=== PATIENT | male | born 1955 | race Caucasian/White ===

== ENCOUNTER 2017-01-10 13:17 | Emergency (ER) | payer OTHER, MEDICARE ==
[~2017-01-10] VITALS: Ht 175.3 cm; Wt 81.6 kg
--- NOTE | 2017-01-10 13:58 | ED GI/GU/ABDOMINAL COMPLAINT ---
History of Present Illness General Chief Complaint: General Adult Stated Complaint: CONSTIPATION Source: patient Exam Limitations: no limitations Vital Signs & Intake/Output Vital Signs & Intake/Output Vital Signs Date Time Temp Pulse Resp B/P B/P Pulse O2 O2 Flow FiO2 Mean Ox Delivery Rate 01/10 1701 99.2 104 20 140/77 95 Room Air 01/10 1541 100.0 107 22 129/73 94 Room Air 01/10 1523 Room Air 01/10 1325 98.4 112 16 123/78 96 Room Air Allergies Coded Allergies: NO KNOWN ALLERGIES (01/10/17) Reconcile Medications Aspirin (Aspirin*) 81 MG TAB.CHEW 1 TAB PO DAILY HEART HEALTH (Reported) Ciprofloxacin HCl (Cipro) 500 MG TABLET 1 TAB PO BID UTI Ciprofloxacin HCl (Cipro) 500 MG TABLET 1 TAB PO BID UTI Dextromethorphan HBr/Quinidine (Nuedexta 20-10 MG Capsule) 20 MG-10 MG CAPSULE 1 CAP PO BID MS (Reported) Divalproex Sodium (Divalproex Sodium ER) 500 MG TAB.ER.24H 1 TAB PO QPM MS ( Reported) Metoprolol Succinate 50 MG TAB.ER.24H 1 TAB PO DAILY HEART (Reported) Oxybutynin Chloride (Oxybutynin Chloride ER) 15 MG TAB.ER.24 1 TAB PO BID BLADDER (Reported) Rosuvastatin Calcium (Crestor) 40 MG TABLET 1 TAB PO DAILY CHOLESTEROL ( Reported) Sertraline HCl 100 MG TABLET 2 TAB PO DAILY MENTAL HEALTH (Reported) Teriflunomide (Aubagio) 14 MG TABLET 1 TAB PO DAILY MS (Reported) Triage Note: PT BIBA FROM HOME FOR CONSTIPATION STATES LAST TIME HE MOVED HIS BOWELS WAS 4 DAYS AGO. Triage Nurses Notes Reviewed? yes Onset: Abrupt Duration: day(s): (4), constant, continues in ED Timing: recent history No Modifying Factors: none HPI: 62-year-old male comes into emergency room for further evaluation of constipation for 4 days. Patient reports she has not had a bowel movement. Patient reports he has a history of MS and is unable to really walk. Denies any fever chills vomiting. History of quadruple bypass. Denies any chest pain shortness of breath. Denies any other associated symptoms. (HAROON LOPEZ,EFRAÍN) Past History Travel History Traveled to [place] past 21 day No Medical History Any Pertinent Medical History? 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 No (EFRAÍN LEDESMA) Review of Systems Review of Systems Constitutional: Reports: no symptoms. EENTM: Reports: no symptoms. Respiratory: Reports: no symptoms. Cardiovascular: Reports: no symptoms. GI: Reports: see HPI. Genitourinary: Reports: no symptoms. Musculoskeletal: Reports: no symptoms. Skin: Reports: no symptoms. Neurological/Psychological: Reports: no symptoms. Hematologic/Endocrine: Reports: no symptoms. Immunologic/Allergic: Reports: no symptoms. All Other Systems: Reviewed and Negative (EFRAÍN LEDESMA) Physical Exam Physical Exam General Appearance: well developed/nourished, alert, awake Head: atraumatic, normal appearance Eyes: Bilateral: normal appearance. Ears, Nose, Throat, Mouth: hearing grossly normal, moist mucous membrane Neck: normal inspection, full range of motion Respiratory: normal breath sounds, no respiratory distress Cardiovascular: regular rate/rhythm Gastrointestinal: normal bowel sounds, soft, non-tender Back: normal inspection Extremities: normal range of motion Neurologic/Psych: awake, alert, oriented x 3, normal gait, normal mood/affect Skin: intact, normal color Core Measures ACS in differential dx? No Severe Sepsis Present: No Septic Shock Present: No (EFRAÍN LEDESMA) Progress Differential Diagnosis: appendicitis, biliary colic, bowel obstruction, colon cancer, cholecystitis, diverticulitis, orchitis, pancreatitis, prostatitis, peptic ulcer, pyelonephritis, ureterolithiasis, urinary retention, urethritis, UTI/pyelo Plan of Care: Orders Procedure Date/time Status Add-on Test (ER Only) 01/10 1549 Active EKG 01/10 1547 Active Add-on Test (ER Only) 01/10 1512 Active CULTURE,URINE 01/10 1418 Active TROPONIN LEVEL 01/10 1418 Complete URINALYSIS 01/10 1357 Complete LIPASE 01/10 1354 Complete COMPREHENSIVE METABOLIC PANEL 01/10 1354 Complete CBC WITHOUT DIFFERENTIAL 01/10 1354 Complete Laboratory Tests 01/10/17 1418: Anion Gap 14, Estimated GFR > 60, BUN/Creatinine Ratio 18.0, Glucose 123 H, Calcium 9.6, Total Bilirubin 1.0, AST 74 H, ALT 71, Alkaline Phosphatase 95, Troponin I < 0.01, Total Protein 6.5, Albumin 3.7, Globulin 2.8, Albumin/ Globulin Ratio 1.3, Lipase 99, CBC w Diff MAN DIFF ORDERED, RBC 4.52 L, MCV 85.1, MCH 28.2, RDW 15.7 H, MPV 7.4, Gran % 84.1 H, Lymphocytes % 6.9 L, Monocytes % 7.5, Eosinophils % 1.3, Basophils % 0.2, Absolute Granulocytes 7.3 H, Absolute Lymphocytes 0.6 L, Absolute Monocytes 0.7 H, Absolute Eosinophils 0.1, Absolute Basophils 0, Platelet Estimate VERIFIED BY SMEAR, Polychromasia 1+ , Poikilocytosis 1+, Anisocytosis 1+, Ovalocytes 1+, PUBS MCHC 33.2, Urine Color YEL, Urine Clarity CLDY H, Urine pH 7.0, Ur Specific [place] 1.020, Urine Protein 100 H, Urine Ketones NEG, Urine Nitrite NEG, Urine Bilirubin SMALL H, Urine Urobilinogen 2.0 H, Ur Leukocyte Esterase MOD H, Ur Microscopic SEDIMENT EXAMINED, Urine RBC 50-75 H, Urine WBC > 75 H, Urine Mucus MOD H, Urine Hemoglobin MOD H, Urine Glucose NEG Microbiology 01/10 1418 URINE ROUT: Urine Culture - RECD Initial ED EKG: normal intervals, normal p-waves, normal sinus rhythm, rate (111 ), nonspecific ST T wave chg (EFRAÍN LEDESMA) Departure Departure Disposition: HOME OR SELF CARE Condition: Stable Clinical Impression Primary Impression: Constipation Secondary Impressions: UTI (urinary tract infection) Referrals: PANKAJ DECKER (PCP/Family) Additional Instructions: Take ciprofloxacin as prescribed. Use MiraLAX [id number]. Return if any other concerns worsening symptoms. Please go over all results of today's visit with your primary care doctor. Contact your primary care doctor to let them know you were here in the emergency room. There may be nonspecific findings which may not be related to your visit today here in the emergency room but may require further evaluation and chronic monitoring by your primary care doctor. If you had a laceration today the chance of foreign body always remains. You should follow-up with your primary care doctor for recheck in 3-5 days for a wound check. If you had an x-ray done there is a chance that a fracture could have been missed on initial read and you should follow-up with your primary care doctor for repeat x-rays if symptoms persist. If your blood pressure was elevated here in the emergency room please have rechecked by her primary care doctor within the next 48 hours by your primary care doctor. If you were prescribed a narcotic here in the emergency room or any type of controlled substances you're not allowed to drive while taking this medication or operate any type of heavy machinery. Narcotics can make you feel lightheaded dizziness nausea and can cause constipation. You may need to roll picker a stool softener. Thank you for choosing [facility] emergency room. Please return to the emergency room immediately if you have any other concerns worsening of symptoms. Departure Forms: Customer Survey General Discharge Information Prescriptions: Current Visit Scripts Ciprofloxacin HCl (Cipro) 1 TAB PO BID #14 TAB Ciprofloxacin HCl (Cipro) 1 TAB PO BID #14 TAB Comments 01/10/2017 5:10:24 PM Patient clinically looks well. No apparentdistress. Nontoxic appearing. Patient had a large bowel movement. Patient has no complaints of chest pain or shortness of breath through the emergency room. EKG was done due to the fact that the caregiver reported some shortness of breath earlier today and the patient has a cardiac history. He clinically looks well. He had a large bowel movement here. His symptoms have completely resolved. Patient also has a urinary tract infection. Patient started on oral antibiotics. Does not appear to be septic appearing. Follow-up with primary care doctor. Return if any other concerns worsening symptoms. Case and EKG discussed with Dr. Farrar. (EFRAÍN LEDESMA) PA/NATIONAL INVESTIGATIVE PRODUCER Co-Sign Statement Statement: ED Attending supervision documentation- [] I saw and evaluated the patient. I have also reviewed all the pertinent lab results and diagnostic results. I agree with the findings and the plan of care as documented in the PA's/NATIONAL INVESTIGATIVE PRODUCER's documentation. [X] I have reviewed the ED Record and agree with the PA's/NATIONAL INVESTIGATIVE PRODUCER's documentation. [] Additions or exceptions (if any) to the PAs/NATIONAL INVESTIGATIVE PRODUCER's note and plan are summarized below: [] (EDWARDO BURNS,RONEN Pennington
[2017-01-10] MEDS ORDERED: SERTRALINE HCL100 MG PO (14:28)
[2017-01-10] MEDS ORDERED: METOPROLOL SUCC50 M2 PO (14:29)
[2017-01-10] MEDS ORDERED: DIVALPROEX SOD500 M3 PO (14:29)
[2017-01-10] MEDS ORDERED: NUEDEXTA 20-101 EACH PO (14:29)
[2017-01-10] MEDS ORDERED: OXYBUTYNIN CHLO15 M1 PO (14:30)
[2017-01-10] MEDS ORDERED: CRESTOR40 M2 PO (14:30)
[2017-01-10] MEDS ORDERED: ASPIRIN81 M4 PO (14:31)
--- NOTE | 2017-01-10 14:41 | CT SCAN REPORT ---
EXAMINATION: CT ABDOMEN AND PELVIS WITHOUT CONTRAST CLINICAL INFORMATION: 62-year-old man with 4 days of constipation. COMPARISON: None TECHNIQUE: Multidetector volumetric imaging was performed from the superior aspect of the liver through the pubic symphysis. Sagittal and coronal reformatted images were obtained on the technologist's workstation. DLP: 309 mGy-cm FINDINGS: Evaluation of the lung bases is notable for patchy airspace opacities seen bilaterally. A 5 mm nodule is noted at the right lung base. A larger nodular area of opacity more superiorly is suspected to reflect focal alveolar consolidation rather than another nodule. The liver, spleen, pancreas, adrenals, kidneys, and partially distended gallbladder remain normal in their noncontrast appearance. There is massive rectal distention with fecal matter, measuring up to 8.5 cm in AP diameter. There is no significant rectal wall thickening or perirectal stranding to suggest stercoral colitis however. Nondilated loops of large and small bowel are otherwise fairly unremarkable. The appendix and terminal ileum are not inflamed. The prostate, seminal vesicles, and partially distended bladder are unremarkable. There is age indeterminate mild to moderate depression of the superior T12 and L2 endplates. There is a right L5 laminectomy defect. The T12 compression deformity was not visible on a chest CT from 2009. IMPRESSION: 1. There is massive rectal distention with desiccated fecal matter. However, there is no CT evidence of associated stercoral colitis. 2. Mild to moderate age-indeterminate superior endplate compression fractures of T12 and L2. 3. Nonspecific patchy airspace opacity seen in both lung bases with an associated 5 mm indeterminate nodule at the left lung base.
[2017-01-10 14:48] LABS: ABSOLUTE BASOPHIL COUNT 0 /CUMM (0.0-0.2); ABSOLUTE EOSINOPHIL COUNT 0.1 /CUMM (0.0-0.7); ABSOLUTE GRANULOCYTE CT 7.3 /CUMM (1.4-6.5); ABSOLUTE LYMPH COUNT 0.6 /CUMM (1.2-3.4); ABSOLUTE MONOCYTE COUNT 0.7 /CUMM (0.10-0.60); BASOPHIL % 0.2 % (0.0-2.0); EOSINOPHIL % 1.3 % (0-5); GRANULOCYTE % 84.1 % (42.2-75.2); HEMATOCRIT 38.5 % (42-52); MEAN CORPUSCULAR HGB 28.2 PG (27.0-31.0); MEAN CORPUSCULAR HGB CONC 33.2 G/DL (33.0-37.0); MEAN CORPUSCULAR VOLUME 85.1 FL (80.0-94.0); MEAN PLATELET VOLUME 7.4 FL (7.4-10.4); PLATELET COUNT 184 /CUMM (130-400); RBC DISTRIBUTION WIDTH 15.7 % (11.5-14.5); RED BLOOD CELL CT 4.52 /CUMM (4.70-6.10); WHITE BLOOD CELL COUNT 8.7 /CUMM (4.8-10.8)
[2017-01-10] MEDS ORDERED: AUBAGIO14 M1 PO (15:11)
[2017-01-10] MEDS ORDERED: CIPRO500 M1 PO ×2 (16:46→17:12)
[2017-01-10 17:01] VITALS: BP 140/77
== END 2017-01-10 17:02 ==
LOC: ERH 13:17
PROVIDERS: Physician Assistant Medical
DX: K59.00 Constipation, unspecified (principal); N39.0 Urinary tract infection, site not specified
CPT/HCPCS: 74176; 81001; 87086; 93005; 93010

== ENCOUNTER 2017-09-06 18:11 | Inpatient (IN) | payer OTHER, MEDICARE ==
[~2017-09-06] VITALS: Ht 175.3 cm; Wt 80.3 kg
[~2017-09-06 18:11] MED LIST: ASPIRIN81 M4 PO; AUBAGIO14 M1 PO; CIPRO500 M1 PO; CRESTOR40 M2 PO; DIVALPROEX SOD500 M3 PO; METOPROLOL SUCC50 M2 PO; NUEDEXTA 20-101 EACH PO; OXYBUTYNIN CHLO15 M1 PO; SERTRALINE HCL100 MG PO
--- NOTE | 2017-09-06 18:57 | ED AMS/SEIZURE/WEAK/DIZZY ---
History of Present Illness General Chief Complaint: General Adult Stated Complaint: BIBA WEAKNESS Source: patient, family Exam Limitations: poor historian Vital Signs & Intake/Output Vital Signs & Intake/Output Vital Signs Date Time Temp Pulse Resp B/P B/P Pulse O2 O2 Flow FiO2 Mean Ox Delivery Rate 09/07 0041 100.4 02/ 0035 100.4 09/06 2358 102.0 112 20 102/54 93 Room Air 09/06 2346 103.0 09/06 2309 103.0 110 20 118/61 94 Room Air 09/06 2221 111 112/59 02/ 2128 90/50 / 2056 99.5 100 20 85/50 94 Room Air / 1915 100.3 100 106/64 95 09/06 1900 Room Air 09/06 1857 98.5 102 20 186/80 95 Room Air ED Intake and Output 09/07 0000 09/06 1200 Intake Total Output Total 300 Balance -300 Output, Urine 300 Patient 150 lb Weight Allergies Coded Allergies: No Known Allergies (09/06/17) Reconcile Medications Aspirin (Aspirin*) 81 MG TAB.CHEW 1 TAB PO DAILY HEART HEALTH (Reported) Ciprofloxacin HCl (Cipro) 500 MG TABLET 1 TAB PO BID UTI Ciprofloxacin HCl (Cipro) 500 MG TABLET 1 TAB PO BID UTI Dextromethorphan HBr/Quinidine (Nuedexta 20-10 MG Capsule) 20 MG-10 MG CAPSULE 1 CAP PO BID MS (Reported) Divalproex Sodium (Divalproex Sodium ER) 500 MG TAB.ER.24H 1 TAB PO QPM MS ( Reported) Metoprolol Succinate 50 MG TAB.ER.24H 1 TAB PO DAILY HEART (Reported) Oxybutynin Chloride (Oxybutynin Chloride ER) 15 MG TAB.ER.24 1 TAB PO BID BLADDER (Reported) Rosuvastatin Calcium (Crestor) 40 MG TABLET 1 TAB PO DAILY CHOLESTEROL ( Reported) Sertraline HCl 100 MG TABLET 2 TAB PO DAILY MENTAL HEALTH (Reported) Teriflunomide (Aubagio) 14 MG TABLET 1 TAB PO DAILY MS (Reported) Triage Note: biba for increased weakness to bilateral lower ext. hx of MS, wheelchair bound at baseline. hx of frequent UTI's family believe pt has another UTI. pt hot to touch, awake/alert with easy wob, a&o to baseline. Triage Nurses Notes Reviewed? yes Onset: Abrupt Duration: day(s):, constant, getting worse Timing: recent history Injury Environment: home HPI: 62-year-old male with a history of multiple sclerosis comes in by ambulance for increased weakness. Patient is unable to ambulate which is below his normal baseline of function. Subjective fevers and chills. History of urinary tract infections. Patient is a very poor historian. Patient is unabke to walk at home. He denies any pain currently. (Gavin Tomas) Past History Travel History Traveled to [place] past 21 day No Medical History Any Pertinent Medical History? 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 No (Gavin Tomas) Review of Systems Review of Systems Constitutional: Reports: see HPI. EENTM: Reports: no symptoms. Respiratory: Reports: no symptoms. Cardiovascular: Reports: no symptoms. GI: Reports: no symptoms. Genitourinary: Reports: see HPI. Musculoskeletal: Reports: see HPI. Skin: Reports: no symptoms. Neurological/Psychological: Reports: no symptoms. Hematologic/Endocrine: Reports: no symptoms. Immunologic/Allergic: Reports: no symptoms. All Other Systems: Reviewed and Negative (Gavin Tomas) Physical Exam Physical Exam General Appearance: alert, awake, mild distress Head: atraumatic Eyes: Bilateral: normal appearance. Ears, Nose, Throat: normal ENT inspection, hearing grossly normal Neck: normal inspection Respiratory: no respiratory distress Cardiovascular: regular rate/rhythm, tachycardia Back: normal inspection Extremities: limited range of motion Neurologic/Psych: awake, alert, oriented x 3 Skin: intact, normal color Core Measures ACS in differential dx? No CVA/TIA Diagnosis No Sepsis Present: No Sepsis Focused Exam Completed? No (Gavin Tomas) Progress Differential Diagnosis: anemia, dehydration, electrolyte imbalance, pneumonia, sepsis, UTI/pyelo, ms Plan of Care: Orders Procedure Date/time Status Heart Healthy Diet 09/07 B Active Intake & Output 09/06 2350 Active Patient Data 09/06 2313 Active ED Holding Orders 09/06 2236 Active Admit to inpatient 09/06 2236 Active Vital Signs 09/06 2236 Active Code Status 09/06 2236 Active Add-on Test (ER Only) 09/06 2218 Active CULTURE,URINE 09/06 2199 Active LACTIC ACID 09/06 2124 Complete RAPID VIRAL INFLUENZA A 09/06 1945 Complete BLOOD CULTURE 09/06 1824 Active URINALYSIS 09/06 1824 Complete LACTIC ACID 09/06 1824 Complete COMPREHENSIVE METABOLIC PANEL 09/06 1824 Complete CBC WITHOUT DIFFERENTIAL 09/06 1824 Complete EKG 09/06 1824 Active Current Medications Sig/Tobin Start time Last Medication Dose Stop Time Status Admin Sodium Chloride 1,000 ML ONCE ONE 09/06 2244 AC 09/06 (Normal Saline 0.9%) 09/07 Laboratory Tests 09/06/172199: Urinalysis MOD H, Urine Color YEL, Urine Clarity CLDY H, Urine pH 6.0, Ur Specific [place] 1.025, Urine Protein 100 H, Urine Ketones TRACE H, Urine Nitrite POS H, Urine Bilirubin NEG, Urine Urobilinogen 0.2, Ur Leukocyte Esterase LARGE H, Ur Microscopic SEDIMENT EXAMINED, Urine RBC 25-50 H, Urine WBC PACKD H, Ur Epithelial Cells FEW, Urine Bacteria PACKD H, Urine Mucus FEW, Urine Hemoglobin LARGE H, Urine Glucose NEG 09/06/172124: Lactic Acid 2.1 09/06/17 1850: Anion Gap 17 H, Estimated GFR > 60, BUN/Creatinine Ratio 19.0, Glucose 117 H, Lactic Acid 4.4 H, Calcium 9.2, Total Bilirubin 0.9, AST 65 H, ALT 85 H, Alkaline Phosphatase 83, Total Protein 6.5, Albumin 3.9, Globulin 2.6, Albumin/ Globulin Ratio 1.5, CBC w Diff MAN DIFF ORDERED, RBC 4.89, MCV 86.1, MCH 29.4, MCHC 34.1, RDW 15.4 H, MPV 9.6, Gran % 90.9 H, Lymphocytes % 2.7 L, Monocytes % 6.2, Eosinophils % 0.2, Basophils % 0, Absolute Granulocytes 8.8 H, Segmented Neutrophils 84 H, Band Neutrophils 7 H, Absolute Lymphocytes 0.3 L, Lymphocytes 3 L, Monocytes 6, Absolute Monocytes 0.6, Absolute Eosinophils 0, Absolute Basophils 0, Platelet Estimate VERIFIED BY SMEAR, Normocytic RBCs VERIFIED, Normochromic RBCs VERIFIED, Fld Total RBCs Counted 100 Microbiology 09/06 2308 NASOPHARYN: Influenza Virus A & B Rapid Smear - COMP 09/06 2199 URINE ROUT: Urine Culture - RECD 09/06 1899 BLOOD: Blood Culture - RECD 09/06 185 BLOOD: Blood Culture - RECD Diagnostic Imaging: Viewed by Me: Radiology Read. Discussed w/RAD: Radiology Read. Radiology Impression: PATIENT: NICHOLE OCAMPO PRESENT AGE: 62 PATIENT ACCOUNT NO: [id number] : 57 LOCATION: [facility] ORDERING PHYSICIAN: Gavin LOPEZ SERVICE DATE: 09/06/17 EXAM TYPE : RAD - XRY-PORTABLE CHEST XRAY EXAMINATION: XR PORTABLE CHEST CLINICAL INFORMATION: Weakness COMPARISON: Chest x-ray of 08/17/2013. Chest CT of 2009. TECHNIQUE: Portable frontal view of the chest was obtained. FINDINGS: Multiple cardiac leads and wires overlie the chest. The sternotomy wires appear intact. Cardiac valve prosthesis is again noted without change in configuration. The lungs are hypoexpanded. No focal consolidation, changes of congestion or pleural effusions. No pneumothorax. Cardiomediastinal silhouette is unchanged. IMPRESSION: Hypoexpanded lungs. No acute pulmonary process. DICTATED BY: Daniel Bailey MD DATE/TIME DICTATED:09/06/172004 CASING CREW PUSHER:RASHIDA DATE/TIME TRANSCRIBED:09/06/172004 CONFIDENTIAL, DO NOT COPY WITHOUT APPROPRIATE AUTHORIZATION. <Electronically signed in Other Vendor System> SIGNED BY: Daniel Bailey MD 09/06/172009 Initial ED EKG: normal sinus rhythm, rate (112), nonspecific ST T wave chg (Gavin Tomas) Departure Departure Disposition: STILL A PATIENT Condition: Stable Clinical Impression Primary Impression: UTI (urinary tract infection) Secondary Impressions: Hypotension, Multifactorial gait disorder, Multiple sclerosis Referrals: April Heller APRN (PCP/Family) Departure Forms: Customer Survey General Discharge Information Admission Note Spoke With: Danyelle Ramos MD Documentation of Exam: Documentation of any treatments & extenuating circumstances including Concerns Regarding Discharge (functional status, medication knowledge or non-compliance, living conditions, etc.) that warrant an admission rather than observation: Patient will require IV antibiotics. IV fluids. Physical therapy consultation. Unable to ambulate. Medically not safe for discharge. (Gavin Tomas) PA/DELIVERY CREW MEMBER Co-Sign Statement Statement: ED Attending supervision documentation- [X] I saw and evaluated the patient. I have also reviewed all the pertinent lab results and diagnostic results. I agree with the findings and the plan of care as documented in the PA's/DELIVERY CREW MEMBER's documentation. [X] I have reviewed the ED Record and agree with the PA's/DELIVERY CREW MEMBER's documentation. [] Additions or exceptions (if any) to the PAs/DELIVERY CREW MEMBER's note and plan are summarized below: [Patient be admitted for IV antibiotics. Follow-up urine cultures and blood cultures. Patient was hypotensive but he responded to IV fluids.] (Charan BURNS,[place]) Critical Care Note Critical Care Note Critical Care Time: 30-74 min (40) (Gavin Tomas)
[2017-09-06 19:16] LABS: ABSOLUTE BASOPHIL COUNT 0 /CUMM (0.0-0.2); ABSOLUTE EOSINOPHIL COUNT 0 /CUMM (0.0-0.7); ABSOLUTE GRANULOCYTE CT 8.8 /CUMM (1.4-6.5); ABSOLUTE LYMPH COUNT 0.3 /CUMM (1.2-3.4); ABSOLUTE MONOCYTE COUNT 0.6 /CUMM (0.10-0.60); BASOPHIL % 0 % (0.0-2.0); EOSINOPHIL % 0.2 % (0-5); HEMATOCRIT 42.1 % (42-52); MEAN CORPUSCULAR HGB 29.4 PG (27.0-31.0); MEAN CORPUSCULAR HGB CONC 34.1 G/DL (33.0-37.0); MEAN CORPUSCULAR VOLUME 86.1 FL (80.0-94.0); MEAN PLATELET VOLUME 9.6 FL (7.4-10.4); RBC DISTRIBUTION WIDTH 15.4 % (11.5-14.5); RED BLOOD CELL CT 4.89 /CUMM (4.70-6.10); WHITE BLOOD CELL COUNT 9.7 /CUMM (4.8-10.8)
[2017-09-06 19:17] LABS: GRANULOCYTE % 90.9 % (42.2-75.2)
[2017-09-06 19:42] LABS: PLATELET COUNT 85 /CUMM (130-400)
--- NOTE | 2017-09-06 20:10 | RADIOLOGY REPORT ---
EXAMINATION: XR PORTABLE CHEST CLINICAL INFORMATION: Weakness COMPARISON: Chest x-ray of 08/17/2013. Chest CT of 12/24/2009. TECHNIQUE: Portable frontal view of the chest was obtained. FINDINGS: Multiple cardiac leads and wires overlie the chest. The sternotomy wires appear intact. Cardiac valve prosthesis is again noted without change in configuration. The lungs are hypoexpanded. No focal consolidation, changes of congestion or pleural effusions. No pneumothorax. Cardiomediastinal silhouette is unchanged. IMPRESSION: Hypoexpanded lungs. No acute pulmonary process.
--- NOTE | 2017-09-06 23:52 | History & Physical ---
Martin BURNS,[facility] 09/06/17 1728: General Information and HPI MD Statement: I have seen and personally examined NICHOLE OCAMPO and documented this H&P. The patient is a 62 year old M who presented with a patient stated chief complaint of [R foot numbness]. Source of Information: patient History of Present Illness: 62-year-old male with past medical history of multiple sclerosis, CABG status post four-vessel bypass, valve replacement, spinal surgery presenting for right foot numbness. The patient states that his symptoms started about 2 weeks ago which he describes as his right foot fall asleep. Says that it has been getting worse. Does not describe as a pain but more of an annoyance. Patient states that he has never had this before. He has some history of diabetes. Continues to have a normal by mouth intake. The patient states his last MS exacerbation was a couple years ago. Where he had noted numbness in his leg. The patient states the foot numbness is similar to the leg numbness of his MS exacerbation. The patient states that he has not seen his MS specialist Roxana for couple years. The patient denies any recent vaccines but he does state that he has had some sick contacts. The patient states he has had increased urinary frequency. The patient denies any headaches, fevers, chills, chest pain, palpitations, shortness breath, cough, dumping, dysuria, or changes in his bowel movements. According to review of the medical records patient was treated with the recent Cipro. Allergies/Medications Home Med list Aspirin (Aspirin*) 81 MG TAB.CHEW 1 TAB PO DAILY HEART HEALTH (Reported) Ciprofloxacin HCl (Cipro) 500 MG TABLET 1 TAB PO BID UTI Ciprofloxacin HCl (Cipro) 500 MG TABLET 1 TAB PO BID UTI Dextromethorphan HBr/Quinidine (Nuedexta 20-10 MG Capsule) 20 MG-10 MG CAPSULE 1 CAP PO BID MS (Reported) Divalproex Sodium (Divalproex Sodium ER) 500 MG TAB.ER.24H 1 TAB PO QPM MS ( Reported) Metoprolol Succinate 50 MG TAB.ER.24H 1 TAB PO DAILY HEART (Reported) Oxybutynin Chloride (Oxybutynin Chloride ER) 15 MG TAB.ER.24 1 TAB PO BID BLADDER (Reported) Rosuvastatin Calcium (Crestor) 40 MG TABLET 1 TAB PO DAILY CHOLESTEROL ( Reported) Sertraline HCl 100 MG TABLET 2 TAB PO DAILY MENTAL HEALTH (Reported) Teriflunomide (Aubagio) 14 MG TABLET 1 TAB PO DAILY MS (Reported) Past History Travel History Traveled to [place] past 21 day No Medical History Neurological: multiple sclerosis EENT: NONE Cardiovascular: QUADRUPILE BYPASS 7 YEARS TOTAL VALVUE REPLACEMENT Respiratory: NONE Gastrointestinal: NONE Hepatic: NONE Renal: NONE Musculoskeletal: NONE Psychiatric: bipolar disease Endocrine: NONE Surgical History Surgical History: none Past Family/Social History Psychosocial History Smoking Status: Never Smoked ETOH Use: quit 5 years ago Illicit Drug Use: denies illicit drug use Review of Systems Review of Systems Constitutional: Reports: no symptoms. Genitourinary: Reports: frequency. Musculoskeletal: Reports: see HPI. Exam & Diagnostic Data Last 24 Hrs of Vital Signs/I&O Vital Signs Date Time Temp Pulse Resp B/P B/P Pulse O2 O2 Flow FiO2 Mean Ox Delivery Rate 09/07 0643 98.6 96 18 90/50 92 Room Air / 0101 99.6 106 22 100/58 95 Room Air / 0041 100.4 02/ 0035 100.4 / 2358 102.0 112 20 102/54 93 Room Air 02/ 2346 103.0 02/05 2309 103.0 110 20 118/61 94 Room Air 02/ 2221 111 112/59 02/05 2128 90/50 02/05 2056 99.5 100 20 85/50 94 Room Air 02/ 1915 100.3 100 106/64 95 02/05 1900 Room Air 02/ 1857 98.5 102 20 186/80 95 Room Air Intake & Output 09/07 1600 /06 0800 02/06 0000 Intake Total 250 Output Total 300 Balance 250 -300 Intake, IV 10 Intake, Oral 240 Number 1 Bowel Movements Output, Urine 300 Patient 177 lb 150 lb Weight Weight Reported by Patient Measurement Method Physical Exam General Appearance Alert, Cooperative Neck posterior cervical surgery scar Cardiovascular tachycardic, systolic click murmur Abdomen Normal Bowel Sounds, Soft, No Tenderness, abdominal laparoscopic scars noted Neurological left Varghese Raul pupil, up going Bilateral Babinski, 2+ biceps and patella reflex Extremities decrease sensation of right lower extremity, duplex strength of right lower extremity Assessment/Plan Assessment: A: 62-year-old male with past medical history of multiple sclerosis, CABG status post four-vessel bypass, valve replacement, spinal surgery presenting for right foot numbness most likely due to MS exacerbation. P: #R foot numbness most likely MS exacerbation -obtain neurology consult for steroids -cont depakote - cont reji castillo -call sister to bring in MS medications #UTI Urinalysis positive nitrites, large leukocyte esterase, packed WBC Lactic acid 4.4, 2.1 -f/u urine cx -trend lactic acid -cont ceftriaxone #thrombocytopenia Plt 85 -avoid heparin #hypotension Bp 90/50 -holding metoprolol #transmainitis Ast 65, ALT 85 -f/u repeat lfts #hld -cont Atorvastatin #urinary retnetion -cont oxybutinin #vitamins -cont Thiamine #mental health -cont Sertraline #DVT prophylaxis #Full code As Ranked By This Provider Problem List: 1. Multiple sclerosis 2. UTI (urinary tract infection) 3. Hypotension Core Measures/Misc (04/18) Acute Coronary Syndrome ACS Diagnosis: No Congestive Heart Failure Congestive Heart Failure Diagnosis No Cerebrovascular Accident CVA/TIA Diagnosis: No VTE (View Protocol) VTE Risk Factors Acute Medical Illness No Mechanical VTE Prophylaxis d/t N/A MechProphylax Ordered No VTE Pharm Prophylaxis d/t Platelets below ref range Sepsis (View protocol) Sepsis Present: No Danyelle Ramos 09/07/17 0755: General Information and HPI Allergies/Medications Allergies: Coded Allergies: lactose (Severe, DIARRHEA 09/07/17) Attending MD Review Statement Attending Statement Attending MD Statement: examined this patient, discuss w/resident/PA/MANAGEMENT NURSE RN, agreed w/resident/PA/MANAGEMENT NURSE RN, reviewed EMR data (avail), reviewed images, amended to note Attending Assessment/Plan: CC: Right foot numbness PMH: MS, CAD S/P CABG, valve replacement, bipolar disorder (patient denies), neck surgery, back surgery Patient came to ER for increased weakness in bilateral lower extremity right more than left. He also noticed right foot numbness, symptoms appeared to be exactly like his previous MS exacerbation. He states his last MS exacerbation was one month back, claims that he was in [facility] for the same. ( Norecords seen). Patient endorses increased urinary frequency, appears to be incontinent. But denies any dysuria, lower abdominal pain, back pain. He was recently treated for UTI (from claims history). He denies any diplopia, vision changes, denies fever, chills, headache, nausea, vomiting, palpitations, diarrhea. He is wheelchair-bound, has multiple falls. Vitals: Tmax 103.0, pulse 100, RR 20, blood pressure 186/80 on arrival trended down to 106/64, transiently 90/50 improved with hydration to 118/61, saturating well on room air. On exam: A O 3, thin built, flat affect, Cooperative, no acute distress, neck supple, JVD normal, no lymphadenopathy, mucosa moist, right leg weakness 3/5, strength intact left lower extremity, bilateral upper extremity strength normal, ? APD, increased tone and right lower extremity, horizontal nystagmus, no dependent edema, no obvious skin rashes or inflammation except some bruises on legs CVS: S1-S2, RRR, systolic murmur. RS: Clear to auscultate bilaterally. Abdomen: Soft, NT, ND, bowel sounds present. Labs: WBC 9.7, hemoglobin 14.4, hematocrit 42.1, platelet 85, neutrophils 90%, bands 7, sodium 140, potassium 3.8, chloride 104, bicarbonate 19, BUN 19, creatinine 1.0, anion gap 17, glucose 117, calcium 9.2, lactate 4.4 trended down to 2.1, AST 65, ALT 85, bilirubin 0.9, alkaline phosphatase 83 UA positive for nitrites, leukocyte esterase CXR:Hypoexpanded lungs. No acute pulmonary process. Assessment and plan 62-year-old male with multiple comorbidities presented in ER for right lower extremity weakness and numbness more than his usual, symptoms similar to his previous MS exacerbation. Patient found to have fever in ER most likely secondary to UTI, urinary incontinence. Patient has transient hypotension which responded to fluid, significant lactic acidosis, left shift. No CVA tenderness on examination, mucosa dry. All symptoms appear secondary to UTI but urinary retention should be ruled out especially in case of MS. His worsening of baseline weakness from MS could be secondary to urine infection. At the same time MS exacerbation could not be ruled out. We Will get neuro opinion. + UTI ? Cystitis + ? MS exacerbation + Thrombocytopenia unclear etiology probably clumping + Lactic acidosis + History of MS, CAD S/P CABG, valve replacement, bipolar disorder (patient denies), neck surgery, back surgery - Admit to general medicine - Continue aggressive hydration - Trend lactate - Continue IV ceftriaxone - Follow up urine culture and blood cultures -Serial neuro checks - Posterior void bladder scan - Neurologic consult in AM - Need to confirm his medications from patient's family (patient does not provide appropriate detail) - DVT prophylaxis with Alps only: thrombocytopenia Sky BURNS,Felix 09/07/17 0850: Resident Review Statement Resident Statement: examined this patient, discussed with analysis intern, agreed with analysis intern Other Findings: Mr. Ocampo his 18 year old male with past medical history of MS, pulmonary TB, MRI status post quadruple bypass, hyperlipidemia and questionable hypertension who presented to ED with chief complaint of increased weakness and numbness of RIGHT foot. Patient reported that his been having right foot numbness for the last 2 weeks, didn't feel actual pain but only discomfort. Patient has bilateral lower extremity weakness as a result of MS, use wheelchair to ambulate around but he is able to walk and transfer himself between it or chair and wheelchair. Last him S exacerbation was couple of years ago, used to follow with neurologist at [facility] but haven't seen him in the last couple of years. Patient denied any chest pain, shortness of breath, palpitation, platelet if agent, headache, numbness, abdominal pain, nausea vomiting, diarrhea or constipation, denied dysuria however reported increased urine frequency and on presentation had fever. He has history of alcohol consumption and quit 5 years ago, no smoking or illicit drugs. No history of sick contact. Didn't get flu or pneumonia vaccine. Patient has a sister who is POA. Problem list -UTI -MS exacerbation with new symptoms of weakness and numbness of right foot and positive varghese raul pupil -Thrombocytopenia -Anion gap metabolic acidosis due to Lactic acidosis -Transaminitis Plan -Admit to general medical floor -Vitals every shift -Neuro check every 4 hours -Continue MS home medication -Obtain neuro consultation -We'll hold off starting steroid bending neuro recommendation -Follow-up CBC and watch platelet level, patient had previous thrombocytopenia however today is the lowest reading -Bleeding precaution -Avoid NSAIDs, heparin products -IV fluid -Trend lactic acid -Follow up liver function test in a.m. -Follow urine culture and blood culture -Follow up urine alcohol level -Patient claim history shows metoprolol however he denied any history of hypertension. Will hold metoprolol for now and consider medication in a.m. DVT prophylaxis ALPS given thrombocytopenia Code full Diet regular
[2017-09-07 01:01] VITALS: BP 100/58
[2017-09-07 06:43] VITALS: BP 90/50
--- NOTE | 2017-09-07 07:40 | PN- Housestaff ---
Mark BURNS,Victoria 09/07/17 0740: Subjective Follow-up For: multiple sclerosis sepsis or urologic origin Subjective: Patient states that he is "not feeling well". He points out his numb feet and weakness, which were the main reasons for him to come in. He states that he is having some shortness of breath and subjective fever. Denies cough, diarrhea or constipation, pain. Review of Systems Constitutional: Reports: weakness. EENTM: Reports: no symptoms. Cardiovascular: Reports: no symptoms. Respiratory: Reports: short of breath. Gastrointestinal: Reports: no symptoms. Genitourinary: Reports: no symptoms. Musculoskeletal: Reports: no symptoms. Skin: Reports: no symptoms. Neurological/Psychological: Reports: numbness. Hematologic/Endocrine: Reports: no symptoms. Objective Last 24 Hrs of Vital Signs/I&O Vital Signs Date Time Temp Pulse Resp B/P B/P Pulse O2 O2 Flow FiO2 Mean Ox Delivery Rate 09/07 1230 100.5 09/07 1230 100.5 09/07 1144 102.2 108 22 92/50 93 Nasal 1.5L Cannula 09/07 1142 102.2 09/07 0800 93 Nasal 1.5L Cannula 09/07 0643 98.6 96 18 90/50 92 Room Air 09/07 0101 99.6 106 22 100/58 95 Room Air 09/07 0041 100.4 / 0035 100.4 / 2358 102.0 112 20 102/54 93 Room Air 09/06 2346 103.0 09/06 2309 103.0 110 20 118/61 94 Room Air 09/06 2221 111 112/59 / 2128 90/50 09/06 2056 99.5 100 20 85/50 94 Room Air 09/06 1915 100.3 100 106/64 95 /05 1900 Room Air / 1857 98.5 102 20 186/80 95 Room Air Intake & Output 09/07 1600 / 0800 02/ 0000 Intake Total 250 Output Total 300 Balance 250 -300 Intake, IV 10 Intake, Oral 240 Number 1 Bowel Movements Output, Urine 300 Patient 177 lb 150 lb Weight Weight Reported by Patient Measurement Method Physical Exam General Appearance: Alert, Oriented X3, Cooperative, Mild Distress Skin: No Rashes, No Breakdown, No Significant Lesion Skin Temp/Moisture Exam: Warm/Dry Sepsis Skin Exam (color): Normal for Ethnicity HEENT: Atraumatic, Mucous Membr. moist/pink, left sluggish pupillary response. Cardiovascular: Regular Rate, Normal S1, Normal S2, No Murmurs Lungs: mild wheezing Abdomen: Normal Bowel Sounds, Soft, No Tenderness Neurological: Normal Speech, Cranial Nerves 3-12 NL, Reflexes 2+, decreased sensation in a stocking distribution. , upgoing babinski bilaterally Extremities: No Clubbing, No Cyanosis, No Edema, Normal Pulses Vascular: Normal Pulses, Pulses Symmetrical Current Medications: Current Medications Sig/Tobin Start time Last Medication Dose Route Stop Time Status Admin Acetaminophen 650 MG Q6P PRN 09/07 0300 AC 09/07 PO 1142 Acetaminophen 0 .STK-MED ONE 09/069 DC IV Acetaminophen 1,000 MG ONCE ONE 09/06 233 DC 09/06 N/A 1 UNIT IV 09/06 2344 2346 Atorvastatin Calcium 40 MG 1700 09/07 1700 AC PO Ceftriaxone Sodium 1,000 MG 09/07 2130 AC IV Ceftriaxone Sodium 1,000 MG DAILY 09/07 1000 DC IV Ceftriaxone Sodium 1,000 MG ONCE ONE 09/06 2114 DC 09/06 IV 09/06 2115 2117 Ceftriaxone Sodium 0 .STK-MED ONE 09/06 211 DC .ROUTE Dextromethorphan/ 1 CAP BID 09/07 1230 AC Quinidine PO Divalproex Sodium 500 MG 0 09/07 2200 AC PO Methylprednisolone 60 MG ONCE ONE 09/07 1045 DC 09/07 IV 09/07 1046 1138 Non-Formulary 0 SEE ADMIN CRITERIA 09/07 314 CAN Medication ANY Non-Formulary 0 SEE ADMIN CRITERIA 09/07 0315 UNV Medication ANY Oxybutynin Chloride 5 MG TID 09/07 1000 AC 09/07 PO 0935 Patient Medication 1 ED ONE ONE 09/07 1245 DC Teaching ED 09/07 1246 Sertraline HCl 200 MG DAILY 09/07 1000 AC 09/07 PO 0935 Sodium Chloride 1,000 ML Q8H 09/07 1030 AC 09/07 IV 09/08 0229 1022 Sodium Chloride 1,000 ML BOLUS ONE 09/07 1030 CAN IV 09/07 1129 Sodium Chloride 1,000 ML ONCE ONE 09/06 2245 DC 09/06 IV 09/07 0524 2251 Sodium Chloride 2,041.17 ML ONCE ONE 09/06 1999 DC 09/06 IV 09/06 Sodium Chloride 1,000 ML BOLUS ONE 09/06 1899 DC 09/06 IV 09/06 1958 190 Thiamine HCl 100 MG DAILY 09/07 1000 AC 09/07 PO 0935 Last 24 Hrs of Lab/Carlin Results Last 24 Hrs of Labs/Mics: Laboratory Tests 09/07/17 1336: Lactic Acid Pending 09/07/17 1040: Lactic Acid 3.3 H 09/07/17 0720: Lactic Acid 5.5 H 09/07/17 0720: Anion Gap 18 H, Estimated GFR > 60, BUN/Creatinine Ratio 19.2, Total Bilirubin 0.7, Direct Bilirubin 0.3, AST 54, ALT 63, Alkaline Phosphatase 61, Pro-B- Natriuretic Pept 4210 H, Total Protein 5.2 L, Albumin 2.9 L, PT 14.8 H, INR 1.41 H, APTT 28, CBC w Diff MAN DIFF ORDERED, RBC 3.85 L, MCV 86.4, MCH 28.4, MCHC 32.9 L, RDW 15.5 H, MPV 10.0, Gran % 91.7 H, Lymphocytes % 2.9 L, Monocytes % 5.3, Eosinophils % 0, Basophils % 0.1, Absolute Granulocytes 11.9 H , Segmented Neutrophils 71, Band Neutrophils 18 H, Absolute Lymphocytes 0.4 L, Lymphocytes 6 L, Monocytes 5, Absolute Monocytes 0.7 H, Absolute Eosinophils 0 , Absolute Basophils 0, Platelet Estimate DECREASED, Hypochromic-Microcytic 1+, Anisocytosis 1+ 09/06/170: Urinalysis MOD H, Urine Color YEL, Urine Clarity CLDY H, Urine pH 6.0, Ur Specific [place] 1.025, Urine Protein 100 H, Urine Ketones TRACE H, Urine Nitrite POS H, Urine Bilirubin NEG, Urine Urobilinogen 0.2, Ur Leukocyte Esterase LARGE H, Ur Microscopic SEDIMENT EXAMINED, Urine RBC 25-50 H, Urine WBC PACKD H, Ur Epithelial Cells FEW, Urine Bacteria PACKD H, Urine Mucus FEW, Urine Hemoglobin LARGE H, Urine Glucose NEG 09/06/17 2125: Lactic Acid 2.1 09/06/17 1850: Anion Gap 17 H, Estimated GFR > 60, BUN/Creatinine Ratio 19.0, Glucose 117 H, Hemoglobin A1c 5.0, Lactic Acid 4.4 H, Calcium 9.2, Total Bilirubin 0.9, AST 65 H, ALT 85 H, Alkaline Phosphatase 83, Total Protein 6.5, Albumin 3.9, Globulin 2.6, Albumin/Globulin Ratio 1.5, CBC w Diff MAN DIFF ORDERED, RBC 4.89, MCV 86.1 , MCH 29.4, MCHC 34.1, RDW 15.4 H, MPV 9.6, Gran % 90.9 H, Lymphocytes % 2.7 L, Monocytes % 6.2, Eosinophils % 0.2, Basophils % 0, Absolute Granulocytes 8.8 H, Segmented Neutrophils 84 H, Band Neutrophils 7 H, Absolute Lymphocytes 0.3 L, Lymphocytes 3 L, Monocytes 6, Absolute Monocytes 0.6, Absolute Eosinophils 0 , Absolute Basophils 0, Platelet Estimate VERIFIED BY SMEAR, Normocytic RBCs VERIFIED, Normochromic RBCs VERIFIED, Fld Total RBCs Counted 100 09/06/17 1825: Ref Lab Test Result Pending Microbiology 09/06 2309 NASOPHARYN: Influenza Virus A & B Rapid Smear - COMP 09/06 2199 URINE ROUT: Urine Culture - RES GRAM NEGATIVE RODS 09/06 190 BLOOD: Blood Culture - RES GRAM NEGATIVE RODS 09/06 1850 BLOOD: Blood Culture - RES GRAM NEGATIVE RODS Assessment/Plan Assessment: 62-year-old male with multiple comorbidities presented in ER for right lower extremity weakness and numbness more than his usual, symptoms similar to his previous MS exacerbation. Patient found to have fever, tachycardia in ER, later elevated WBC and positive urine and blood cultures with GNRs. Plan #R foot numbness and weakness most likely MS exacerbation -patient has other signs that can possibly be due to MS exacerbation including sluggish pupils and history urinary retention. -we have consulted neurology for administration of steroids for his MS -cont depakote -cont aubagio, nudexta - sister will bring his medications. They are nonformulary here and expensive. #wheezing and dyspnea -we will give patient one dose of steroids IV 60mg #UTI -patient is asymptomatic -Urinalysis positive nitrites, large leukocyte esterase, packed WBC -Positive urine culture -Lactic acid 4.4, 2.1 and then 5 after fluids are stopped. Back down to low of 2.0 on fluids at a rate of 125cc/min. -cont ceftriaxone 1g daily -continue fluids -follow culture specificities #dyspnea -92% on RA -cxr on admission was normal -patient had episode of SOB after we gave fluids for his lactic acidosis. We ordered a repeat CXR and echocardiogram as patient has had CABG, has had no echo for 7 years, and has an elevated BNP from his baseline value (that was done years ago). -repeat cxr clear #fever -patient spiked a fever again to 102 near noon so we have ordered a CT abdomen pelvis with IV contrast to look for evidence of UTI tracking up to kidneys -we will need consent from the patient's sister who is his POA. she is in school and will come here around 4pm. #thrombocytopenia -Plt 85 -avoid heparin #hypotension -BP 90/50, patient says he chronically runs low -fluids 125cc/hour, blood pressure has responded well -holding metoprolol -responded well # mild transmainitis -Ast 65, ALT 85 -f/u repeat lfts #hld -cont Atorvastatin #urinary retnetion -cont oxybutinin #vitamins -cont Thiamine #mental health -cont Sertraline #DVT prophylaxis #Full code Problem List: 1. UTI (urinary tract infection) 2. Multiple sclerosis 3. Hypotension 4. Multifactorial gait disorder 5. Sepsis Pain Ratin Pain Location: na Pain Goal: Remain pain free Pain Plan: na Tomorrow's Labs & Rationales: cbc bep Briana Bruno 09/07/17 1637: Attending MD Review Statement Attending Statement Attending MD Statement: examined this patient, discuss w/resident/PA/GAS PUMP ATTENDANT, agreed w/resident/PA/GAS PUMP ATTENDANT, discussed with family, reviewed EMR data (avail), discussed with nursing, discussed with case mgmt, reviewed images, amended to note Attending Assessment/Plan: Patient seen/examined bedside. Patient c/o mild shortness of breath. He is on oxygen supplemetnation. He is being treated for UTI and weakness. Problem list -UTI -MS exacerbation with new symptoms of weakness and numbness of right foot and positive danica raul pupil -Thrombocytopenia -Lactic acidosis -Transaminitis Plan -Admit to general medical floor -Neuro check every 4 hours -Continue MS home medication -F/u neuro consultation -trial of steroid one dose now, follow neuro recs. -IV fluid, trend LA, f/u cultures. -resume antihypertensives if required. Monitor hemodynamics. DVT prophylaxis ALPS given thrombocytopenia Code full Diet regular
--- NOTE | 2017-09-07 07:56 | Admission Certification ---
Admission Certification Certification Statement - As attending physician, I certify that at the time of - admission, based on clinical presentation, severity of - symptoms, need for further diagnostic testing and - therapeutic interventions, and risk of adverse outcomes - without in-hospital treatment, in my clinical assessment, - this patient requires an acute hospital stay for a minimum - of two nights or longer. I have also considered psychsocial - factors such as support system, advanced age, financial - issues, cognitive issues, and failed out-patient treatments, - past re-admission history, safety of patient, and lack of - compliance as applicable. Specific rationale supporting this admission is: UTI, questionable MS exacerbation
[2017-09-07 09:51] LABS: ABSOLUTE BASOPHIL COUNT 0 /CUMM (0.0-0.2); ABSOLUTE EOSINOPHIL COUNT 0 /CUMM (0.0-0.7); ABSOLUTE LYMPH COUNT 0.4 /CUMM (1.2-3.4); ABSOLUTE MONOCYTE COUNT 0.7 /CUMM (0.10-0.60); EOSINOPHIL % 0 % (0-5); RBC DISTRIBUTION WIDTH 15.5 % (11.5-14.5); RED BLOOD CELL CT 3.85 /CUMM (4.70-6.10)
[2017-09-07 09:55] LABS: PT 14.8 SEC (9.4-12.5); PTT 28 SEC (25-37)
[2017-09-07 10:01] LABS: ABSOLUTE GRANULOCYTE CT 11.9 /CUMM (1.4-6.5); BASOPHIL % 0.1 % (0.0-2.0); GRANULOCYTE % 91.7 % (42.2-75.2); MEAN CORPUSCULAR HGB 28.4 PG (27.0-31.0); MEAN CORPUSCULAR HGB CONC 32.9 G/DL (33.0-37.0); MEAN CORPUSCULAR VOLUME 86.4 FL (80.0-94.0); PLATELET COUNT 59 /CUMM (130-400)
[2017-09-07 10:03] LABS: HEMATOCRIT 33.3 % (42-52)
[2017-09-07 11:44] VITALS: BP 92/50
--- NOTE | 2017-09-07 11:55 | RADIOLOGY REPORT ---
EXAMINATION: XR PORTABLE CHEST CLINICAL INFORMATION: Evaluate for fluid overload. COMPARISON: Portable chest x-ray dated 09/06/2017. TECHNIQUE: Portable frontal view of the chest was obtained. FINDINGS: The lungs are clear bilaterally, the central pulmonary vasculature is within normal limits. The cardiac silhouette is not enlarged. No pulmonary interstitial prominence is noted. No blunting the costophrenic angles is noted to suggest presence of pleural effusions. Median sternotomy wires and cardiac valve prosthesis are again noted. IMPRESSION: No findings to suggest pulmonary edema or pulmonary vascular congestion at this time.
[2017-09-07 14:51] VITALS: BP 100/60
--- NOTE | 2017-09-07 15:00 | PN- Student ---
Subjective Subjective: *Full H&P* ID: Philippe Meadows is a wheelchair dependent 62 y.o. M w/ PMHx of MS, CAD s/p CABG, Valve replacement, & Alcoholism. CC: Patient presented to the ED w/ complaint of right lower extremity weakness & right foot numbness, stating that his foot "felt asleep". HPI: (Patient is a poor historian) Mr. Meadows states that his Right foot started feeling "asleep" about two weeks ago and has been getting worse ever since, progressing to increasing numbness of his R. foot & worsening generalized weakness of his right leg; the patient states that he has not experienced any pain in his right leg during this time. He states that he had a similar presentation of symptoms during his most recent MS exacerbation but doesn't recall exactly how long ago that was (first stating it was about a month ago, and then about a year ago) & has not followed up w/ his MS specialist in a few years. The patient reports having increased urinary frequency for the last week or so which he says is possibly d/t a recent UTI for which he was treated with Cipro. Patient reports no burning, urgencey, or other urinary symptoms. Allergies: None Medications: Pt states he cannot recall his medications and to confirm with his sister (pending) - Aubagio - Nudexta - Depakote - Oxybutynin - Crestor - Sertraline - Metoprolol - Aspirin - Ciprofloxacin PMHx: - MS ~ dignosed 20 years ago - CAD s/p CABG, Quadruple bypass ~ 6 years ago - Valve replacement ~ Valve replacement - Alcoholism s/p treatment ~ 10 years Sober - Hyperlipidemia (denied by pt) - Bipolar Disorder (denied by pt) PSHx: - Quadruple bypass ~ 6 years ago - Back Spinal surgery ~ 6 years ago - Neck Spinal surgey ~ 5 years ago FHx: Patient has 2 sisters & 5 brothers - Mom: d/t pancreatic cancer - Dad: d/t heart attack - Brother: Has severe MS, in assisted living - Brother: d/t Heroin overdose SHx: - Never smoked & denies illicit drug use - Alcoholism currently sober for 10 years - 2 x , no children - Lives alone & has assistancefrom 2 health aids - Wheelchair dependent ROS: Pertinent findings listed - Constitutional: generalized weakness, malaise - Pulmonary: shortness of breath - Neurologic: decreased sensation over right leg & foot - Genitourinary: urinary frequency - Musculoskeletal: see HPI Objective Objective: Vital Signs Date Time Temp Pulse Resp B/P B/P Pulse O2 O2 Flow FiO2 Mean Ox Delivery Rate 09/07 1230 100.5 09/07 1230 100.5 02/ 1144 102.2 108 22 92/50 93 Nasal 1.5L Cannula 09/07 1142 102.2 09/07 0800 93 Nasal 1.5L Cannula 09/07 0643 98.6 96 18 90/50 92 Room Air 09/07 0101 99.6 106 22 100/58 95 Room Air / 0041 100.4 / 0035 100.4 / 2358 102.0 112 20 102/54 93 Room Air / 2346 103.0 02/ 2309 103.0 110 20 118/61 94 Room Air / 2221 111 112/59 02/05 2128 90/50 / 2056 99.5 100 20 85/50 94 Room Air / 1915 100.3 100 106/64 95 02/ 1900 Room Air / 1857 98.5 102 20 186/80 95 Room Air Physical Exam: Mr. Meadows is A&O x3 & appears to be in no acute distess, he is cooperative & seated comfortably on his bed. Cardiac examination reveals normal S1 & S2 heart sounds, tachycardic rate & regular rhythm, as well as a systolic click murmur. Lung auscultation reveals mild wheezing bilaterally & some use of accessory muscles. Patient denies pain to palpation of abdomen & normal bowell sounds are heard through out. Examination of the upper extermeties reveal normal pulses bilaterally, as well as intact strength & sensation. Exam of the Right lower extremity reveals multiple light coloured bruises over the medial arreola, increased tone in the calf, decreased sensation in a sock like distribution, & 3 /5 weakness; Left lower extremity has intact strength, perserved sensation, and normal tone. 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 No other findings on physical exam. Results Results: Laboratory Tests 09/07/17 1336: Lactic Acid 2.0 09/07/17 1040: Lactic Acid 3.3 H 09/07/17 0720: Lactic Acid 5.5 H 09/07/17 0720: Anion Gap 18 H, Estimated GFR > 60, BUN/Creatinine Ratio 19.2, Total Bilirubin 0.7, Direct Bilirubin 0.3, AST 54, ALT 63, Alkaline Phosphatase 61, Pro-B- Natriuretic Pept 4210 H, Total Protein 5.2 L, Albumin 2.9 L, PT 14.8 H, INR 1.41 H, APTT 28, CBC w Diff MAN DIFF ORDERED, RBC 3.85 L, MCV 86.4, MCH 28.4, MCHC 32.9 L, RDW 15.5 H, MPV 10.0, Gran % 91.7 H, Lymphocytes % 2.9 L, Monocytes % 5.3, Eosinophils % 0, Basophils % 0.1, Absolute Granulocytes 11.9 H , Segmented Neutrophils 71, Band Neutrophils 18 H, Absolute Lymphocytes 0.4 L, Lymphocytes 6 L, Monocytes 5, Absolute Monocytes 0.7 H, Absolute Eosinophils 0 , Absolute Basophils 0, Platelet Estimate DECREASED, Hypochromic-Microcytic 1+, Anisocytosis 1+ 09/06/170: Urinalysis MOD H, Urine Color YEL, Urine Clarity CLDY H, Urine pH 6.0, Ur Specific [place] 1.025, Urine Protein 100 H, Urine Ketones TRACE H, Urine Nitrite POS H, Urine Bilirubin NEG, Urine Urobilinogen 0.2, Ur Leukocyte Esterase LARGE H, Ur Microscopic SEDIMENT EXAMINED, Urine RBC 25-50 H, Urine WBC PACKD H, Ur Epithelial Cells FEW, Urine Bacteria PACKD H, Urine Mucus FEW, Urine Hemoglobin LARGE H, Urine Glucose NEG 09/06/17 2125: Lactic Acid 2.1 09/06/17 1850: Anion Gap 17 H, Estimated GFR > 60, BUN/Creatinine Ratio 19.0, Glucose 117 H, Hemoglobin A1c 5.0, Lactic Acid 4.4 H, Calcium 9.2, Total Bilirubin 0.9, AST 65 H, ALT 85 H, Alkaline Phosphatase 83, Total Protein 6.5, Albumin 3.9, Globulin 2.6, Albumin/Globulin Ratio 1.5, CBC w Diff MAN DIFF ORDERED, RBC 4.89, MCV 86.1 , MCH 29.4, MCHC 34.1, RDW 15.4 H, MPV 9.6, Gran % 90.9 H, Lymphocytes % 2.7 L, Monocytes % 6.2, Eosinophils % 0.2, Basophils % 0, Absolute Granulocytes 8.8 H, Segmented Neutrophils 84 H, Band Neutrophils 7 H, Absolute Lymphocytes 0.3 L, Lymphocytes 3 L, Monocytes 6, Absolute Monocytes 0.6, Absolute Eosinophils 0 , Absolute Basophils 0, Platelet Estimate VERIFIED BY SMEAR, Normocytic RBCs VERIFIED, Normochromic RBCs VERIFIED, Fld Total RBCs Counted 100 09/06/17 1825: Ref Lab Test Result Pending Microbiology 09/06 2308 NASOPHARYN: Influenza Virus A & B Rapid Smear - COMP 09/06 2199 URINE ROUT: Urine Culture - RES GRAM NEGATIVE RODS 09/06 1899 BLOOD: Blood Culture - RES GRAM NEGATIVE RODS 09/06 1849 BLOOD: Blood Culture - RES GRAM NEGATIVE RODS Assessment/Plan Assessment: Mr. Meadows is a 62 y.o. M w/ PMHx of MS, CAD s/p CABG, valve replacement, & spinal surgery, presenting for right foot numbness most likely due to MS exacerbation. Admitted for possible MS exacterbation & possible sepsis of urological origin. Plan: [facility] for: MS exacterbation: Right lower extremity numbness & weakness - f/u Neurology consault - serial neuro checks - trial of steroids - continue home meds - verify medications w/ sister Urosepsis: UA = nitrites leukocyte esterase, packed WBC; & blood + urine cultures = G-ve rods - Continue IV ceftriaxone - Monitor vitals Wheezing & SOB: - Continue on 1.5L O2 Hypotension: - Hold metropolol - Monitor hemodynamics Elevated anion gap Lactic Acidosis: Lactic acid 4.4, 2.1, 5.5 - Trend lactic acid - Continue agressive hydration Transaminitis: AST 65, ALT 85 - f/u repeat LFT's Thrombocytopenia: platelet count is 85 - avoid Heparin - only mechanical prophylaxsis/ALPs for DVT
[2017-09-07] MEDS ORDERED: MAG-OXIDE200 MG PO (17:42)
[2017-09-07] MEDS ORDERED: VITAMIN D31000 UNI1 PO (17:44)
--- NOTE | 2017-09-07 17:47 | Discharge Summary ---
Visit Information Visit Dates Admission Date: 09/06/17 Discharge Date: 09/14/17 Hospital Course Course Attending Physician: Briana Bruno MD Primary Care Physician: April Heller APRN Consulting Request: 1 Consulting Specialty: Urology Consulting Physician: Reason for Consult: Obstructive uropathy Consulting Request: 2 Consulting Specialty: Infectious Disease Consulting Physician: Reason for Consult: Obstructive uropathy causing pyelonephritis Hospital Course: 62-year-old male with PMH CAD S/P CABG, valve replacement, bipolar disorder ( patient denies), neck surgery, back surgery presented in ER for right lower extremity weakness and numbness more than his usual, symptoms similar to his previous MS exacerbation. Patient found to have fever, tachycardia in ER, later elevated WBC and positive urine and blood cultures with GNRs. Problem list Right sided obstructive uropathy with sepsis and pyelopnephritis MS exacerbation CAD S/P CABG bipolar disorder Mitral valve replacement neck surgery and back surgery Admitted to general medicine floor Sepsis secondary to obstructive uropathy Patient was found to have large right renal calculus obstructing. This was removed via cystoscopy with a stent placement in the right urethra followed by pus drainage. His blood and urine cultures grew K.pneumoniae which is pansensitive. Intially started on IV unasyn and then transitioned to ampicillin for a total course of 14 days. Urology followed the patient and recommended ESWL and stent removal in few weeks as outpatient Multiple Sclerosis exacerbation Patient follows . He had relapsing remitting course of MS possibly secondary to progressive phase on some oral DMT. He did have an exacerbation due to UTI. He was treated with IV methylprednisone 500mg X 3days. His home medications including teriflunaomide and Nudexa (dextroamphetamine/ quinine) are continued intially. Discontinued Teriflunomide as per recommendations while Nudexa is continued at discharge. CAD s/p CABG Continued ASA, metoprolol mental health continued sertraline Code status full code Sister is EMRE Navarro involved in care, however prefers not to tell her name infront of the patient. Phu had a son who is autistic and prefers to go home to see him. Complications: NONE Allergies: Coded Allergies: lactose (Severe, DIARRHEA 09/07/17) Significant Procedures: CXR IMPRESSION: Hypoexpanded lungs. No acute pulmonary process. Abdomen and pelvis CT IMPRESSION: 1. Mild right hydronephrosis with calculi seen in the proximal and distal right ureter. Increased perinephric stranding with fluid along the right paracolic gutter suggestive of a calyceal or ureteral leak. 2. Persistent prominent right renal pelvic calculus. 3. Nonspecific focus of gas within the right midpole collecting system. Small foci of gas also noted in the bladder. 4. Cholelithiasis. Echocardiogram CONCLUSIONS Normal size left ventricle. Mild concentric left ventricular hypertrophy. Mildly reduced global left ventricular systolic function. Mildly abnormal left ventricular ejection fraction estimated at 40- 45%. Abnormal relaxation filling pattern of the left ventricle for age (stage 1 diastolic dysfunction). Right ventricle not well visualized, grossly normal. Right atrium not well visualized, grossly normal. Mild left atrial dilatation. Gradient recorded across the prosthetic mitral valve within the expected range. Physiologic regurgitation of the prosthetic mitral valve. Dilated inferior vena cava. Mohan Bui M.D. (Electronically Signed) Final Date: 08 September 2017 Head MRI IMPRESSION: Stable pattern extensive lesional burden throughout the supratentorial and infratentorial brain in keeping with the patient's clinical history of multiple sclerosis. Stable global cerebral and callosal volume loss. There are no enhancing lesions to suggest active demyelination. Operative report Surgery Date: 09/08/17 Name of Procedure: cystoscopy: right stent insertion, fluroroscopy Pre-Operative Diagnosis: right obstructed kidney Post-Operative Diagnosis: same Estimated Blood Loss: scant Surgeon/Purse Seiner: MD Hans, Arnold-urology Anesthesia: general endotracheal tube Specimens: right renal aspirate Complications: none Condition: improved Operative/Procedure Note Note: The patient was taken to the operating room placed OR table in supine position. Timeout was performed, with the patient awake, in order to confirm anesthesia, and other pertinent perioperative information. After adequate anesthesia and antibiotics, the patient was then placed lithotomy stirrups, draped and prepped in the usual surgical fashion. A 22 Upper Sorbian cystoscope sheath with 30 angle lens was inserted into the urethra, and subsequently advanced into the bladder without difficulty. Upon thorough and systematic surveillance, the bladder was noted to be mildly trabeculated, free of tumor, free of stone. Both ureteral orifices were in their orthotopic position with clear reflux from the left side, and no efflux on the right. The right orifice was intubated with an open-ended ureteral access catheter. Retrograde pyelogram was gently performed in order to confirm hydronephrosis, and to better define the anatomy of the ureter, and kidney using fluoroscopy. A large stone consistent with 1.5 cm filling defect was seen at the [facility]. The open -ended stent was then removed. The right orifice was intubated with a 0.035 Glidewire, which was advanced into the right ureter, and into the right upper pole of the kidney without difficulty. Over this Glidewire, a 6 x 24 Bard Inlay stent, was railroaded into the right ureter without difficulty. With the proximal coil in the right renal pelvis, and the distal coil in the bladder, the Glidewire was removed, and the stent remained in proper place. A small amount of purulent discharge was noted to drained from the right kidney, after placement of the stent on the right side. The bladder was then drained via the cystoscope, and then removed without difficulty. All sponge needle and instrument counts were correct at the end of the case. The patient tolerated the procedure well, and was taken to recovery room in satisfactory condition. He will continue to be treated by the medical team during this hospital stay. The patient will have a right ESWL, with cystoscopy stent removal in the future. Discharge Disposition: PACU CC: Tor Maxwell MD Pertinent Lab Results: as above Disposition Summary Disposition Principal Diagnosis: Sepsis of urological origin Additional Diagnosis: MS exacerbation CAD s/p CABG Discharge Disposition: SNF Discharge Instructions General Discharge Information Code Status: Full Code Patient's Diet: as tolerated Patient's Activity: as tolerated Follow-Up Instructions/Appts: Please follow up with your PCP in a week Medications at Discharge Discharge Medications: Stop taking the following medications: Teriflunomide (Aubagio) 14 MG TABLET ORAL DAILY Continue taking these medications: Sertraline HCl (Sertraline HCl) 100 MG TABLET 2 Tablet ORAL DAILY Qty = 60 Comments: Last Taken: 09/14/17 Time: 9:00 AM Divalproex Sodium (Divalproex Sodium ER) 500 MG TAB.ER.24H 1 Tablet ORAL Every night Qty = 30 Comments: Last Taken: 09/13/17 Time: 9:30 PM Metoprolol Succinate (Metoprolol Succinate) 50 MG TAB.ER.24H 1 Tablet ORAL DAILY Qty = 90 Comments: Last Taken: 09/14/17 Time: 9:00 AM Dextromethorphan HBr/Quinidine (Nuedexta 20-10 MG Capsule) 20 MG-10 MG CAPSULE 1 Capsule ORAL TWICE DAILY Qty = 60 Comments: Last Taken: 09/14/17 Time: 9:00 AM Oxybutynin Chloride (Oxybutynin Chloride ER) 15 MG TAB.ER.24 1 Tablet ORAL TWICE DAILY Qty = 60 Comments: Last Taken: 09/14/17 Time: 9:00 AM Rosuvastatin Calcium (Crestor) 40 MG TABLET 1 Tablet ORAL DAILY Qty = 90 Comments: Last Taken: 09/13/17 Time: 4:00 PM (LIPITOR 40MG PO GIVEN) Aspirin (Aspirin*) 81 MG TAB.CHEW 1 Tablet ORAL DAILY Comments: Last Taken: 09/14/17 Time: 9:00 AM Magnesium Oxide (Mag-Oxide) 200 MG MAGNESIUM TABLET 1 Tablet ORAL AT BEDTIME Qty = 30 Comments: Last Taken: 09/13/17 Time: 9:30 AM Cholecalciferol (Vitamin D3) (Vitamin D3) 1,000 UNIT CAPSULE 1 Capsule ORAL DAILY Qty = 30 Comments: Last Taken: 09/14/17 Time: 9:00 AM Start taking the following new medications: Amoxicillin (Amoxicillin) 500 MG CAPSULE 1 Capsule ORAL THREE TIMES DAILY Qty = 15 No Refills Comments: Last Taken: 09/14/17 Time: 1:00 PM Lactobacillus Acidophilus (Acidophilus) 1 EACH CAPSULE 1 Capsule ORAL DAILY Qty = 30 No Refills Comments: Last Taken: 09/14/17 Time: 9:00 AM Copies To: Joshua BURNS,April Tobin APRN, MD,Tor Scales MD Review Statement Documenting Attending: Kiana BURNS,Briana
--- NOTE | 2017-09-07 18:36 | CT SCAN REPORT ---
EXAMINATION: CT ABDOMEN AND PELVIS WITH CONTRAST CLINICAL INFORMATION: Fever and lactic acidosis. COMPARISON: 01/10/2017 TECHNIQUE: Multidetector volumetric imaging was performed of the abdomen and pelvis following IV administration of 95 mL of Optiray 320 intravenous contrast. Sagittal and coronal reformatted images were obtained on the technologist's workstation. DLP: 368 mGy-cm FINDINGS: LUNG BASES: Bibasilar subsegmental atelectasis. Coronary artery calcifications are noted. Mitral hardware. LIVER, GALLBLADDER, AND BILIARY TREE: The liver is normal in size, shape, and attenuation. No focal hepatic lesion or biliary ductal dilatation is present. Small stone layering in the gallbladder lumen. No gallbladder wall thickening or pericholecystic fluid. PANCREAS: Unremarkable. SPLEEN: Unremarkable. ADRENAL GLANDS: Unremarkable. KIDNEYS AND URETERS: The kidneys are normal in size, shape, and attenuation. There is mild right hydronephrosis. There is prominent asymmetric perinephric stranding with fluid extending along the right paracolic gutter. This is increased from the previous study. There is a 0.4 cm calculus seen in the proximal right ureter which is new from the previous study. There is also a 0.2 cm calculus at the distal ureter, approximately 0.5 cm proximal to the ureterovesicular junction. Redemonstration of a 1.7 x 1.3 cm calculus in the right renal pelvis, 11 cm from the posterior axillary line, measuring 870 Hounsfield units. Also of note, there is a focus of gas within the midpole collecting system of the right kidney. BLADDER: The bladder is normally distended without wall thickening. Small bladder diverticulum at the anterior left aspect. Small amount of gas in the bladder lumen. GASTROINTESTINAL TRACT: The stomach is decompressed with no gross abnormality. Small bowel is normal in caliber without obstruction. A majority of the colon is decompressed. Fatty infiltration of the wall of the ascending colon suggesting chronic inflammatory process. Minimal sigmoid diverticulosis without diverticulitis. No free air or free fluid. ABDOMINAL WALL: No significant hernia is appreciated. LYMPH NODES: Normal. VASCULAR: Normal caliber aorta with mild atherosclerotic calcifications. PELVIC VISCERA: Unremarkable. OSSEOUS STRUCTURES: No acute or suspicious osseous abnormality. Multilevel degenerative changes throughout the spine. Unchanged compression deformity of the L2 vertebral body. Mild compression deformity of T12 superior endplate. IMPRESSION: 1. Mild right hydronephrosis with calculi seen in the proximal and distal right ureter. Increased perinephric stranding with fluid along the right paracolic gutter suggestive of a calyceal or ureteral leak. 2. Persistent prominent right renal pelvic calculus. 3. Nonspecific focus of gas within the right midpole collecting system. Small foci of gas also noted in the bladder. 4. Cholelithiasis.
[2017-09-07 21:58] VITALS: BP 100/60
[2017-09-08 05:52] VITALS: BP 128/82
--- NOTE | 2017-09-08 07:33 | Patient Discharge Instructions ---
Discharge Instructions General Discharge Information You were seen/treated for: URINARY TRACT INFECTION Special Instructions: 1. PLEASE FOLLOW UP WITH YOUR PCP IN ONE WEEK 2. PLEASE FOLLOW UP WITH YOUR NEUROLOGIST IN ONE WEEK. 3. PLEASE FOLLOW UP WITH UROLOGIST DR. TIMMONS IN 2 WEEKS FOR STENT REMOVAL AND LITHOTRIPSY PLANNING Diet Continue normal diet: Yes Activity Full Activity/No Limits: Yes Acute Coronary Syndrome Inclusion Criteria At DC or during hospital stay patient has or had the following: ACS DIAGNOSIS No Discharge Core Measures Meds if any: Prescribed or Continued at Discharge Meds if any: NOT Prescribed or Continued at Discharge Congestive Heart Failure Inclusion Criteria At DC or during hospital stay patient has or had the following: CHF DIAGNOSIS No Discharge Core Measures Meds if any: Prescribed or Continued at Discharge Meds if any: NOT Prescribed or Continued at Discharge Cerebrovascular accident Inclusion Criteria At DC or during hospital stay patient has or had the following: CVA/TIA Diagnosis No Discharge Core Measures Meds if any: Prescribed or Continued at Discharge Meds if any: NOT Prescribed or Continued at Discharge Venous thromboembolism Inclusion Criteria VTE Diagnosis No VTE Type NONE VTE Confirmed by (Test) NONE Discharge Core Measures - Per Current guidelines, there needs to be overlap - treatment for the first 5 days of Warfarin therapy. - If discharged on Warfarin prior to 5 days of - overlap therapy, the patient will need to be - assessed for post discharge needs including - *Post discharge parental anticoagulation - *Warfarin and/or parental anticoagulation education - *Follow up date to check INR post discharge At least 5 days overlap therapy as Inpatient No Meds if any: Prescribed or Continued at Discharge Note: Overlap Therapy is Warfarin and Anticoagulant Meds if any: NOT Prescribed or Continued at Discharge
--- NOTE | 2017-09-08 07:48 | PN- Housestaff ---
Mark BURNS,[place] 09/08/17 0748: Subjective Follow-up For: multiple sclerosis sepsis or urologic origin - pyelonephritis urinary calculus causing obstruction Subjective: patient states that he feels "not the best". He states that his feet are still numb. he denies any dysuria, fever, chills, abdomen or flank pain. some mild shortness of breath on 1.5L O2. Review of Systems Constitutional: Reports: no symptoms. Cardiovascular: Reports: no symptoms. Respiratory: Reports: short of breath. Gastrointestinal: Reports: no symptoms. Genitourinary: Reports: no symptoms. Musculoskeletal: Reports: no symptoms. Skin: Reports: no symptoms. Neurological/Psychological: Reports: numbness. Objective Last 24 Hrs of Vital Signs/I&O Vital Signs Date Time Temp Pulse Resp B/P B/P Pulse O2 O2 Flow FiO2 Mean Ox Delivery Rate 09/08 1542 98.9 98 20 104/78 94 Nasal Cannula 09/08 0800 95 Nasal 1.5L Cannula 09/08 0552 100.0 117 23 128/82 95 09/08 0000 Nasal 1.5L Cannula 09/07 2158 99.1 106 20 100/60 94 Nasal 2.0L Cannula 09/07 1600 95 Nasal 1.5L Cannula Intake & Output 09/08 1600 09/08 0800 09/08 0000 Intake Total 1100 975 Output Total 450 Balance 1100 525 Intake, IV 500 375 Intake, Oral 600 600 Output, Urine 450 Physical Exam General Appearance: Alert, Oriented X3, Cooperative, No Acute Distress Skin Temp/Moisture Exam: Warm/Dry Cardiovascular: Regular Rate, Normal S1, Normal S2, No Murmurs Lungs: Normal Air Movement Abdomen: Normal Bowel Sounds, Soft, No Tenderness, No Hepatospenomegaly, No Masses Neurological: Normal Speech Extremities: No Clubbing, No Cyanosis, No Edema, Normal Pulses Current Medications: Current Medications Sig/Tobin Start time Last Medication Dose Route Stop Time Status Admin Acetaminophen 1,000 MG ONCE ONE 09/08 1030 DC N/A 1 UNIT IV 09/08 1044 Acetaminophen 650 MG Q6P PRN 09/07 0300 AC 09/08 PO 1014 Ampicillin 2,000 MG Q8 09/08 1400 AC Sodium Chloride 100 ML IV Aspirin 81 MG DAILY 09/07 1739 AC 09/08 PO 1014 Atorvastatin Calcium 40 MG 1700 09/07 1700 AC 09/07 PO 1732 Ceftriaxone Sodium 1,000 MG 2130 09/07 2130 DC 09/07 IV 2129 Cholecalciferol 1,000 IU DAILY 09/08 1000 AC 09/08 PO 1015 Dextromethorphan/ 1 CAP BID 09/07 1230 AC 09/08 Quinidine PO 1015 Divalproex Sodium 500 MG 2200 09/07 2200 AC 09/07 PO 2129 Magnesium Oxide 200 MG AT BEDTIME 09/07 2200 AC 09/07 PO 2130 Methylprednisolone 500 MG DAILY 09/08 1415 AC IV 09/11 0955 Multivitamins 1 TAB DAILY 09/08 1000 AC 09/08 PO 1015 Oxybutynin Chloride 5 MG TID 09/07 1000 AC 09/08 PO 1015 Sertraline HCl 200 MG DAILY 09/07 1000 AC 09/08 PO 1014 Sodium Chloride 1,000 ML Q10H 09/08 0930 AC 09/08 IV 1024 Sodium Chloride 1,000 ML Q8H 09/07 1030 DC 09/07 IV 09/08 0229 1734 Thiamine HCl 100 MG DAILY 09/07 1000 AC 09/08 PO 1015 Last 24 Hrs of Lab/Carlin Results Last 24 Hrs of Labs/Mics: Laboratory Tests 09/08/17 0800: Anion Gap 9, Estimated GFR > 60, BUN/Creatinine Ratio 23.0, CBC w Diff MAN DIFF ORDERED, RBC 3.61 L, MCV 85.1, MCH 28.5, MCHC 33.5, RDW 15.7 H, MPV 9.6, Gran % 87.9 H, Lymphocytes % 3.4 L, Monocytes % 8.7, Eosinophils % 0, Basophils % 0 , Absolute Granulocytes 7.2 H, Segmented Neutrophils 68, Band Neutrophils 21 H , Absolute Lymphocytes 0.3 L, Lymphocytes 4 L, Monocytes 7, Absolute Monocytes 0.7 H, Absolute Eosinophils 0, Absolute Basophils 0, Platelet Estimate DECREASED, Hypochromic-Microcytic 1+, Poikilocytosis 2+, Anisocytosis 1+ Microbiology 09/08 1315 BODY FLUID: Body Fluid Culture - RECD 09/08 1315 BODY FLUID: Gram Stain - RECD Assessment/Plan Assessment: 62-year-old male with multiple comorbidities presented in ER for right lower extremity weakness and numbness more than his usual, symptoms similar to his previous MS exacerbation. Patient found to have fever, tachycardia in ER, later elevated WBC and positive urine and blood cultures with GNRs. Plan #R foot numbness and weakness most likely MS exacerbation -patient has other signs that can possibly be due to MS exacerbation including sluggish pupils and history urinary retention. -we have consulted with neuro and they have seen the patient. they are suggesting MRI of the brain without contrast to see the progression of disease. They are suggesting starting ampyra as an outpatient. We shall obtain records from his neurologist as well. -We will start patient on 500mg steroids iv for 3 days duration for MS. Patient is not showing overt signs of an exacerbation but sepsis and surgery (urologic today) can be the cause of MS exacerbations. -cont depakote -cont aubagio, nudexta. #wheezing and dyspnea -we will give patient one dose of steroids IV 60mg. patient will now be on steroids for MS which will also help with wheezing and hypotension. #UTI wbc 13-->8.2, hypotensive and tachycardic overnight -did not spike fever overnight -max 100 -CT abd pelvis showed stone, hydronephrosis, evidence of pyelonephritis. -patient is asymptomatic except for frequency which can also be caused by his fluids running at 125cc/hr. -Urinalysis positive nitrites, large leukocyte esterase, packed WBC -Positive urine culture for ecoli -Lactic acid was 5 at max which decreased with fluids. After fluids stopped it increased again even on antibiotics. This was because infection had reached to the kidney which was compounded by the obstruction and hydronephrosis. Surgery was required to relieve it and now that patient is post surgery we hope that it will decrease even without fluids (which we will continue for now) -switch ceftriaxone 1g daily to ampicillin 2gq8 for narrower coverage. Sensitivities are back and it is sensitive to ampicillin. -continue fluids -follow culture specificities #dyspnea -95 on 1.5L -cxr on admission was normal -patient had episode of SOB after we gave fluids for his lactic acidosis. We ordered a repeat CXR and echocardiogram as patient has had CABG, has had no echo for 7 years, and has an elevated BNP from his baseline value (that was done years ago). -repeat cxr clear #thrombocytopenia -avoid heparin #hypotension -BP 90/50, patient says he chronically runs low -fluids 125cc/hour, blood pressure has responded well -holding metoprolol-steroids will help # mild transmainitis -Ast 65, ALT 85 -f/u repeat lfts #hld -cont Atorvastatin #urinary retnetion -cont oxybutinin #vitamins -cont Thiamine #mental health -cont Sertraline #DVT prophylaxis #Full code Problem List: 1. Sepsis 2. Multiple sclerosis 3. UTI (urinary tract infection) Pain Ratin Pain Location: na Pain Goal: Remain pain free Pain Plan: ofirmev Tomorrow's Labs & Rationales: cbc bep Briana Bruno 09/08/17 1443: Attending MD Review Statement Attending Statement Attending MD Statement: examined this patient, discuss w/resident/PA/SUPPLIER ENGINEER, agreed w/resident/PA/SUPPLIER ENGINEER, discussed with family, reviewed EMR data (avail), discussed with nursing, discussed with case mgmt, reviewed images, amended to note Attending Assessment/Plan: Patient seen/examined bedside. He is on oxygen supplemetnation. He is being treated for UTI and weakness. CT abd/pelvis suggestive of pyelonephritis with nephrolithiasis. Urology consulted and recommend surgical intervention. Neurology also consulted and recommend to start steroids iv solumedrol 500 mg for 3 days alongwith MRI brain with contrast. Problem list -Sepsis 2/2 UTI/pyelonephritis with bacteremia gram negative rods E coli. -MS exacerbation with new symptoms of weakness and numbness of right foot and positive danica rual pupil -Thrombocytopenia -Lactic acidosis with improvement. -Transaminitis stable. -Nephrolithiasis Plan -Neuro check every 4 hours -Continue MS home medication -F/u neuro consultation -iv steroids, follow neuro recs. -IV fluid, trend LA, f/u cultures, abx iv. -resume antihypertensives if required. Monitor hemodynamics. DVT prophylaxis ALPS given thrombocytopenia Code full Diet regular
[2017-09-08 09:43] LABS: ABSOLUTE BASOPHIL COUNT 0 /CUMM (0.0-0.2); ABSOLUTE EOSINOPHIL COUNT 0 /CUMM (0.0-0.7); ABSOLUTE GRANULOCYTE CT 7.2 /CUMM (1.4-6.5); ABSOLUTE LYMPH COUNT 0.3 /CUMM (1.2-3.4); ABSOLUTE MONOCYTE COUNT 0.7 /CUMM (0.10-0.60); BASOPHIL % 0 % (0.0-2.0); EOSINOPHIL % 0 % (0-5); GRANULOCYTE % 87.9 % (42.2-75.2); HEMATOCRIT 30.7 % (42-52); MEAN CORPUSCULAR HGB 28.5 PG (27.0-31.0); MEAN CORPUSCULAR HGB CONC 33.5 G/DL (33.0-37.0); MEAN CORPUSCULAR VOLUME 85.1 FL (80.0-94.0); MEAN PLATELET VOLUME 9.6 FL (7.4-10.4); PLATELET COUNT 68 /CUMM (130-400); RBC DISTRIBUTION WIDTH 15.7 % (11.5-14.5); RED BLOOD CELL CT 3.61 /CUMM (4.70-6.10); WHITE BLOOD CELL COUNT 8.2 /CUMM (4.8-10.8)
--- NOTE | 2017-09-08 10:24 | Cons- Urology ---
General Information and HPI Consulting Request Date of Consult: 09/08/17 Requested By: Kiana BURNS,Briana Reason for Consult: right hydro. with pain and fever due to large stone Source of Information: patient, old records Exam Limitations: no limitations History of Present Illness: 62 yr old with rigth pain and fever came to ER on 09/08/16. CT with obstructing right stone and clinical sepsis. I was called this am for consult. pt told of findings and need for right stent ivelisse. Allergies/Medications Allergies: Coded Allergies: lactose (Severe, DIARRHEA 09/07/17) Home Med List: Aspirin (Aspirin*) 81 MG TAB.CHEW 1 TAB PO DAILY HEART HEALTH (Reported) Cholecalciferol (Vitamin D3) (Vitamin D3) 1,000 UNIT CAPSULE 1 CAP PO DAILY supplement (Reported) Dextromethorphan HBr/Quinidine (Nuedexta 20-10 MG Capsule) 20 MG-10 MG CAPSULE 1 CAP PO BID MS (Reported) Divalproex Sodium (Divalproex Sodium ER) 500 MG TAB.ER.24H 1 TAB PO QPM MS ( Reported) Magnesium Oxide (Mag-Oxide) 200 MG MAGNESIUM TABLET 1 TAB PO AT BEDTIME RLS ( Reported) Metoprolol Succinate 50 MG TAB.ER.24H 1 TAB PO DAILY HEART (Reported) Oxybutynin Chloride (Oxybutynin Chloride ER) 15 MG TAB.ER.24 1 TAB PO BID BLADDER (Reported) Rosuvastatin Calcium (Crestor) 40 MG TABLET 1 TAB PO DAILY CHOLESTEROL ( Reported) Sertraline HCl 100 MG TABLET 2 TAB PO DAILY MENTAL HEALTH (Reported) Teriflunomide (Aubagio) 14 MG TABLET 1 TAB PO DAILY MS (Reported) Current Medications: Current Medications Sig/Tobin Start time Last Medication Dose Route Stop Time Status Admin Acetaminophen 650 MG Q6P PRN 09/07 0300 AC 09/07 PO 1142 Aspirin 81 MG DAILY 09/07 1739 AC 09/07 PO 1900 Atorvastatin Calcium 40 MG 1700 09/07 1700 AC 09/07 PO 1732 Ceftriaxone Sodium 1,000 MG 2130 09/07 2130 AC 02/ IV 2129 Ceftriaxone Sodium 1,000 MG DAILY 09/07 1000 DC IV Cholecalciferol 1,000 IU DAILY 09/08 1000 AC PO Dextromethorphan/ 1 CAP BID 09/07 1230 AC 09/07 Quinidine PO 212 Divalproex Sodium 500 MG 2200 09/070 AC 09/07 PO 212 Magnesium Oxide 200 MG AT BEDTIME 09/07 2200 AC 09/07 PO 2130 Methylprednisolone 60 MG ONCE ONE 09/07 1045 DC 09/07 IV 09/07 1046 1138 Multivitamins 1 TAB DAILY 09/08 1000 AC PO Non-Formulary 0 SEE ADMIN CRITERIA 09/07 0315 CAN Medication ANY Oxybutynin Chloride 5 MG TID 09/07 1000 AC 09/07 PO 2129 Patient Medication 1 ED ONE ONE 09/07 1245 DC Teaching ED 09/07 1246 Sertraline HCl 200 MG DAILY 09/07 1000 AC 09/07 PO 0935 Sodium Chloride 1,000 ML Q8H 09/07 1030 DC 09/07 IV 09/08 0229 1734 Sodium Chloride 1,000 ML BOLUS ONE 09/07 1030 CAN IV 09/07 1129 Thiamine HCl 100 MG DAILY 09/07 1000 AC 09/07 PO 0935 Past History Medical History Blood Transfusion Hx: No Neurological: multiple sclerosis EENT: NONE Cardiovascular: 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 Home Services at Home: Home Health Aide Smoking Status: Never Smoked ETOH Use: quit 5 years ago Illicit Drug Use: denies illicit drug use Employment History Retired? unknown Review of Systems Review of Systems Constitutional: Reports: chills. EENTM: Denies: no symptoms. Cardiovascular: Denies: no symptoms. Respiratory: Denies: no symptoms. GI: Reports: abdominal pain, bloating. Genitourinary: Reports: dysuria. Musculoskeletal: Denies: no symptoms. Exam & Diagnostic Data Vital Signs and I&O Vital Signs Date Time Temp Pulse Resp B/P B/P Pulse O2 O2 Flow FiO2 Mean Ox Delivery Rate 09/08 0552 100.0 117 23 128/82 95 / 0000 Nasal 1.5L Cannula 09/07 2158 99.1 106 20 100/60 94 Nasal 2.0L Cannula 09/07 1600 95 Nasal 1.5L Cannula 09/07 1451 98.1 92 20 100/60 93 Nasal Cannula 09/07 1230 100.5 09/07 1230 100.5 09/07 1144 102.2 108 22 92/50 93 Nasal 1.5L Cannula 09/07 1142 102.2 Intake & Output 09/08 1600 09/08 0800 / 0000 09/07 1600 09/07 0800 09/07 0000 Intake Total 9628 264 5954 250 Output Total 450 250 300 Balance 3844 140 2832 250 -300 Intake, IV 500 375 500 10 Intake, Oral 519 420 3073 240 Number 1 Bowel Movements Output, Urine 450 250 300 Patient 177 lb 150 lb Weight Weight Reported by Patient Measurement Method Physical Exam General Appearance: well developed/nourished, no apparent distress, lethargic Head: atraumatic Eyes: Bilateral: normal appearance. Neck: normal inspection Respiratory: normal breath sounds Cardiovascular: tachycardia Gastrointestinal: normal bowel sounds, soft Back: CVA tenderness (R) Extremities: normal inspection Skin: intact, diaphoresis, erythematous all over Reproductive: Normal male genitalia Last 24 Hours of Labs: Laboratory Tests 09/08 09/07 09/07 0800 1336 1040 Chemistry Sodium (137 - 145 mmol/L) 138 Potassium (3.5 - 5.1 mmol/L) 3.6 Chloride (98 - 107 mmol/L) 107 Carbon Dioxide (22 - 30 mmol/L) 21 L Anion Gap (5 - 16) 9 BUN (9 - 20 mg/dL) 23 H Creatinine (0.7 - 1.2 mg/dL) 1.0 Estimated GFR (>60 ml/min) > 60 BUN/Creatinine Ratio (7 - 25 %) 23.0 Lactic Acid (0.7 - 2.1 mmol/L) 2.0 3.3 H Hematology CBC w Diff Pending WBC Pending RBC Pending Hgb Pending Hct Pending MCV Pending MCH Pending MCHC Pending RDW Pending Plt Count Pending MPV Pending Gran % Pending Lymphocytes % Pending Monocytes % Pending Eosinophils % Pending Basophils % Pending Absolute Granulocytes Pending Absolute Lymphocytes Pending Absolute Monocytes Pending Absolute Eosinophils Pending Absolute Basophils Pending Imaging Results: PATIENT: NICHOLE OCAMPO PRESENT AGE: 62 PATIENT ACCOUNT NO: [id number] : 57 LOCATION: 2NB ORDERING PHYSICIAN: Victoria Flores MD SERVICE DATE: 09/07/17- EXAM TYPE: CAT - CT ABD & PELVIS W IV CONTRAST EXAMINATION: CT ABDOMEN AND PELVIS WITH CONTRAST CLINICAL INFORMATION: Fever and lactic acidosis. COMPARISON: 01/10/2017 TECHNIQUE: Multidetector volumetric imaging was performed of the abdomen and pelvis following IV administration of 95 mL of Optiray 320 intravenous contrast. Sagittal and coronal reformatted images were obtained on the technologist's workstation. DLP: 368 mGy-cm FINDINGS: LUNG BASES: Bibasilar subsegmental atelectasis. Coronary artery calcifications are noted. Mitral hardware. LIVER, GALLBLADDER, AND BILIARY TREE: The liver is normal in size, shape, and attenuation. No focal hepatic lesion or biliary ductal dilatation is present. Small stone layering in the gallbladder lumen. No gallbladder wall thickening or pericholecystic fluid. PANCREAS: Unremarkable. SPLEEN: Unremarkable. ADRENAL GLANDS: Unremarkable. KIDNEYS AND URETERS: The kidneys are normal in size, shape, and attenuation. There is mild right hydronephrosis. There is prominent asymmetric perinephric stranding with fluid extending along the right paracolic gutter. This is increased from the previous study. There is a 0.4 cm calculus seen in the proximal right ureter which is new from the previous study. There is also a 0.2 cm calculus at the distal ureter, approximately 0.5 cm proximal to the ureterovesicular junction. Redemonstration of a 1.7 x 1.3 cm calculus in the right renal pelvis, 11 cm from the posterior axillary line, measuring 870 Hounsfield units. Also of note, there is a focus of gas within the midpole collecting system of the right kidney. BLADDER: The bladder is normally distended without wall thickening. Small bladder diverticulum at the anterior left aspect. Small amount of gas in the bladder lumen. GASTROINTESTINAL TRACT: The stomach is decompressed with no gross abnormality. Small bowel is normal in caliber without obstruction. A majority of the colon is decompressed. Fatty infiltration of the wall of the ascending colon suggesting chronic inflammatory process. Minimal sigmoid diverticulosis without diverticulitis. No free air or free fluid. ABDOMINAL WALL: No significant hernia is appreciated. LYMPH NODES: Normal. VASCULAR: Normal caliber aorta with mild atherosclerotic calcifications. PELVIC VISCERA: Unremarkable. OSSEOUS STRUCTURES: No acute or suspicious osseous abnormality. Multilevel degenerative changes throughout the spine. Unchanged compression deformity of the L2 vertebral body. Mild compression deformity of T12 superior endplate. IMPRESSION: 1. Mild right hydronephrosis with calculi seen in the proximal and distal right ureter. Increased perinephric stranding with fluid along the right paracolic gutter suggestive of a calyceal or ureteral leak. 2. Persistent prominent right renal pelvic calculus. 3. Nonspecific focus of gas within the right midpole collecting system. Small foci of gas also noted in the bladder. 4. Cholelithiasis. Other Results: Patient : NICHOLE OCAMPO Acct: [id number] DR: Briana Bruno MD Birthdate: [birth year] Age/Sex: 62/M Unit: [id number] Loc: 2NB [phone] Status : ADM IN SPEC #: [id number] CHERRY: 09/06/17 STATUS: RES RECD: 09/06/[address]: Gavin Tomas SOURCE: URINE ROUT ENTR: 09/06/[address]: April Heller APRN SPDESC: UNK URINE ORDERED: URINE CULTURE COMMENT: UC ADDED AT 2221 PO Procedure Result > URINE CULTURE Preliminary 09/08/17 Greater than 100,000 colonies per ml of: ESCHERICHIA COLI 1. ESCHERICHIA COLI RX AB ------ -- AMPICILLIN S CEFAZOLIN S AMOXICILLIN/CLAVULINIC ACID S AMPICILLIN/SULBACTAM S CIPROFLOXACIN S GENTAMICIN S NITROFURANTOIN S TRIMETHOPRIM/SULFAMETHOXAZOLE S Assessment/Plan Assessment/Plan pt with obstructed right kidney, due to large stone, with UTI/sepsis: requires immediate stent. and subsequent stone tx. next week Copies To: Tor Maxwell MD Consult Acknowledgment - Thank you for your consult request. Attending MD Review Statement Attending Statement Attending MD Statement: examined this patient, discuss w/resident/PA/TORPEDOMAN'S MATE Attending Assessment/Plan: pt with obstructed right kidney and sepsis due to large stone: emergent stent today.
--- NOTE | 2017-09-08 11:13 | Cons- Neurology ---
General Information and HPI Consulting Request Date of Consult: 09/08/17 Requested By: Briana Bruno MD Reason for Consult: Multiple sclerosis exacerbation Source of Information: patient, old records Exam Limitations: no limitations History of Present Illness: This is a very pleasant 62-year-old right handed man who presented to the hospital with concerns of new numbness within his right foot. He is a known MS patient and has had the disease for 20 years. She notes that over the first 15 years he was on Betaseron and was doing quite well and was active in playing tennis at the time. However he then suffered a heart attack and other cardiac complications and the disease went downhill from there. He was then recently switched to an oral DMT. He at first was seeing Palomo Lewis MD but now he is seeing neurologist at the [facility]. His last MRIs were done 6 months ago. His baseline deficits include an history of left optic neuritis and bilateral leg weakness more significant weakness being within the right side of the body with a foot drop on the right side. He currently notes that all 4 limbs feel weaker to him than baseline. He had never tried Ampyra. Denies any current pain. Allergies/Medications Allergies: Coded Allergies: lactose (Severe, DIARRHEA 09/07/17) Home Med List: Aspirin (Aspirin*) 81 MG TAB.CHEW 1 TAB PO DAILY HEART HEALTH (Reported) Cholecalciferol (Vitamin D3) (Vitamin D3) 1,000 UNIT CAPSULE 1 CAP PO DAILY supplement (Reported) Dextromethorphan HBr/Quinidine (Nuedexta 20-10 MG Capsule) 20 MG-10 MG CAPSULE 1 CAP PO BID MS (Reported) Divalproex Sodium (Divalproex Sodium ER) 500 MG TAB.ER.24H 1 TAB PO QPM MS ( Reported) Magnesium Oxide (Mag-Oxide) 200 MG MAGNESIUM TABLET 1 TAB PO AT BEDTIME RLS ( Reported) Metoprolol Succinate 50 MG TAB.ER.24H 1 TAB PO DAILY HEART (Reported) Oxybutynin Chloride (Oxybutynin Chloride ER) 15 MG TAB.ER.24 1 TAB PO BID BLADDER (Reported) Rosuvastatin Calcium (Crestor) 40 MG TABLET 1 TAB PO DAILY CHOLESTEROL ( Reported) Sertraline HCl 100 MG TABLET 2 TAB PO DAILY MENTAL HEALTH (Reported) Teriflunomide (Aubagio) 14 MG TABLET 1 TAB PO DAILY MS (Reported) Review of Systems Review of Systems: As per HPI otherwise negative. 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 Home Services at Home: Home Health Aide Smoking Status: Never Smoked ETOH Use: quit 5 years ago Illicit Drug Use: denies illicit drug use Exam & Diagnostic Data Vital Signs and I&O Vital Signs Date Time Temp Pulse Resp B/P B/P Pulse O2 O2 Flow FiO2 Mean Ox Delivery Rate 09/08 0552 100.0 117 23 128/82 95 / 0000 Nasal 1.5L Cannula 09/07 2158 99.1 106 20 100/60 94 Nasal 2.0L Cannula 09/07 1600 95 Nasal 1.5L Cannula 09/07 1451 98.1 92 20 100/60 93 Nasal Cannula 09/07 1230 100.5 09/07 1230 100.5 09/07 1144 102.2 108 22 92/50 93 Nasal 1.5L Cannula 09/07 1142 102.2 Intake & Output 09/08 1600 09/08 0800 09/08 0000 Intake Total 1100 975 Output Total 450 Balance 1100 525 Intake, IV 500 375 Intake, Oral 600 600 Output, Urine 450 Physical Exam: General: The patient is in no distress. Pleasant and cooperative. MSE: Alert and oriented 3. Good attention and concentration. Good short-term memory and fund of knowledge reflected through our conversation. Language is hesitant and not always fluent fluent with good comprehension and repetition. Cardiovascular: S1 and S2 are normal, regular rate and rhythm, and normal pedal pulses. Vision: Visual doan are intact. Neurological: Extra ocular movements intact, ROZINA, face is symmetric, tongue midline, uvula raises equally in the midline, V1-V3 sensation to touch is intact and equal bilaterallty, sternocleidomastoid and trapezius are strong on both sides, muscles of mastication are strong. No dysarthria noted. Motor exam reveals mild right hemiparesis in the upper extremity with more significant in the leg where there is 3 out of 5 hip flexor and dorsiflexion weakness. Left side strength is 5-5 throughout the distribution distally and proximally. Sensory exam revealed numbness over the right foot. Reflexes are hyporeflexive symmetric bilaterally with positive Babinski's on both sides. Cerebellar exam does not reveal any dysmetria. Gait is deferred due to leg weakness. Last 48 Hours of Lab Results: Laboratory Tests 09/08 09/07 09/07 09/07 0800 1336 1040 0720 Chemistry Sodium (137 - 145 mmol/L) 138 Potassium (3.5 - 5.1 mmol/L) 3.6 Chloride (98 - 107 mmol/L) 107 Carbon Dioxide (22 - 30 mmol/L) 21 L Anion Gap (5 - 16) 9 BUN (9 - 20 mg/dL) 23 H Creatinine (0.7 - 1.2 mg/dL) 1.0 Estimated GFR (>60 ml/min) > 60 BUN/Creatinine Ratio (7 - 25 %) 23.0 Lactic Acid (0.7 - 2.1 mmol/L) 2.0 3.3 H 5.5 H Hematology CBC w Diff MAN DIFF ORDERED WBC (4.8 - 10.8 /CUMM) 8.2 RBC (4.70 - 6.10 /CUMM) 3.61 L Hgb (14.0 - 18.0 G/DL) 10.3 L Hct (42 - 52 %) 30.7 L MCV (80.0 - 94.0 FL) 85.1 MCH (27.0 - 31.0 PG) 28.5 MCHC (33.0 - 37.0 G/DL) 33.5 RDW (11.5 - 14.5 %) 15.7 H Plt Count (130 - 400 /CUMM) 68 L MPV (7.4 - 10.4 FL) 9.6 Gran % (42.2 - 75.2 %) 87.9 H Lymphocytes % (20.5 - 51.1 %) 3.4 L Monocytes % (1.7 - 9.3 %) 8.7 Eosinophils % (0 - 5 %) 0 Basophils % (0.0 - 2.0 %) 0 Absolute Granulocytes (1.4 - 6.5 /CUMM) 7.2 H Segmented Neutrophils (42.2 - 75.2 %) 68 Band Neutrophils (0.0 - 5.0 %) 21 H Absolute Lymphocytes (1.2 - 3.4 /CUMM) 0.3 L Lymphocytes (20.5 - 51.1 %) 4 L Monocytes (1.7 - 9.3 %) 7 Absolute Monocytes (0.10 - 0.60 /CUMM) 0.7 H Absolute Eosinophils (0.0 - 0.7 /CUMM) 0 Absolute Basophils (0.0 - 0.2 /CUMM) 0 Platelet Estimate (ADEQUATE) DECREASED Hypochromic-Microcytic 1+ Poikilocytosis 2+ Anisocytosis 1+ 09/07 02 0720 2200 Chemistry Sodium (137 - 145 mmol/L) 141 Potassium (3.5 - 5.1 mmol/L) 3.7 Chloride (98 - 107 mmol/L) 108 H Carbon Dioxide (22 - 30 mmol/L) 16 L Anion Gap (5 - 16) 18 H BUN (9 - 20 mg/dL) 23 H Creatinine (0.7 - 1.2 mg/dL) 1.2 Estimated GFR (>60 ml/min) > 60 BUN/Creatinine Ratio (7 - 25 %) 19.2 Total Bilirubin (0.2 - 1.3 mg/dL) 0.7 Direct Bilirubin (< 0.4 mg/dL) 0.3 AST (17 - 59 U/L) 54 ALT (21 - 72 U/L) 63 Alkaline Phosphatase (< 127 U/L) 61 [id number] Pept (<125 pg/mL) 4210 H Total Protein (6.3 - 8.2 g/dL) 5.2 L Albumin (3.5 - 5.0 g/dL) 2.9 L Coagulation PT (9.4 - 12.5 SEC) 14.8 H INR (0.90 - 1.17) 1.41 H APTT (25 - 37 SEC) 28 Hematology CBC w Diff MAN DIFF ORDERED WBC (4.8 - 10.8 /CUMM) 13.0 H RBC (4.70 - 6.10 /CUMM) 3.85 L Hgb (14.0 - 18.0 G/DL) 10.9 L Hct (42 - 52 %) 33.3 L MCV (80.0 - 94.0 FL) 86.4 MCH (27.0 - 31.0 PG) 28.4 MCHC (33.0 - 37.0 G/DL) 32.9 L RDW (11.5 - 14.5 %) 15.5 H Plt Count (130 - 400 /CUMM) 59 L MPV (7.4 - 10.4 FL) 10.0 Gran % (42.2 - 75.2 %) 91.7 H Lymphocytes % (20.5 - 51.1 %) 2.9 L Monocytes % (1.7 - 9.3 %) 5.3 Eosinophils % (0 - 5 %) 0 Basophils % (0.0 - 2.0 %) 0.1 Absolute Granulocytes (1.4 - 6.5 /CUMM) 11.9 H Segmented Neutrophils (42.2 - 75.2 %) 71 Band Neutrophils (0.0 - 5.0 %) 18 H Absolute Lymphocytes (1.2 - 3.4 /CUMM) 0.4 L Lymphocytes (20.5 - 51.1 %) 6 L Monocytes (1.7 - 9.3 %) 5 Absolute Monocytes (0.10 - 0.60 /CUMM) 0.7 H Absolute Eosinophils (0.0 - 0.7 /CUMM) 0 Absolute Basophils (0.0 - 0.2 /CUMM) 0 Platelet Estimate (ADEQUATE) DECREASED Hypochromic-Microcytic 1+ Anisocytosis 1+ Urines Urinalysis MOD H Urine Color (YEL,AMB,STR) YEL Urine Clarity (CLEAR) CLDY H Urine pH (5.0 - 8.0) 6.0 Ur Specific [place] (1.001 - 1.035) 1.025 Urine Protein (NEG,<30 MG/DL) 100 H Urine Ketones (NEG) TRACE H Urine Nitrite (NEG) POS H Urine Bilirubin (NEG) NEG Urine Urobilinogen (0.1 - 1.0 EU/dl) 0.2 Ur Leukocyte Esterase (NEG) LARGE H Ur Microscopic SEDIMENT EXAMINED Urine RBC (0 - 5 /HPF) 25-50 H Urine WBC (0 - 2 /HPF) PACKD H Ur Epithelial Cells (NONE,FEW) FEW Urine Bacteria (NEG/NONE) PACKD H Urine Mucus (FEW,NONE) FEW Urine Hemoglobin (NEG) LARGE H Urine Glucose (N MG/DL) NEG 09/06 09/06 09/06 2125 1850 1825 Chemistry Sodium (137 - 145 mmol/L) 140 Potassium (3.5 - 5.1 mmol/L) 3.8 Chloride (98 - 107 mmol/L) 104 Carbon Dioxide (22 - 30 mmol/L) 19 L Anion Gap (5 - 16) 17 H BUN (9 - 20 mg/dL) 19 Creatinine (0.7 - 1.2 mg/dL) 1.0 Estimated GFR (>60 ml/min) > 60 BUN/Creatinine Ratio (7 - 25 %) 19.0 Glucose (65 - 99 mg/dL) 117 H Hemoglobin A1c (4.2 - 5.8 %) 5.0 Lactic Acid (0.7 - 2.1 mmol/L) 2.1 4.4 H Calcium (8.4 - 10.2 mg/dL) 9.2 Total Bilirubin (0.2 - 1.3 mg/dL) 0.9 AST (17 - 59 U/L) 65 H ALT (21 - 72 U/L) 85 H Alkaline Phosphatase (< 127 U/L) 83 Total Protein (6.3 - 8.2 g/dL) 6.5 Albumin (3.5 - 5.0 g/dL) 3.9 Globulin (1.9 - 4.2 gm/dL) 2.6 Albumin/Globulin Ratio (1.1 - 2.2 %) 1.5 Hematology CBC w Diff MAN DIFF ORDERED WBC (4.8 - 10.8 /CUMM) 9.7 RBC (4.70 - 6.10 /CUMM) 4.89 Hgb (14.0 - 18.0 G/DL) 14.4 Hct (42 - 52 %) 42.1 MCV (80.0 - 94.0 FL) 86.1 MCH (27.0 - 31.0 PG) 29.4 MCHC (33.0 - 37.0 G/DL) 34.1 RDW (11.5 - 14.5 %) 15.4 H Plt Count (130 - 400 /CUMM) 85 L MPV (7.4 - 10.4 FL) 9.6 Gran % (42.2 - 75.2 %) 90.9 H Lymphocytes % (20.5 - 51.1 %) 2.7 L Monocytes % (1.7 - 9.3 %) 6.2 Eosinophils % (0 - 5 %) 0.2 Basophils % (0.0 - 2.0 %) 0 Absolute Granulocytes (1.4 - 6.5 /CUMM) 8.8 H Segmented Neutrophils (42.2 - 75.2 %) 84 H Band Neutrophils (0.0 - 5.0 %) 7 H Absolute Lymphocytes (1.2 - 3.4 /CUMM) 0.3 L Lymphocytes (20.5 - 51.1 %) 3 L Monocytes (1.7 - 9.3 %) 6 Absolute Monocytes (0.10 - 0.60 /CUMM) 0.6 Absolute Eosinophils (0.0 - 0.7 /CUMM) 0 Absolute Basophils (0.0 - 0.2 /CUMM) 0 Platelet Estimate (ADEQUATE) VERIFIED BY SMEAR Normocytic RBCs VERIFIED Normochromic RBCs VERIFIED Miscellaneous Ref Lab Test Result (()) REPORT Other Body Source Fld Total RBCs Counted (%) 100 Assessment/Plan Assessment: 62-year-old man with relapsing remitting MS possibly in the secondary progressive phase on some oral DMT. Currently with a possible mild exacerbation due to a UTI. I believe that most of his weakness is currently related to the UTI in that he would be better after treating the UTI. Recommendations: 1. Would obtain an MRI brain with contrast. 2. Obtain records from [facility] including which medication he is on for MS and the MRIs done 6 months ago especially the ones relating to the spine. 3. Recommend trying Ampyra as an outpatient. 4. For now would recommend Solu-Medrol 500mg IV piggyback daily for 3 days. 5. Monitor bladder for residual with ultrasound and if there is a lot of post void residual catheterize. 6. PT and OT. Consult Acknowledgment - Thank you for your consult request.
--- NOTE | 2017-09-08 13:33 | Operative Report ---
Operative/Inv Procedure Report Surgery Date: 09/08/17 Name of Procedure: cystoscopy: right stent insertion, fluroroscopy Pre-Operative Diagnosis: right obstructed kidney Post-Operative Diagnosis: same Estimated Blood Loss: scant Surgeon/Structural Engineering Project Manager: MD Hans, [place]-urology Anesthesia: general endotracheal tube Specimens: right renal aspirate Complications: none Condition: improved Operative/Procedure Note Note: The patient was taken to the operating room placed OR table in supine position. Timeout was performed, with the patient awake, in order to confirm anesthesia, and other pertinent perioperative information. After adequate anesthesia and antibiotics, the patient was then placed lithotomy stirrups, draped and prepped in the usual surgical fashion. A 22 Amharic cystoscope sheath with 30 angle lens was inserted into the urethra, and subsequently advanced into the bladder without difficulty. Upon thorough and systematic surveillance, the bladder was noted to be mildly trabeculated, free of tumor, free of stone. Both ureteral orifices were in their orthotopic position with clear reflux from the left side, and no efflux on the right. The right orifice was intubated with an open-ended ureteral access catheter. Retrograde pyelogram was gently performed in order to confirm hydronephrosis, and to better define the anatomy of the ureter, and kidney using fluoroscopy. A large stone consistent with 1.5 cm filling defect was seen at the [facility]. The open -ended stent was then removed. The right orifice was intubated with a 0.035 Glidewire, which was advanced into the right ureter, and into the right upper pole of the kidney without difficulty. Over this Glidewire, a 6 x 24 Bard Inlay stent, was railroaded into the right ureter without difficulty. With the proximal coil in the right renal pelvis, and the distal coil in the bladder, the Glidewire was removed, and the stent remained in proper place. A small amount of purulent discharge was noted to drained from the right kidney, after placement of the stent on the right side. The bladder was then drained via the cystoscope, and then removed without difficulty. All sponge needle and instrument counts were correct at the end of the case. The patient tolerated the procedure well, and was taken to recovery room in satisfactory condition. He will continue to be treated by the medical team during this hospital stay. The patient will have a right ESWL, with cystoscopy stent removal in the future. Discharge Disposition: PACU CC: Hans BURNS,Tor
--- NOTE | 2017-09-08 15:18 | RADIOLOGY REPORT ---
EXAMINATION: CR ABDOMEN/INTRAOPERATIVE FLUOROSCOPY CLINICAL INDICATION: Right cystogram. COMPARISON: None TECHNIQUE/FINDINGS: Fluoroscopic equipment was dedicated to the operating room for the performance of an intraoperative procedure. Several (10) spot films were acquired and are archived in PACS. Please refer to operative notes for procedural detail. FLUOROSCOPY TIME: 0.31 seconds. IMPRESSION: Administrative dictation for intraoperative fluoroscopy and image archiving in PACS. Please refer to operative notes for details.
[2017-09-08 15:42] VITALS: BP 104/78
--- NOTE | 2017-09-08 18:46 | ECHOCARDIOGRAM REPORT ---
NICHOLE OCAMPO Age: 62 : 1955 Gender: M Exam Date: 09/08/2017 09:58 Exam Location: [address] [place] [address] Ht (in): 69 Wt (lb): 177 BSA: 1.99 BP: 100 / 60 Ordering Physician: Lennie Rider MD Referring Physician: Lennie Rider MD Technologist: Nichole Byrd [facility] Room Number: 215-1 Indications: Shortness of breath Rhythm: Sinus Technical Quality: Technically difficult study FINDINGS Left Ventricle Normal size left ventricle. Mild concentric left ventricular hypertrophy. Mildly reduced global left ventricular systolic function. Mildly abnormal left ventricular ejection fraction estimated at 40-45%. Abnormal relaxation filling pattern of the left ventricle for age (stage 1 diastolic dysfunction). Right Ventricle Right ventricle not well visualized, grossly normal. Right Atrium Right atrium not well visualized, grossly normal. Left Atrium Mild left atrial dilatation. Mitral Valve Mechanical prosthetic mitral valve noted, bileaflet tilting disk type. Gradient recorded across the prosthetic mitral valve within the expected range. Physiologic regurgitation of the prosthetic mitral valve. Aortic Valve Aortic valve not well visualized. Mild aortic sclerosis. No aortic valve stenosis or regurgitation. Aortic valve not well visualized, grossly normal. Tricuspid Valve Tricuspid valve not well visualized, grossly normal. No tricuspid regurgitation. Pulmonic Valve Pulmonic valve not well visualized. No pulmonic regurgitation. Pericardium No pericardial effusion. Great Vessels Normal size aortic root. Dilated inferior vena cava. CONCLUSIONS Normal size left ventricle. Mild concentric left ventricular hypertrophy. Mildly reduced global left ventricular systolic function. Mildly abnormal left ventricular ejection fraction estimated at 40- 45%. Abnormal relaxation filling pattern of the left ventricle for age (stage 1 diastolic dysfunction). Right ventricle not well visualized, grossly normal. Right atrium not well visualized, grossly normal. Mild left atrial dilatation. Gradient recorded across the prosthetic mitral valve within the expected range. Physiologic regurgitation of the prosthetic mitral valve. Dilated inferior vena cava. Mohan Bui M.D. (Electronically Signed) Final Date: 08 September 2017 18:46 MEASUREMENTS (Male / Female) Normal Values 2D ECHO LV Diastolic Diameter PLAX 4.8 cm 4.2 - 5.9 / 3.9 - 5.3 cm LV Systolic Diameter PLAX 3.9 cm 2.1 - 4.0 cm LV Fractional Shortening PLAX 18.8 % 25 - 46 % LV Ejection Fraction 2D Teich 38.7 % IVS Diastolic Thickness 1.0 cm LVPW Diastolic Thickness 1.2 cm LV Relative Wall Thickness 0.5 LVOT Diameter 1.8 cm Aortic Root Diameter 2.7 cm LA Systolic Diameter LX 4.0 cm 3.0 - 4.0 / 2.7 - 3.8 cm Ascending Aorta Diameter 2.7 cm DOPPLER AV Peak Velocity 106.0 cm/s AV Peak Gradient 4.5 mmHg AV Mean Velocity 69.1 cm/s AV Mean Gradient 2.0 mmHg AV Velocity Time Integral 16.9 cm LVOT Peak Velocity 78.3 cm/s LVOT Peak Gradient 2.5 mmHg LVOT Mean Velocity 52.1 cm/s LVOT Mean Gradient 1.0 mmHg LVOT Velocity Time Integral 13.9 cm LVOT Stroke Volume 35.4 cm AV Area Cont Eq vti 2.1 cm AV Area Cont Eq pk 1.9 cm MV Peak Velocity 265.0 cm/s MV Peak Gradient 28.1 mmHg MV Mean Velocity 157.0 cm/s MV Mean Gradient 13.0 mmHg Mitral E Point Velocity 217.0 cm/s Mitral A Point Velocity 241.0 cm/s Mitral E to A Ratio 0.9 MV PHT Velocity 246.0 cm/s MV Deceleration [place] 831.0 cm/s MV Pressure Half Time 88.8 ms MV Area PHT 2.5 cm MV Deceleration Time 528.0 ms PV Peak Velocity 72.5 cm/s PV Peak Gradient 2.1 mmHg PV Mean Velocity 49.0 cm/s PV Mean Gradient 1.0 mmHg PV Velocity Time Integral 12.9 cm LV E' Lateral Velocity 6.2 cm/s Mitral E to LV E' Lateral Ratio 34.8 LV E' Septal Velocity 7.0 cm/s Mitral E to LV E' Septal Ratio 30.9
[2017-09-08 22:33] VITALS: BP 128/86
[2017-09-09 06:59] VITALS: BP 120/67
--- NOTE | 2017-09-09 08:16 | PN- Housestaff ---
Victoria Flores MD 09/09/17 0816: Subjective Follow-up For: multiple sclerosis sepsis or urologic origin - pyelonephritis urinary calculus causing obstruction Subjective: today patient is feeling better. no pain, no events. he is confused at times but also is clear at others. patient is angry at his sister who is his POA that he believes is trying to put him into a home. Review of Systems Constitutional: Reports: weakness. Cardiovascular: Reports: no symptoms. Respiratory: Reports: no symptoms. Gastrointestinal: Reports: no symptoms. Genitourinary: Reports: no symptoms, frequency. Neurological/Psychological: Reports: numbness. Objective Last 24 Hrs of Vital Signs/I&O Vital Signs Date Time Temp Pulse Resp B/P B/P Pulse O2 O2 Flow FiO2 Mean Ox Delivery Rate 09/09 1600 93 Nasal 1.0L Cannula 09/09 1435 98.5 106 20 114/76 93 Nasal Cannula 09/09 1128 Nasal 1.0L Cannula 09/09 1033 98 118/68 09/09 0927 Nasal 1.5L Cannula 09/09 0800 93 Nasal 3.0L Cannula 09/09 0659 98.3 101 18 120/67 96 Room Air 09/09 0000 96 Nasal 3.0L Cannula 09/08 2233 99.3 108 20 128/86 96 Nasal 2.0L Cannula Intake & Output 09/09 1600 09/09 0800 09/09 0000 Intake Total 1600 800 800 Output Total 550 400 Balance 1050 400 800 Intake, IV 800 800 800 Intake, Oral 800 0 Number 0 Bowel Movements Output, Urine 550 400 Physical Exam General Appearance: Alert, Cooperative, No Acute Distress Skin: No Rashes, No Breakdown, No Significant Lesion HEENT: Atraumatic, EOMI, Mucous Membr. moist/pink Neck: Supple Cardiovascular: Regular Rate, Normal S1, Normal S2, No Murmurs Lungs: Clear to Auscultation, Normal Air Movement Abdomen: Normal Bowel Sounds, Soft, No Tenderness Neurological: Normal Speech, Strength at 5/5 X4 Ext, Normal Tone, Cranial Nerves 3-12 NL, patient unable to walk Extremities: No Clubbing, No Cyanosis, No Edema, Normal Pulses, No Tenderness/ Swelling Vascular: Normal Pulses, Pulses Symmetrical Current Medications: Current Medications Sig/Tobin Start time Last Medication Dose Route Stop Time Status Admin Acetaminophen 650 MG Q6P PRN 09/07 0300 AC 09/08 PO 1014 Ampicillin 2,000 MG Q8 09/08 1400 AC 09/09 Sodium Chloride 100 ML IV 2110 Aspirin 81 MG DAILY 09/07 1739 AC 09/09 PO 0943 Atorvastatin Calcium 40 MG 1700 09/07 1700 AC 09/09 PO 1543 Cholecalciferol 1,000 IU DAILY 09/08 1000 AC 09/09 PO 0943 Dextromethorphan/ 1 CAP BID 09/07 1230 AC 09/09 Quinidine PO 0944 Divalproex Sodium 500 MG 2200 09/07 2200 AC 09/09 PO 2110 Docusate Sodium 100 MG BID 09/09 1102 AC 09/09 PO 2109 Magnesium Oxide 200 MG AT BEDTIME 09/07 2200 AC 09/09 PO 2111 Methylprednisolone 500 MG DAILY@1700 09/09 1700 AC 09/09 Dextrose/Water 250 ML IV 09/11 0000 1543 Methylprednisolone 500 MG DAILY 09/08 1415 DC 09/08 IV 09/11 0955 1703 Metoprolol Succinate 12.5 MG DAILY 09/09 1000 AC 09/09 PO 1033 Multivitamins 1 TAB DAILY 09/08 1000 AC 09/09 PO 0943 Oxybutynin Chloride 5 MG TID 09/07 1000 AC 09/09 PO 2110 Senna 187 MG AT BEDTIME 09/09 2200 AC 09/09 PO 2109 Sertraline HCl 200 MG DAILY 09/07 1000 AC 09/09 PO 0943 Sodium Chloride 1,000 ML Q10H 09/08 0930 AC 09/09 IV 2001 Thiamine HCl 100 MG DAILY 09/07 1000 AC 09/09 PO 0943 Last 24 Hrs of Lab/Carlin Results Last 24 Hrs of Labs/Mics: Laboratory Tests 09/09/17 0719: Anion Gap 10, Estimated GFR > 60, BUN/Creatinine Ratio 34.3 H, CBC w Diff NO MAN DIFF REQ, RBC 3.28 L, MCV 85.9, MCH 28.6, MCHC 33.3, RDW 15.8 H, MPV 9.8, Gran % 91.2 H, Lymphocytes % 4.1 L, Monocytes % 4.6, Eosinophils % 0, Basophils % 0.1, Absolute Granulocytes 4.8, Absolute Lymphocytes 0.2 L, Absolute Monocytes 0.2, Absolute Eosinophils 0, Absolute Basophils 0 Assessment/Plan Assessment: 62-year-old male with multiple comorbidities presented in ER for right lower extremity weakness and numbness more than his usual, symptoms similar to his previous MS exacerbation. Patient found to have fever, tachycardia in ER, later elevated WBC and positive urine and blood cultures with GNRs. Plan #R foot numbness and weakness most likely MS exacerbation -patient has other signs that can possibly be due to MS exacerbation including sluggish pupils and history urinary retention. -we have consulted with neuro and they have seen the patient. they are suggesting MRI of the brain with and without contrast to see the progression of disease. They are suggesting starting ampyra as an outpatient. We shall obtain records from his neurologist as well. -MRI brain shows stable pattern of extensive lesional burden. No enhancing lesions to suggst active demyelination. -We will start patient on 500mg steroids iv for 3 days duration for MS. Patient is not showing overt signs of an exacerbation but sepsis and surgery can be the cause of MS exacerbations. -cont depakote -cont aubagio, nudexta. -contact his neurologist Dr. Lewis for records of spine mri. Patient is having weakness of numbness and the spine and the effects of MS must be elucidated. #wheezing and dyspnea -we will give patient one dose of steroids IV 60mg. patient will now be on steroids for MS which will also help with wheezing and hypotension. #UTI wbc 13-->5.3, fluids overnight -did not spike fever overnight -max 100 prior -CT abd pelvis showed stone, hydronephrosis, evidence of pyelonephritis. -patient was asymptomatic except for frequency which can also be caused by his fluids running at 125cc/hr. -Urinalysis positive nitrites, large leukocyte esterase, packed WBC -Positive urine culture for ecoli -Lactic acid was 5 at max which decreased with fluids. After fluids stopped it increased again even on antibiotics. This was because infection had reached to the kidney which was compounded by the obstruction and hydronephrosis. Surgery was required to place a stent to some relief and now that patient is post surgery day 1 we hope that symptoms will continue to resolve and that antibiotics will be able to treat the infection. -patient will need to return to the OR at some point for lithotripsy and stent removal as per dr. preston. -patient on incentive spirometry post surgery -continues to have hematuria today. -switch ceftriaxone 1g daily to ampicillin 2gq8 for narrower coverage, now total antibiotic day 4, day 2 of ampicillin. -continue fluids -both urine and blood cultures are growing ecoli sensitive to ampicillin -fluid removed from kidney (pus) is positive for gnrs, likely the same strain. -We have contacted Dr. Gaona ID for direction concerning antibiotics as gas within the right midpole collecting system was seen on ct abd pelvis. Question of emphysematous pyelonephritis. #dyspnea -95 on 1.5L -cxr on admission was normal -patient had episode of SOB after we gave fluids for his lactic acidosis. We ordered a repeat CXR and echocardiogram as patient has had CABG, has had no echo for 7 years, and has an elevated BNP from his baseline value (that was done years ago). Echo showed decreased EF. 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 -repeat cxr clear #thrombocytopenia -avoid heparin #hypotension -BP 90/50, patient says he chronically runs low -fluids 125cc/hour, blood pressure has responded well -holding metoprolol-steroids will help -patient was tachycardic overnight- can start metoprolol 12.5mg today. # mild transmainitis -Ast 65, ALT 85 -f/u repeat lfts #hld -cont Atorvastatin #urinary retnetion -cont oxybutinin #vitamins -cont Thiamine #mental health -cont Sertraline #placement as per brother patient is not able to care for himself anymore patient states that he can function well alone because he doesnt want to go live in a facility. POA sister is actively involved Please keep her updated OT and PT suggestions #DVT prophylaxis #Full code Problem List: 1. Sepsis 2. Multiple sclerosis 3. UTI (urinary tract infection) Pain Ratin Pain Location: na Pain Goal: Remain pain free Pain Plan: na Tomorrow's Labs & Rationales: cbc Briana Bruno 09/09/17 1156: Attending MD Review Statement Attending Statement Attending MD Statement: examined this patient, discuss w/resident/PA/[employer], agreed w/resident/PA/[employer], discussed with family, reviewed EMR data (avail), discussed with nursing, discussed with case mgmt, reviewed images, amended to note Attending Assessment/Plan: Patient seen/examined bedside. He is being treated for UTI and weakness. CT abd/ pelvis suggestive of pyelonephritis with nephrolithiasis. Urology consulted s/p cystoscopy. Neurology recommend steroids iv solumedrol 500 mg for 3 days alongwith MRI brain with contrast. Problem list -Sepsis 2/2 UTI/pyelonephritis with bacteremia gram negative rods E coli with improvement. -MS exacerbation with new symptoms of weakness and numbness of right foot and positive danica raul pupil -Thrombocytopenia -Lactic acidosis resolved. -Transaminitis stable. -Nephrolithiasis s/p cystosocpy. Plan -Neuro check every 4 hours -Continue MS home medication -F/u neuro consultation or call Dr Villalba as per family request. -iv steroids, follow neuro recs. -IV fluid, abx iv and f/u urology for nephrolithiasis management. -resume antihypertensives if required. Monitor hemodynamics. DVT prophylaxis ALPS given thrombocytopenia Code full Diet regular
[2017-09-09 08:26] LABS: ABSOLUTE BASOPHIL COUNT 0 /CUMM (0.0-0.2); ABSOLUTE EOSINOPHIL COUNT 0 /CUMM (0.0-0.7); ABSOLUTE GRANULOCYTE CT 4.8 /CUMM (1.4-6.5); ABSOLUTE LYMPH COUNT 0.2 /CUMM (1.2-3.4); ABSOLUTE MONOCYTE COUNT 0.2 /CUMM (0.10-0.60); BASOPHIL % 0.1 % (0.0-2.0); EOSINOPHIL % 0 % (0-5); GRANULOCYTE % 91.2 % (42.2-75.2); HEMATOCRIT 28.2 % (42-52); MEAN CORPUSCULAR HGB 28.6 PG (27.0-31.0); MEAN CORPUSCULAR HGB CONC 33.3 G/DL (33.0-37.0); MEAN CORPUSCULAR VOLUME 85.9 FL (80.0-94.0); MEAN PLATELET VOLUME 9.8 FL (7.4-10.4); RBC DISTRIBUTION WIDTH 15.8 % (11.5-14.5); RED BLOOD CELL CT 3.28 /CUMM (4.70-6.10); WHITE BLOOD CELL COUNT 5.3 /CUMM (4.8-10.8)
--- NOTE | 2017-09-09 10:25 | MRI REPORT ---
MR BRAIN WITHOUT AND WITH CONTRAST CLINICAL INFORMATION: Assess extent of multiple sclerosis. COMPARISON: MRI brain 02/05/2017. TECHNIQUE: MRI of the brain was obtained using routine sequences before and after the intravenous administration of 8 mL of Gadavist. FINDINGS: Stable pattern extensive lesional burden throughout the supratentorial and infratentorial white matter with stable appearing areas of cystic encephalomalacia throughout confluent periventricular white matter disease. Multiple lesions exhibit low signal intensity on T1-weighted imaging and there is similar global cerebral and callosal volume loss. No definite new lesions are identified. There are no enhancing nor diffusion restricting lesions to suggest active demyelination. The major flow voids at the skull base are preserved. There is no acute infarct on diffusion-weighted imaging. Stable appearing punctate foci of susceptibility artifact within the left cerebellum in the temporal occipital and parietal lobes bilaterally, most likely chronic petechial microhemorrhages. The cerebellar tonsils are normally positioned. The craniocervical junction is normal. Osseous marrow signal intensity is homogenous. The visualized soft tissues are unremarkable. IMPRESSION: Stable pattern extensive lesional burden throughout the supratentorial and infratentorial brain in keeping with the patient's clinical history of multiple sclerosis. Stable global cerebral and callosal volume loss. There are no enhancing lesions to suggest active demyelination.
[2017-09-09 11:09] LABS: PLATELET COUNT 68 /CUMM (130-400)
[2017-09-09 14:35] VITALS: BP 114/76
--- NOTE | 2017-09-09 15:33 | Cons- Infect Disease ---
General Information and HPI Consulting Request Date of Consult: 09/09/17 Requested By: Briana Bruno MD Reason for Consult: Positive blood and urine cultures for Escherichia coli Source of Information: patient, family History of Present Illness: This is a 62-year-old man with a history of multiple sclerosis, coronary artery disease, status post CABG, status post mitral valve replacement, status post spinal surgery, admitted on September 06 with increasing numbness of the right foot and increased falls. On admission he was febrile to 103. His initial blood pressure was 186/80 but he soon dropped to 85/50. Laboratory data revealed a white blood cell count of 10,000, platelets 85,000, BUN/creatinine 19 and 1.0, lactic acid 4.4, AST/ALT 65 and 85. Urinalysis 25-50 RBCs/packed WBCs. Rapid flu swab was negative. Chest x-ray was negative. He was given 3 L of fluid in the emergency room and begun on Ceftriaxone. A CT of the abdomen and pelvis on September 07 revealed mild right hydronephrosis with calculi seen in the proximal and distal right ureter, increased perinephric stranding with fluid along the right paracolic gutter, a prominent right renal pelvis calculus, nonspecific foci of gas within the right mid pole collecting system, a small focus of gas in the bladder and cholelithiasis. He was taken to the OR on September 08 for a cystoscopy and placement of a right ureteral stent. His blood and urine cultures grew Escherichia coli and his antibiotics were changed to Ampicillin on September 08. He was begun on Solumedrol on September 08 for his multiple sclerosis. He has defervesced and his white blood cell count, which had increased to 13,000 with bandemia on September 07, has normalized. He feels improved presently and offers no new complaints. He still notes numbness of the right foot but it has decreased. Allergies/Medications Allergies: Coded Allergies: lactose (Severe, DIARRHEA 09/07/17) Home Med List: Aspirin (Aspirin*) 81 MG TAB.CHEW 1 TAB PO DAILY HEART HEALTH (Reported) Cholecalciferol (Vitamin D3) (Vitamin D3) 1,000 UNIT CAPSULE 1 CAP PO DAILY supplement (Reported) Dextromethorphan HBr/Quinidine (Nuedexta 20-10 MG Capsule) 20 MG-10 MG CAPSULE 1 CAP PO BID MS (Reported) Divalproex Sodium (Divalproex Sodium ER) 500 MG TAB.ER.24H 1 TAB PO QPM MS ( Reported) Magnesium Oxide (Mag-Oxide) 200 MG MAGNESIUM TABLET 1 TAB PO AT BEDTIME RLS ( Reported) Metoprolol Succinate 50 MG TAB.ER.24H 1 TAB PO DAILY HEART (Reported) Oxybutynin Chloride (Oxybutynin Chloride ER) 15 MG TAB.ER.24 1 TAB PO BID BLADDER (Reported) Rosuvastatin Calcium (Crestor) 40 MG TABLET 1 TAB PO DAILY CHOLESTEROL ( Reported) Sertraline HCl 100 MG TABLET 2 TAB PO DAILY MENTAL HEALTH (Reported) Teriflunomide (Aubagio) 14 MG TABLET 1 TAB PO DAILY MS (Reported) Past History Travel History Traveled to [place] past 21 day No Medical History Blood Transfusion Hx: No Neurological: multiple sclerosis EENT: NONE Respiratory: NONE Gastrointestinal: NONE Hepatic: NONE Renal: NONE Musculoskeletal: NONE Psychiatric: bipolar disease, substance abuse, QUIT 6 YEARS AGO Endocrine: NONE Blood Disorders: anemia Cancer(s): NONE 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 Home Services at Home: Home Health Aide Smoking Status: Never Smoked ETOH Use: quit 5 years ago Illicit Drug Use: denies illicit drug use Review of Systems Review of Systems All Other Systems: Reviewed and Negative Exam & Diagnostic Data Last 24 Hrs of Vital Signs/I&O Vital Signs Date Time Temp Pulse Resp B/P B/P Pulse O2 O2 Flow FiO2 Mean Ox Delivery Rate 09/09 1435 98.5 106 20 114/76 93 Nasal Cannula 09/09 1128 Nasal 1.0L Cannula 09/09 1033 98 118/68 09/09 0927 Nasal 1.5L Cannula 09/09 08 93 Nasal 3.0L Cannula 09/09 0659 98.3 101 18 120/67 96 Room Air 09/09 0000 96 Nasal 3.0L Cannula 09/08 2233 99.3 108 20 128/86 96 Nasal 2.0L Cannula 09/08 1622 Nasal 1.5L Cannula 09/08 1542 98.9 98 20 104/78 94 Nasal Cannula Intake & Output 09/09 1600 08 0800 09/09 0000 Intake Total 1600 800 800 Output Total 550 400 Balance 1050 400 800 Intake, IV 800 800 800 Intake, Oral 800 0 Number 0 Bowel Movements Output, Urine 550 400 Physical Exam Other Physical Findings: Afebrile on steroids. He is awake and alert in no acute distress. Skin reveals an acneiform rash on his back. HEENT negative. Neck is supple with no adenopathy. Lungs decreased breath sounds at the right base. Heart regular rhythm with no murmur. Abdomen is soft, nontender with positive bowel sounds. Back no CVA tenderness. Extremities no cyanosis, clubbing or edema. Neuro weakness of both lower extremities. Last 24 Hours of Lab Results: Laboratory Tests 09/09 0719 Chemistry Sodium (137 - 145 mmol/L) 144 Potassium (3.5 - 5.1 mmol/L) 3.8 Chloride (98 - 107 mmol/L) 111 H Carbon Dioxide (22 - 30 mmol/L) 24 Anion Gap (5 - 16) 10 BUN (9 - 20 mg/dL) 24 H Creatinine (0.7 - 1.2 mg/dL) 0.7 Estimated GFR (>60 ml/min) > 60 BUN/Creatinine Ratio (7 - 25 %) 34.3 H Hematology CBC w Diff NO MAN DIFF REQ WBC (4.8 - 10.8 /CUMM) 5.3 RBC (4.70 - 6.10 /CUMM) 3.28 L Hgb (14.0 - 18.0 G/DL) 9.4 L Hct (42 - 52 %) 28.2 L MCV (80.0 - 94.0 FL) 85.9 MCH (27.0 - 31.0 PG) 28.6 MCHC (33.0 - 37.0 G/DL) 33.3 RDW (11.5 - 14.5 %) 15.8 H Plt Count (130 - 400 /CUMM) 68 L MPV (7.4 - 10.4 FL) 9.8 Gran % (42.2 - 75.2 %) 91.2 H Lymphocytes % (20.5 - 51.1 %) 4.1 L Monocytes % (1.7 - 9.3 %) 4.6 Eosinophils % (0 - 5 %) 0 Basophils % (0.0 - 2.0 %) 0.1 Absolute Granulocytes (1.4 - 6.5 /CUMM) 4.8 Absolute Lymphocytes (1.2 - 3.4 /CUMM) 0.2 L Absolute Monocytes (0.10 - 0.60 /CUMM) 0.2 Absolute Eosinophils (0.0 - 0.7 /CUMM) 0 Absolute Basophils (0.0 - 0.2 /CUMM) 0 Last 24 Hours of Carlin Results: Blood cultures 2 September 06 positive for Escherichia coli sensitive to all antibiotics tested Urine culture September 06 greater than 100,000 colonies of Escherichia coli sensitive to all antibiotics tested OR culture labeled right kidney aspirate September 08 positive for gram-negative rods Rapid flu swab September 06 negative Diagnostic Data Recent Imaging Findings: Chest x-ray September [address] of the abdomen and pelvis on September 07 revealed mild right hydronephrosis with calculi seen in the proximal and distal right ureter, increased perinephric stranding with fluid along the right paracolic gutter, a prominent right renal pelvis calculus, nonspecific foci of gas within the right mid pole collecting system, a small focus of gas in the bladder and cholelithiasis. MRI of the head September 09 reveals a stable pattern, with no enhancing lesions to suggest active demyelination Assessment/Plan Assessment/Plan Impression: This is a 62-year-old man with a history of multiple sclerosis, coronary artery disease, status post CABG, status post mitral valve replacement, status post spinal surgery, admitted on September 06 with increasing numbness of the right foot and increased falls, found to be febrile with transient hypotension and pyuria, with blood and urine cultures positive for Escherichia coli and with a CT of the abdomen and pelvis revealing right hydronephrosis, right ureteral calculi, perinephric stranding, fluid along the right paracolic gutter and foci of gas within the right mid pole collecting system now 1 day status post cystoscopy and placement of a right ureteral stent. His clinical picture is consistent with sepsis of urologic origin. He has undergone cystoscopy with placement of a right ureteral stent to relieve the obstruction, with defervescence and normalization of his white blood cell count. The CT findings of fluid along the right paracolic gutter are felt to be secondary to pressure behind the obstruction. The gas within the right mid pole collecting system could suggest emphysematous pyelitis, but it may just reflect infection secondary to a gas-forming organism. His right foot numbness suggests the possibility of an MS exacerbation secondary to the infection, though his MRI appears to be stable. Suggestion: 1. Further management of his multiple sclerosis per Neurology 2. Continue Ampicillin but, if continues to improve, can change to Amoxicillin 500 mg po every 8 hours to complete a 14 day course of treatment Consult Acknowledgment - Thank you for your consult request.
[2017-09-09 22:04] VITALS: BP 118/70
[2017-09-10 06:30] VITALS: BP 129/61
--- NOTE | 2017-09-10 07:25 | PN- Housestaff ---
Victoria Flores MD 09/10/1724: Subjective Follow-up For: multiple sclerosis sepsis or urologic origin - pyelonephritis urinary calculus causing obstruction Subjective: patient feeling better than he has any other day of his stay with us. continues to be slightly confused (does not remember who his doctors are) but does have memory of his UTI and surgery with stent. Review of Systems Constitutional: Reports: weakness. Neurological/Psychological: Reports: confusion, numbness. Objective Last 24 Hrs of Vital Signs/I&O Vital Signs Date Time Temp Pulse Resp B/P B/P Pulse O2 O2 Flow FiO2 Mean Ox Delivery Rate 09/10 958 105 118/80 09/10 08 95 Room Air Room Air 09/10 0630 98.1 89 20 129/61 95 Room Air 09/10 0000 Nasal 1.0L Cannula 09/09 2204 98.0 102 20 118/70 94 Room Air 09/09 1600 93 Nasal 1.0L Cannula 09/09 1435 98.5 106 20 114/76 93 Nasal Cannula Intake & Output 09/10 1600 09/10 0800 09/10 0000 Intake Total 1100 1400 Output Total 200 650 Balance 900 750 Intake, IV 900 800 Intake, Oral 200 600 Number 1 Bowel Movements Output, Urine 200 650 Physical Exam General Appearance: Alert, Cooperative, No Acute Distress Skin: No Rashes, No Breakdown, No Significant Lesion Skin Temp/Moisture Exam: Warm/Dry HEENT: Atraumatic Cardiovascular: Regular Rate, Normal S1, Normal S2, No Murmurs Lungs: Clear to Auscultation, Normal Air Movement Abdomen: Normal Bowel Sounds, Soft, No Tenderness, No Hepatospenomegaly, No Masses Neurological: Normal Speech, Strength at 5/5 X4 Ext, Normal Tone, decreased sensation bilaterally lower ext Extremities: No Clubbing, No Cyanosis, No Edema, Normal Pulses, numbness bilaterally lower extremities Vascular: Normal Pulses, Pulses Symmetrical Reproductive (MALE) hematuria Current Medications: Current Medications Sig/Tobin Start time Last Medication Dose Route Stop Time Status Admin Acetaminophen 650 MG Q6P PRN 09/07 0300 AC 09/08 PO 1014 Amoxicillin 500 MG Q8H 09/10 1400 AC PO Amoxicillin 500 MG Q8H 09/10 1045 DC 09/10 PO 1115 Ampicillin 2,000 MG Q8 09/08 1400 DC 09/10 Sodium Chloride 100 ML IV 0700 Aspirin 81 MG DAILY 09/07 1739 AC 09/10 PO 0957 Atorvastatin Calcium 40 MG 1700 09/07 1700 AC 09/09 PO 1543 Bisacodyl 10 MG ONCE PRN 09/10 0945 AC ND Cholecalciferol 1,000 IU DAILY 09/08 1000 AC 09/10 PO 1000 Dextromethorphan/ 1 CAP BID 09/07 1230 AC 09/10 Quinidine PO 0957 Divalproex Sodium 500 MG 2200 09/07 2200 AC 09/09 PO 2110 Docusate Sodium 100 MG BID 09/09 1102 AC 09/10 PO 0957 Magnesium Oxide 200 MG AT BEDTIME 09/07 2200 AC 09/09 PO 2111 Methylprednisolone 500 MG DAILY@1700 09/09 1700 AC 09/09 Dextrose/Water 250 ML IV 09/11 0000 1543 Metoprolol Succinate 25 MG DAILY 09/10 1000 AC 09/10 PO 0959 Metoprolol Succinate 12.5 MG DAILY 09/09 1000 DC 09/09 PO 1033 Multivitamins 1 TAB DAILY 09/08 1000 AC 09/10 PO 0959 Oxybutynin Chloride 5 MG TID 09/07 1000 AC 09/10 PO 0957 Senna 187 MG AT BEDTIME 09/09 2200 AC 09/09 PO 2109 Sertraline HCl 200 MG DAILY 09/07 1000 AC 09/10 PO 1000 Sodium Chloride 1,000 ML Q10H 09/08 0930 DC 09/10 IV 0658 Thiamine HCl 100 MG DAILY 09/07 1000 AC 09/10 PO 1000 Last 24 Hrs of Lab/Carlin Results Last 24 Hrs of Labs/Mics: Laboratory Tests 09/10/17 0824: CBC w Diff NO MAN DIFF REQ, RBC 3.66 L, MCV 85.4, MCH 28.5, MCHC 33.4, RDW 16.2 H, MPV 9.6, Gran % 93.8 H, Lymphocytes % 3.6 L, Monocytes % 2.3, Eosinophils % 0, Basophils % 0.3, Absolute Granulocytes 6.9 H, Absolute Lymphocytes 0.3 L, Absolute Monocytes 0.2, Absolute Eosinophils 0, Absolute Basophils 0 Assessment/Plan Assessment: 62-year-old male with multiple comorbidities presented in ER for right lower extremity weakness and numbness more than his usual, symptoms similar to his previous MS exacerbation. Patient found to have fever, tachycardia in ER, later elevated WBC and positive urine and blood cultures with GNRs. Plan #R foot numbness and weakness most likely MS exacerbation -patient has other signs that can possibly be due to MS exacerbation including sluggish pupils and history urinary retention. -we have consulted with neuro and they have seen the patient. They are suggesting starting ampyra as an outpatient. We shall obtain records from his neurologist as well. -MRI brain shows stable pattern of extensive lesional burden. No enhancing lesions to suggst active demyelination. -We will start patient on 500mg steroids iv for 3 days duration for MS. Today is day 3/3 of treatment. Patient is not showing overt signs of an exacerbation other than bilateral foot numbness but sepsis and surgery can be the cause of MS exacerbations. -cont depakote -cont reji castillo. -contact his neurologist Dr. Lewis for records of spine mri. Patient is having weakness of numbness and the spine and the effects of MS must be elucidated. #wheezing and dyspnea -we will give patient one dose of steroids IV 60mg. patient will now be on steroids for MS which will also help with wheezing and hypotension. #UTI wbc 13-->5.3, fluids overnight -did not spike fever overnight -max 100 prior -CT abd pelvis showed stone, hydronephrosis, evidence of pyelonephritis. -patient was asymptomatic except for frequency which can also be caused by his fluids running at 125cc/hr. -Urinalysis positive nitrites, large leukocyte esterase, packed WBC -Positive urine culture for ecoli -Lactic acid was 5 at max which decreased with fluids. After fluids stopped it increased again even on antibiotics. This was because infection had reached to the kidney which was compounded by the obstruction and hydronephrosis. Surgery was required to place a stent to some relief and now that patient is post surgery day 1 we hope that symptoms will continue to resolve and that antibiotics will be able to treat the infection. -patient will need to return to the OR at some point for lithotripsy and stent removal as per dr. preston. -patient on incentive spirometry post surgery -continues to have hematuria today. -switch ampicillin 2gq8 to amoxicillin 500mg tid, now total antibiotic day 5 -discontinue fluids -both urine and blood cultures are growing ecoli sensitive to ampicillin -fluid removed from kidney (pus) is positive for gnrs, likely the same strain. -We have contacted Dr. Gaona ID for direction concerning antibiotics as gas within the right midpole collecting system was seen on ct abd pelvis. Question of emphysematous pyelonephritis. #dyspnea -95 on 1.5L -cxr on admission was normal -patient had episode of SOB after we gave fluids for his lactic acidosis. We ordered a repeat CXR and echocardiogram as patient has had CABG, has had no echo for 7 years, and has an elevated BNP from his baseline value (that was done years ago). Echo showed decreased EF. 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 -repeat cxr clear #thrombocytopenia -avoid heparin #hypotension -BP 90/50, patient says he chronically runs low -fluids 125cc/hour, blood pressure has responded well -patient was still tachycardic overnight- can increase metoprolol to 25mg today. # mild transmainitis -Ast 65, ALT 85 -f/u repeat lfts #hld -cont Atorvastatin #urinary retnetion -cont oxybutinin #vitamins -cont Thiamine #mental health -cont Sertraline #placement as per brother patient is not able to care for himself anymore patient states that he can function well alone because he doesnt want to go live in a facility. POA sister is actively involved- please keep her updated OT and PT suggests STR in [place] #DVT prophylaxis #Full code Problem List: 1. Calculus, urinary 2. Pyelonephritis 3. Sepsis 4. Multiple sclerosis Pain Ratin Pain Location: na Pain Goal: Remain pain free Pain Plan: none Tomorrow's Labs & Rationales: cbc Briana Bruno 09/10/17 1338: Attending MD Review Statement Attending Statement Attending MD Statement: examined this patient, discuss w/resident/PA/[employer] EM[employer]Y SERVICES MANAGER, agreed w/resident/PA/[employer] EMERGENCY SERVICES MANAGER, discussed with family, reviewed EMR data (avail), discussed with nursing, discussed with case mgmt, reviewed images, amended to note Attending Assessment/Plan: Patient seen/examined bedside. He is being treated for UTI and weakness. CT abd/ pelvis suggestive of pyelonephritis with nephrolithiasis. Urology consulted s/p cystoscopy. Neurology recommend steroids iv solumedrol 500 mg for 3 days alongwith MRI brain with contrast. Problem list -Sepsis 2/2 UTI/pyelonephritis with bacteremia gram negative rods E coli with improvement. -MS exacerbation -Thrombocytopenia -Lactic acidosis resolved. -Transaminitis stable. -Nephrolithiasis s/p cystosocpy and stent placement. Plan -Continue MS home medication -F/u neuro consultation or call Dr Villalba as per family request. -iv steroids complete today, follow neuro recs. -DC IV fluid, abx PO x 2 week course and f/u urology for nephrolithiasis management. -resume antihypertensives if required. Monitor hemodynamics. DVT prophylaxis ALPS given thrombocytopenia Code full Diet regular FOLLOW UP PCP in 3-5 days of discharge Urology in 2 weeks of discharge. neurology in 1-2 weeks of discharge
[2017-09-10 09:31] LABS: ABSOLUTE BASOPHIL COUNT 0 /CUMM (0.0-0.2); ABSOLUTE EOSINOPHIL COUNT 0 /CUMM (0.0-0.7); ABSOLUTE GRANULOCYTE CT 6.9 /CUMM (1.4-6.5); ABSOLUTE LYMPH COUNT 0.3 /CUMM (1.2-3.4); ABSOLUTE MONOCYTE COUNT 0.2 /CUMM (0.10-0.60); BASOPHIL % 0.3 % (0.0-2.0); EOSINOPHIL % 0 % (0-5); GRANULOCYTE % 93.8 % (42.2-75.2); HEMATOCRIT 31.2 % (42-52); MEAN CORPUSCULAR HGB 28.5 PG (27.0-31.0); MEAN CORPUSCULAR HGB CONC 33.4 G/DL (33.0-37.0); MEAN CORPUSCULAR VOLUME 85.4 FL (80.0-94.0); MEAN PLATELET VOLUME 9.6 FL (7.4-10.4); RBC DISTRIBUTION WIDTH 16.2 % (11.5-14.5); RED BLOOD CELL CT 3.66 /CUMM (4.70-6.10); WHITE BLOOD CELL COUNT 7.4 /CUMM (4.8-10.8)
[2017-09-10 10:28] LABS: PLATELET COUNT 85 /CUMM (130-400)
--- NOTE | 2017-09-10 12:42 | PN- Infect Dx ---
Subjective Subjective: Afebrile on steroids. He offers no complaints. Objective Last 24 Hrs of Vital Signs/I&O Vital Signs Date Time Temp Pulse Resp B/P B/P Pulse O2 O2 Flow FiO2 Mean Ox Delivery Rate 09/10 958 105 118/80 09/10 799 95 Room Air Room Air 09/10 0630 98.1 89 20 129/61 95 Room Air 09/10 0000 Nasal 1.0L Cannula 09/09 2204 98.0 102 20 118/70 94 Room Air 09/09 1600 93 Nasal 1.0L Cannula 09/09 1435 98.5 106 20 114/76 93 Nasal Cannula Intake & Output 09/10 1600 09/10 0809/10 0000 Intake Total 1100 1400 Output Total 200 650 Balance 900 750 Intake, IV 900 800 Intake, Oral 200 600 Number 1 Bowel Movements Output, Urine 200 650 Physical Exam Other Physical Findings: He appears comfortable in no acute distress Lungs are clear Heart regular rhythm with no murmur Back no CVA tenderness Results Last 24 Hours of Lab Results: Laboratory Tests 09/10 823 Hematology CBC w Diff NO MAN DIFF REQ WBC (4.8 - 10.8 /CUMM) 7.4 RBC (4.70 - 6.10 /CUMM) 3.66 L Hgb (14.0 - 18.0 G/DL) 10.4 L Hct (42 - 52 %) 31.2 L MCV (80.0 - 94.0 FL) 85.4 MCH (27.0 - 31.0 PG) 28.5 MCHC (33.0 - 37.0 G/DL) 33.4 RDW (11.5 - 14.5 %) 16.2 H Plt Count (130 - 400 /CUMM) 85 L MPV (7.4 - 10.4 FL) 9.6 Gran % (42.2 - 75.2 %) 93.8 H Lymphocytes % (20.5 - 51.1 %) 3.6 L Monocytes % (1.7 - 9.3 %) 2.3 Eosinophils % (0 - 5 %) 0 Basophils % (0.0 - 2.0 %) 0.3 Absolute Granulocytes (1.4 - 6.5 /CUMM) 6.9 H Absolute Lymphocytes (1.2 - 3.4 /CUMM) 0.3 L Absolute Monocytes (0.10 - 0.60 /CUMM) 0.2 Absolute Eosinophils (0.0 - 0.7 /CUMM) 0 Absolute Basophils (0.0 - 0.2 /CUMM) 0 Last 24 Hours of Carlin Results: OR culture labeled right kidney aspirate positive for Escherichia coli sensitive to all antibiotics tested Assessment/Plan Impression: Stable on Ampicillin Day 4 of treatment for Escherichia coli sepsis of urologic origin now 2 days status post cystoscopy and insertion of a right ureteral stent. Suggestion: 1. Further management of his multiple sclerosis per Neurology 2. Discontinue Ampicillin and begin Amoxicillin 500 mg po every 8 hours to complete a 14 day course of treatment
[2017-09-10 14:30] VITALS: BP 121/78
--- NOTE | 2017-09-10 16:36 | PN- Urology ---
Surgical Brief Attending Note Brief Attending Note: Pt AO X 3: feeling much better, no pain. VSS Afebrile. No CVAT: overall improved-will have ESWL and stent removal in few weeks. DC plan per medicine
[2017-09-10 21:42] VITALS: BP 136/78
[2017-09-11] MEDS ORDERED: AMOXICILLIN500 M2 PO (05:57)
[2017-09-11] MEDS ORDERED: ACIDOPHILUS1 EACH PO (05:59)
[2017-09-11 06:12] VITALS: BP 130/82
--- NOTE | 2017-09-11 09:39 | PN- Housestaff ---
Mark BURNS,Victoria 09/11/1738: Subjective Follow-up For: multiple sclerosis sepsis or urologic origin - pyelonephritis urinary calculus causing obstruction Subjective: PATIENT IN [facility]. No complaints. Feels good. Is comfortable with going to rehab. Family is bedside. Review of Systems Constitutional: Reports: no symptoms. Cardiovascular: Reports: no symptoms. Respiratory: Reports: no symptoms. Neurological/Psychological: Reports: numbness. Objective Last 24 Hrs of Vital Signs/I&O Vital Signs Date Time Temp Pulse Resp B/P B/P Pulse O2 O2 Flow FiO2 Mean Ox Delivery Rate 09/11 0856 74 130/82 09/11 0800 94 Room Air Room Air 09/11 0612 97.8 73 20 130/82 93 09/10 2142 98.8 83 18 136/78 92 09/10 1430 98.0 93 17 121/78 96 Room Air Intake & Output 09/11 1600 09/11 0800 09/11 0000 Intake Total 240 730 Output Total 400 550 Balance -160 180 Intake, IV 0 10 Intake, Oral 240 720 Number 0 0 Bowel Movements Output, Urine 400 550 Physical Exam General Appearance: Alert, Oriented X3, Cooperative, No Acute Distress HEENT: Atraumatic Cardiovascular: Regular Rate, Normal S1, Normal S2, No Murmurs Lungs: Clear to Auscultation, Normal Air Movement Abdomen: Normal Bowel Sounds, Soft, No Tenderness Extremities: No Clubbing, No Cyanosis, No Edema, Normal Pulses Vascular: Normal Pulses, Pulses Symmetrical Current Medications: Current Medications Sig/Tobin Start time Last Medication Dose Route Stop Time Status Admin Acetaminophen 650 MG Q6P PRN 09/07 0300 AC 09/08 PO 1014 Amoxicillin 500 MG Q8H 09/10 1400 AC 09/11 PO 0520 Amoxicillin 500 MG Q8H 09/10 1045 DC 09/10 PO 1115 Aspirin 81 MG DAILY 09/07 1739 AC 09/11 PO 0856 Atorvastatin Calcium 40 MG 1700 09/07 1700 AC 09/10 PO 1609 Bisacodyl 10 MG ONCE PRN 09/10 0945 AC LA Cholecalciferol 1,000 IU DAILY 09/08 1000 AC 09/11 PO 0856 Dextromethorphan/ 1 CAP BID 09/07 1230 AC 09/11 Quinidine PO 0856 Divalproex Sodium 500 MG 2200 09/07 2200 AC 09/10 PO 2238 Docusate Sodium 100 MG BID 09/09 1102 AC 09/11 PO 0856 Lactobacillus 1 CAP DAILY 09/11 1000 AC 09/11 Acidophilus PO 0857 Magnesium Oxide 200 MG AT BEDTIME 09/07 2200 AC 09/10 PO 2239 Methylprednisolone 500 MG DAILY@1700 09/09 1700 DC 09/10 Dextrose/Water 250 ML IV 09/11 0000 1610 Metoprolol Succinate 25 MG DAILY 09/10 1000 AC 09/11 PO 0856 Multivitamins 1 TAB DAILY 09/08 1000 AC 09/11 PO 0856 Oxybutynin Chloride 5 MG TID 09/07 1000 AC 09/11 PO 0856 Senna 187 MG AT BEDTIME 09/09 2199 AC 09/10 PO 223 Sertraline HCl 200 MG DAILY 09/07 1000 AC 09/11 PO 0856 Thiamine HCl 100 MG DAILY 09/07 1000 AC 09/11 PO 0856 Assessment/Plan Assessment: 62-year-old male with multiple comorbidities presented in ER for right lower extremity weakness and numbness more than his usual, symptoms similar to his previous MS exacerbation. Patient found to have fever, tachycardia in ER, later elevated WBC and positive urine and blood cultures with GNRs. Plan #R foot numbness and weakness most likely MS exacerbation -patient has other signs that can possibly be due to MS exacerbation including sluggish pupils and history urinary retention. -we have consulted with neuro and they have seen the patient. They are suggesting starting ampyra as an outpatient. We shall obtain records from his neurologist as well. -MRI brain shows stable pattern of extensive lesional burden. No enhancing lesions to suggest active demyelination. -Received 3 days of 500mg steroids iv for MS. Patient is not showing overt signs of an exacerbation other than bilateral foot numbness but sepsis and surgery can be the cause of MS exacerbations. -cont depakote -cont aubagio, nudexta. Question about continuing these medications while in rehab as these medications are expensive. We will speak with Dr. Lewis regarding this today. -patient will follow up with sue on discharge. #wheezing and dyspnea RESOLVED -we gave patient one dose of steroids IV 60mg. patient will now be on steroids for MS which will also help with wheezing and hypotension. #UTI normal white count now -did not spike fever overnight -CT abd pelvis showed stone, hydronephrosis, evidence of pyelonephritis. -patient was asymptomatic except for frequency which can also be caused by his fluids running at 125cc/hr. -Urinalysis positive nitrites, large leukocyte esterase, packed WBC -Positive urine culture for ecoli -Lactic acid was 5 at max which decreased with fluids. After fluids stopped it increased again even on antibiotics. This was because infection had reached to the kidney which was compounded by the obstruction and hydronephrosis. Surgery was required to place a stent to some relief and now that patient is post surgery day 1 we hope that symptoms will continue to resolve and that antibiotics will be able to treat the infection. -patient will need to return to the OR at some point for lithotripsy and stent removal as per dr. preston. -patient on incentive spirometry post surgery -continues to have hematuria today. -switch ampicillin 2gq8 to amoxicillin 500mg tid, now total antibiotic day 5 -discontinue fluids -both urine and blood cultures are growing ecoli sensitive to ampicillin -fluid removed from kidney (pus) is positive for gnrs, same strain. #dyspnea -95 on 1.5L -cxr on admission was normal -patient had episode of SOB after we gave fluids for his lactic acidosis. We ordered a repeat CXR and echocardiogram as patient has had CABG, has had no echo for 7 years, and has an elevated BNP from his baseline value (that was done years ago). Echo showed decreased EF. 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 -repeat cxr clear #thrombocytopenia -avoid heparin #hypotension -BP 90/50, patient says he chronically runs low -fluids 125cc/hour, blood pressure has responded well -patient was still tachycardic so metoprolol 25mg daily # mild transmainitis -Ast 65, ALT 85 -f/u repeat lfts #hld -cont Atorvastatin #urinary retnetion -cont oxybutinin #vitamins -cont Thiamine #mental health -cont Sertraline #placement as per brother patient is not able to care for himself anymore PATIENT IS AMENABLE TO GOING TO [facility] POA sister is actively involved- please keep her updated OT and PT suggests STR in [place] #DVT prophylaxis #Full code Problem List: 1. Calculus, urinary 2. Pyelonephritis 3. Sepsis 4. Multiple sclerosis 5. UTI (urinary tract infection) Pain Ratin Pain Location: na Pain Goal: Remain pain free Pain Plan: na Tomorrow's Labs & Rationales: madhuri Mayer MDBeba 09/11/17 1535: Attending MD Review Statement Attending Statement Attending MD Statement: examined this patient, discuss w/resident/PA/SKIDDER, agreed w/resident/PA/SKIDDER, reviewed EMR data (avail), discussed with nursing, discussed with case mgmt, reviewed images, amended to note Attending Assessment/Plan: Patient seen and examined, overall doing better. He denies any complaints. Patient with history of MS currently getting treated for UTI. Patient is afebrile and white count normal. Had been switched to oral antibiotics. He is otherwise medically stable for discharge to rehabilitation but unfortunately one of his multiple sclerosis medications is very expensive and that he had will not be able to receive the patient without checking the approval/pricing of that medication. Once that is approved and patient came discharged to rehabilitation. Continue all current medications. Dr. Jolley spoke with Dr. Liang, please follow his recommendations in terms of medication adjustment for multiple sclerosis. DVT px; ALPS 2/2 to thrombocytopenia.
[2017-09-11 15:01] VITALS: BP 132/70
[2017-09-11 22:45] VITALS: BP 116/78
[2017-09-12 06:20] VITALS: BP 116/82
--- NOTE | 2017-09-12 10:34 | PN- Housestaff ---
Milton BURNS,Roya 09/12/17 1034: Subjective Follow-up For: multiple sclerosis sepsis or urologic origin - pyelonephritis urinary calculus causing obstruction Complaints: no complaints Subjective: Patient feeling better, Rt Lower extremity numbness stable but not markedly improved. He is able to ambulate a short distance to use the commode without any problems. Review of Systems Constitutional: Reports: no symptoms. Objective Last 24 Hrs of Vital Signs/I&O Vital Signs Date Time Temp Pulse Resp B/P B/P Pulse O2 O2 Flow FiO2 Mean Ox Delivery Rate 09/12 936 84 116/82 09/12 0620 98.5 83 20 116/82 93 09/11 2245 98.3 71 20 116/78 92 Room Air 09/11 1600 Room Air 09/11 1501 98.7 88 20 132/70 94 Room Air Intake & Output 09/12 1600 09/12 0800 09/12 0000 Intake Total 480 400 Output Total 200 1150 475 Balance -200 -670 -75 Intake, IV 0 Intake, Oral 480 400 Number 1 0 Bowel Movements Output, Urine 200 1150 475 Physical Exam General Appearance: Alert, Oriented X3, Cooperative, No Acute Distress Skin: No Significant Lesion HEENT: Mucous Membr. moist/pink Cardiovascular: Regular Rate, Normal S1, Normal S2 Lungs: Clear to Auscultation, Normal Air Movement Abdomen: Normal Bowel Sounds, Soft, No Tenderness Extremities: No Edema, Normal Pulses Current Medications: Current Medications Sig/Tobin Start time Last Medication Dose Route Stop Time Status Admin Acetaminophen 650 MG Q6P PRN 09/07 0300 AC 09/08 PO 1014 Amoxicillin 500 MG Q8H 09/10 1400 AC 09/12 PO 0543 Aspirin 81 MG DAILY 09/07 1739 AC 09/12 PO 0937 Atorvastatin Calcium 40 MG 1700 09/07 1700 AC 09/11 PO 1654 Bisacodyl 10 MG ONCE PRN 09/10 0945 AC AR Cholecalciferol 1,000 IU DAILY 09/08 1000 AC 09/12 PO 0937 Dextromethorphan/ 1 CAP BID 09/07 1230 AC 09/12 Quinidine PO 0937 Divalproex Sodium 500 MG 2200 09/07 2200 AC 09/11 PO 2102 Docusate Sodium 100 MG BID 09/09 1102 AC 09/12 PO 0937 Lactobacillus 1 CAP DAILY 09/11 1000 AC 09/12 Acidophilus PO 0937 Magnesium Oxide 200 MG AT BEDTIME 09/070 AC 09/11 PO 2101 Metoprolol Succinate 25 MG DAILY 09/10 999 AC 09/12 PO 936 Multivitamins 1 TAB DAILY 09/08 999 AC 09/12 PO 936 Oxybutynin Chloride 5 MG TID 09/07 999 AC 09/12 PO 936 Senna 187 MG AT BEDTIME 09/09 2199 AC 09/11 PO 2101 Sertraline HCl 200 MG DAILY 09/07 999 AC 09/12 PO 936 Thiamine HCl 100 MG DAILY 09/07 999 AC 09/12 PO 936 Lines/Diet/Fluids Lines: peripheral lines Assessment/Plan Assessment: 62-year-old male with multiple comorbidities presented in ER for right lower extremity weakness and numbness more than his usual, symptoms similar to his previous MS exacerbation. Patient found to have fever, tachycardia in ER, later elevated WBC and positive urine and blood cultures with GNRs. Plan #R foot numbness and weakness most likely MS exacerbation -Patient is awaiting approval for his MS medications before he can be sent to [facility] -MRI brain shows stable pattern of extensive lesional burden. No enhancing lesions to suggest active demyelination. -Foot numbbess is stable but not markedly improved -cont depakote -patient will follow up with sue on discharge. #wheezing and dyspnea RESOLVED -we gave patient one dose of steroids IV 60mg. patient will now be on steroids for MS which will also help with wheezing and hypotension. #UTI/Pyelonephritis Resolving -did not spike fever He has not spiked a fever in over 48 hrs -Cont amoxicillin 500mg tid #thrombocytopenia -avoid heparin #hypotension Resolved #mild transmainitis -resolved #hld -cont Atorvastatin #urinary retnetion -cont oxybutinin #vitamins -cont Thiamine #mental health -cont Sertraline #placement as per brother patient is not able to care for himself anymore PATIENT IS AMENABLE TO GOING TO [facility] POA sister is actively involved- please keep her updated OT and PT suggests STR in [place] #DVT prophylaxis-Alps #Full code Problem List: 1. Pyelonephritis Pain Ratin Pain Location: n/a Pain Goal: Remain pain free Pain Plan: current plan Tomorrow's Labs & Rationales: cbc, BEP DVT/Prophylaxis: hayley Mayer MD,Beba 09/12/17 1426: Attending MD Review Statement Attending Statement Attending MD Statement: examined this patient, discuss w/resident/PA/FORMING MACHINE OPERATOR, agreed w/resident/PA/FORMING MACHINE OPERATOR, reviewed EMR data (avail), discussed with nursing, discussed with case mgmt, reviewed images, amended to note Attending Assessment/Plan: Patient seen and examined, overall doing better. He denies any complaints. Patient with history of MS currently getting treated for UTI. Patient is afebrile. Had been switched to oral antibiotics. He is otherwise medically stable for discharge to rehabilitation but unfortunately one of his multiple sclerosis medications is very expensive and STR will not be able to receive the patient without checking the approval/pricing of that medication. Once that is approved and patient came discharged to rehabilitation. Continue all current medications. As discussed with Dr. Liang Aubagio will be discontinued and Nudexta will be continued. DVT px; ALPS secondary to thrombocytopenia. POA sister is actively involved- please keep her updated OT and PT suggests STR in [place] #DVT prophylaxis #Full code Beba Mayer MD 09/12/17 1426: Attending Review Statement Attending Statement Attending Statement: examined this patient, discuss w/resident/PA/FORMING MACHINE OPERATOR, agreed w/resident/PA/FORMING MACHINE OPERATOR, reviewed EMR data (avail), discussed with nursing, discussed with case mgmt, reviewed images, amended to note Attending Assessment/Plan: Patient seen and examined, overall doing better. He denies any complaints. Patient with history of MS currently getting treated for UTI. Patient is afebrile. Had been switched to oral antibiotics. He is otherwise medically stable for discharge to rehabilitation but unfortunately one of his multiple sclerosis medications is very expensive and STR will not be able to receive the patient without checking the approval/pricing of that medication. Once that is approved and patient came discharged to rehabilitation. Continue all current medications. As discussed with Dr. Liang Aubagio will be discontinued and Nudexta will be continued. DVT px; ALPS secondary to thrombocytopenia.
[2017-09-12 14:50] VITALS: BP 120/68
[2017-09-12 23:22] VITALS: BP 122/64
[2017-09-13 06:53] VITALS: BP 112/66
--- NOTE | 2017-09-13 08:13 | PN- Housestaff ---
Mark BURNS,Victoria 09/13/17812: Subjective Follow-up For: multiple sclerosis sepsis or urologic origin - pyelonephritis urinary calculus causing obstruction Subjective: patient is feeling good today. no events and no complaints. Review of Systems Constitutional: Reports: no symptoms. Neurological/Psychological: Reports: numbness. Objective Last 24 Hrs of Vital Signs/I&O Vital Signs Date Time Temp Pulse Resp B/P B/P Pulse O2 O2 Flow FiO2 Mean Ox Delivery Rate 09/13 1529 98.4 91 20 126/72 95 Room Air 09/13 1048 98.2 88 20 110/64 09/13 0859 88 110/64 09/13 0800 95 Room Air Room Air 09/13 0653 98.2 90 20 112/66 94 Room Air 09/12 2322 98.8 91 20 122/64 93 Room Air 09/12 1600 95 Room Air Room Air Intake & Output 09/13 1600 09/13 0800 09/13 0000 Intake Total 1000 120 720 Output Total 648 963 1285 Balance 250 -680 -280 Intake, Oral 1000 120 720 Number 1 Bowel Movements Output, Urine 485 659 5615 Physical Exam General Appearance: Alert, Cooperative, No Acute Distress Cardiovascular: Regular Rate, Normal S1, Normal S2, No Murmurs Lungs: Clear to Auscultation, Normal Air Movement Abdomen: Normal Bowel Sounds, Soft, No Tenderness Current Medications: Current Medications Sig/Tobin Start time Last Medication Dose Route Stop Time Status Admin Acetaminophen 650 MG Q6P PRN 09/07 0300 AC 09/08 PO 1014 Amoxicillin 500 MG Q8H 09/10 1400 AC 09/13 PO 1347 Aspirin 81 MG DAILY 09/07 1739 AC 09/13 PO 0859 Atorvastatin Calcium 40 MG 1700 09/07 1700 AC 09/12 PO 1608 Bisacodyl 10 MG ONCE PRN 09/10 0945 AC MT Cholecalciferol 1,000 IU DAILY 09/08 1000 AC 09/13 PO 0859 Dextromethorphan/ 1 CAP BID 09/07 1230 AC 09/13 Quinidine PO 0900 Divalproex Sodium 500 MG 2200 09/07 2200 AC 09/12 PO 2124 Docusate Sodium 100 MG BID 09/09 1102 AC 09/13 PO 0859 Lactobacillus 1 CAP DAILY 09/11 1000 AC 09/13 Acidophilus PO 0859 Lorazepam 2 MG ONE ONE 02/12 0315 CAN IV 09/13 315 Magnesium Oxide 200 MG AT BEDTIME 09/07 2199 AC 09/12 PO 212 Metoprolol Succinate 25 MG DAILY 09/10 999 AC 09/13 PO 08 Multivitamins 1 TAB DAILY 09/08 1000 AC 09/13 PO 0859 Oxybutynin Chloride 5 MG TID 09/07 999 AC 09/13 PO 0859 Senna 187 MG AT BEDTIME 09/090 AC 09/12 PO 212 Sertraline HCl 200 MG DAILY 09/07 999 AC 09/13 PO 0859 Thiamine HCl 100 MG DAILY 09/07 1000 AC 09/13 PO 0859 Last 24 Hrs of Lab/Carlin Results Last 24 Hrs of Labs/Mics: Laboratory Tests 09/13/17 0655: Anion Gap 9, Estimated GFR > 60, BUN/Creatinine Ratio 21.1, CBC w Diff NO MAN DIFF REQ, RBC 3.76 L, MCV 85.3, MCH 28.5, MCHC 33.5, RDW 15.8 H, MPV 7.5, Gran % 87.0 H, Lymphocytes % 6.5 L, Monocytes % 4.8, Eosinophils % 1.7, Basophils % 0, Absolute Granulocytes 4.6, Absolute Lymphocytes 0.3 L, Absolute Monocytes 0.3, Absolute Eosinophils 0.1, Absolute Basophils 0 Assessment/Plan Assessment: 62-year-old male with multiple comorbidities presented in ER for right lower extremity weakness and numbness more than his usual, symptoms similar to his previous MS exacerbation. Patient found to have fever, tachycardia in ER, later elevated WBC and positive urine and blood cultures with GNRs. Plan #R foot numbness and weakness most likely MS exacerbation -patient has other signs that can possibly be due to MS exacerbation including sluggish pupils and history urinary retention. -we have consulted with neuro and they have seen the patient. They are suggesting starting ampyra as an outpatient. Patient will follow up with his neurologist Dr. Rogers outpatient. -MRI brain shows stable pattern of extensive lesional burden. No enhancing lesions to suggest active demyelination. -Received 3 days of 500mg steroids iv for MS. Patient is not showing overt signs of an exacerbation other than bilateral foot numbness but sepsis and surgery can be the cause of MS exacerbations. -cont depakote -patient stayed yesterday because housestaff needed to speak with dr. rogers regarding discontinuing one of his medications in [facility] as it was quite expensive. As per weekend team, dr. rogers gave the ok to stop aubagio. Information was faxed to STR today and we await acceptance so that we can transfer the patient to [facility]. #wheezing and dyspnea RESOLVED -we gave patient one dose of steroids IV 60mg for wheezing and then he receiving steroids for MS which did have a side effect of helping his wheezing. -wheezing now resolved as of 09/13 #UTI normal white count now 7.4 -did not spike fever overnight -CT abd pelvis showed stone, hydronephrosis, evidence of pyelonephritis. -patient was asymptomatic except for frequency which can also be caused by his fluids running at 125cc/hr. -Urinalysis positive nitrites, large leukocyte esterase, packed WBC -Positive urine culture for ecoli -Lactic acid was 5 at max which decreased with fluids. After fluids stopped it increased again even on antibiotics. This was because infection had reached to the kidney which was compounded by the obstruction and hydronephrosis. Surgery was required to place a stent to some relief and now that patient is post surgery day 1 we hope that symptoms will continue to resolve and that antibiotics will be able to treat the infection. -patient will need to return to the OR at some point for lithotripsy and stent removal as per dr. preston- most likely in 2 weeks. 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 -switch ampicillin 2gq8 to amoxicillin 500mg tid, now total antibiotic day 8, needs total 14 days -discontinue fluids -both urine and blood cultures are growing ecoli sensitive to ampicillin -fluid removed from kidney (pus) is positive for gnrs, same strain. #dyspnea -95 on 1.5L -cxr on admission was normal -patient had episode of SOB after we gave fluids for his lactic acidosis. We ordered a repeat CXR and echocardiogram as patient has had CABG, has had no echo for 7 years, and has an elevated BNP from his baseline value (that was done years ago). Echo showed decreased EF. He will follow up with Dr. Montes his pathology manager. -repeat cxr clear #thrombocytopenia -avoid heparin #hypotension -BP 90/50, patient says he chronically runs low -fluids 125cc/hour, blood pressure has responded well -patient was still tachycardic so metoprolol 25mg daily # mild transmainitis -Ast 65, ALT 85 -f/u repeat lfts #hld -cont Atorvastatin #urinary retnetion -cont oxybutinin #vitamins -cont Thiamine #mental health -cont Sertraline #placement as per brother patient is not able to care for himself anymore PATIENT IS AMENABLE TO GOING TO [facility] and will hopefully leave soon. POA sister is actively involved- please keep her updated OT and PT suggests STR in [place] #DVT prophylaxis #Full code Problem List: 1. Pyelonephritis 2. Sepsis 3. Multiple sclerosis 4. Calculus, urinary 5. Multifactorial gait disorder Pain Ratin Pain Location: na Pain Goal: Remain pain free Pain Plan: na Tomorrow's Labs & Rationales: Briana Dickens 09/13/17 1355: Attending MD Review Statement Attending Statement Attending MD Statement: examined this patient, discuss w/resident/PA/HEALTHCARE TECHNICIAN, agreed w/resident/PA/HEALTHCARE TECHNICIAN, discussed with family, reviewed EMR data (avail), discussed with nursing, discussed with case mgmt, reviewed images, amended to note Attending Assessment/Plan: Patient seen/examined bedside. He is being treated for UTI and weakness. CT abd/ pelvis suggestive of pyelonephritis with nephrolithiasis. Urology consulted s/p cystoscopy. Problem list -Sepsis 2/2 UTI/pyelonephritis with bacteremia gram negative rods E coli with improvement. -MS exacerbation -Thrombocytopenia -Lactic acidosis resolved. -Transaminitis stable. -Nephrolithiasis s/p cystosocpy and stent placement. Plan -Continue MS home medication as per neurology. -abx PO x 2 week course and f/u urology for nephrolithiasis management. -resume antihypertensives if required. Monitor hemodynamics. Patient to be discharged to [facility]. (meds MS as per neurology) FOLLOW UP PCP in 3-5 days of discharge Urology in 2 weeks of discharge. neurology in 1-2 weeks of discharge
[2017-09-13 08:14] LABS: ABSOLUTE BASOPHIL COUNT 0 /CUMM (0.0-0.2); ABSOLUTE EOSINOPHIL COUNT 0.1 /CUMM (0.0-0.7); ABSOLUTE GRANULOCYTE CT 4.6 /CUMM (1.4-6.5); ABSOLUTE LYMPH COUNT 0.3 /CUMM (1.2-3.4); ABSOLUTE MONOCYTE COUNT 0.3 /CUMM (0.10-0.60); BASOPHIL % 0 % (0.0-2.0); EOSINOPHIL % 1.7 % (0-5); MEAN CORPUSCULAR HGB 28.5 PG (27.0-31.0); MEAN CORPUSCULAR HGB CONC 33.5 G/DL (33.0-37.0); MEAN CORPUSCULAR VOLUME 85.3 FL (80.0-94.0); MEAN PLATELET VOLUME 7.5 FL (7.4-10.4); RBC DISTRIBUTION WIDTH 15.8 % (11.5-14.5); RED BLOOD CELL CT 3.76 /CUMM (4.70-6.10); WHITE BLOOD CELL COUNT 5.2 /CUMM (4.8-10.8)
[2017-09-13 09:01] LABS: PLATELET COUNT 130 /CUMM (130-400)
[2017-09-13 10:48] VITALS: BP 110/64
[2017-09-13 15:29] VITALS: BP 126/72
[2017-09-13] MEDS ORDERED: AMOXICILLIN500 M2 PO (15:45)
[2017-09-13 21:56] VITALS: BP 104/72
[2017-09-14 06:13] VITALS: BP 116/72
--- NOTE | 2017-09-14 07:49 | PN- Housestaff ---
Joseph Ayala MD,[facility] 09/14/17 0749: Subjective Follow-up For: multiple sclerosis sepsis or urologic origin - pyelonephritis urinary calculus causing obstruction Subjective: Patient visited today, was lying in bed comfortably in no acute distress, was alert and oriented. initially admitted for right leg weakness and numbness, patient reported significant improvement compared to first day. No fever or chills, no shortness of breathing, no chest pain, no other events. Pending placement, patient was planned to be discharged today. Aubagio was discontinued after conforming with neurologist to make STR placement possible. Planned to continue amox for 7 more days to complete 14 days period. Review of Systems Constitutional: Reports: see HPI. Objective Last 24 Hrs of Vital Signs/I&O Vital Signs Date Time Temp Pulse Resp B/P B/P Pulse O2 O2 Flow FiO2 Mean Ox Delivery Rate 09/14 0816 78 116/72 09/14 0800 95 Room Air Room Air 09/14 0613 98.3 78 20 116/72 93 09/13 2156 98.3 88 20 104/72 97 09/13 1529 98.4 91 20 126/72 95 Room Air Intake & Output 09/14 1600 09/14 0800 09/14 0000 Intake Total 200 720 Output Total 600 550 Balance -400 170 Intake, Oral 200 720 Number 1 Bowel Movements Output, Urine 600 550 Physical Exam General Appearance: Alert, Oriented X3, Cooperative, No Acute Distress Skin: Skin bruises on arm and shoulder Skin Temp/Moisture Exam: Warm/Dry Sepsis Skin Exam (color): Normal for Ethnicity HEENT: Atraumatic, EOMI, Mucous Membr. moist/pink Cardiovascular: Regular Rate, Normal S1, Normal S2 Lungs: Clear to Auscultation Neurological: Sensation Intact, Cranial Nerves 3-12 NL, Right LE 4/5 in comparsion to Left LE 5/5 Extremities: No Edema Current Medications: Current Medications Sig/Tobin Start time Last Medication Dose Route Stop Time Status Admin Acetaminophen 650 MG Q6P PRN 09/07 0300 AC 09/08 PO 1014 Amoxicillin 500 MG Q8H 09/10 1400 AC 09/14 PO 1301 Aspirin 81 MG DAILY 09/07 1739 AC 09/14 PO 0915 Atorvastatin Calcium 40 MG 1700 09/07 1700 AC 09/13 PO 1621 Bisacodyl 10 MG ONCE PRN 09/10 0945 AC PA Cholecalciferol 1,000 IU DAILY 09/08 1000 AC 09/14 PO 0916 Dextromethorphan/ 1 CAP BID 09/07 1230 AC 09/14 Quinidine PO 915 Divalproex Sodium 500 MG 2200 09/07 2200 AC 09/13 PO 2049 Docusate Sodium 100 MG BID 09/09 1102 AC 09/14 PO 0915 Lactobacillus 1 CAP DAILY 09/11 1000 AC 09/14 Acidophilus PO 914 Magnesium Oxide 200 MG AT BEDTIME 09/07 2200 AC 09/13 PO 2050 Metoprolol Succinate 25 MG DAILY 09/10 1000 AC 09/14 PO 915 Multivitamins 1 TAB DAILY 09/08 1000 AC 09/14 PO 914 Oxybutynin Chloride 5 MG TID 09/07 1000 AC 09/14 PO 914 Senna 187 MG AT BEDTIME 09/09 2200 AC 09/13 PO 2050 Sertraline HCl 200 MG DAILY 09/07 1000 AC 09/14 PO 915 Thiamine HCl 100 MG DAILY 09/07 1000 AC 09/14 PO 915 Assessment/Plan Assessment: 62-year-old male with multiple comorbidities presented in ER for right lower extremity weakness and numbness more than his usual, symptoms similar to his previous MS exacerbation. Patient found to have fever, tachycardia in ER, later elevated WBC and positive urine and blood cultures with GNRs. Patient was admitted to general medicine floor for management of following conditions: R leg numbness and weakness most likely MS exacerbation. Patient initially had other signs that can possibly be due to MS exacerbation including sluggish pupils and history urinary retention. We consulted with neuro and they have seen the patient. They are suggesting starting ampyra as an outpatient. MRI brain shows stable pattern of extensive lesional burden. No enhancing lesions to suggest active demyelination. Patient received 3 days of 500mg steroids iv for MS. Patien did not show overt signs of an exacerbation other than bilateral foot numbness but sepsis and surgery can be the cause of MS exacerbations. - cont depakote - Patient will follow up with his neurologist Dr. Rogers outpatient. - Patient was planned to be discharged 2 days ago, yet needed to confirm with dr. rogers regarding discontinuing one of his medications in [facility] as it was quite expensive. As per weekend team, dr. rogers gave the ok to stop aubagio. Information was faxed to [facility] and patient was accepted so that we can transfer the patient to [facility]. - planned to be discharged today wheezing and dyspnea -we gave patient one dose of steroids IV 60mg for wheezing and then he receiving steroids for MS which did have a side effect of helping his wheezing. -wheezing resolved as of 09/13 UTI Urinalysis was positive for nitrites, large leukocyte esterase, packed WBC. Positive urine culture for ecoli. CT abd pelvis showed stone, hydronephrosis, evidence of pyelonephritis. patient was asymptomatic except for frequency which can also be caused by his fluids running at 125cc/hr. Lactic acid was 5 at max which decreased with fluids. After fluids stopped it increased again even on antibiotics. This was because infection had reached to the kidney which was compounded by the obstruction and hydronephrosis. Surgery was required to place a stent to some relief and now that patient is post surgery day 1 we hope that symptoms will continue to resolve and that antibiotics will be able to treat the infection. Both urine and blood cultures are growing ecoli sensitive to ampicillin. fluid removed from kidney (pus) is positive for gnrs, same strain. -Patient had no fever with normal WBC count -patient will need to return to the OR at some point for lithotripsy and stent removal as per dr. timmons- most likely in 2 weeks. -initially ampicillin 2g q8 to amoxicillin 500mg tid, now total antibiotic, after reviewing the case with resident and attending, decided to complete course of 14 days Dyspnea -95 on 1.5L -CXR on admission was normal -patient had episode of SOB after we gave fluids for his lactic acidosis. We ordered a repeat CXR and echocardiogram as patient has had CABG, has had no echo for 7 years, and has an elevated BNP from his baseline value (that was done years ago). Echo showed decreased EF. He will follow up with Dr. Montes his engineering librarian. -repeat cxr was clear Thrombocytopenia -avoid heparin Hypotension -BP 90/50, patient says he chronically runs low -fluids 125cc/hour, blood pressure has responded well -patient was still tachycardic so started metoprolol 25mg daily mild transmainitis -Ast 65, ALT 85 -f/u repeat lfts Chronic medical problems: HLD, urinary retansion, mental health -cont Atorvastatin, oxybutynin, tiamin, serotonin Placement as per brother patient is not able to care for himself anymore PATIENT IS AMENABLE TO GOING TO [facility] today. POA sister is actively involved OT and PT suggests STR in [place] DVT prophylaxis Full code Patient was planned to be discharged today with recommendation below: 1. PLEASE FOLLOW UP WITH YOUR PCP IN ONE WEEK 2. PLEASE FOLLOW UP WITH YOUR NEUROLOGIST IN ONE WEEK. 3. PLEASE FOLLOW UP WITH UROLOGIST DR. TIMMONS IN 2 WEEKS FOR STENT REMOVAL AND LITHOTRIPSY PLANNING Problem List: 1. UTI (urinary tract infection) 2. Multiple sclerosis Pain Ratin Pain Location: none Pain Goal: Pain 4 or less Pain Plan: NA Tomorrow's Labs & Rationales: NA Consulting Request: Consulting Specialty: Infectious Disease Consulting Physician: Reason for Consult: Obstructive uropathy causing pyelonephritis Discharge Plan Discharge Disposition: [facility] Stable for Discharge? Yes Anticipated Discharge (Day): today Briana Bruno 09/14/17 1425: Attending MD Review Statement Attending Statement Attending MD Statement: examined this patient, discuss w/resident/PA/COMMERCIAL LOAN ANALYST, agreed w/resident/PA/COMMERCIAL LOAN ANALYST, discussed with family, reviewed EMR data (avail), discussed with nursing, discussed with case mgmt, reviewed images, amended to note Attending Assessment/Plan: Patient seen/examined bedside. He is being treated for UTI and weakness. CT abd/ pelvis suggestive of pyelonephritis with nephrolithiasis. Urology consulted s/p cystoscopy. Problem list -Sepsis 2/2 UTI/pyelonephritis with bacteremia gram negative rods E coli with improvement. -MS exacerbation -Thrombocytopenia -Lactic acidosis resolved. -Transaminitis stable. -Nephrolithiasis s/p cystosocpy and stent placement. Plan -Continue MS home medication as per neurology. (one medication is stopped) -abx PO x 2 week course and f/u urology for nephrolithiasis management. Patient to be discharged to [facility]. (meds MS as per neurology) FOLLOW UP PCP in 3-5 days of discharge Urology in 2 weeks of discharge. neurology in 1-2 weeks of discharge
[2017-09-14] MEDS ORDERED: AMOXICILLIN500 M2 PO ×2 (11:24→13:29)
[2017-09-14 14:06] VITALS: BP 106/68
== END 2017-09-14 15:30 | DRG 872 ==
LOC: ERH 18:11 → ERHI 22:37 → 2NB 22:37 → ENRESERV 09-07 00:18 → 2NB 09-07 00:46 → ENTRNSPT 09-08 14:19 → EDTRNSPTSTS 09-08 14:26 → EDTRNSPT 09-08 14:26 → CMPTRNSPT 09-08 14:48 → ENPENDDIS 09-14 14:06 → 2NB 09-14 15:30
PROVIDERS: Physician Assistant Medical; Student in an Organized Health Care Education/Training Program
PROC: 0T768DZ Dilation of Right Ureter with Intraluminal Device, Via Natural or Artificial Opening Endoscopic (ICD-10-PCS; principal; 2017-09-08)
DX: A41.51 Sepsis due to Escherichia coli [E. coli] (principal); E87.2 Acidosis; D69.6 Thrombocytopenia, unspecified; N13.6 Pyonephrosis; G35 Multiple sclerosis; Z95.1 Presence of aortocoronary bypass graft; I25.10 Atherosclerotic heart disease of native coronary artery without angina pectoris; Z95.2 Presence of prosthetic heart valve; F31.9 Bipolar disorder, unspecified; F19.11 Other psychoactive substance abuse, in remission; R74.0 Nonspecific elevation of levels of transaminase and lactic acid dehydrogenase [LDH]
CPT/HCPCS: 2NBSP; 70552; 87075; ERO; 36415; 70553; 71045; 74018; 74177; 81001; 82436; 87040; 87086; 87804; 87804-59; 93005; 93010; 93306; 96361; 96374; 97110-GO; 97161-GP; 97167-GO; 97530-GO; A9579; C2617; J0131; J0290; J0696; J2920; J2930; J3490; J7060

== ENCOUNTER → 2017-10-12 | Day surgery (SDC) | payer OTHER, MEDICARE ==
[~2017-10-12] MED LIST changes: +ACEPHEN650 M1 PR; +ACETAMINOPHEN325 M2 PO; +ACIDOPHILUS1 EACH PO; +AMOXICILLIN500 M2 PO; +DULCOLAX10 M1 RC; +FLEET ENEMA133 ML RC; +MAG-OXIDE200 MG PO; +MILK OF MA400 MG/52 PO; +NARCAN4 MG NAS; +VITAMIN D31000 UNI1 PO
--- NOTE | 2017-10-12 14:06 | Operative Report ---
Operative/Inv Procedure Report Surgery Date: 10/12/17 Name of Procedure: left renal eswl/fluoroscopy Pre-Operative Diagnosis: left renal stone with stent Post-Operative Diagnosis: same Estimated Blood Loss: none Surgeon/Brazer Helper Induction: Tor Maxwell MD Anesthesia: moderate sedation Complications: none Operative/Procedure Note Note: The patient was taken to the operating room and placed on the ESWL table in supine position. With the patient awake, timeout was performed to cofirm correct identity, procedure, laterality, anesthesia, and other pertinent radha- operative information. The patient was positioned over the ESWL table cut-out, overlying the dome of the shockwave generator, with on his right flank. C-arm fluroscopy, as well as renal US, was used to locate the stone, and evaluate the RIGHT kidney. The stone was visible on fluoroscopy at the right proximal-ureter, measuring approximately 15 mm. Renal US confirmed mild hydronephrosis. No other stone/ tumor was visualized in the right kidney. After adequate anesthesia, the right ureter stone's position was optimized for Shockwave lithotrypsy using fluoroscopy in AP and oblique views. The E.S.W.L. was initiated at low power levels x 200 shocks. After noting the patient's tolerance to the shockwaves, the shock wave power level was quickly maximized. Toward the end of the procedure, the composition of the stone had changed significantly, indicating the pulverization of the ureter stone. A total of 3000 shockwaves were delivered to the stone in order to achieve adequate lithotrypsy. The patient tolerated both the procedure well, was awakened, and taken to recovery in satisfactory condition via stretcher. The pt will be dischared home with pain meds, diet orders, and intructions to catch fragments with straining the urine. The patient is to have follow-up renal ultrasound and KUB in 1-2 weeks, prior to follow-up visit in my office. Discharge Disposition: Same Day Admissions CC: Tor Maxwell MD
== END ==
LOC: STS 09-28 07:00
DX: N13.2 Hydronephrosis with renal and ureteral calculous obstruction (principal); I25.10 Atherosclerotic heart disease of native coronary artery without angina pectoris; I10 Essential (primary) hypertension; Z95.1 Presence of aortocoronary bypass graft; G35 Multiple sclerosis; Z79.82 Long term (current) use of aspirin
CPT/HCPCS: J2250

== ENCOUNTER 2017-10-17 22:59 | Inpatient (IN) | payer OTHER, MEDICARE ==
[~2017-10-17] VITALS: Ht 175.3 cm; Wt 66.9 kg
--- NOTE | 2017-10-17 23:13 | ED GENERAL ADULT ---
History of Present Illness General Chief Complaint: General Adult Stated Complaint: BIBA FOR EVAL ? UTI, SOB Source: patient Exam Limitations: no limitations Vital Signs & Intake/Output Vital Signs & Intake/Output Vital Signs Date Time Temp Pulse Resp B/P B/P Pulse O2 O2 Flow FiO2 Mean Ox Delivery Rate 10/19 0800 96 Nasal 2.0L Cannula 10/19 0800 98.7 112 28 102/60 94 Nasal 2.0L Cannula 10/19 0610 111 24 98/73 10/19 0400 94 Nasal 2.0L Cannula 10/19 0000 99.0 112 24 110/60 92 Nasal 2.0L Cannula 10/19 0000 92 Room Air 10/18 2000 96 Nasal 2.0L Cannula 10/18 1600 96 Nasal 2.0L Cannula 10/18 1600 97.6 96 22 102/62 96 Nasal 2.0L Cannula 10/18 1451 95 87/54 10/18 1200 96 Nasal 2.0L Cannula ED Intake and Output 10/19 0000 10/18 1200 Intake Total 2886 1553 Output Total 2608 875 Balance 278 678 Intake, IV 1666 1553 Intake, Oral 1220 Output, Stool 2 Output, Urine 2606 875 Patient 164 lb Weight Weight Bed scale Measurement Method Allergies Coded Allergies: lactose (Severe, DIARRHEA 09/07/17) Reconcile Medications Aspirin (Aspirin*) 81 MG TAB.CHEW 1 TAB PO DAILY HEART HEALTH (Reported) Cholecalciferol (Vitamin D3) (Vitamin D3) 1,000 UNIT CAPSULE 1 CAP PO DAILY supplement (Reported) Dextromethorphan HBr/Quinidine (Nuedexta 20-10 MG Capsule) 20 MG-10 MG CAPSULE 1 CAP PO BID MS (Reported) Divalproex Sodium (Divalproex Sodium ER) 500 MG TAB.ER.24H 1 TAB PO QPM MS ( Reported) Levofloxacin (Levaquin) 500 MG TABLET 500 MG PO UTI (Reported) Magnesium Oxide (Mag-Oxide) 200 MG MAGNESIUM TABLET 1 TAB PO AT BEDTIME RLS ( Reported) Metoprolol Succinate 50 MG TAB.ER.24H 1 TAB PO DAILY HEART (Reported) Oxybutynin Chloride (Oxybutynin Chloride ER) 15 MG TAB.ER.24 1 TAB PO BID BLADDER (Reported) Rosuvastatin Calcium (Crestor) 40 MG TABLET 1 TAB PO DAILY CHOLESTEROL ( Reported) Sertraline HCl 100 MG TABLET 2 TAB PO DAILY MENTAL HEALTH (Reported) Triage Note: PT AR[facility]. CALL FOR SOB. PTS 02 SAT 93% RA. HAS KNOWN UTI, TO START LEVAQUIN IN AM PER W10. ARRIVES ALERT, FORGETFUL, TACHYCARDIC, HYPOTENSIVE. Triage Nurses Notes Reviewed? yes Onset: Abrupt Duration: unknown duration Timing: recent history Injury Environment: home No Modifying Factors: none HPI: 62-year-old male comes into the emergency room for further evaluation of increased weakness and urinary tract infection. EMS gave a very limited report and said he had some shortness of breath but no other complaints. Patient denies any pain currently. He is in a mild cough. (aGvin Tomas) Past History Travel History Traveled to [place] past 21 day No Medical History Any Pertinent Medical History? 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 No (Gavin Tomas) Review of Systems Review of Systems Constitutional: Reports: see HPI. EENTM: Reports: no symptoms. Respiratory: Reports: see HPI. Cardiovascular: Reports: no symptoms. GI: Reports: no symptoms. Genitourinary: Reports: see HPI. Musculoskeletal: Reports: no symptoms. Skin: Reports: no symptoms. Neurological/Psychological: Reports: no symptoms. Hematologic/Endocrine: Reports: no symptoms. Immunologic/Allergic: Reports: no symptoms. All Other Systems: Reviewed and Negative (Gavin Tomas) Physical Exam Physical Exam General Appearance: well developed/nourished, alert, awake Head: atraumatic, normal appearance Eyes: Bilateral: normal appearance. Ears, Nose, Throat: normal ENT inspection, hearing grossly normal Neck: normal inspection Respiratory: normal breath sounds, no respiratory distress Cardiovascular: regular rate/rhythm Back: normal inspection Extremities: normal inspection Neurologic/Psych: awake, alert, oriented x 3, normal gait Skin: intact, normal color Core Measures ACS in differential dx? No CVA/TIA Diagnosis: No Sepsis Present: No Sepsis Focused Exam Completed? No (Gavin Tomas) Progress Differential Diagnoses I considered the following diagnoses in my evaluation of the patient: UTI, sepsis, pneumonia, cellulitis, open wounds, NV Plan of Care: Orders Procedure Date/time Status Harper, Insertion/Removal/Asses 10/19 0816 Active ICU LAB BUNDLE 10/19 0500 Complete CBC WITHOUT DIFFERENTIAL 10/19 0500 Complete Change service to 10/19 0033 Active Nursing Misc 10/19 UNK Active ECHOCARDIOGRAM 10/19 UNK Active Regular Diet 10/18 L Active OXYGEN SETUP CHG 10/18 UNK Complete OXYGEN 10/18 UNK Complete OXYGEN TRANSPORT 10/18 UNK Complete MISSING MEDICATION FORM 10/18 UNK Active Current Medications Sig/Tobin Start time Last Medication Dose Stop Time Status Admin Phosphate 250 MG PC AND AT BEDTIME 10/19 0900 AC (Neutra-Phos) 10/19 2300 Omeprazole 40 MG DAILY AC 10/19 0700 AC 10/19 (Prilosec) 0611 Divalproex Sodium 500 MG 2200 10/18 2200 AC 10/18 (Depakote ER) 2141 Ceftriaxone Sodium 1,000 MG DAILY 10/18 1915 AC 10/18 (Rocephin) 2141 Atorvastatin Calcium 40 MG 1700 10/18 1700 AC 10/18 (Lipitor) 1712 Norepinephrine 4 MG Q16H 10/18 1230 AC 10/19 (Levophed Drip) 0610 Dextrose/Water 250 ML (Dextrose 5%) Gabapentin 100 MG DAILY 10/18 1215 AC 10/18 (Neurontin) 1450 Oxybutynin Chloride 5 MG FOUR TIMES A DAY 10/18 1200 AC 10/18 (Ditropan) 2142 Aspirin 81 MG DAILY 10/18 1000 AC 10/18 (Aspirin) 1230 Cholecalciferol 1,000 IU DAILY 10/18 1000 AC 10/18 (Vitamin D) 1230 Dextromethorphan/ 1 CAP Q12 10/18 1000 AC 10/18 Quinidine 2142 (Nuedexta) Magnesium Oxide 400 MG DAILY 10/18 1000 AC 10/18 (Mag-Ox) 1228 Sertraline HCl 200 MG DAILY 10/18 1000 AC 10/18 (Zoloft) 1229 Acetaminophen 650 MG Q6P PRN 10/18 0330 AC (Tylenol) Acetaminophen 1,000 MG Q6P PRN 10/18 0330 AC (Ofirmev) Sodium Chloride 1,000 ML Q10H 10/18 0215 AC 10/19 (Normal Saline 0.9%) 10/19 2300 0000 Laboratory Tests 10/19/17 0415: Anion Gap 10, Estimated GFR > 60, Glucose 89, Calcium 7.7 L, Phosphorus 2.2 L, Magnesium 1.9, Total Bilirubin 0.5, AST 42, ALT 48, Albumin 2.2 L, CBC w Diff MAN DIFF ORDERED, RBC 3.29 L, MCV 81.7, MCH 27.3, MCHC 33.4, RDW 15.8 H, MPV 9.2, Gran % 86.6 H, Lymphocytes % 4.5 L, Monocytes % 7.9, Eosinophils % 0.9, Basophils % 0.1, Absolute Granulocytes 5.8, Segmented Neutrophils 87 H, Absolute Lymphocytes 0.3 L, Lymphocytes 8 L, Monocytes 5, Absolute Monocytes 0.5, Absolute Eosinophils 0.1, Absolute Basophils 0, Platelet Estimate DECREASED , Polychromasia 1+, Poikilocytosis 1+, Ovalocytes 1+, Fouke Cells FEW, Fld Total RBCs Counted 100 2 AM Meropenem 1 g ordered. IV Levophed ordered. Patient admitted to the ICU. Urology paged regarding gas seen on CAT scan along the right ureter. Francisco Lopez MD at bedside. Patient is awake alert oriented however blood pressure remains in the 80s systolic. He is producing urine. (Kari BURNS,Betty) Diagnostic Imaging: Viewed by Me: Radiology Read. Discussed w/RAD: Radiology Read. Radiology Impression: PATIENT: NICHOLE OCAMPO PRESENT AGE: 62 PATIENT ACCOUNT NO: [id number] : 57 LOCATION: [facility] ORDERING PHYSICIAN: Gavin LOPEZ SERVICE DATE: 10/17/17 EXAM TYPE : RAD - XRY-PORTABLE CHEST XRAY EXAMINATION: XR PORTABLE CHEST CLINICAL INFORMATION: Altered mental status COMPARISON: Chest x-ray September 07, 2017 TECHNIQUE: Portable frontal view of the chest was obtained. 11:36 PM FINDINGS: Status post median sternotomy. Status post cardiac valve replacement. Lung volume low. No infiltrate. No significant pulmonary vascular congestion and there is no pleural effusion or pneumothorax. IMPRESSION: No acute abnormality of the chest. DICTATED BY: Amish Orantes MD DATE/TIME DICTATED:10/17/172353 CHIEF SCIENTIFIC OFFICER:RASHIDA DATE/TIME TRANSCRIBED:10/17/172353 CONFIDENTIAL, DO NOT COPY WITHOUT APPROPRIATE AUTHORIZATION. <Electronically signed in Other Vendor System> SIGNED BY: Amish Orantes MD 10/17/172357, PATIENT: NICHOLE OCAMPO PRESENT AGE: 62 PATIENT ACCOUNT NO: [id number] : 57 LOCATION: [facility] ORDERING PHYSICIAN: Gavin LOPEZ SERVICE DATE: 10/18/17 EXAM TYPE: CAT - CT ABD & PELVIS W/O IV CONTRAS EXAMINATION: CT ABDOMEN AND PELVIS WITHOUT CONTRAST CLINICAL INFORMATION: Obstructive uropathy. Febrile. Hypotensive. COMPARISON: CT scan abdomen pelvis September 07, 2017, CT abdomen pelvis January 10, 2017 TECHNIQUE: Multidetector volumetric imaging was performed from the superior aspect of the liver through the pubic symphysis. Sagittal and coronal reformatted images were obtained on the technologist's workstation. DLP: 336.54 mGy-cm FINDINGS: LUNG BASES: Status post mitral valve replacement. Linear scarring or atelectasis at the lung bases. LIVER, GALLBLADDER, AND BILIARY TREE: The liver is normal in size, shape, and attenuation. No focal hepatic lesion or biliary ductal dilatation is present. 6 mm calcified gallstone layering dependently in the gallbladder. No edema around the gallbladder. No bile duct dilatation. PANCREAS: Unremarkable. SPLEEN: Spleen is prominent size measuring 14 cm of length. ADRENAL GLANDS: Unremarkable. KIDNEYS AND URETERS: There is a double-J stent in the right collecting system. The right renal collecting system is dilated. The dilatation of the renal pelvis and ureter. There is some air droplets within the collecting system of the right kidney. In the upper pole of right kidney there is a 1 cm stone and an adjacent 8 mm stone. In the renal pelvis there is a 1.4 cm stone. No stone or hydronephrosis of the left kidney are collecting system. BLADDER: There is a linear group of tiny stones layering dependently in the bladder. GASTROINTESTINAL TRACT: The small and large bowel are unremarkable. The appendix is unremarkable. ABDOMINAL WALL: No significant hernia is appreciated. LYMPH NODES: Normal. VASCULAR: There is atherosclerotic vascular wall calcifications of aorta and iliac vessels without aneurysm. PELVIC VISCERA: Unremarkable. OSSEOUS STRUCTURES: There is compression deformity superior endplate of T12, L2 with vacuum disc phenomenon adjacent to the compression fractures. There is subchondral sclerosis at the compression fracture. These are old deformities. IMPRESSION: 1. Right double J stent in the right collecting system with hydronephrosis of the right kidney. There is gas collections in the right collecting system. This raises question of gas producing infection in the collecting system of the right kidney. 2. There are right renal calculi. There are numerous tiny stones layering dependently in the bladder. 3. Cholelithiasis. DICTATED BY: Amish Orantes MD DATE/TIME DICTATED:10/18/17119 CHIEF SCIENTIFIC OFFICER :RASHIDA DATE/TIME TRANSCRIBED:10/18/17119 CONFIDENTIAL, DO NOT COPY WITHOUT APPROPRIATE AUTHORIZATION. <Electronically signed in Other Vendor System> SIGNED BY: Amish Orantes MD 10/18/17 013 Initial ED EKG: normal sinus rhythm, rate (112), nonspecific ST T wave chg (Gavin Tomas) Departure Departure Disposition: STILL A PATIENT Condition: Stable Clinical Impression Primary Impression: Septic shock Secondary Impressions: Pyelonephritis Referrals: April Heller APRN (Family) Departure Forms: Customer Survey General Discharge Information Admission Note Spoke With: Francisco Lopez MD Documentation of Exam: Documentation of any treatments & extenuating circumstances including Concerns Regarding Discharge (functional status, medication knowledge or non-compliance, living conditions, etc.) that warrant an admission rather than observation: IV antibiotics. IV fluids. Critical care. Central line. IV pressors. (Gavin Tomas) PA/MARINA DRY DOCK MANAGER Co-Sign Statement Statement: ED Attending supervision documentation- [X] I saw and evaluated the patient. I have also reviewed all the pertinent lab results and diagnostic results. I agree with the findings and the plan of care as documented in the PA's/MARINA DRY DOCK MANAGER's documentation. [X] I have reviewed the ED Record and agree with the PA's/MARINA DRY DOCK MANAGER's documentation. [] Additions or exceptions (if any) to the PAs/MARINA DRY DOCK MANAGER's note and plan are summarized below: [] (Kari BURNS,Betty) Procedures Central Line Central Line Lumen: triple Central Line Procedure: Yes: bentadine prep?, sterile drapes applied, sterile dressing applied. Central Line Position: femoral (R) Anesthesia: lidocaine 1% CC's of Anesthesia: 5 Complications: none Central Line Post Position: sutured, good blood return (Gavin Tomas) Critical Care Note Critical Care Note Critical Care Time: 30-74 min (60) (Gavin Tomas) Meropenem 1 GM Q12 10/18 1000 AC 10/18 (MEROPENEM) 1110 Sertraline HCl 200 MG DAILY 10/18 1000 AC 10/18 (Zoloft) 1229 Non-Formulary 0 SEE ADMIN CRITERIA 10/18 0345 CAN Medication (NON FORMULARY) Acetaminophen 650 MG Q6P PRN 10/18 0330 AC (Tylenol) Acetaminophen 1,000 MG Q6P PRN 10/18 0330 AC (Ofirmev) Sodium Chloride 1,000 ML Q10H 10/18 0215 AC 10/18 (Normal Saline 0.9%) 10/19 2300 1232 Laboratory Tests 10/18/17 0445: Anion Gap 12, Estimated GFR 44 L, Glucose 94, Calcium 7.5 L, Phosphorus 2.9, Magnesium 1.9, Total Bilirubin 0.6, AST 37, ALT 45, Albumin 2.4 L, CBC w Diff MAN DIFF ORDERED, RBC 3.44 L, MCV 82.1, MCH 26.4 L, MCHC 32.2 L, RDW 15.6 H, MPV 9.4, Gran % 90.1 H, Lymphocytes % 2.7 L, Monocytes % 7.2, Eosinophils % 0, Basophils % 0, Absolute Granulocytes 12.0 H, Segmented Neutrophils 70, Band Neutrophils 19 H, Absolute Lymphocytes 0.4 L, Lymphocytes 3 L, Monocytes 8, Absolute Monocytes 1.0 H, Absolute Eosinophils 0, Absolute Basophils 0, Platelet Estimate DECREASED, Anisocytosis 1+, Elliptocytes FEW 10/18/17 0210: Urinalysis HEAVY H, Urine Color YEL, Urine Clarity CLDY H, Urine pH 6.0, Ur Specific [place] 1.010, Urine Protein 30 H, Urine Ketones NEG, Urine Nitrite POS H, Urine Bilirubin NEG, Urine Urobilinogen 0.2, Ur Leukocyte Esterase LARGE H, Ur Microscopic SEDIMENT EXAMINED, Urine RBC 25-50 H, Urine WBC PACKD H, Ur Epithelial Cells FEW, Urine Bacteria PACKD H, Urine Mucus FEW, Urine Hemoglobin MOD H, Urine Glucose NEG 10/18/17 0155: Lactic Acid 0.9 10/18/17 0002: Urinalysis HEAVY H, Urine Color YEL, Urine Clarity CLDY H, Urine pH 6.0, Ur Specific [place] 1.020, Urine Protein 100 H, Urine Ketones NEG, Urine Nitrite POS H, Urine Bilirubin NEG, Urine Urobilinogen 0.2, Ur Leukocyte Esterase LARGE H, Ur Microscopic SEDIMENT EXAMINED, Urine RBC 15-25 H, Urine WBC > 75 H, Ur Epithelial Cells FEW, Urine Bacteria MANY H, Urine Mucus FEW, Urine Hemoglobin MOD H, Urine Glucose NEG 10/17/17 2317: Anion Gap 13, Estimated GFR 41 L, BUN/Creatinine Ratio 24.1, Glucose 95, Lactic Acid 2.6 H, Calcium 8.8, Total Bilirubin 0.9, AST 43, ALT 50, Alkaline Phosphatase 82, Troponin I 0.03, Total Protein 5.4 L, Albumin 3.0 L, Globulin 2.4, Albumin/Globulin Ratio 1.3, CBC w Diff MAN DIFF ORDERED, RBC 3.79 L, MCV 80.9, MCH 27.2, MCHC 33.6, RDW 15.6 H, MPV 10.0, Gran % 94.7 H, Lymphocytes % 1.8 L, Monocytes % 3.4, Eosinophils % 0, Basophils % 0.1, Absolute Granulocytes 8.5 H, Segmented Neutrophils 69, Band Neutrophils 24 H, Absolute Lymphocytes 0.2 L, Lymphocytes 1 L, Monocytes 3, Absolute Monocytes 0.3, Absolute Eosinophils 0, Absolute Basophils 0, Metamyelocytes 3 H, Platelet Estimate DECREASED, Poikilocytosis FEW, Anisocytosis 1+, Fld Total RBCs Counted 100 Microbiology 10/18 329 UPPER RESP: Surveillance Culture - RECD 10/18 329 GI: Surveillance Culture - RECD 10/18 209 URINE ROUT: Urine Culture - RECD 10/18 1 URINE ROUT: Urine Culture - RECD 10/17 2331 BLOOD: Blood Culture - RES 10/17 231 BLOOD: Blood Culture - RES 2 AM Meropenem 1 g ordered. IV Levophed ordered. Patient admitted to the ICU. Urology paged regarding gas seen on CAT scan along the right ureter. [facility], MD at bedside. Patient is awake alert oriented however blood pressure remains in the 80s systolic. He is producing urine. (Betty Pierce MD) Departure Departure Disposition: STILL A PATIENT Condition: Stable Clinical Impression Primary Impression: Septic shock Secondary Impressions: Pyelonephritis Referrals: April Heller APRN (Family) Departure Forms: Customer Survey General Discharge Information Admission Note Spoke With: Francisco Lopez MD Documentation of Exam: Documentation of any treatments & extenuating circumstances including Concerns Regarding Discharge (functional status, medication knowledge or non-compliance, living conditions, etc.) that warrant an admission rather than observation: IV antibiotics. IV fluids. Critical care. Central line. IV pressors. (Gavin Tomas) PA/MARINA DRY DOCK MANAGER Co-Sign Statement Statement: ED Attending supervision documentation- [X] I saw and evaluated the patient. I have also reviewed all the pertinent lab results and diagnostic results. I agree with the findings and the plan of care as documented in the PA's/MARINA DRY DOCK MANAGER's documentation. [X] I have reviewed the ED Record and agree with the PA's/MARINA DRY DOCK MANAGER's documentation. [] Additions or exceptions (if any) to the PAs/MARINA DRY DOCK MANAGER's note and plan are summarized below: [] (Kari BURNS,Betty) Procedures Central Line Central Line Lumen: triple Central Line Procedure: Yes: bentadine prep?, sterile drapes applied, sterile dressing applied. Central Line Position: femoral (R) Anesthesia: lidocaine 1% CC's of Anesthesia: 5 Complications: none Central Line Post Position: sutured, good blood return (Gavin Tomas) Critical Care Note Critical Care Note Critical Care Time: 30-74 min (60) (Gavin Tomas)
[2017-10-17 23:36] LABS: ABSOLUTE BASOPHIL COUNT 0 /CUMM (0.0-0.2); ABSOLUTE EOSINOPHIL COUNT 0 /CUMM (0.0-0.7); ABSOLUTE GRANULOCYTE CT 8.5 /CUMM (1.4-6.5); ABSOLUTE LYMPH COUNT 0.2 /CUMM (1.2-3.4); ABSOLUTE MONOCYTE COUNT 0.3 /CUMM (0.10-0.60); BASOPHIL % 0.1 % (0.0-2.0); EOSINOPHIL % 0 % (0-5); GRANULOCYTE % 94.7 % (42.2-75.2); HEMATOCRIT 30.7 % (42-52); MEAN CORPUSCULAR HGB 27.2 PG (27.0-31.0); MEAN CORPUSCULAR HGB CONC 33.6 G/DL (33.0-37.0); MEAN CORPUSCULAR VOLUME 80.9 FL (80.0-94.0); PLATELET COUNT 94 /CUMM (130-400); RBC DISTRIBUTION WIDTH 15.6 % (11.5-14.5); RED BLOOD CELL CT 3.79 /CUMM (4.70-6.10)
--- NOTE | 2017-10-17 23:58 | RADIOLOGY REPORT ---
EXAMINATION: XR PORTABLE CHEST CLINICAL INFORMATION: Altered mental status COMPARISON: Chest x-ray September 07, 2017 TECHNIQUE: Portable frontal view of the chest was obtained. 11:36 PM FINDINGS: Status post median sternotomy. Status post cardiac valve replacement. Lung volume low. No infiltrate. No significant pulmonary vascular congestion and there is no pleural effusion or pneumothorax. IMPRESSION: No acute abnormality of the chest.
[2017-10-18] MEDS ORDERED: LEVAQUIN500 M1 PO (00:31)
--- NOTE | 2017-10-18 01:36 | CT SCAN REPORT ---
EXAMINATION: CT ABDOMEN AND PELVIS WITHOUT CONTRAST CLINICAL INFORMATION: Obstructive uropathy. Febrile. Hypotensive. COMPARISON: CT scan abdomen pelvis September 07, 2017, CT abdomen pelvis January 10, 2017 TECHNIQUE: Multidetector volumetric imaging was performed from the superior aspect of the liver through the pubic symphysis. Sagittal and coronal reformatted images were obtained on the technologist's workstation. DLP: 336.54 mGy-cm FINDINGS: LUNG BASES: Status post mitral valve replacement. Linear scarring or atelectasis at the lung bases. LIVER, GALLBLADDER, AND BILIARY TREE: The liver is normal in size, shape, and attenuation. No focal hepatic lesion or biliary ductal dilatation is present. 6 mm calcified gallstone layering dependently in the gallbladder. No edema around the gallbladder. No bile duct dilatation. PANCREAS: Unremarkable. SPLEEN: Spleen is prominent size measuring 14 cm of length. ADRENAL GLANDS: Unremarkable. KIDNEYS AND URETERS: There is a double-J stent in the right collecting system. The right renal collecting system is dilated. The dilatation of the renal pelvis and ureter. There is some air droplets within the collecting system of the right kidney. In the upper pole of right kidney there is a 1 cm stone and an adjacent 8 mm stone. In the renal pelvis there is a 1.4 cm stone. No stone or hydronephrosis of the left kidney are collecting system. BLADDER: There is a linear group of tiny stones layering dependently in the bladder. GASTROINTESTINAL TRACT: The small and large bowel are unremarkable. The appendix is unremarkable. ABDOMINAL WALL: No significant hernia is appreciated. LYMPH NODES: Normal. VASCULAR: There is atherosclerotic vascular wall calcifications of aorta and iliac vessels without aneurysm. PELVIC VISCERA: Unremarkable. OSSEOUS STRUCTURES: There is compression deformity superior endplate of T12, L2 with vacuum disc phenomenon adjacent to the compression fractures. There is subchondral sclerosis at the compression fracture. These are old deformities. IMPRESSION: 1. Right double J stent in the right collecting system with hydronephrosis of the right kidney. There is gas collections in the right collecting system. This raises question of gas producing infection in the collecting system of the right kidney. 2. There are right renal calculi. There are numerous tiny stones layering dependently in the bladder. 3. Cholelithiasis.
[2017-10-18 03:00] VITALS: BP 109/70
--- NOTE | 2017-10-18 03:14 | History & Physical ---
Jg BURNS,[facility] 10/18/17 0313: General Information and HPI MD Statement: I have seen and personally examined NICHOLE OCAMPO and documented this H&P. The patient is a 62 year old M who presented with a patient stated chief complaint of [altered mental status, MAXIMUM TEMPERATURE 103]. Source of Information: patient, nursing facility Exam Limitations: confusion History of Present Illness: Mr. Ocampo is a 62-year-old gentleman with past medical history significant for multiple sclerosis, anemia, CAD status post CABG 4, and mitral valve replacement was [facility] from [facility] for altered mental status, fevers and positive blood cultures. Per the nursing facility, patient is alert and oriented at baseline but for the past couple of days has been confused and also spiking fevers with MAXIMUM TEMPERATURE of 103 on Wednesday. Patient also had decreased by mouth intake, was diaphoretic and short of breath. Blood workup was done at the facility which showed hyponatremia patient was started on fluid restriction. Patient was also started on Levaquin after positive UA, received only one dose on 10/17/17. Patient was sent in to the [place] ER today for persistent fevers and blood cultures growing gram-negative rods. Patient was recently admitted to [facility] from 09/06/17 - 09/14/17 for sepsis secondary to obstructive uropathy and MS exacerbation. Patient had a right ureteric stent placed on 09/08/17 and right renal eswl/fluoroscopy done on 10/12/[address] Maxwell. Patient denies any nausea, vomiting, pain or burning with urination, abdominal pain, chest pain, palpitations or shortness of breath. Allergies/Medications Allergies: Coded Allergies: lactose (Severe, DIARRHEA 09/07/17) Home Med list Aspirin (Aspirin*) 81 MG TAB.CHEW 1 TAB PO DAILY HEART HEALTH (Reported) Cholecalciferol (Vitamin D3) (Vitamin D3) 1,000 UNIT CAPSULE 1 CAP PO DAILY supplement (Reported) Dextromethorphan HBr/Quinidine (Nuedexta 20-10 MG Capsule) 20 MG-10 MG CAPSULE 1 CAP PO BID MS (Reported) Divalproex Sodium (Divalproex Sodium ER) 500 MG TAB.ER.24H 1 TAB PO QPM MS ( Reported) Levofloxacin (Levaquin) 500 MG TABLET 500 MG PO UTI (Reported) Magnesium Oxide (Mag-Oxide) 200 MG MAGNESIUM TABLET 1 TAB PO AT BEDTIME RLS ( Reported) Metoprolol Succinate 50 MG TAB.ER.24H 1 TAB PO DAILY HEART (Reported) Oxybutynin Chloride (Oxybutynin Chloride ER) 15 MG TAB.ER.24 1 TAB PO BID BLADDER (Reported) Rosuvastatin Calcium (Crestor) 40 MG TABLET 1 TAB PO DAILY CHOLESTEROL ( Reported) Sertraline HCl 100 MG TABLET 2 TAB PO DAILY MENTAL HEALTH (Reported) Past History Travel History Traveled to [place] past 21 day No Medical History Neurological: multiple sclerosis EENT: NONE Respiratory: NONE Gastrointestinal: NONE Hepatic: NONE Renal: NONE Musculoskeletal: NONE Psychiatric: bipolar disease, substance abuse, QUIT 6 YEARS AGO Endocrine: NONE Blood Disorders: anemia Cancer(s): NONE MEDICATION ASSISTANT/Reproductive: NONE History of MRSA: No History of VRE: No History of CDIFF: No Surgical History Surgical History: CABG, s/p spinal surgery s/p porcine mitral valve replacement Past Family/Social History Psychosocial History Services at Home: Home Health Aide ETOH Use: denies use Illicit Drug Use: denies illicit drug use Functional Ability ADLs Needs Assist: dressing, eating, toileting, bathing. Ambulation: non-ambulatory IADLs Needs Assist: shopping, housework, finances, food prep, telephone, transportation, medication admin. Review of Systems Review of Systems Constitutional: Reports: no symptoms. EENTM: Reports: no symptoms. Cardiovascular: Reports: no symptoms. Respiratory: Reports: no symptoms. GI: Reports: no symptoms. Genitourinary: Reports: no symptoms. Musculoskeletal: Reports: no symptoms. Skin: Reports: no symptoms. Neurological/Psychological: Reports: see HPI. Hematologic/Endocrine: Reports: no symptoms. Immunologic/Allergic: Reports: no symptoms. All Other Systems: Reviewed and Negative Exam & Diagnostic Data Last 24 Hrs of Vital Signs/I&O Vital Signs Date Time Temp Pulse Resp B/P B/P Pulse O2 O2 Flow FiO2 Mean Ox Delivery Rate 10/18 0403 99 Nasal 2.0L Cannula 10/18 0346 97 Nasal 2.0L Cannula 10/18 0300 97.8 88 18 109/70 97 Nasal 2.0L Cannula 10/18 0259 90 103/64 10/18 0254 75 99/65 10/18 0247 98.9 92 19 101/65 98 Nasal 2.0L Cannula 10/18 0241 93 96/57 10/18 0234 89 94/63 10/18 0229 83 97/64 10/18 0224 92 94/63 10/18 0222 93 100/65 10/18 0219 Nasal Cannula 10/18 0218 90 17 91/60 98 Nasal 2.0L Cannula 10/18 0214 96 80/51 10/18 0145 99 80/52 10/18 0118 92 81/52 10/18 0106 101 79/52 10/18 0055 104 82/50 10/18 0031 107 87/56 10/18 0027 99.6 109 20 93/68 95 Nasal 2.0L Cannula 10/18 0018 Nasal 2.0L Cannula 10/18 0018 105 20 84/56 10/18 0008 107 89/60 10/17 2335 85/54 10/17 2302 100.3 118 16 83/51 93 Room Air Intake & Output 10/18 0800 10/18 0000 10/17 1600 Intake Total 1000 2250 Output Total 100 Balance 900 2250 Intake, IV 1000 2250 Output, Urine 100 Patient 164 lb 151 lb Weight Weight Bed scale Reported by Patient Measurement Method Physical Exam General Appearance Alert, Cooperative (Oriented x 2), No Acute Distress Skin No Rashes, No Breakdown HEENT Atraumatic, PERRLA, EOMI, Mucous Membr. moist/pink Neck Supple, No JVD Cardiovascular Regular Rate, Normal S1, Normal S2 Lungs Normal Air Movement Abdomen Normal Bowel Sounds, Soft, No Tenderness Extremities No Clubbing, No Cyanosis, No Edema Last 24 Hrs of Labs/Carlin: Laboratory Tests 10/18/17 0210: Urinalysis HEAVY H, Urine Color YEL, Urine Clarity CLDY H, Urine pH 6.0, Ur Specific [place] 1.010, Urine Protein 30 H, Urine Ketones NEG, Urine Nitrite POS H, Urine Bilirubin NEG, Urine Urobilinogen 0.2, Ur Leukocyte Esterase LARGE H, Ur Microscopic SEDIMENT EXAMINED, Urine RBC 25-50 H, Urine WBC PACKD H, Ur Epithelial Cells FEW, Urine Bacteria PACKD H, Urine Mucus FEW, Urine Hemoglobin MOD H, Urine Glucose NEG 10/18/17 0155: Lactic Acid 0.9 10/18/17 0002: Urinalysis HEAVY H, Urine Color YEL, Urine Clarity CLDY H, Urine pH 6.0, Ur Specific [place] 1.020, Urine Protein 100 H, Urine Ketones NEG, Urine Nitrite POS H, Urine Bilirubin NEG, Urine Urobilinogen 0.2, Ur Leukocyte Esterase LARGE H, Ur Microscopic SEDIMENT EXAMINED, Urine RBC 15-25 H, Urine WBC > 75 H, Ur Epithelial Cells FEW, Urine Bacteria MANY H, Urine Mucus FEW, Urine Hemoglobin MOD H, Urine Glucose NEG 10/17/17 2317: Anion Gap 13, Estimated GFR 41 L, BUN/Creatinine Ratio 24.1, Glucose 95, Lactic Acid 2.6 H, Calcium 8.8, Total Bilirubin 0.9, AST 43, ALT 50, Alkaline Phosphatase 82, Troponin I 0.03, Total Protein 5.4 L, Albumin 3.0 L, Globulin 2.4, Albumin/Globulin Ratio 1.3, CBC w Diff MAN DIFF ORDERED, RBC 3.79 L, MCV 80.9, MCH 27.2, MCHC 33.6, RDW 15.6 H, MPV 10.0, Gran % 94.7 H, Lymphocytes % 1.8 L, Monocytes % 3.4, Eosinophils % 0, Basophils % 0.1, Absolute Granulocytes 8.5 H, Segmented Neutrophils 69, Band Neutrophils 24 H, Absolute Lymphocytes 0.2 L, Lymphocytes 1 L, Monocytes 3, Absolute Monocytes 0.3, Absolute Eosinophils 0, Absolute Basophils 0, Metamyelocytes 3 H, Platelet Estimate DECREASED, Poikilocytosis FEW, Anisocytosis 1+, Fld Total RBCs Counted 100 Microbiology 10/18 0344 UPPER RESP: Surveillance Culture - COLB 10/18 0344 GI: Surveillance Culture - COLB 10/18 0210 URINE ROUT: Urine Culture - RECD 10/18 0002 URINE ROUT: Urine Culture - RECD 10/17 2331 BLOOD: Blood Culture - RECD 10/17 2317 BLOOD: Blood Culture - RECD Assessment/Plan Assessment: Mr. Ocampo is a 62-year-old gentleman with past medical history significant for multiple sclerosis, anemia, CAD status post CABG 4, and mitral valve replacement was Biba from [facility] for altered mental status and fevers. Patient meets SIRS criteria(BP 83/51, heart rate 118, WBC count 9 with 24 bands, lactic acid 2.6) with source of infection most likely 2 urinary tract given positive UA and CT abdomen and pelvis showing hydronephrosis of the right kidney and gas collections in the right collecting system. Patient remained hypotensive despite receiving 3 L of normal saline in the ER, right femoral triple lumen catheter was placed and patient was started on Levophed. Problem list; 1. Septic shock 2. Gram-negative clarice bacteremia 3. MARTÍN likely 2/2 to sepsis 4. Hyponatremia 5. History of multiple sclerosis - We will admit the patient to ICU. - Vitals every 1 hour. - Continue Levophed, titrate to keep SBP > 100. - Continue gentle IV fluids. Patient already received 3 L normal saline in the ER and echocardiogram in September 2017 showed an ejection fraction of 40-45%. Avoid excessive hydration. - Patient received 1 dose of IV meropenem the ER, will continue. - Follow-up blood cultures - Follow-up urine culture - Lactic acidosis resolved - Repeat Creatinine in a.m. for MARTÍN. - ID consult - Neurology consult with Dr. Maxwell. Dr. Hooker was called from the ER, who recommended continuing the current treatment, we'll consider nephrostomy tube placement tomorrow if no improvement in clinical condition. We'll keep nothing by mouth tonight in anticipation of an urological procedure in the morning. - Sodium level improving(from 129 to 131), will continue to monitor. - Continue home medication except metoprolol given hypotension. DVT prophylaxis; Alps only(low platelet count) Patient is DNR/DNI. As Ranked By This Provider Problem List: 1. Pyelonephritis 2. Septic shock Core Measures/Misc (04/18) Acute Coronary Syndrome ACS Diagnosis: No Congestive Heart Failure Congestive Heart Failure Diagnosis No Cerebrovascular Accident CVA/TIA Diagnosis: No VTE (View Protocol) VTE Risk Factors Immobility No Mechanical VTE Prophylaxis d/t N/A MechProphylax Ordered No VTE Pharm Prophylaxis d/t Platelets below ref range Sepsis (View protocol) Sepsis Present: Yes Nixon Villasenor 10/18/17 0357: Resident Review Statement Resident Statement: examined this patient, discussed with wildlife biology internship, agreed with wildlife biology internship, discussed with family, reviewed EMR data (avail), discussed with nursing , discussed with case mgmt, reviewed images, amended to note Other Findings: This is a 62-year-old man with a history of multiple sclerosis, coronary artery disease, status post CABG, status post mitral valve replacement, status post spinal surgery, hypertension, hyperlipidemia, depression, right lower extremity weakness and numbness was brought in by ambulance from [facility] for shortness of breath, weakness, diaphoresis,fever for 1 day. He was admitted to [facility] 09/06- 09/14 for Right sided obstructive uropathy with sepsis and pyelopnephritis with increasing numbness of the right foot and increased falls, found to be febrile with transient hypotension and pyuria, with blood and urine cultures positive for Escherichia coli and with a CT of the abdomen and pelvis revealing right hydronephrosis, right ureteral calculi, perinephric stranding, fluid along the right paracolic gutter and foci of gas within the right mid pole collecting system, status post cystoscopy and placement of a right ureteral stent. His clinical picture was consistent with sepsis of urologic origin. He was discharged on amoxicillin 14 day course. Patient underwent right renal ESWL/ stent placement on October [address] Maxwell. Patient has been doing good after the urologic procedure 10/12/2017. He is alert awake and oriented 3 as per the information from the nurse who took care of her of Mr. Ocampo. However for the last 2 days patient has been spiking temperature, MAXIMUM TEMPERATURE 103, more confused with poor oral intake. Basic blood work was done at [facility] on Wednesday which showed hyponatremia sodium 125, placed on fluid restriction, urine analysis showed nitrate, esterase , he was started on Levaquin on 10/17/2017. However patient denied any flank pain, lower abdomen pain, fever, chills, frequency, urgency, dysuria. However given his change in mental status, urine analysis findings, recent admission for sepsis of urologic origin and stent placement he was started on Levaquin at the facility. Patient was brought in by ambulance from [facility] for evaluation of fever, UTI, right lower extremity weakness, diaphoresis and shortness of breath. Review of systems was negative for chest pain, short of breath, palpitations, productive cough, nausea, vomiting, abdominal pain, constipation, diarrhea. However he reports right lower extremity weakness, more than usual, which was ongoing for few weeks. He denies any smoking, alcohol abuse, illicit drug abuse. vitals at the time of admission MAXIMUM TEMPERATURE 100.3, tachycardia 109, blood pressure 79/52, received 3 L of normal saline, blood pressure 80/52, status post central line placement and started on Levophed. Respiratory rate 20, saturating at 95 on room air. on exam General Appearance: well developed/nourished, alert, awake, confused, ox2. Head: atraumatic, normal appearance Neck: normal inspection Respiratory: normal breath sounds, no respiratory distress Cardiovascular: regular rate/rhythm Back: normal inspection, no CVA tenderness Extremities: normal inspection, no edema, no cyanosis, no clubbing Skin: intact, normal color, normal capillary refill, warm, dry Pertinent labs WBC 9, hemoglobin 10.2, hematocrit 30, platelets 94, bandemia 24 Sodium 131, potassium 3.8, BUN 41, creatinine 1.7. LFTs normal urine analysis showed nitrate, esterase, WBC, bacteria Chest x-ray no acute cardiopulmonary findings EKG sinus tachycardia, rate 112, sinus rhythm, no acute ST-T wave changes CT abdomen showed 1. Right double J stent in the right collecting system with hydronephrosis of the right kidney. There is gas collections in the right collecting system. This raises question of gas producing infection in the collecting system of the right kidney. 2. There are right renal calculi. There are numerous tiny stones layering dependently in the bladder. 3. Cholelithiasis. -------- 1. Septic shock secondary to pyelonephritis Patient presented with generalized weakness, fever, confusion, diaphoresis. He was found to have MAXIMUM TEMPERATURE 103, tachycardia, bandemia, lactic acidosis with source of infection urine which showed nitrate, esterase, WBC, bacteria. Patient was hypotensive even after resuscitation with 3 L of normal saline, requiring central line placement and levophed to improve blood pressure in the emergency room. CAT scan abdomen was done which showed Right double J stent in the right collecting system with hydronephrosis of the right kidney and gas collections in the right collecting system. He will be admitted to ICU for septic shock secondary to right pyelonephritis with gas collections. * Admit to ICU * Monitor vitals every hour * Maintain oxygen saturations above 90 * Right femoral triple-lumen catheter was placed in the emergency room as there is No improvement in blood pressure after 3 L of IV fluid resuscitation. * Started on Levophed for hypotension, Titrate levophed- with goal SBP greater than 100, map greater than 65 * Closely monitor blood pressure * Started on broad-spectrum antibiotic IV meropenem every 12hrs -renal dosed. * Continue normal saline 2 more bags at 100 mL per hour * Lactic acid trended down 2.6-0.9 * Follow-up blood cultures * Follow-up urine cultures * Off note patient has grown Escherichia coli during his last admission 10/06. Cultures from October 16 were growing gram-negative rods in both the sets. * Follow-up cultures from October 16, October 18 * Need CRCU consult in a.m. * Urology consult in a.m. * ID consult in a.m. * Patient is nothing by mouth for anticipated urologic procedure- may need nephrostomy tube. 2. MARTÍN Patient was found to have creatinine 1.7. his baseline creatinine was 1. However he was found to have elevated creatinine for last 2 days. Most likely prerenal from sepsis. * Continue IV hydration * Recheck creatinine in the a.m. * Avoid nephrotoxic agents 3. Hyponatremia Sodium 131 at the time of admission. Recent labs from the [facility] showed sodium 125, he was on fluid restriction. Sodium is improving. Continue to monitor. 4. Chronic anemia Hemoglobin 10.3 and hematocrit 30. Normal MCV. closely monitor for now. 5. Thrombocytopenia Platelets 94 at the time of admission. He has prior history of thrombocytopenia. We'll monitor for any signs of bleeding. Avoid heparin products. 6. Multiple sclerosis Continue NUEDEXTA, divalproex. 7. History of hypertension Please hold metoprolol succinate which is his home medication given his septic shock. 8. Hyperlipidemia Continue Crestor 40 daily 9. Depression Continue sertraline 200 mg daily Foleys catheter in place Right triple-lumen catheter in place pressors- levophed Not intubated 2 L nasal cannula Patient is DNR/DNI Nothing by mouth DVT prophylaxis alps only Sister is POA , please call her to get more information. John BURNS, [facility] 10/18/17 0433: Attending MD Review Statement Attending Statement Attending MD Statement: examined this patient, discuss w/resident/PA/SYSTEMS TESTER, agreed w/resident/PA/SYSTEMS TESTER, reviewed images, amended to note Attending Assessment/Plan: 62 yo M with h/o CAD s/p CABG, s/p MVR, HTN, ?bipolar d/o, relapsing remitting MS on oral DMT, baseline deficits include h/o left optic neuritis and bilateral leg weakness more significant on right leg with foot drop is brought in from [facility] for 2-day h/o fever (Tmax 103), chills, diaphoresis, dyspnea, poor PO intake and confusion. Urine analysis, urine and blood cultures were done, and he was initiated on levaquin 1 day prior. Patient had no urinary complaints. He was admitted to [place] (09/06 09/14) for Ecoli bacteremia of urological origin, obstructive uropathy requiring right ureteral stent insertion, and also treated for MS exacerbation. He was discharged to [facility] to complete antibiotic course with amoxicillin. Most recently, patient underwent right renal stone ESWL on October 12. Operative procedure mentions left renal ESWL, but note is descriptive of right ESWL. Previous imaging confirms right renal calculus, no calculi on the left side. n the ER, patient remained hypotensive despite 3 L of normal saline, right femoral line was placed and levophed was initiated. Vitals: Tmax 100.3, HR 90-110's, BP 83/51 --> 79/52 --> 96/57, sats 97% on 2L. Exam: awake, alert but confused, very dry mucous membranes, skin warm and dry, capillary refill ~ 2 secs, Chest clear, Heart S1S2 regular, tachycardic, Abd soft, NT, Back: no CVA tenderness. Neuro: right leg weaker than left with reduced sensation and foot drop. Labs: no leukocytosis, bandemia 24, H/H 10.3/30.7, Plt 94, Na 131, bicarb 20, BUN 41, creat 1.7 (baseline 0.9-1.0), lactic acid 2.6, trop neg. UA cloudy, proteinuria, nitrite positive, large leukocyte esterase, RBC 15-25, WBC> 75, many bacteria. CXR: no acute abnormality. CT abd/pelvis: right double J stent in right collecting system with hydronephrosis of right kidney. Gas collections in right collecting system ?gas producing infection. Right renal calculi with numerous riny stones layring in the bladder. Left collecting system is normal. EKG: sinus tachycardia, old inferior infarct, no new changes. Echo (2018): EF 40-45%, stage 1 diastolic dysfunction. Blood cultures drawn on October 16 growing gram negative rods. Assessment and plan: 1. Septic shock 2. Gram negative bacteremia, acute pyelonephritis 3. Obstructive uropathy recurrent right nephrolithiasis with hydronephrosis s/ p recent stent placement and ESWL 4. MARTÍN 5. Thrombocytopenia in the setting of sepsis 6. Hyponatremia 7. History of multiple sclerosis, not in exacerbation 8. History of CAD and prosthetic MVR - Admit to ICU - Vitals Q1 hour - Hraper placement, monitor I/O's - Repeat blood culture and urine culture - Femoral line placed in ER, initiate levophed and titrate to a MAP of 65 mmHg - Normal saline @ 100/hr, watch for fluid overload given mild systolic and diastolic dysfunction on echo - Urology consult with Dr. Maxwell (Dr. Hooker was informed by ER overnight) - NPO for possible need for OR/ procedure ?nephrostomy tube - Initially IV ceftriaxone was given in ER, then a dose of meropenem. Patient has grown pansensitive Ecoli in the past however given the severity of infection will continue meropenem and taper antibiotics based on culture. - Trend lactic acid and renal functions - ID consult to help with antibiotic choice - CRCU consult - Continue depakote, nuedexta, aspirin, zoloft and oxybutinin - Hold metoprolol resume once BP stable - GI ppx IV protonix DVT ppx Alps, DNR/I. TTS > 45 mins
--- NOTE | 2017-10-18 04:35 | Admission Certification ---
Admission Certification Certification Statement - As attending physician, I certify that at the time of - admission, based on clinical presentation, severity of - symptoms, need for further diagnostic testing and - therapeutic interventions, and risk of adverse outcomes - without in-hospital treatment, in my clinical assessment, - this patient requires an acute hospital stay for a minimum - of two nights or longer. I have also considered psychsocial - factors such as support system, advanced age, financial - issues, cognitive issues, and failed out-patient treatments, - past re-admission history, safety of patient, and lack of - compliance as applicable. Specific rationale supporting this admission is: Septic shock, gram negative bacteremia of urological origin, obstructive uropathy, MARTÍN, needs ICU level of care.
[2017-10-18 05:31] LABS: ABSOLUTE BASOPHIL COUNT 0 /CUMM (0.0-0.2); ABSOLUTE EOSINOPHIL COUNT 0 /CUMM (0.0-0.7); ABSOLUTE LYMPH COUNT 0.4 /CUMM (1.2-3.4); BASOPHIL % 0 % (0.0-2.0); EOSINOPHIL % 0 % (0-5); GRANULOCYTE % 90.1 % (42.2-75.2); HEMATOCRIT 28.3 % (42-52); MEAN CORPUSCULAR HGB 26.4 PG (27.0-31.0); MEAN CORPUSCULAR HGB CONC 32.2 G/DL (33.0-37.0); MEAN CORPUSCULAR VOLUME 82.1 FL (80.0-94.0); MEAN PLATELET VOLUME 9.4 FL (7.4-10.4); PLATELET COUNT 91 /CUMM (130-400); RBC DISTRIBUTION WIDTH 15.6 % (11.5-14.5); RED BLOOD CELL CT 3.44 /CUMM (4.70-6.10); WHITE BLOOD CELL COUNT 13.3 /CUMM (4.8-10.8)
--- NOTE | 2017-10-18 07:29 | Cons- CRCU ---
Bebe BURNS,Sam 10/18/17 0729: General Information and HPI Consulting Request Date of Consult: 10/18/17 Requested By: Hospitalist Jamal Lopez MD Reason for Consult: Septic shock requiring pressor support Source of Information: patient, family Exam Limitations: no limitations History of Present Illness: 62-year-old male with history of coronary artery disease, status post CABG, mitral valve replacement, multiple sclerosis, spinal surgery, recent admission to hospital for sepsis of urologic origin with Escherichia coli, resident of [facility], was found to have 103F fever on Wednesday, with some altered mental status and a sodium of 129 for which he was placed on fluid restriction, was found to be progressively altered in mental status and was brought in by ambulance to the emergency department. Of note, his blood culture collected on Wednesday is growing gram negative rods. Per the nursing facility, patient is alert and oriented at baseline but for the past couple of days has been confused and also spiking fevers with MAXIMUM TEMPERATURE of 103 on Wednesday. Patient also had decreased by mouth intake, was diaphoretic and short of breath. Blood workup was done at the facility which showed hyponatremia patient was started on fluid restriction. Patient was also started on Levaquin after positive UA, received only one dose on 10/17/17. Patient was sent in to the [place] ER today for persistent fevers and blood cultures growing gram-negative rods. Patient was recently admitted to [facility] from 09/06/17 - 09/14/17 for sepsis secondary to obstructive uropathy and MS exacerbation. Patient had a right ureteric stent placed on 09/08/17 and right renal eswl/fluoroscopy done on 10/12/[address] Maxwell. Patient denies any nausea, vomiting, pain or burning with urination, abdominal pain, chest pain, palpitations or shortness of breath. Allergies/Medications Allergies: Coded Allergies: lactose (Severe, DIARRHEA 09/07/17) Home Med List: Aspirin (Aspirin*) 81 MG TAB.CHEW 1 TAB PO DAILY HEART HEALTH (Reported) Cholecalciferol (Vitamin D3) (Vitamin D3) 1,000 UNIT CAPSULE 1 CAP PO DAILY supplement (Reported) Dextromethorphan HBr/Quinidine (Nuedexta 20-10 MG Capsule) 20 MG-10 MG CAPSULE 1 CAP PO BID MS (Reported) Divalproex Sodium (Divalproex Sodium ER) 500 MG TAB.ER.24H 1 TAB PO QPM MS ( Reported) Levofloxacin (Levaquin) 500 MG TABLET 500 MG PO UTI (Reported) Magnesium Oxide (Mag-Oxide) 200 MG MAGNESIUM TABLET 1 TAB PO AT BEDTIME RLS ( Reported) Metoprolol Succinate 50 MG TAB.ER.24H 1 TAB PO DAILY HEART (Reported) Oxybutynin Chloride (Oxybutynin Chloride ER) 15 MG TAB.ER.24 1 TAB PO BID BLADDER (Reported) Rosuvastatin Calcium (Crestor) 40 MG TABLET 1 TAB PO DAILY CHOLESTEROL ( Reported) Sertraline HCl 100 MG TABLET 2 TAB PO DAILY MENTAL HEALTH (Reported) Review of Systems Review of Systems Constitutional: Reports: fever. EENTM: Reports: no symptoms. Cardiovascular: Reports: no symptoms. Respiratory: Reports: no symptoms. GI: Reports: no symptoms. Genitourinary: Reports: no symptoms. Musculoskeletal: Reports: no symptoms. Skin: Reports: no symptoms. Neurological/Psychological: Reports: see HPI. Hematologic/Endocrine: Reports: no symptoms. All Other Systems: Reviewed and Negative Past History Travel History Traveled to [place] past 21 day No Medical History Neurological: multiple sclerosis EENT: NONE Cardiovascular: CAD, cabg x4, mitral valve replacement Respiratory: NONE Gastrointestinal: NONE Hepatic: NONE Renal: NONE Musculoskeletal: NONE Psychiatric: bipolar disease, substance abuse, QUIT 6 YEARS AGO Endocrine: NONE Blood Disorders: anemia Cancer(s): NONE OFFLINE CUTTER/Reproductive: NONE Surgical History Surgical History: CABG, s/p spinal surgery s/p porcine mitral valve replacement Psychosocial History Where [facility] You Live[facility] Who Do You Live With? self Services at Home: Home Health Aide Primary Language: Russian Smoking Status: Unknown If Ever Smoked ETOH Use: denies use Illicit Drug Use: denies illicit drug use Functional Ability ADLs Needs Assist: dressing, eating, toileting, bathing. Ambulation: non-ambulatory IADLs Needs Assist: shopping, housework, finances, food prep, telephone, transportation, medication admin. Exam & Diagnostic Data Last 24 Hrs of Vital Signs/I&O Vital Signs Date Time Temp Pulse Resp B/P B/P Pulse O2 O2 Flow FiO2 Mean Ox Delivery Rate 10/18 0403 99 Nasal 2.0L Cannula 10/18 0346 97 Nasal 2.0L Cannula 10/18 0300 97.8 88 18 109/70 97 Nasal 2.0L Cannula 10/18 0259 90 103/64 10/18 0254 75 99/65 10/18 0247 98.9 92 19 101/65 98 Nasal 2.0L Cannula 10/18 0241 93 96/57 10/18 0234 89 94/63 10/18 0229 83 97/64 10/18 0224 92 94/63 10/18 0222 93 100/65 10/18 0219 Nasal Cannula 10/18 0218 90 17 91/60 98 Nasal 2.0L Cannula 10/18 0214 96 80/51 10/18 0145 99 80/52 10/18 0118 92 81/52 10/18 0106 101 79/52 10/18 0055 104 82/50 10/18 0031 107 87/56 10/18 0027 99.6 109 20 93/68 95 Nasal 2.0L Cannula 10/18 0018 Nasal 2.0L Cannula 10/18 0018 105 20 84/56 10/18 0008 107 89/60 10/17 2335 85/54 10/17 2302 100.3 118 16 83/51 93 Room Air Intake & Output 10/18 0800 10/18 0000 10/17 1600 Intake Total 1000 2250 Output Total 100 Balance 900 2250 Intake, IV 1000 2250 Output, Urine 100 Patient 74.389 kg 68.492 kg Weight Weight Bed scale Reported by Patient Measurement Method Physical Exam General Appearance: well developed/nourished, no apparent distress, alert, awake , comfortable Head: atraumatic, normal appearance, active bleeding Eyes: Bilateral: normal appearance, PERRL, EOMI. Ears, Nose, Throat: normal pharynx, normal ENT inspection, hearing grossly normal Neck: normal inspection, supple, full range of motion Respiratory: normal breath sounds, chest non-tender, no respiratory distress, lungs clear Cardiovascular: regular rate/rhythm, normal peripheral pulses Gastrointestinal: normal bowel sounds, soft, non-tender Extremities: normal inspection, normal capillary refill, normal range of motion, no edema Last 48 Hrs of Labs/Carlin: Laboratory Tests 10/18/17 0445: Anion Gap 12, Estimated GFR 44 L, Glucose 94, Calcium 7.5 L, Phosphorus 2.9, Magnesium 1.9, Total Bilirubin 0.6, AST 37, ALT 45, Albumin 2.4 L, CBC w Diff MAN DIFF ORDERED, RBC 3.44 L, MCV 82.1, MCH 26.4 L, MCHC 32.2 L, RDW 15.6 H, MPV 9.4, Gran % 90.1 H, Lymphocytes % 2.7 L, Monocytes % 7.2, Eosinophils % 0, Basophils % 0, Absolute Granulocytes 12.0 H, Segmented Neutrophils 70, Band Neutrophils 19 H, Absolute Lymphocytes 0.4 L, Lymphocytes 3 L, Monocytes 8, Absolute Monocytes 1.0 H, Absolute Eosinophils 0, Absolute Basophils 0, Platelet Estimate DECREASED, Anisocytosis 1+, Elliptocytes FEW 10/18/17 0210: Urinalysis HEAVY H, Urine Color YEL, Urine Clarity CLDY H, Urine pH 6.0, Ur Specific [place] 1.010, Urine Protein 30 H, Urine Ketones NEG, Urine Nitrite POS H, Urine Bilirubin NEG, Urine Urobilinogen 0.2, Ur Leukocyte Esterase LARGE H, Ur Microscopic SEDIMENT EXAMINED, Urine RBC 25-50 H, Urine WBC PACKD H, Ur Epithelial Cells FEW, Urine Bacteria PACKD H, Urine Mucus FEW, Urine Hemoglobin MOD H, Urine Glucose NEG 10/18/17 0155: Lactic Acid 0.9 10/18/17 0002: Urinalysis HEAVY H, Urine Color YEL, Urine Clarity CLDY H, Urine pH 6.0, Ur Specific [place] 1.020, Urine Protein 100 H, Urine Ketones NEG, Urine Nitrite POS H, Urine Bilirubin NEG, Urine Urobilinogen 0.2, Ur Leukocyte Esterase LARGE H, Ur Microscopic SEDIMENT EXAMINED, Urine RBC 15-25 H, Urine WBC > 75 H, Ur Epithelial Cells FEW, Urine Bacteria MANY H, Urine Mucus FEW, Urine Hemoglobin MOD H, Urine Glucose NEG 10/17/17 2317: Anion Gap 13, Estimated GFR 41 L, BUN/Creatinine Ratio 24.1, Glucose 95, Lactic Acid 2.6 H, Calcium 8.8, Total Bilirubin 0.9, AST 43, ALT 50, Alkaline Phosphatase 82, Troponin I 0.03, Total Protein 5.4 L, Albumin 3.0 L, Globulin 2.4, Albumin/Globulin Ratio 1.3, CBC w Diff MAN DIFF ORDERED, RBC 3.79 L, MCV 80.9, MCH 27.2, MCHC 33.6, RDW 15.6 H, MPV 10.0, Gran % 94.7 H, Lymphocytes % 1.8 L, Monocytes % 3.4, Eosinophils % 0, Basophils % 0.1, Absolute Granulocytes 8.5 H, Segmented Neutrophils 69, Band Neutrophils 24 H, Absolute Lymphocytes 0.2 L, Lymphocytes 1 L, Monocytes 3, Absolute Monocytes 0.3, Absolute Eosinophils 0, Absolute Basophils 0, Metamyelocytes 3 H, Platelet Estimate DECREASED, Poikilocytosis FEW, Anisocytosis 1+, Fld Total RBCs Counted 100 Assessment/Plan CRCU Impression/Plan: 62-year-old male with history of coronary artery disease, status post CABG, mitral valve replacement, multiple sclerosis, spinal surgery, recent admission to hospital for sepsis of urologic origin with Escherichia coli, resident [facility], was found to have 103F fever on Wednesday, with some altered mental status and a sodium of 129 for which he was placed on fluid restriction, was found to be progressively altered in mental status and was brought in by ambulance to the emergency department. Of note, his blood culture collected on Wednesday is growing gram negative rods. Patient's blood pressure was low enough requiring IV pressor support, and was thus admitted in the ICU. Current issues: # Septic shock, 2/2 UTI Patient had recent instrumentation of urinary tract, and his current clinical picture, laboratory results including urinalysis and right kidney aspirate results is suggestive of urinary tract infection. Right kidney aspirate culture is positive for Escherichia coli. The fact that the patient required IV pressors defines septic shock. * We'll continue ICU care * Strict intake and output * Continue Harper catheter per Urology recs * Initially started with meropenem, changed to ceftriaxone after culture reports and ID recommendations, appreciated. * Continuing medical management for the time being and will be seen by Dr. Maxwell (Urologist) later. * Dr Hooker from Urology saw the patient today, and suggested conservative management for the time being. He suggested that the patient might not need any urgent surgical intervention unless patient fails to improve in which case he might need urgent percutaneous nephrostomy. #MARTÍN Patient's baseline creatinine is 0.9-1, was found to have creatinine of 1.9 at presentation which is trending down to 1.6 with IV fluids. We'll continue to monitor. #Altered mental status, improved The patient does not seem to have any altered mental condition since I followed up with the patient this morning, also the CAT scan of the head was negative. Advance the diet after bedside swallow screening. Of note, during the course of the day his sister Melanie had come and was concerned about possible slurring of speech, which was negative after examination in detail. i.e. full neuro exam was negative for any symptoms as well as signs, thus no slurring of speech, changes in vision, angle of mouth deviation etc. #Thrombocytopenia Today's platelet count is 91, this appears to have been chronic, will continue to monitor and avoid heparin products for now. #DVT ppx: ALPS only for low plt (94) #Diet: Regular diet, after bedside swallow screening by me #Code status: DNR/DNI Consult Acknowledgment - Thank you for your consult request. Harman BURNS,Samir Sofya 10/18/17920: General Information and HPI Allergies/Medications Current Medications: Current Medications Sig/Tobin Start time Last Medication Dose Route Stop Time Status Admin Acetaminophen 650 MG Q6P PRN 10/18 0330 AC PO Acetaminophen 1,000 MG Q6P PRN 10/18 0330 AC IV Aspirin 81 MG DAILY 10/18 1000 AC PO Atorvastatin Calcium 40 MG 1700 10/18 1700 AC PO Ceftriaxone Sodium 1,000 MG ONCE ONE 10/17 2315 DC 10/18 IV 10/18 2315 0006 Cholecalciferol 1,000 IU DAILY 10/18 1000 AC PO Dextromethorphan/ 1 CAP Q12 10/18 1000 AC Quinidine PO Divalproex Sodium 500 MG 2200 10/18 2200 AC PO Ketorolac 0 .STK-MED ONE 10/18 0021 DC Tromethamine .ROUTE Ketorolac 30 MG ONCE ONE 10/18 0015 DC 10/18 Tromethamine IV 10/18 0016 0017 Magnesium Oxide 400 MG DAILY 10/18 1000 AC PO Meropenem 1 GM Q12 10/18 1000 AC IV Meropenem 1 GM ONCE ONE 10/18 0200 DC 10/18 IV 10/18 200 0217 Non-Formulary 0 SEE ADMIN CRITERIA 10/18 0345 CAN Medication ANY Norepinephrine 4 MG Q24H 10/18 0615 AC Dextrose/Water 250 ML IV Norepinephrine 0 .STK-MED ONE 10/18 0204 DC IV Norepinephrine 4 MG ONCE ONE 10/18 0200 DC 10/18 Sodium Chloride 250 ML IV 03/19 0201 0214 Oxybutynin Chloride 15 MG BID 10/18 1000 AC PO Pantoprazole Sodium 40 MG DAILY 10/18 1000 AC IV Potassium Chloride 20 MEQ Q1H 10/18 0845 AC IV 10/18 0946 Sertraline HCl 200 MG DAILY 10/18 1000 AC PO Sodium Chloride 1,000 ML Q10H 10/18 0215 AC 10/18 IV 10/19 1813 0217 Sodium Chloride 1,000 ML BOLUS ONE 10/18 0045 DC 10/18 IV 10/18 0144 0034 Sodium Chloride 2,040 ML ONCE ONE 10/17 2315 DC 10/17 IV 10/17 2316 2348 Assessment/Plan CRCU Other Findings/Comments: I have personally seen and examined the patient and agree with the resident's assessment and plan as detailed above. The patient is a 62-year-old male with a past history significant for multiple sclerosis, anemia, CAD status post CABG 4 , a mitral valve replacement. The patient was brought in from [facility] for MENTAL status and fevers with a MAXIMUM TEMPERATURE up to 103. The patient was brought in with septic shock secondary to sepsis of urologic origin. The patient had gram-negative clarice bacteremia, acute kidney injury secondary to sepsis, and hyponatremia. In the ED, the patient was pancultured, volume resuscitated, and started on IV fluids. He was also given Levophed to maintain his blood pressure. He had a CT scan of the abdomen and pelvis that demonstrated hydronephrosis in the right kidney with gas collections in the right collecting system raising the question of a gas producing infection. There are also right renal calculi seen. Cholelithiasis was reported without cholecystitis. He was started on meropenem. Nephrology, ID and urology consults have been called. The patient remains on Levophed although his overall requirement is slowly improving. His urine output is adequate. The patient has been afebrile overnight. His blood pressure is running in the 90s to low 100s. He remains awake and alert and in no acute distress. The plan for today is we will follow-up all consultants recommendations, appreciate input. Continue to follow on empiric antibiotics. Continue Harper catheter and strict I's and O's. At the present time, no urologic intervention has been recommended unless the patient fails to improve. Taper Levophed to maintain blood pressure greater than 90 mmHg. Continue gentle IV fluid hydration. Follow-up blood cultures noting they're currently growing gram- negative rods. We will add DVT prophylaxis. Advance diet. Continue all current medications. Continue all supportive care. Discussed plan of care with housestaff in detail. TTS 50. Consult Acknowledgment - Thank you for your consult request.
--- NOTE | 2017-10-18 07:47 | Cons- Urology ---
General Information and HPI Consulting Request Date of Consult: 10/18/17 Requested By: John BURNS,Francisco Reason for Consult: Covering for Dr Maxwell. Reason for consult is urosepsis, s/p R renal ESWL on Source of Information: patient, old records Exam Limitations: no limitations History of Present Illness: This patient is followed by Dr Maxwell. He has a hx of MS, CAD, and cardiac valve replacement. He was admitted with urosepsis in 09/2017 and was found to have a 2.3 cm stone in the R renal pelvis with hydronephrosis. A R double J ureteral stent was placed at that time. He subsequently underwent R renal ESWL on 10/12/17. He presented to the ER last night with a couple of days of fever and intermittent mild confusion. Also a blood culture done at the facility where he resides was positive for gram neg rods. In the ER he was found to be hypotensive. CT scan showed his R double J ureteral stent to be in good position, persistent mild R hydronephrosis, a 1 cm stone in the R renal pelvis, another 1 cm stone in an upper pole calyx and a smaller calyceal stone fragment. There were several small stone fragments in the bladder. Since admission he has been treated with empiric IV abx, hydration and levophed drip and appears improved. Allergies/Medications Allergies: Coded Allergies: lactose (Severe, DIARRHEA 09/07/17) Home Med List: Aspirin (Aspirin*) 81 MG TAB.CHEW 1 TAB PO DAILY HEART HEALTH (Reported) Cholecalciferol (Vitamin D3) (Vitamin D3) 1,000 UNIT CAPSULE 1 CAP PO DAILY supplement (Reported) Dextromethorphan HBr/Quinidine (Nuedexta 20-10 MG Capsule) 20 MG-10 MG CAPSULE 1 CAP PO BID MS (Reported) Divalproex Sodium (Divalproex Sodium ER) 500 MG TAB.ER.24H 1 TAB PO QPM MS ( Reported) Levofloxacin (Levaquin) 500 MG TABLET 500 MG PO UTI (Reported) Magnesium Oxide (Mag-Oxide) 200 MG MAGNESIUM TABLET 1 TAB PO AT BEDTIME RLS ( Reported) Metoprolol Succinate 50 MG TAB.ER.24H 1 TAB PO DAILY HEART (Reported) Oxybutynin Chloride (Oxybutynin Chloride ER) 15 MG TAB.ER.24 1 TAB PO BID BLADDER (Reported) Rosuvastatin Calcium (Crestor) 40 MG TABLET 1 TAB PO DAILY CHOLESTEROL ( Reported) Sertraline HCl 100 MG TABLET 2 TAB PO DAILY MENTAL HEALTH (Reported) Current Medications: Current Medications Sig/Tobin Start time Last Medication Dose Route Stop Time Status Admin Acetaminophen 650 MG Q6P PRN 10/18 0330 AC PO Acetaminophen 1,000 MG Q6P PRN 10/18 0330 AC IV Aspirin 81 MG DAILY 10/18 1000 AC PO Atorvastatin Calcium 40 MG 1700 10/18 1700 AC PO Ceftriaxone Sodium 1,000 MG ONCE ONE 10/17 2315 DC 10/18 IV 10/18 2315 0006 Cholecalciferol 1,000 IU DAILY 10/18 1000 AC PO Dextromethorphan/ 1 CAP Q12 10/18 1000 AC Quinidine PO Divalproex Sodium 500 MG 2200 10/18 2200 AC PO Ketorolac 0 .STK-MED ONE 10/18 0021 DC Tromethamine .ROUTE Ketorolac 30 MG ONCE ONE 10/18 0015 DC 10/18 Tromethamine IV 10/18 0016 0017 Magnesium Oxide 400 MG DAILY 10/18 1000 AC PO Meropenem 1 GM Q12 10/18 1000 AC IV Meropenem 1 GM ONCE ONE 10/18 0200 DC 10/18 IV 10/18 200 0217 Non-Formulary 0 SEE ADMIN CRITERIA 10/18 0345 CAN Medication ANY Norepinephrine 4 MG Q24H 10/18 0615 AC Dextrose/Water 250 ML IV Norepinephrine 0 .STK-MED ONE 10/18 0204 DC IV Norepinephrine 4 MG ONCE ONE 10/18 0200 DC 10/18 Sodium Chloride 250 ML IV 10/18 0201 0214 Oxybutynin Chloride 15 MG BID 10/18 1000 AC PO Pantoprazole Sodium 40 MG DAILY 10/18 1000 AC IV Sertraline HCl 200 MG DAILY 10/18 1000 AC PO Sodium Chloride 1,000 ML Q10H 10/18 0215 AC 10/18 IV 10/18 2214 0217 Sodium Chloride 1,000 ML BOLUS ONE 10/18 0045 DC 10/18 IV 10/18 0144 0034 Sodium Chloride 2,040 ML ONCE ONE 10/175 DC 10/17 IV 10/17 231 2348 Past History Medical History Neurological: multiple sclerosis EENT: NONE Respiratory: NONE Gastrointestinal: NONE Hepatic: NONE Renal: NONE Musculoskeletal: NONE Psychiatric: bipolar disease, substance abuse, QUIT 6 YEARS AGO Endocrine: NONE Blood Disorders: anemia Cancer(s): NONE 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 Acute Rehab Services at Home: Home Health Aide Smoking Status: Unknown If Ever Smoked ETOH Use: denies use Illicit Drug Use: denies illicit drug use Functional Ability ADLs Needs Assist: dressing, eating, toileting, bathing. Ambulation: non-ambulatory IADLs Needs Assist: shopping, housework, finances, food prep, telephone, transportation, medication admin. Employment History Retired? unknown Exam & Diagnostic Data Vital Signs and I&O Vital Signs Date Time Temp Pulse Resp B/P B/P Pulse O2 O2 Flow FiO2 Mean Ox Delivery Rate 10/18 0403 99 Nasal 2.0L Cannula 10/18 0346 97 Nasal 2.0L Cannula 10/18 0300 97.8 88 18 109/70 97 Nasal 2.0L Cannula 10/18 0259 90 103/64 10/18 0254 75 99/65 10/18 0247 98.9 92 19 101/65 98 Nasal 2.0L Cannula 10/18 0241 93 96/57 10/18 0234 89 94/63 10/18 0229 83 97/64 10/18 0224 92 94/63 10/18 0222 93 100/65 10/18 0219 Nasal Cannula 10/18 0218 90 17 91/60 98 Nasal 2.0L Cannula 10/18 0214 96 80/51 10/18 0145 99 80/52 10/18 0118 92 81/52 10/18 0106 101 79/52 10/18 0055 104 82/50 10/18 0031 107 87/56 10/18 0027 99.6 109 20 93/68 95 Nasal 2.0L Cannula 10/18 0018 Nasal 2.0L Cannula 10/18 0018 105 20 84/56 10/18 0008 107 89/60 10/17 2335 85/54 10/17 2302 100.3 118 16 83/51 93 Room Air Intake & Output 10/18 0800 10/18 0000 10/17 1600 10/17 0800 10/17 0000 10/16 1600 Intake Total 1000 2250 Output Total 100 Balance 900 2250 Intake, IV 1000 2250 Output, Urine 100 Patient 164 lb 151 lb Weight Weight Bed scale Reported by Patient Measurement Method Alert and oriented. No acute distress Back: no CVA tenderness Abd: soft and non tender Genitalia: edge in place draining clear urine Laboratory Tests 10/18 10/18 0445 0210 Chemistry Sodium (137 - 145 mmol/L) 138 Potassium (3.5 - 5.1 mmol/L) 3.6 Chloride (98 - 107 mmol/L) 105 Carbon Dioxide (22 - 30 mmol/L) 21 L Anion Gap (5 - 16) 12 BUN (9 - 20 mg/dL) 38 H Creatinine (0.7 - 1.2 mg/dL) 1.6 H Estimated GFR (>60 ml/min) 44 L Glucose (65 - 99 mg/dL) 94 Calcium (8.4 - 10.2 mg/dL) 7.5 L Phosphorus (2.5 - 4.5 mg/dL) 2.9 Magnesium (1.6 - 2.3 mg/dL) 1.9 Total Bilirubin (0.2 - 1.3 mg/dL) 0.6 AST (17 - 59 U/L) 37 ALT (21 - 72 U/L) 45 Albumin (3.5 - 5.0 g/dL) 2.4 L Hematology CBC w Diff MAN DIFF ORDERED WBC (4.8 - 10.8 /CUMM) 13.3 H RBC (4.70 - 6.10 /CUMM) 3.44 L Hgb (14.0 - 18.0 G/DL) 9.1 L Hct (42 - 52 %) 28.3 L MCV (80.0 - 94.0 FL) 82.1 MCH (27.0 - 31.0 PG) 26.4 L MCHC (33.0 - 37.0 G/DL) 32.2 L RDW (11.5 - 14.5 %) 15.6 H Plt Count (130 - 400 /CUMM) 91 L MPV (7.4 - 10.4 FL) 9.4 Gran % (42.2 - 75.2 %) 90.1 H Lymphocytes % (20.5 - 51.1 %) 2.7 L Monocytes % (1.7 - 9.3 %) 7.2 Eosinophils % (0 - 5 %) 0 Basophils % (0.0 - 2.0 %) 0 Absolute Granulocytes (1.4 - 6.5 /CUMM) 12.0 H Segmented Neutrophils (42.2 - 75.2 %) 70 Band Neutrophils (0.0 - 5.0 %) 19 H Absolute Lymphocytes (1.2 - 3.4 /CUMM) 0.4 L Lymphocytes (20.5 - 51.1 %) 3 L Monocytes (1.7 - 9.3 %) 8 Absolute Monocytes (0.10 - 0.60 /CUMM) 1.0 H Absolute Eosinophils (0.0 - 0.7 /CUMM) 0 Absolute Basophils (0.0 - 0.2 /CUMM) 0 Platelet Estimate (ADEQUATE) DECREASED Anisocytosis 1+ Elliptocytes FEW Urines Urinalysis HEAVY H Urine Color (YEL,AMB,STR) YEL Urine Clarity (CLEAR) CLDY H Urine pH (5.0 - 8.0) 6.0 Ur Specific [place] (1.001 - 1.035) 1.010 Urine Protein (NEG,<30 MG/DL) 30 H Urine Ketones (NEG) NEG Urine Nitrite (NEG) POS H Urine Bilirubin (NEG) NEG Urine Urobilinogen (0.1 - 1.0 EU/dl) 0.2 Ur Leukocyte Esterase (NEG) LARGE H Ur Microscopic SEDIMENT EXAMINED Urine RBC (0 - 5 /HPF) 25-50 H Urine WBC (0 - 2 /HPF) PACKD H Ur Epithelial Cells (NONE,FEW) FEW Urine Bacteria (NEG/NONE) PACKD H Urine Mucus (FEW,NONE) FEW Urine Hemoglobin (NEG) MOD H Urine Glucose (N MG/DL) NEG 10/18 10/18 0155 0002 Chemistry Lactic Acid (0.7 - 2.1 mmol/L) 0.9 Urines Urinalysis HEAVY H Urine Color (YEL,AMB,STR) YEL Urine Clarity (CLEAR) CLDY H Urine pH (5.0 - 8.0) 6.0 Ur Specific [place] (1.001 - 1.035) 1.020 Urine Protein (NEG,<30 MG/DL) 100 H Urine Ketones (NEG) NEG Urine Nitrite (NEG) POS H Urine Bilirubin (NEG) NEG Urine Urobilinogen (0.1 - 1.0 EU/dl) 0.2 Ur Leukocyte Esterase (NEG) LARGE H Ur Microscopic SEDIMENT EXAMINED Urine RBC (0 - 5 /HPF) 15-25 H Urine WBC (0 - 2 /HPF) > 75 H Ur Epithelial Cells (NONE,FEW) FEW Urine Bacteria (NEG/NONE) MANY H Urine Mucus (FEW,NONE) FEW Urine Hemoglobin (NEG) MOD H Urine Glucose (N MG/DL) NEG 10/17 2317 Chemistry Sodium (137 - 145 mmol/L) 131 L Potassium (3.5 - 5.1 mmol/L) 3.8 Chloride (98 - 107 mmol/L) 98 Carbon Dioxide (22 - 30 mmol/L) 20 L Anion Gap (5 - 16) 13 BUN (9 - 20 mg/dL) 41 H Creatinine (0.7 - 1.2 mg/dL) 1.7 H Estimated GFR (>60 ml/min) 41 L BUN/Creatinine Ratio (7 - 25 %) 24.1 Glucose (65 - 99 mg/dL) 95 Lactic Acid (0.7 - 2.1 mmol/L) 2.6 H Calcium (8.4 - 10.2 mg/dL) 8.8 Total Bilirubin (0.2 - 1.3 mg/dL) 0.9 AST (17 - 59 U/L) 43 ALT (21 - 72 U/L) 50 Alkaline Phosphatase (< 127 U/L) 82 Troponin I (<0.11 ng/ml) 0.03 Total Protein (6.3 - 8.2 g/dL) 5.4 L Albumin (3.5 - 5.0 g/dL) 3.0 L Globulin (1.9 - 4.2 gm/dL) 2.4 Albumin/Globulin Ratio (1.1 - 2.2 %) 1.3 Hematology CBC w Diff MAN DIFF ORDERED WBC (4.8 - 10.8 /CUMM) 9.0 RBC (4.70 - 6.10 /CUMM) 3.79 L Hgb (14.0 - 18.0 G/DL) 10.3 L Hct (42 - 52 %) 30.7 L MCV (80.0 - 94.0 FL) 80.9 MCH (27.0 - 31.0 PG) 27.2 MCHC (33.0 - 37.0 G/DL) 33.6 RDW (11.5 - 14.5 %) 15.6 H Plt Count (130 - 400 /CUMM) 94 L MPV (7.4 - 10.4 FL) 10.0 Gran % (42.2 - 75.2 %) 94.7 H Lymphocytes % (20.5 - 51.1 %) 1.8 L Monocytes % (1.7 - 9.3 %) 3.4 Eosinophils % (0 - 5 %) 0 Basophils % (0.0 - 2.0 %) 0.1 Absolute Granulocytes (1.4 - 6.5 /CUMM) 8.5 H Segmented Neutrophils (42.2 - 75.2 %) 69 Band Neutrophils (0.0 - 5.0 %) 24 H Absolute Lymphocytes (1.2 - 3.4 /CUMM) 0.2 L Lymphocytes (20.5 - 51.1 %) 1 L Monocytes (1.7 - 9.3 %) 3 Absolute Monocytes (0.10 - 0.60 /CUMM) 0.3 Absolute Eosinophils (0.0 - 0.7 /CUMM) 0 Absolute Basophils (0.0 - 0.2 /CUMM) 0 Metamyelocytes (0.0 - 1.0 %) 3 H Platelet Estimate (ADEQUATE) DECREASED Poikilocytosis FEW Anisocytosis 1+ Other Body Source Fld Total RBCs Counted (%) 100 Assessment/Plan Assessment/Plan Imp: 1. Urosepsis 2. Two stones in R kidney and multiple small stones in bladder 3. Mild residual R hydronephrosis with R indwelling double j stent 4. hx of MS, CAD, cardiac valve replacement Plan: 1. Continue empiric abx and adjust as indicated 2. Would leave edge in place for now to maximize drainage of R ureteral stent 3. Doubt stent failure as it was placed only about 5 weeks ago. 4. Will inform Dr Maxwell of patient's admission and condition and he will follow going forward. Doubt any urologic intervention unless patient fails to improve in which case R perc nephrostomy could be considered Consult Acknowledgment - Thank you for your consult request.
[2017-10-18 08:00] VITALS: BP 102/70
--- NOTE | 2017-10-18 15:27 | Cons- Infect Disease ---
General Information and HPI Consulting Request Date of Consult: 10/18/17 Requested By: John BURNS,Francisco Reason for Consult: Sepsis of urologic origin Source of Information: patient, family, old records History of Present Illness: This is a 62-year-old man with a history of multiple sclerosis, coronary artery disease, status post CABG, mitral valve replacement and spinal surgery, hospitalized 6 weeks prior to admission with sepsis of urological origin secondary to Escherichia coli, found to have a right hydronephrosis, right ureteral calculi and foci of gas within the right mid pole collecting system, status post cystoscopy, placement of a right right ureteral stent and treatment with a 2 week course of antibiotics, status post right renal ESWL 6 days prior to admission, with Ciprofloxacin prophylaxis, begun on Levaquin one day prior to admission after found to have a white blood cell count of 18,000, admitted early this morning after he was sent to the emergency room from short-term rehabilitation after blood cultures 2 were reported positive for gram-negative rods with a history of several days of lethargy, confusion, decreased po intake, and fever to 103. On admission he was febrile to 100.3, with a blood pressure of 83/51. Laboratory data revealed a white blood cell count of 9000 with 69 segs and 24 bands, platelets 94,000, BUN/creatinine 41 and 1.7, sodium 131, lactic acid 2.6, with normal liver enzymes. Urinalysis 15-25 RBCs/greater than 75 WBCs. Chest x-ray was negative. CT of the abdomen and pelvis revealed a right double-J stent in the right collecting system with hydronephrosis of the right kidney, gas collections in the right collecting system, right renal calculi, numerous stones in the bladder and cholelithiasis. A right femoral triple lumen catheter was inserted and he was begun on Levophed because of persistent hypotension. He was given a dose of Ceftriaxone and then placed on Meropenem. He has overall improved, with temperatures normal overnight, though he is continuing to require pressors. He does feel better today and his mental status is reportedly improved. Allergies/Medications Allergies: Coded Allergies: lactose (Severe, DIARRHEA 09/07/17) Home Med List: Aspirin (Aspirin*) 81 MG TAB.CHEW 1 TAB PO DAILY HEART HEALTH (Reported) Cholecalciferol (Vitamin D3) (Vitamin D3) 1,000 UNIT CAPSULE 1 CAP PO DAILY supplement (Reported) Dextromethorphan HBr/Quinidine (Nuedexta 20-10 MG Capsule) 20 MG-10 MG CAPSULE 1 CAP PO BID MS (Reported) Divalproex Sodium (Divalproex Sodium ER) 500 MG TAB.ER.24H 1 TAB PO QPM MS ( Reported) Levofloxacin (Levaquin) 500 MG TABLET 500 MG PO UTI (Reported) Magnesium Oxide (Mag-Oxide) 200 MG MAGNESIUM TABLET 1 TAB PO AT BEDTIME RLS ( Reported) Metoprolol Succinate 50 MG TAB.ER.24H 1 TAB PO DAILY HEART (Reported) Oxybutynin Chloride (Oxybutynin Chloride ER) 15 MG TAB.ER.24 1 TAB PO BID BLADDER (Reported) Rosuvastatin Calcium (Crestor) 40 MG TABLET 1 TAB PO DAILY CHOLESTEROL ( Reported) Sertraline HCl 100 MG TABLET 2 TAB PO DAILY MENTAL HEALTH (Reported) Past History Travel History Traveled to [place] past 21 day No Medical History Neurological: multiple sclerosis EENT: NONE Cardiovascular: CAD, cabg x4 mitral valve replacement Respiratory: NONE Gastrointestinal: NONE Hepatic: NONE Renal: NONE Musculoskeletal: NONE Psychiatric: bipolar disease, substance abuse, QUIT 6 YEARS AGO Endocrine: NONE Blood Disorders: anemia Cancer(s): NONE CHIEF ARCHITECT/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 Nursing Home Facility Who Do You Live With? self Services at Home: Home Health Aide Primary Language: [place] Smoking Status: Never Smoked ETOH Use: denies use Illicit Drug Use: denies illicit drug use Functional Ability ADLs Needs Assist: dressing, eating, toileting, bathing. Ambulation: non-ambulatory IADLs Needs Assist: shopping, housework, finances, food prep, telephone, transportation, medication admin. Review of Systems Review of Systems Genitourinary: Reports: frequency. Denies: dysuria. All Other Systems: Reviewed and Negative Exam & Diagnostic Data Last 24 Hrs of Vital Signs/I&O Vital Signs Date Time Temp Pulse Resp B/P B/P Pulse O2 O2 Flow FiO2 Mean Ox Delivery Rate 10/18 1451 95 87/54 10/18 1200 96 Nasal 2.0L Cannula 10/18 0800 96 Nasal 2.0L Cannula 10/18 0800 97.6 82 16 102/70 95 Nasal 2.0L Cannula 10/18 0403 99 Nasal 2.0L Cannula 10/18 0346 97 Nasal 2.0L Cannula 10/18 0300 97.8 88 18 109/70 97 Nasal 2.0L Cannula 10/18 0259 90 103/64 10/18 0254 75 99/65 10/18 0247 98.9 92 19 101/65 98 Nasal 2.0L Cannula 10/18 0241 93 96/57 10/18 0234 89 94/63 10/18 0229 83 97/64 10/18 0224 92 94/63 10/18 0222 93 100/65 10/18 0219 Nasal Cannula 10/18 0218 90 17 91/60 98 Nasal 2.0L Cannula 10/18 0214 96 80/51 10/18 0145 99 80/52 10/18 0118 92 81/52 10/18 0106 101 79/52 10/18 0055 104 82/50 10/18 0031 107 87/56 10/18 0027 99.6 109 20 93/68 95 Nasal 2.0L Cannula 10/18 0018 Nasal 2.0L Cannula 10/18 0018 105 20 84/56 10/18 0008 107 89/60 10/17 2335 85/54 10/17 2302 100.3 118 16 83/51 93 Room Air Intake & Output 10/18 1600 10/18 0800 10/18 0000 Intake Total 1277 1553 2250 Output Total 1352 875 Balance -75 678 2250 Intake, IV 777 1553 2250 Intake, Oral 500 Output, Stool 2 Output, Urine 1350 875 Patient 164 lb 151 lb Weight Weight Bed scale Reported by Patient Measurement Method Physical Exam Other Physical Findings: MAXIMUM TEMPERATURE 100.3. He is awake and alert in no acute distress. Skin reveals no rash. HEENT negative. Neck is supple with no adenopathy. Lungs are clear. Heart regular rhythm with a 2/6 systolic murmur. Abdomen is soft, nontender with positive bowel sounds. Back no CVA tenderness. Extremities no cyanosis, clubbing or edema; right femoral triple lumen catheter in place with no inflammation at the site. Neuro weakness of both lower extremities. Harper catheter is in place. Last 24 Hours of Lab Results: Laboratory Tests 10/18 10/18 0445 0210 Chemistry Sodium (137 - 145 mmol/L) 138 Potassium (3.5 - 5.1 mmol/L) 3.6 Chloride (98 - 107 mmol/L) 105 Carbon Dioxide (22 - 30 mmol/L) 21 L Anion Gap (5 - 16) 12 BUN (9 - 20 mg/dL) 38 H Creatinine (0.7 - 1.2 mg/dL) 1.6 H Estimated GFR (>60 ml/min) 44 L Glucose (65 - 99 mg/dL) 94 Calcium (8.4 - 10.2 mg/dL) 7.5 L Phosphorus (2.5 - 4.5 mg/dL) 2.9 Magnesium (1.6 - 2.3 mg/dL) 1.9 Total Bilirubin (0.2 - 1.3 mg/dL) 0.6 AST (17 - 59 U/L) 37 ALT (21 - 72 U/L) 45 Albumin (3.5 - 5.0 g/dL) 2.4 L Hematology CBC w Diff MAN DIFF ORDERED WBC (4.8 - 10.8 /CUMM) 13.3 H RBC (4.70 - 6.10 /CUMM) 3.44 L Hgb (14.0 - 18.0 G/DL) 9.1 L Hct (42 - 52 %) 28.3 L MCV (80.0 - 94.0 FL) 82.1 MCH (27.0 - 31.0 PG) 26.4 L MCHC (33.0 - 37.0 G/DL) 32.2 L RDW (11.5 - 14.5 %) 15.6 H Plt Count (130 - 400 /CUMM) 91 L MPV (7.4 - 10.4 FL) 9.4 Gran % (42.2 - 75.2 %) 90.1 H Lymphocytes % (20.5 - 51.1 %) 2.7 L Monocytes % (1.7 - 9.3 %) 7.2 Eosinophils % (0 - 5 %) 0 Basophils % (0.0 - 2.0 %) 0 Absolute Granulocytes (1.4 - 6.5 /CUMM) 12.0 H Segmented Neutrophils (42.2 - 75.2 %) 70 Band Neutrophils (0.0 - 5.0 %) 19 H Absolute Lymphocytes (1.2 - 3.4 /CUMM) 0.4 L Lymphocytes (20.5 - 51.1 %) 3 L Monocytes (1.7 - 9.3 %) 8 Absolute Monocytes (0.10 - 0.60 /CUMM) 1.0 H Absolute Eosinophils (0.0 - 0.7 /CUMM) 0 Absolute Basophils (0.0 - 0.2 /CUMM) 0 Platelet Estimate (ADEQUATE) DECREASED Anisocytosis 1+ Elliptocytes FEW Urines Urinalysis HEAVY H Urine Color (YEL,AMB,STR) YEL Urine Clarity (CLEAR) CLDY H Urine pH (5.0 - 8.0) 6.0 Ur Specific [place] (1.001 - 1.035) 1.010 Urine Protein (NEG,<30 MG/DL) 30 H Urine Ketones (NEG) NEG Urine Nitrite (NEG) POS H Urine Bilirubin (NEG) NEG Urine Urobilinogen (0.1 - 1.0 EU/dl) 0.2 Ur Leukocyte Esterase (NEG) LARGE H Ur Microscopic SEDIMENT EXAMINED Urine RBC (0 - 5 /HPF) 25-50 H Urine WBC (0 - 2 /HPF) PACKD H Ur Epithelial Cells (NONE,FEW) FEW Urine Bacteria (NEG/NONE) PACKD H Urine Mucus (FEW,NONE) FEW Urine Hemoglobin (NEG) MOD H Urine Glucose (N MG/DL) NEG 10/18 10/18 0155 0002 Chemistry Lactic Acid (0.7 - 2.1 mmol/L) 0.9 Urines Urinalysis HEAVY H Urine Color (YEL,AMB,STR) YEL Urine Clarity (CLEAR) CLDY H Urine pH (5.0 - 8.0) 6.0 Ur Specific [place] (1.001 - 1.035) 1.020 Urine Protein (NEG,<30 MG/DL) 100 H Urine Ketones (NEG) NEG Urine Nitrite (NEG) POS H Urine Bilirubin (NEG) NEG Urine Urobilinogen (0.1 - 1.0 EU/dl) 0.2 Ur Leukocyte Esterase (NEG) LARGE H Ur Microscopic SEDIMENT EXAMINED Urine RBC (0 - 5 /HPF) 15-25 H Urine WBC (0 - 2 /HPF) > 75 H Ur Epithelial Cells (NONE,FEW) FEW Urine Bacteria (NEG/NONE) MANY H Urine Mucus (FEW,NONE) FEW Urine Hemoglobin (NEG) MOD H Urine Glucose (N MG/DL) NEG 10/17 2317 Chemistry Sodium (137 - 145 mmol/L) 131 L Potassium (3.5 - 5.1 mmol/L) 3.8 Chloride (98 - 107 mmol/L) 98 Carbon Dioxide (22 - 30 mmol/L) 20 L Anion Gap (5 - 16) 13 BUN (9 - 20 mg/dL) 41 H Creatinine (0.7 - 1.2 mg/dL) 1.7 H Estimated GFR (>60 ml/min) 41 L BUN/Creatinine Ratio (7 - 25 %) 24.1 Glucose (65 - 99 mg/dL) 95 Lactic Acid (0.7 - 2.1 mmol/L) 2.6 H Calcium (8.4 - 10.2 mg/dL) 8.8 Total Bilirubin (0.2 - 1.3 mg/dL) 0.9 AST (17 - 59 U/L) 43 ALT (21 - 72 U/L) 50 Alkaline Phosphatase (< 127 U/L) 82 Troponin I (<0.11 ng/ml) 0.03 Total Protein (6.3 - 8.2 g/dL) 5.4 L Albumin (3.5 - 5.0 g/dL) 3.0 L Globulin (1.9 - 4.2 gm/dL) 2.4 Albumin/Globulin Ratio (1.1 - 2.2 %) 1.3 Hematology CBC w Diff MAN DIFF ORDERED WBC (4.8 - 10.8 /CUMM) 9.0 RBC (4.70 - 6.10 /CUMM) 3.79 L Hgb (14.0 - 18.0 G/DL) 10.3 L Hct (42 - 52 %) 30.7 L MCV (80.0 - 94.0 FL) 80.9 MCH (27.0 - 31.0 PG) 27.2 MCHC (33.0 - 37.0 G/DL) 33.6 RDW (11.5 - 14.5 %) 15.6 H Plt Count (130 - 400 /CUMM) 94 L MPV (7.4 - 10.4 FL) 10.0 Gran % (42.2 - 75.2 %) 94.7 H Lymphocytes % (20.5 - 51.1 %) 1.8 L Monocytes % (1.7 - 9.3 %) 3.4 Eosinophils % (0 - 5 %) 0 Basophils % (0.0 - 2.0 %) 0.1 Absolute Granulocytes (1.4 - 6.5 /CUMM) 8.5 H Segmented Neutrophils (42.2 - 75.2 %) 69 Band Neutrophils (0.0 - 5.0 %) 24 H Absolute Lymphocytes (1.2 - 3.4 /CUMM) 0.2 L Lymphocytes (20.5 - 51.1 %) 1 L Monocytes (1.7 - 9.3 %) 3 Absolute Monocytes (0.10 - 0.60 /CUMM) 0.3 Absolute Eosinophils (0.0 - 0.7 /CUMM) 0 Absolute Basophils (0.0 - 0.2 /CUMM) 0 Metamyelocytes (0.0 - 1.0 %) 3 H Platelet Estimate (ADEQUATE) DECREASED Poikilocytosis FEW Anisocytosis 1+ Other Body Source Fld Total RBCs Counted (%) 100 Last 24 Hours of [place] Results: Blood cultures October 16 positive for gram-negative rods Urine culture October 18 pending Diagnostic Data Recent Imaging Findings: Chest x-ray negative. CT of the abdomen and pelvis reveals a right double-J stent in the right collecting system with hydronephrosis of the right kidney, gas collections in the right collecting system, right renal calculi, numerous stones in the bladder and cholelithiasis. Assessment/Plan Assessment/Plan Impression: This is a 62-year-old man with a history of multiple sclerosis, mitral valve replacement, hospitalized 6 weeks prior to admission with sepsis of urological origin secondary to Escherichia coli, found to have a right hydronephrosis, right ureteral calculi and foci of gas within the right mid pole collecting system, status post cystoscopy, placement of a right ureteral stent and treatment with a 2 week course of antibiotics, status post right renal ESWL 6 days prior to admission, admitted early this morning, after blood cultures 2 were reported positive for gram-negative rods, with a history of several days of lethargy, confusion, decreased po intake, and fever to 103, found to have a low- grade fever, hypotension, bandemia, thrombocytopenia and renal failure, with the CT of the abdomen revealing right hydronephrosis and air within the collecting system. His clinical picture is again consistent with sepsis of urologic origin. It is not clear if this is related to the recent urologic procedure 6 days prior to admission, at which time he underwent a right ESWL, or if it is related to his previous infection, with gas again found within the collecting system, suggesting either a gas producing organism or possible emphysematous pyelitis. Suspect he may require further urologic intervention, particularly if he does not improve. Note he does have a history of mitral valve replacement and, if his organism is again identified as Escherichia coli, endocarditis, though unusual with gram-negative rods, may need to be ruled out. He was begun empirically on Meropenem, but this should be able to be adjusted based on his preliminary cultures. Suggestion: 1. Would remove right femoral triple lumen catheter as soon as he is off pressors 2. Follow-up final blood and urine cultures 3. Echocardiogram, with possible NIRAJ based on results and final cultures 4. Discontinue Meropenem 5. Begin Ceftriaxone 1 g IV every 24 hours pending above Consult Acknowledgment - Thank you for your consult request.
[2017-10-18 16:00] VITALS: BP 102/62
[2017-10-19] VITALS: BP 110/60
[2017-10-19 05:27] LABS: ABSOLUTE BASOPHIL COUNT 0 /CUMM (0.0-0.2); ABSOLUTE EOSINOPHIL COUNT 0.1 /CUMM (0.0-0.7); ABSOLUTE GRANULOCYTE CT 5.8 /CUMM (1.4-6.5); ABSOLUTE LYMPH COUNT 0.3 /CUMM (1.2-3.4); ABSOLUTE MONOCYTE COUNT 0.5 /CUMM (0.10-0.60); BASOPHIL % 0.1 % (0.0-2.0); EOSINOPHIL % 0.9 % (0-5); GRANULOCYTE % 86.6 % (42.2-75.2); HEMATOCRIT 26.9 % (42-52); MEAN CORPUSCULAR HGB 27.3 PG (27.0-31.0); MEAN CORPUSCULAR HGB CONC 33.4 G/DL (33.0-37.0); MEAN CORPUSCULAR VOLUME 81.7 FL (80.0-94.0); MEAN PLATELET VOLUME 9.2 FL (7.4-10.4); PLATELET COUNT 95 /CUMM (130-400); RBC DISTRIBUTION WIDTH 15.8 % (11.5-14.5); RED BLOOD CELL CT 3.29 /CUMM (4.70-6.10)
[2017-10-19 05:38] LABS: WHITE BLOOD CELL COUNT 6.6 /CUMM (4.8-10.8)
--- NOTE | 2017-10-19 07:20 | PN- Resident CRCU ---
Subjective HPI/CRCU Issues: Patient still in the ICU requiring IV pressor support and close monitoring. I followed up and examined the patient today. He is resting comfortably in bed, having his breakfast without any issues, not in distress, Booker catheter in situ draining light yellow urine. Final signs have remained stable, and his blood pressure support with IV Levophed has been held since 7:45 AM without any significant drop in blood pressure, but has remained tachycardic throughout this time (since admission). He is also noted to be tachypneic at a rate of 24 breaths per minute. He does not complain of palpitation or shortness of breath/dyspnea though. 24 Hour Events: IV Levophed on hold since 7:45 AM, systolic blood pressure in 110s, but tachycardic 100-110 without palpitations, tachypneic at 24. Objective Vital Signs & I&O Last 8 Hrs of Vitals and I&O: Vital Signs Date Time Temp Pulse Resp B/P B/P Pulse O2 O2 Flow FiO2 Mean Ox Delivery Rate 10/19 0800 96 Nasal 2.0L Cannula 10/19 0800 98.7 112 28 102/60 94 Nasal 2.0L Cannula 10/19 0610 111 24 98/73 10/19 0400 94 Nasal 2.0L Cannula 10/19 0000 99.0 112 24 110/60 92 Nasal 2.0L Cannula 10/19 0000 92 Room Air 10/18 2000 96 Nasal 2.0L Cannula 10/18 1600 96 Nasal 2.0L Cannula 10/18 1600 97.6 96 22 102/62 96 Nasal 2.0L Cannula 10/18 1451 95 87/54 10/18 1200 96 Nasal 2.0L Cannula Exam General Appearance: well developed/nourished, no apparent distress, alert, awake , comfortable, Booker in place Other Physical Findings: Head: atraumatic, normal appearance, active bleeding Eyes: Bilateral: normal appearance, PERRL, EOMI. Ears: Left ear normal, right ear shows black colored material obscuring tympanic membrane,?FB/?impacted wax, but no discharges from bilateral ears, no tenderness noted over the mastoid process bilaterally. Throat: Poor dentition, moist mucosa, no other abnormality noted, no redness/ purulence, adenopathy Neck: normal inspection, supple, full range of motion Respiratory: TACHYPNEIC, harsh breath sounds, chest non-tender, mild respiratory distress Cardiovascular: SINUS TACHYCARDIA, normal peripheral pulses Gastrointestinal: normal bowel sounds, soft, non-tender Extremities: normal inspection, normal capillary refill, normal range of motion, no edema BOOKER IN PLACE, TLC IN PLACE Nutrition Nutrition: P.O. diet Current Medications: Current Medications Sig/Tobin Start time Last Medication Dose Route Stop Time Status Admin Acetaminophen 650 MG Q6P PRN 10/18 0330 AC PO Acetaminophen 1,000 MG Q6P PRN 10/18 0330 AC IV Aspirin 81 MG DAILY 10/18 1000 AC 10/18 PO 1230 Atorvastatin Calcium 40 MG 1700 10/18 1700 AC 10/18 PO 1712 Ceftriaxone Sodium 1,000 MG DAILY 10/18 1915 AC 10/18 IV 2141 Cholecalciferol 1,000 IU DAILY 10/18 1000 AC 10/18 PO 1230 Dextromethorphan/ 1 CAP Q12 10/18 1000 AC 10/18 Quinidine PO 2142 Divalproex Sodium 500 MG 2200 10/18 2200 AC 10/18 PO 2141 Gabapentin 100 MG DAILY 10/18 1215 AC 10/18 PO 1450 Magnesium Oxide 400 MG DAILY 10/18 1000 AC 10/18 PO 1228 Meropenem 1 GM Q12 10/18 1000 DC 10/18 IV 1110 Norepinephrine 4 MG Q16H 10/18 1230 AC 10/19 Dextrose/Water 250 ML IV 0610 Norepinephrine 4 MG Q24H 10/18 0615 DC Dextrose/Water 250 ML IV Omeprazole 40 MG DAILY AC 10/19 0700 AC 10/19 PO 0611 Oxybutynin Chloride 5 MG FOUR TIMES A DAY 10/18 1200 AC 10/18 PO 2142 Oxybutynin Chloride 15 MG BID 10/18 1000 DC PO Pantoprazole Sodium 40 MG DAILY 10/18 1000 DC 10/18 IV 1110 Phosphate 250 MG PC AND AT BEDTIME 10/19 0900 AC PO 10/19 2300 Potassium Chloride 20 MEQ Q1H 10/18 0845 DC 10/18 IV 10/18 0946 1236 Sertraline HCl 200 MG DAILY 10/18 1000 AC 10/18 PO 1229 Sodium Chloride 1,000 ML Q10H 10/18 0215 AC 10/19 IV 10/19 2300 0000 Impression/Plan Impression/Problem List Impression: 62-year-old male with history of coronary artery disease, status post CABG, mitral valve replacement, multiple sclerosis, spinal surgery, recent admission to hospital for sepsis of urologic origin with Escherichia coli, resident of [facility], was found to have 103F fever on Wednesday, with some altered mental status and a sodium of 129 for which he was placed on fluid restriction, was found to be progressively altered in mental status and was brought in by ambulance to the emergency department. Of note, his blood culture collected on Wednesday grew E coli. Patient's blood pressure was low enough requiring IV pressor support, and was thus admitted in the ICU. Current issues: # Septic shock, 2/2 UTI Patient had recent instrumentation of urinary tract, and his current clinical picture, laboratory results including urinalysis and right kidney aspirate results is suggestive of urinary tract infection. Right kidney aspirate culture is positive for Escherichia coli. The fact that the patient required IV pressors defines septic shock. He is off levophed since 7:45 AM today. * We'll continue ICU care * Strict intake and output * Continue Booker catheter per Urology recs * Initially started with meropenem, changed to ceftriaxone and now to Ampicillin 2 gm q6h per ID recs. * Continuing medical management per Dr. Maxwell (Urologist). The patient might need urgent surgical intervention IF he fails to improve with medical management , in which case he might need urgent percutaneous nephrostomy. #Bacteremia with Escherichia coli Patient previously had Escherichia coli which was pansensitive and was treated with appropriate antibiotic therapy. He however has Escherichia coli again, which raises suspicion about any source that might be seeding the bacteria. Patient is getting transthoracic echocardiogram today, and based on the results might need transesophageal echocardiogram and/or cardiology consultation. #MARTÍN Patient's baseline creatinine is 0.9-1, was found to have creatinine of 1.9 at presentation which is trending down to 1.1 with IV fluids. We'll continue to monitor. We will avoid any nephrotoxins including contrast if possible. #Tachycardia/tachypnea Patient does NOT have palpitation nor dyspnea, but he has persistent tachycardia since his admission also tachypnea to 30s at times, which could be partially explained by the state of sepsis. However, given his thrombocytopenia he is not receiving any pharmacological DVT prophylaxis, making pulmonary embolism one of the differentials for the sinus tachycardia/tachypnea. * We are getting a VQ scan to rule out PE * We are getting a Doppler ultrasound of bilateral lower extremities to rule out DVT #Right ear pain Patient complaint of right ear pain and throat pain, and or examination his throat was normal, his left ear was normal but however the right ear examination reveals questionable foreign body in the EAC. At this point, differentials include a foreign body, impacted cerumen, and given such severe ear pain, throat pain, we are consulting ENT for further guidance. Of note, no tenderness over the mastoid or on gently tugging pinnae. #Altered mental status, improved The patient does not seem to have any altered mental condition since I followed up with the patient this morning, also the CAT scan of the head was negative. Advance the diet after bedside swallow screening. Of note, during the course of the day his sister Melanie had come and was concerned about possible slurring of speech, which was negative after examination in detail. i.e. full neuro exam was negative for any symptoms as well as signs, thus no slurring of speech, changes in vision, angle of mouth deviation etc. #Thrombocytopenia Today's platelet count is 91, this appears to have been chronic, will continue to monitor and avoid heparin products for now. #DVT ppx: ALPS only for low plt (94) #Diet: Regular diet, after bedside swallow screening by me #Code status: DNR/DNI Problem List: 1. Septic shock 2. UTI (urinary tract infection) 3. Tachycardia 4. Tachypnea 5. Ear pain, right Pain Ratin Pain Location: left ear Tomorrow's Labs & Rationales: ICU Buncle, CBC for sepsis Plan DVT/Prophylaxis: mechanical
[2017-10-19 08:00] VITALS: BP 102/60
--- NOTE | 2017-10-19 08:18 | PN- CRCU ---
Subjective HPI/Critical Care Issues: The patient is awake and alert. He reports feeling improved although not yet back to his baseline. He continues to have generalized weakness. His fevers have improved. He is currently off Levophed noting his blood pressure is in the low 100s. He continues to undergo IV fluid administration/gentle replacement. He is making good urine output.his creatinine has significantly improved since admission. He continues to improve and offers no new complaints today. Objective Current Medications: Current Medications Sig/Tobin Start time Last Medication Dose Route Stop Time Status Admin Acetaminophen 650 MG Q6P PRN 10/18 0330 AC PO Acetaminophen 1,000 MG Q6P PRN 10/18 0330 AC IV Aspirin 81 MG DAILY 10/18 1000 AC 10/18 PO 1230 Atorvastatin Calcium 40 MG 1700 10/18 1700 AC 10/18 PO 1712 Ceftriaxone Sodium 1,000 MG DAILY 10/18 1915 AC 10/18 IV 2141 Cholecalciferol 1,000 IU DAILY 10/18 1000 AC 10/18 PO 1230 Dextromethorphan/ 1 CAP Q12 10/18 1000 AC 10/18 Quinidine PO 2142 Divalproex Sodium 500 MG 2200 10/18 2200 AC 10/18 PO 2141 Gabapentin 100 MG DAILY 10/18 1215 AC 10/18 PO 1450 Magnesium Oxide 400 MG DAILY 10/18 1000 AC 10/18 PO 1228 Meropenem 1 GM Q12 10/18 1000 DC 10/18 IV 1110 Norepinephrine 4 MG Q16H 10/18 1230 AC 10/19 Dextrose/Water 250 ML IV 0610 Norepinephrine 4 MG Q24H 10/18 0615 DC Dextrose/Water 250 ML IV Omeprazole 40 MG DAILY AC 10/19 0700 AC 10/19 PO 0611 Oxybutynin Chloride 5 MG FOUR TIMES A DAY 10/18 1200 AC 10/18 PO 2142 Oxybutynin Chloride 15 MG BID 10/18 1000 DC PO Pantoprazole Sodium 40 MG DAILY 10/18 1000 DC 10/18 IV 1110 Potassium Chloride 20 MEQ Q1H 10/18 0845 DC 10/18 IV 10/18 0946 1236 Sertraline HCl 200 MG DAILY 10/18 1000 AC 10/18 PO 1229 Sodium Chloride 1,000 ML Q10H 10/18 0215 AC 10/19 IV 10/19 2300 0000 Vital Signs & I&O Last 24 Hrs of Vitals and I&O: Vital Signs Date Time Temp Pulse Resp B/P B/P Pulse O2 O2 Flow FiO2 Mean Ox Delivery Rate 10/19 0610 111 24 98/73 10/19 0400 94 Nasal 2.0L Cannula 10/19 0000 99.0 112 24 110/60 92 Nasal 2.0L Cannula 10/19 0000 92 Room Air 10/18 2000 96 Nasal 2.0L Cannula 10/18 1600 96 Nasal 2.0L Cannula 10/18 1600 97.6 96 22 102/62 96 Nasal 2.0L Cannula 10/18 1451 95 87/54 10/18 1200 96 Nasal 2.0L Cannula Intake & Output 10/19 1600 10/19 0800 10/19 0000 Intake Total 676 1609 Output Total 1845 1256 Balance -1169 353 Intake, IV 426 889 Intake, Oral 250 720 Output, Urine 1845 1256 Physical Exam General Appearance: no distress, alert, awake, comfortable Head: atraumatic, normal appearance, active bleeding Eyes: PERRL Ears, Nose, Throat: normal pharynx Neck: normal inspection, supple, full range of motion Respiratory: normal breath sounds, chest non-tender, no respiratory distress, lungs clear Cardiovascular: regular rate/rhythm, normal peripheral pulses Gastrointestinal: normal bowel sounds, soft, non-tender Extremities: normal inspection, normal capillary refill, normal range of motion, no edema Results Last 24 Hrs of Lab Results: Laboratory Tests 10/19/17 0415: Anion Gap 10, Estimated GFR > 60, Glucose 89, Calcium 7.7 L, Phosphorus 2.2 L, Magnesium 1.9, Total Bilirubin 0.5, AST 42, ALT 48, Albumin 2.2 L, CBC w Diff MAN DIFF ORDERED, RBC 3.29 L, MCV 81.7, MCH 27.3, MCHC 33.4, RDW 15.8 H, MPV 9.2, Gran % 86.6 H, Lymphocytes % 4.5 L, Monocytes % 7.9, Eosinophils % 0.9, Basophils % 0.1, Absolute Granulocytes 5.8, Segmented Neutrophils 87 H, Absolute Lymphocytes 0.3 L, Lymphocytes 8 L, Monocytes 5, Absolute Monocytes 0.5, Absolute Eosinophils 0.1, Absolute Basophils 0, Platelet Estimate DECREASED , Polychromasia 1+, Poikilocytosis 1+, Ovalocytes 1+, [place] Cells FEW, Fld Total RBCs Counted 100 Impression/Plan Impression/Plan Impression/Plan: 1. Septic shock/sepsis of urologic origin. Ct scan demonstrated hydronephrosis in the right kidney with gas collections in the right collecting system 2. Acute kidney injury secondary to sepsis and UTI. 3. Thrombocytopenia which appears to be chronic. No evidence of bleeding. 4. History of advanced multiple sclerosis. 5. CAD status post CABG, and mitral valve replacement. Recommendations: * Continue ceftriaxone. * Follow up ECHO results. * Monitor BP off pressors. * If the patient does well today, will discontinue TLC later today. * Check lower extremity dopplers. * If the patient continues to be tachycardic, will check a CTA vs. VQ scan. * Agree with gabapentin for neuropathic pain. * Alps for DVT prophylaxis, no heparin due to thrombocytopenia. * Continue to monitor in the ICU, will downgrade the later today if the patient' s tachycardia improves and his blood pressure remained stable.
--- NOTE | 2017-10-19 10:59 | PN- Infect Dx ---
Subjective Subjective: Afebrile. He feels better. His blood pressure has improved, now off pressors. He does complain of pain in the right ankle. Objective Last 24 Hrs of Vital Signs/I&O Vital Signs Date Time Temp Pulse Resp B/P B/P Pulse O2 O2 Flow FiO2 Mean Ox Delivery Rate 10/19 0800 96 Nasal 2.0L Cannula 10/19 0800 98.7 112 28 102/60 94 Nasal 2.0L Cannula 10/19 0610 111 24 98/73 10/19 0400 94 Nasal 2.0L Cannula 10/19 0000 99.0 112 24 110/60 92 Nasal 2.0L Cannula 10/19 0000 92 Room Air 10/18 2000 96 Nasal 2.0L Cannula 10/18 1600 96 Nasal 2.0L Cannula 10/18 1600 97.6 96 22 102/62 96 Nasal 2.0L Cannula 10/18 1451 95 87/54 10/18 1200 96 Nasal 2.0L Cannula Intake & Output 10/19 1600 10/19 0800 10/19 0000 Intake Total 676 1609 Output Total 1845 1256 Balance -1169 353 Intake, IV 426 889 Intake, Oral 250 720 Output, Urine 1845 1256 Physical Exam Other Physical Findings: He appears comfortable in no acute distress Lungs decreased breath sounds at both bases Heart regular rhythm with a 2/6 systolic ejection murmur Abdomen is soft, nontender with positive bowel sounds Back no CVA tenderness Extremities right foot inverted, with no inflammation; right femoral triple lumen catheter in place Harper catheter remains in place Results Last 24 Hours of Lab Results: Laboratory Tests 10/19 0415 Chemistry Sodium (137 - 145 mmol/L) 139 Potassium (3.5 - 5.1 mmol/L) 3.7 Chloride (98 - 107 mmol/L) 107 Carbon Dioxide (22 - 30 mmol/L) 22 Anion Gap (5 - 16) 10 BUN (9 - 20 mg/dL) 22 H Creatinine (0.7 - 1.2 mg/dL) 1.1 Estimated GFR (>60 ml/min) > 60 Glucose (65 - 99 mg/dL) 89 Calcium (8.4 - 10.2 mg/dL) 7.7 L Phosphorus (2.5 - 4.5 mg/dL) 2.2 L Magnesium (1.6 - 2.3 mg/dL) 1.9 Total Bilirubin (0.2 - 1.3 mg/dL) 0.5 AST (17 - 59 U/L) 42 ALT (21 - 72 U/L) 48 Albumin (3.5 - 5.0 g/dL) 2.2 L Hematology CBC w Diff MAN DIFF ORDERED WBC (4.8 - 10.8 /CUMM) 6.6 RBC (4.70 - 6.10 /CUMM) 3.29 L Hgb (14.0 - 18.0 G/DL) 9.0 L Hct (42 - 52 %) 26.9 L MCV (80.0 - 94.0 FL) 81.7 MCH (27.0 - 31.0 PG) 27.3 MCHC (33.0 - 37.0 G/DL) 33.4 RDW (11.5 - 14.5 %) 15.8 H Plt Count (130 - 400 /CUMM) 95 L MPV (7.4 - 10.4 FL) 9.2 Gran % (42.2 - 75.2 %) 86.6 H Lymphocytes % (20.5 - 51.1 %) 4.5 L Monocytes % (1.7 - 9.3 %) 7.9 Eosinophils % (0 - 5 %) 0.9 Basophils % (0.0 - 2.0 %) 0.1 Absolute Granulocytes (1.4 - 6.5 /CUMM) 5.8 Segmented Neutrophils (42.2 - 75.2 %) 87 H Absolute Lymphocytes (1.2 - 3.4 /CUMM) 0.3 L Lymphocytes (20.5 - 51.1 %) 8 L Monocytes (1.7 - 9.3 %) 5 Absolute Monocytes (0.10 - 0.60 /CUMM) 0.5 Absolute Eosinophils (0.0 - 0.7 /CUMM) 0.1 Absolute Basophils (0.0 - 0.2 /CUMM) 0 Platelet Estimate (ADEQUATE) DECREASED Polychromasia 1+ Poikilocytosis 1+ Ovalocytes 1+ Vera Cells FEW Other Body Source Fld Total RBCs Counted (%) 100 Last 24 Hours of [place]lin Results: Blood cultures October 16 positive for Escherichia coli sensitive to all antibiotics tested Blood cultures October 17 one bottle positive for gram negative rods Urine culture October 18 positive for Escherichia coli (30,000 colonies in one and 15,000 colonies in another) Assessment/Plan ID Impression: Improved, now off pressors, with normalization of his renal function and with his temperatures and white blood cell count now normal on Ceftriaxone Day 2 of treatment for recurrent Escherichia coli sepsis, presumably of urologic origin, status post right ESWL 6 days prior to admission, with a CT of the abdomen and pelvis revealing persistent hydronephrosis of the right kidney with gas collections in the right collecting system. The Escherichia coli appears to be identical to the Escherichia coli isolated from his previous episode of sepsis, raising concern that this may represent a relapse rather than a new infection, and the possibility of an emphysematous pyelitis or an infected stent or a process such as endocarditis, with a prosthetic valve in place, must be considered. Suggestion: 1. Repeat blood cultures 2 2. Urologic follow-up regarding possible emphysematous pyelitis/infected stent 3. Follow-up echocardiogram, with possible NIRAJ based on results 4. Remove right femoral triple lumen catheter 5. Discontinue Ceftriaxone 6. Begin Ampicillin 2 g IV every 6 hours
--- NOTE | 2017-10-19 12:43 | Event Note ---
Event Note Event Note: I called the patient's power of switch inspector/sister Melanie Almodovar to give an update and discuss further plans of care, including VQ scan, ENT consultation, and also to discuss about possibility of pulmonary embolism, given his persistent tachycardia and tachypnea without any other obvious reasons. She did not turkey picker the phone so I left a voicemail to call back to the ICU with a number and name. 10/19/17 1242 hrs.
--- NOTE | 2017-10-19 15:43 | Cons- Ear,Nose&Throat ---
General Information and HPI Consulting Request Date of Consult: 10/19/17 Requested By: John BURNS,[facility] Reason for Consult: Severe throat pain Right ear pain Source of Information: Attending physician, Dr Lopez Exam Limitations: no limitations, unable to give history, confusion History of Present Illness: 62-year-old male with history of coronary artery disease, status post CABG, mitral valve replacement, multiple sclerosis, spinal surgery, recent admission to hospital for sepsis of urologic origin with Escherichia coli, resident of [facility], was found to have 103F fever on Wednesday, with some altered mental status and a sodium of 129 for which he was placed on fluid restriction, was found to be progressively altered in mental status and was brought in by ambulance to the emergency department. Of note, his blood culture collected on Wednesday is growing gram negative rods. Initially started with meropenem, changed to ceftriaxone and now to Ampicillin 2 gm q6h per ID recs. Today patient developed right ear pain and severe throat pain. No difficulty handling his own saliva. No voice changes Allergies/Medications Allergies: Coded Allergies: lactose (Severe, DIARRHEA 09/07/17) Home Med List: Aspirin (Aspirin*) 81 MG TAB.CHEW 1 TAB PO DAILY HEART HEALTH (Reported) Cholecalciferol (Vitamin D3) (Vitamin D3) 1,000 UNIT CAPSULE 1 CAP PO DAILY supplement (Reported) Dextromethorphan HBr/Quinidine (Nuedexta 20-10 MG Capsule) 20 MG-10 MG CAPSULE 1 CAP PO BID MS (Reported) Divalproex Sodium (Divalproex Sodium ER) 500 MG TAB.ER.24H 1 TAB PO QPM MS ( Reported) Levofloxacin (Levaquin) 500 MG TABLET 500 MG PO UTI (Reported) Magnesium Oxide (Mag-Oxide) 200 MG MAGNESIUM TABLET 1 TAB PO AT BEDTIME RLS ( Reported) Metoprolol Succinate 50 MG TAB.ER.24H 1 TAB PO DAILY HEART (Reported) Oxybutynin Chloride (Oxybutynin Chloride ER) 15 MG TAB.ER.24 1 TAB PO BID BLADDER (Reported) Rosuvastatin Calcium (Crestor) 40 MG TABLET 1 TAB PO DAILY CHOLESTEROL ( Reported) Sertraline HCl 100 MG TABLET 2 TAB PO DAILY MENTAL HEALTH (Reported) Past History Medical History Neurological: multiple sclerosis EENT: NONE Cardiovascular: CAD, cabg x4 mitral valve replacement Respiratory: NONE Gastrointestinal: NONE Hepatic: NONE Renal: NONE Musculoskeletal: NONE Psychiatric: bipolar disease, substance abuse, QUIT 6 YEARS AGO Endocrine: NONE Blood Disorders: anemia Cancer(s): NONE KIDNEY PULLER/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 [facility] Who Do You Live With? self Services at Home: Home Health Aide Primary Language: Tam[place] Smoking Status: Never Smoked ETOH Use: denies use Illicit Drug Use: denies illicit drug use Functional Ability ADLs Needs Assist: dressing, eating, toileting, bathing. Ambulation: non-ambulatory IADLs Needs Assist: shopping, housework, finances, food prep, telephone, transportation, medication admin. Employment History Retired? unknown Review of Systems Review of Systems: Noncontributory Exam & Diagnostic Data Vital Signs and I&O Vital Signs Date Time Temp Pulse Resp B/P B/P Pulse O2 O2 Flow FiO2 Mean Ox Delivery Rate 10/19 1200 94 Nasal 2.0L Cannula 10/19 0800 96 Nasal 2.0L Cannula 10/19 0800 98.7 112 28 102/60 94 Nasal 2.0L Cannula 10/19 0610 111 24 98/73 10/19 0400 94 Nasal 2.0L Cannula 10/19 0000 99.0 112 24 110/60 92 Nasal 2.0L Cannula 10/19 0000 92 Room Air 10/18 2000 96 Nasal 2.0L Cannula 10/18 1600 96 Nasal 2.0L Cannula 10/18 1600 97.6 96 22 102/62 96 Nasal 2.0L Cannula Intake & Output 10/19 1600 10/19 0800 10/19 0000 10/18 1600 10/18 0800 10/18 0000 Intake Total 5270 021 5329 1277 1553 2250 Output Total 1350 1845 1256 1352 875 Balance -81 -1169 353 -75 678 2250 Intake, IV 669 426 316 201 2357 2250 Intake, Oral 600 250 720 500 Output, Stool 2 Output, Urine 1350 1845 1256 1350 875 Patient 164 lb 151 lb Weight Weight Bed scale Reported by Patient Measurement Method Physical Exam: Somewhat confused Voice clear on O2 B[employer]INGUAL [employer]ER Well-developed, well-nourished male without acute distress Head: normocephalic, atraumatic Ears: Canals- clear; Tympanic Membranes- clear, no erythema, no effusion Nose: Septum- deviated to the right, anterior septal dryness, excoriations, bilateral ; Turbinates- covered by dry crusting ; Airway-adequate Oral cavity: Mucosa- clear, moist Oropharynx: Posterior wall- clear Neck: supple, nontender Fiberoptic laryngoscopy: Fiberoptic scope inserted via left nostril Nasopharynx: Clear Hypopharynx: Base of tongue-clear; vallecula-thickened secretions; Piriform sinuses-thickened mucoid secretions ; posterior wall-thickened mucoid secretions; Larynx: Epiglottis- thickened, erythematous covered with thickened secretions ; vocal cords-mobile, mild erythema; posterior commissure-clear Esophageal inlet -intact Assessment/Plan Assessment/Plan 1. Acute epiglottitis, partly treated 2. Referred otalgia, right ear Recommend 1. changing ampicillin to ceftriaxone or Unasyn to cover for possible Haemophilus influenza infection 2. Patient may have ice chips, advanced to clear liquids if tolerating by mouth well, advance to regular diet once patient is asymptomatic with regard to this throat pain Consult Acknowledgment - Thank you for your consult request. Attending MD Review Statement Attending Statement Attending MD Statement: examined this patient, discussed w/ Dr Oneil
[2017-10-19 16:00] VITALS: BP 119/80
--- NOTE | 2017-10-19 16:41 | Event Note ---
Event Note Event Note: Situation Family concerns about mental status and concern about gabapentin Background 62 year old man with multiple medical problems significant for multiple sclerosis admitted for sepsis shock secondary to obstructive uropathy. He was complaining of leg pain thought to be neuropathic in etiology for which gabapentin was trialed. Patient developed some "slurred speech" and increased leg twiching, which was different from his baseline. Assessment Given patients mental status changes and increased leg jerkiness with new nausea after initiating gabapentin. Patients sister requested that the medication be discontinued. Given these findings it is reasonable to trial him off the low dose gabapentin with outpatient follow up with his MS specialist as an outpatient. Plan -Discontinue gabapentin
--- NOTE | 2017-10-19 16:44 | ULTRASOUND REPORT ---
EXAMINATION: US TRIPLEX OF LOWER EXTREMITIES, BILATERAL CLINICAL INFORMATION: Sinus tachycardia with tachypnea COMPARISON: None TECHNIQUE: Color-flow triplex imaging with spectral analysis and compression Doppler were performed on the lower extremities. Study was somewhat limited secondary to patient's bandaging and the right common femoral vein along with a portion of the left common femoral vein could not be visualized. FINDINGS: Respiratory variation, normal compression and augmented flow are noted throughout the visualized lower extremities. The visualized portions of the common femoral vein, superficial femoral vein, profunda femoral vein, popliteal vein and visualized tibial venous segments show no evidence of deep venous thrombosis. There is no Barrios's cyst. IMPRESSION: Limited study as described above but no convincing evidence of deep venous thrombosis involving the lower extremities.
--- NOTE | 2017-10-19 16:44 | NUCLEAR MEDICINE REPORT ---
EXAMINATION: PULMONARY VENTILATION PERFUSION STUDY CLINICAL INFORMATION: Persistent sinus tachycardia and tachypnea. COMPARISON: No previous lung scan is available for comparison. A radiograph the chest dated 10/17/2017 is available for comparison. TECHNIQUE: Serial gamma scintillation camera images were obtained over the posterior chest during the single breath, equilibrium rebreathing and washout of 24 mCi Xe 133 gas. The patient then received 2.9 mCi Tc-99m MAA intravenously and a 6-view perfusion study was performed. FINDINGS: Ventilation images: On the single breath and equilibrium images there is homogeneous distribution of gas bilaterally. During the washout phase there is no abnormal retention. Perfusion images: No segmental perfusion defects are present. There is minimal heterogeneity present bilaterally. There are no focal or anatomic appearing perfusion defects. IMPRESSION: Very low probability of pulmonary embolism.
--- NOTE | 2017-10-19 20:21 | RADIOLOGY REPORT ---
EXAMINATION: XR PORTABLE CHEST CLINICAL INFORMATION: Wheezing COMPARISON: 10/17/2017 TECHNIQUE: Portable frontal view of the chest was obtained. FINDINGS: Lung doan are grossly clear. No convincing evidence for an infiltrate. Low lung volumes. No failure. No significant effusion though the left lung base is clipped. IMPRESSION: Lung volumes. No convincing evidence for an acute process.
[2017-10-20] VITALS: BP 110/60
[2017-10-20 05:42] LABS: ABSOLUTE BASOPHIL COUNT 0 /CUMM (0.0-0.2); ABSOLUTE EOSINOPHIL COUNT 0.1 /CUMM (0.0-0.7); ABSOLUTE GRANULOCYTE CT 5.1 /CUMM (1.4-6.5); ABSOLUTE LYMPH COUNT 0.4 /CUMM (1.2-3.4); ABSOLUTE MONOCYTE COUNT 0.3 /CUMM (0.10-0.60); BASOPHIL % 0.1 % (0.0-2.0); EOSINOPHIL % 2.2 % (0-5); HEMATOCRIT 26.2 % (42-52); MEAN CORPUSCULAR VOLUME 81.8 FL (80.0-94.0); MEAN PLATELET VOLUME 9.2 FL (7.4-10.4); PLATELET COUNT 104 /CUMM (130-400); RBC DISTRIBUTION WIDTH 16.3 % (11.5-14.5); WHITE BLOOD CELL COUNT 5.9 /CUMM (4.8-10.8)
[2017-10-20 06:04] LABS: GRANULOCYTE % 86.3 % (42.2-75.2)
--- NOTE | 2017-10-20 07:00 | PN- Resident CRCU ---
Subjective HPI/CRCU Issues: Patient still in the ICU, to monitor for tachycardia, epiglottitis. I followed up and examined the patient today. He was resting comfortably in bed , not in distress, his throat pain is much better, does not have any fever or chills, Booker catheter in situ, afebrile, his heart rate is much improved but still in the 100s, his breathing rate has improved as well. Of note, patient had some confusion as morning recognizing me, and his ongoing care as reported by the nursing staff as well which was there yesterday according to her but not when I was around. Patient's home medication of Metoprolol XL at half the dose (25mg) has been started today. Objective Vital Signs & I&O Last 8 Hrs of Vitals and I&O: Vital Signs Date Time Temp Pulse Resp B/P B/P Pulse O2 O2 Flow FiO2 Mean Ox Delivery Rate 10/20 1849 99.2 108 24 128/78 97 10/20 1837 Nasal 2.0L Cannula 10/20 1600 96 Nasal 2.0L Cannula 10/20 1600 98.8 101 20 130/80 96 Nasal 2.0L Cannula 10/20 1448 98 Nasal 2.0L Cannula 10/20 1338 110 110/70 10/20 0800 99.2 99 10 122/70 94 Nasal 2.0L Cannula 10/20 0800 94 Nasal 2.0L Cannula 10/20 0400 96 Nasal 2.0L Cannula 10/20 0000 96 Nasal 2.0L Cannula 10/20 0000 97.3 122 31 110/60 96 Nasal 2.0L Cannula 10/19 2059 96 Nasal 2.0L Cannula 10/19 1943 Nasal 2.0L Cannula Exam General Appearance: well developed/nourished, no apparent distress, alert, awake , comfortable Other Physical Findings: Head: atraumatic, normal appearance, active bleeding Eyes: Bilateral: normal appearance, PERRL, EOMI. Ears: did not examine today Throat: not examined today to minimize instrumentation near epiglottis/throat Neck: normal inspection, supple, full range of motion Respiratory: breath sounds are better today, no wheezing heard by me, chest non- tender Cardiovascular: SINUS TACHYCARDIA in 100s, better than yesterday, normal peripheral pulses Gastrointestinal: soft, non-tender, normal bowel sounds, soft, non-tender Extremities: normal inspection, normal capillary refill, normal range of motion, no edema, Femoral line removed by me today from Right side, no complication. BOOKER IN PLACE, TLC IN PLACE Current Medications: Current Medications Sig/Tobin Start time Last Medication Dose Route Stop Time Status Admin Acetaminophen 650 MG Q6P PRN 10/18 0330 AC PO Acetaminophen 1,000 MG Q6P PRN 10/18 0330 AC IV Albuterol Sulfate 3 ML Q4P PRN 10/19 2100 AC 10/19 INH 2053 Ampicillin Sodium/ 3,000 MG Q6 10/19 1800 AC 10/20 Sulbactam Sodium IV 1703 Sodium Chloride 100 ML Aspirin 81 MG DAILY 10/18 1000 AC 10/20 PO 0920 Atorvastatin Calcium 40 MG 1700 10/18 1700 AC 10/20 PO 1703 Benzocaine/Menthol 1 DWIGHT Q2P PRN 10/20 0945 AC 10/20 PO 1035 Cholecalciferol 1,000 IU DAILY 10/18 1000 AC 10/20 PO 0920 Dextromethorphan/ 1 CAP Q12 10/18 1000 AC 10/20 Quinidine PO 0920 Divalproex Sodium 500 MG 2200 10/18 2200 AC 10/19 PO 2118 Magnesium Oxide 400 MG DAILY 10/18 1000 AC 10/20 PO 0920 Metoprolol Succinate 25 MG DAILY 10/20 1248 AC 10/20 PO 1338 Omeprazole 40 MG DAILY AC 10/19 0700 AC 10/20 PO 0618 Ondansetron HCl 4 MG Q6P PRN 10/19 1130 AC IV Oxybutynin Chloride 5 MG FOUR TIMES A DAY 10/18 1200 AC 10/20 PO 1703 Phosphate 250 MG PC AND AT BEDTIME 10/19 0900 DC 10/19 PO 10/19 2300 2118 Sertraline HCl 200 MG DAILY 10/18 1000 AC 10/20 PO 0920 Sodium Chloride 1,000 ML Q10H 10/18 0215 DC 10/19 IV 10/19 2300 2120 Impression/Plan Impression/Problem List Impression: 62-year-old male with history of coronary artery disease, status post CABG, mitral valve replacement, multiple sclerosis, spinal surgery, recent admission to hospital for sepsis of urologic origin with Escherichia coli, resident of [facility], was found to have 103F fever on Wednesday, with some altered mental status and a sodium of 129 for which he was placed on fluid restriction, was found to be progressively altered in mental status and was brought in by ambulance to the emergency department. Of note, his blood culture collected on Wednesday grew E coli. Patient's blood pressure was low enough requiring IV pressor support, and was thus admitted in the ICU. Current issues: # Septic shock, 2/2 UTI Patient had recent instrumentation of urinary tract, and his current clinical picture, laboratory results including urinalysis and right kidney aspirate results is suggestive of urinary tract infection. Right kidney aspirate culture is positive for Escherichia coli. The fact that the patient required IV pressors defines septic shock. He is off levophed since 7:45 AM 10/19/17. * Patient is safe to be transferred to the telemetry unit given his persistent tachycardia * Strict intake and output * Continue Booker catheter per Urology recs * Initially started with meropenem, changed to ceftriaxone, then to Ampicillin and finally to UNASYN for adequate coverage for UTI as well as epiglottitis ( presumably by H. influenzae) per ID recs. * Continuing medical management for now,and no immediate surgical intervention planned per Dr. Maxwell (Urologist). The patient might need urgent surgical intervention IF he fails to improve with medical management, in which case he might need urgent percutaneous nephrostomy. #H/o HTN Patient age and presented with septic shock thus his home medication was held. However metoprolol XL at 25 mg has been started since today which is half his regular dose at home. We'll continue to monitor his blood pressure closely. #Bacteremia with Escherichia coli Patient previously had Escherichia coli which was pansensitive and was treated with appropriate antibiotic therapy. He however has Escherichia coli again, which raises suspicion about any source that might be seeding the bacteria. Patient's transthoracic echocardiogram is negative for vegetations. If suspicion remains high, can consider NIRAJ. #Subacute/partially treated epiglottitis Pursuing patient's complaint of throat discomfort/pain in right ear pain yesterday, we did a full ENT examination with consultation, which revealed subacute/partially treated epiglottitis, thus antibiotic was changed from ampicillin to Unasyn that would cover Haemophilus influenzae as well. He seems to be better on this, and did not require any racemic epinephrine or bronchodilators overnight. #MARTÍN, improved Patient's baseline creatinine is 0.9-1, was found to have creatinine of 1.9 at presentation which is trending down to 0.9 with IV fluids. We'll continue to monitor. We will avoid any nephrotoxins including contrast if possible. #Tachycardia/tachypnea, better today Ruled out PE/DVT. CXR is fairly benign. He is better today compared to yesterday , but he has had persistent tachycardia since his admission also tachypnea to 30s at times, which could be partially explained by the state of sepsis. However, given his thrombocytopenia he is not receiving any pharmacological DVT prophylaxis, VTE was ruled out yesterday. #Altered mental status, improved The patient's mentation mostly seems to be well except at times when he doesn't recognize people he met during this admission. His sister who is also the POA tells us that this is his baseline. No focal neuro changes currently. Will watch for changes. #Thrombocytopenia Today's platelet count is 104, this appears to have been chronic, will continue to monitor and avoid heparin products for now. Another possibility is that this can be attributed to sepsis. #DVT ppx: ALPS only for low plt (104) #Diet: Regular diet #Code status: DNR/DNI Problem List: 1. Sepsis 2. UTI (urinary tract infection) Pain Ratin Tomorrow's Labs & Rationales: CBC, BEP, Mg Plan DVT/Prophylaxis: mechanical
[2017-10-20 08:00] VITALS: BP 122/70
--- NOTE | 2017-10-20 09:10 | PN- Infect Dx ---
Subjective Subjective: Afebrile. He complains of muscle spasms in the lower extremities. His right ear pain and throat pain are improved. Objective Last 24 Hrs of Vital Signs/I&O Vital Signs Date Time Temp Pulse Resp B/P B/P Pulse O2 O2 Flow FiO2 Mean Ox Delivery Rate 10/20 0400 96 Nasal 2.0L Cannula 10/20 0000 96 Nasal 2.0L Cannula 10/20 0000 97.3 122 31 110/60 96 Nasal 2.0L Cannula 10/19 2058 96 Nasal 2.0L Cannula 10/19 1942 Nasal 2.0L Cannula 10/20 1599 96 Nasal 2.0L Cannula 10/19 1600 109 28 119/80 95 Nasal 2.0L Cannula 10/19 1200 94 Nasal 2.0L Cannula Intake & Output 10/20 1600 10/20 0800 10/20 0000 Intake Total 300 685 Output Total 1100 1050 Balance -800 -365 Intake, IV 200 525 Intake, Oral 100 160 Output, Urine 1100 1050 Patient 163 lb Weight Physical Exam Other Physical Findings: He appears comfortable in no acute distress HEENT negative Lungs are clear Heart regular rhythm with a 1/6 systolic ejection murmur Extremities no cyanosis, clubbing or edema; right femoral triple lumen catheter remains in place Harper catheter remains in place Results Last 24 Hours of Lab Results: Laboratory Tests 10/21 399 Chemistry Sodium (137 - 145 mmol/L) 143 Potassium (3.5 - 5.1 mmol/L) 3.7 Chloride (98 - 107 mmol/L) 110 H Carbon Dioxide (22 - 30 mmol/L) 23 Anion Gap (5 - 16) 10 BUN (9 - 20 mg/dL) 13 Creatinine (0.7 - 1.2 mg/dL) 0.9 Estimated GFR (>60 ml/min) > 60 Glucose (65 - 99 mg/dL) 88 Calcium (8.4 - 10.2 mg/dL) 7.9 L Phosphorus (2.5 - 4.5 mg/dL) 2.9 Magnesium (1.6 - 2.3 mg/dL) 1.9 Total Bilirubin (0.2 - 1.3 mg/dL) 0.6 AST (17 - 59 U/L) 88 H ALT (21 - 72 U/L) 70 Albumin (3.5 - 5.0 g/dL) 2.3 L Hematology CBC w Diff NO MAN DIFF REQ WBC (4.8 - 10.8 /CUMM) 5.9 RBC (4.70 - 6.10 /CUMM) 3.20 L Hgb (14.0 - 18.0 G/DL) 8.6 L Hct (42 - 52 %) 26.2 L MCV (80.0 - 94.0 FL) 81.8 MCH (27.0 - 31.0 PG) 27.0 MCHC (33.0 - 37.0 G/DL) 33.0 RDW (11.5 - 14.5 %) 16.3 H Plt Count (130 - 400 /CUMM) 104 L MPV (7.4 - 10.4 FL) 9.2 Gran % (42.2 - 75.2 %) 86.3 H Lymphocytes % (20.5 - 51.1 %) 6.5 L Monocytes % (1.7 - 9.3 %) 4.9 Eosinophils % (0 - 5 %) 2.2 Basophils % (0.0 - 2.0 %) 0.1 Absolute Granulocytes (1.4 - 6.5 /CUMM) 5.1 Absolute Lymphocytes (1.2 - 3.4 /CUMM) 0.4 L Absolute Monocytes (0.10 - 0.60 /CUMM) 0.3 Absolute Eosinophils (0.0 - 0.7 /CUMM) 0.1 Absolute Basophils (0.0 - 0.2 /CUMM) 0 Last 24 Hours of Carlin Results: Blood cultures October 19 negative Urine culture October 18 positive for Escherichia coli sensitive to all antibiotics tested Recent Imaging Studies: Dopplers of both lower extremities October 19 negative VQ scan October 19 very low probability of pulmonary embolism Chest x-ray October 19 negative Assessment/Plan ID Impression: Overall improved, with normalization of his renal function and with his temperatures and white blood cell count remaining normal now on Unasyn, Day 3 of treatment for recurrent Escherichia coli sepsis, presumably of urologic origin, status post right ESWL 6 days prior to admission, with a CT of the abdomen and pelvis revealing persistent hydronephrosis of the right kidney with gas collections in the right collecting system. The possibility of an emphysematous pyelitis or an infected stent has been discussed with Urology and, given the persistent hydronephrosis, feel that he may warrant further urologic intervention. Other concerns include the possibility of endocarditis as he has a prosthetic valve and his cultures are positive for what appears to be the same Escherichia coli as the one isolated from his previous episode of sepsis. This raisies concern that this may represent a relapse rather than a new infection. ENT comments noted with concern of a partially treated epiglottitis, for which he was changed from Ampicillin to Unasyn. Suggestion: 1. Urology follow-up regarding possible emphysematous pyelitis/infected stent 2. Follow-up Echocardiogram, with possible NIRAJ based on results 3. Remove right femoral triple lumen catheter 4. Continue Unasyn
--- NOTE | 2017-10-20 09:43 | ECHOCARDIOGRAM REPORT ---
NICHOLE OCAMPO Age: 62 : 1955 Gender: M Exam Date: 10/19/2017 09:44 Exam Location: [facility] Ht (in): 69 Wt (lb): 163 BSA: 1.90 BP: 116 / 58 Ordering Physician: Sam Spence MD Referring Physician: Sam Spence MD Technologist: Nichole Byrd [facility] Room Number: 107-1 Indications: INFECTIVE ENDOCARDITIS Rhythm: Sinus Technical Quality: Fair FINDINGS Left Ventricle Normal size left ventricle. Borderline to mild concentric left ventricular hypertrophy. Mildly reduced global left ventricular systolic function. Mildly abnormal left ventricular ejection fraction estimated at 40-45%. Abnormal relaxation filling pattern of the left ventricle for age (stage 1 diastolic dysfunction). Right Ventricle Right ventricle not well visualized, grossly normal. Right Atrium Right atrium not well visualized, grossly normal. Left Atrium Mild left atrial dilatation. Mitral Valve Mechanical prosthetic mitral valve noted, bileaflet tilting disk type. Gradient recorded across the prosthetic mitral valve within the expected range. Physiologic regurgitation of the prosthetic mitral valve. No evidence of vegetation on the mitral valve. Aortic Valve Tricuspid Valve Structurally normal tricuspid valve. No evidence of tricuspid valve vegetation. Mild tricuspid regurgitation. Mild pulmonary hypertension. Right ventricular systolic pressure estimated to be elevated at 42 mmHg. Pulmonic Valve Pulmonic valve not well visualized. No pulmonic regurgitation. Pericardium Great Vessels CONCLUSIONS Mohan Bui M.D. (Electronically Signed) Final Date: 20 October 2017 09:42 MEASUREMENTS (Male / Female) Normal Values 2D ECHO LV Diastolic Diameter PLAX 4.1 cm 4.2 - 5.9 / 3.9 - 5.3 cm LV Systolic Diameter PLAX 3.4 cm 2.1 - 4.0 cm LV Fractional Shortening PLAX 17.1 % 25 - 46 % LV Ejection Fraction 2D Teich 36.1 % IVS Diastolic Thickness 1.1 cm LVPW Diastolic Thickness 1.0 cm LV Relative Wall Thickness 0.5 RV Internal Dim ED PLAX 3.4 cm 1.9 - 3.8 cm LVOT Diameter 2.1 cm Aortic Root Diameter 3.0 cm LA Systolic Diameter LX 4.2 cm 3.0 - 4.0 / 2.7 - 3.8 cm LA Volume 58.0 cm 18 - 58 / 22 - 52 cm Ascending Aorta Diameter 2.7 cm DOPPLER AV Peak Velocity 116.0 cm/s AV Peak Gradient 5.4 mmHg AV Mean Velocity 72.0 cm/s AV Mean Gradient 3.0 mmHg AV Velocity Time Integral 20.2 cm LVOT Peak Velocity 76.2 cm/s LVOT Peak Gradient 2.3 mmHg LVOT Mean Velocity 45.7 cm/s LVOT Mean Gradient 1.0 mmHg LVOT Velocity Time Integral 11.7 cm LVOT Stroke Volume 40.5 cm AV Area Cont Eq vti 2.0 cm AV Area Cont Eq pk 2.3 cm MV Peak Velocity 277.0 cm/s MV Peak Gradient 30.7 mmHg MV Mean Velocity 164.0 cm/s MV Mean Gradient 13.0 mmHg Mitral E Point Velocity 194.0 cm/s Mitral A Point Velocity 252.0 cm/s Mitral E to A Ratio 0.8 MV PHT Velocity 231.0 cm/s MV Deceleration Bleckley 1005.0 cm/s MV Pressure Half Time 69.0 ms MV Area PHT 3.2 cm MV Deceleration Time 180.0 ms TR Peak Velocity 282.0 cm/s TR Peak Gradient 31.8 mmHg Right Atrial Pressure 10.0 mmHg Pulmonary Artery Systolic Pressu 41.8 mmHg Right Ventricular Systolic Press 41.8 mmHg PV Peak Velocity 77.2 cm/s PV Peak Gradient 2.4 mmHg PV Mean Velocity 60.7 cm/s PV Mean Gradient 2.0 mmHg PV Velocity Time Integral 16.0 cm LV E' Lateral Velocity 8.8 cm/s Mitral E to LV E' Lateral Ratio 22.1 LV E' Septal Velocity 6.4 cm/s Mitral E to LV E' Septal Ratio 30.2
--- NOTE | 2017-10-20 10:21 | PN- CRCU ---
Subjective HPI/Critical Care Issues: The patient is awake and alert. No overnight events. Objective Current Medications: Current Medications Sig/Tobin Start time Last Medication Dose Route Stop Time Status Admin Acetaminophen 1,000 MG .STK-MED ONE 10/19 1128 DC IV 10/19 1129 Acetaminophen 650 MG Q6P PRN 10/18 0330 AC PO Acetaminophen 1,000 MG Q6P PRN 10/18 0330 AC IV Albuterol Sulfate 3 ML Q4P PRN 10/19 2100 AC 10/19 INH 2053 Ampicillin 2,000 MG Q6H 10/19 1230 DC 10/19 Sodium Chloride 100 ML IV 1311 Ampicillin Sodium/ 3,000 MG Q6 10/19 1800 AC 10/20 Sulbactam Sodium IV 0456 Sodium Chloride 100 ML Aspirin 81 MG DAILY 10/18 1000 AC 10/20 PO 0920 Atorvastatin Calcium 40 MG 1700 10/18 1700 AC 10/19 PO 1826 Benzocaine/Menthol 1 DWIGHT Q2P PRN 10/20 0945 AC PO Ceftriaxone Sodium 1,000 MG DAILY 10/18 1915 DC 10/19 IV 1038 Cholecalciferol 1,000 IU DAILY 10/18 1000 AC 10/20 PO 0920 Dextromethorphan/ 1 CAP Q12 10/18 1000 AC 10/20 Quinidine PO 0920 Divalproex Sodium 500 MG 2200 10/18 2200 AC 10/19 PO 2118 Gabapentin 100 MG DAILY 10/18 1215 DC 10/19 PO 1037 Magnesium Oxide 400 MG DAILY 10/18 1000 AC 10/20 PO 0920 Norepinephrine 4 MG Q16H 10/18 1230 DC 10/19 Dextrose/Water 250 ML IV 0610 Omeprazole 40 MG DAILY AC 10/19 0700 AC 10/20 PO 0618 Ondansetron HCl 4 MG Q6P PRN 10/19 1130 AC IV Oxybutynin Chloride 5 MG FOUR TIMES A DAY 10/18 1200 AC 10/20 PO 0920 Phosphate 250 MG PC AND AT BEDTIME 10/19 0900 DC 10/19 PO 10/19 2300 2118 Sertraline HCl 200 MG DAILY 10/18 1000 AC 10/20 PO 0920 Sodium Chloride 1,000 ML Q10H 10/18 0215 DC 10/19 IV 10/19 2300 2120 Vital Signs & I&O Last 24 Hrs of Vitals and I&O: Vital Signs Date Time Temp Pulse Resp B/P B/P Pulse O2 O2 Flow FiO2 Mean Ox Delivery Rate 10/20 0800 99.2 99 10 122/70 94 Nasal 2.0L Cannula 10/20 0400 96 Nasal 2.0L Cannula 10/20 0000 96 Nasal 2.0L Cannula 10/20 0000 97.3 122 31 110/60 96 Nasal 2.0L Cannula 10/19 2058 96 Nasal 2.0L Cannula 10/19 1942 Nasal 2.0L Cannula 10/19 1600 96 Nasal 2.0L Cannula 10/19 1600 109 28 119/80 95 Nasal 2.0L Cannula 10/19 1200 94 Nasal 2.0L Cannula Intake & Output 10/20 1600 10/20 0800 10/20 0000 Intake Total 300 685 Output Total 1100 1050 Balance -800 -365 Intake, IV 200 525 Intake, Oral 100 160 Output, Urine 1100 1050 Patient 163 lb Weight Physical Exam General Appearance: no distress, alert, awake, comfortable Head: atraumatic, normal appearance, active bleeding Eyes: PERRL Ears, Nose, Throat: normal pharynx Neck: normal inspection, supple, full range of motion Respiratory: normal breath sounds, chest non-tender, no respiratory distress, lungs clear Cardiovascular: regular rate/rhythm, normal peripheral pulses Gastrointestinal: normal bowel sounds, soft, non-tender Extremities: normal inspection, normal capillary refill, normal range of motion, no edema Impression/Plan Impression/Plan Impression/Plan: 1. Septic shock/sepsis of urologic origin. Ct scan demonstrated hydronephrosis in the right kidney with gas collections in the right collecting system 2. Acute kidney injury secondary to sepsis and UTI. 3. Thrombocytopenia which appears to be chronic. No evidence of bleeding. 4. History of advanced multiple sclerosis. 5. CAD status post CABG, and mitral valve replacement. Recommendations: Recommendations: * Continue antibiotics per ID. * Monitor BP off pressors. * Monitor HR on telemetrety. * Continue gabapentin for neuropathic pain. * Alps for DVT prophylaxis, no heparin due to thrombocytopenia. * Continue all supportive therapy. * Downgrade to telemetry.
[2017-10-20 16:00] VITALS: BP 130/80
[2017-10-20 18:49] VITALS: BP 128/78
[2017-10-20 22:52] VITALS: BP 118/74
[2017-10-21 06:53] VITALS: BP 110/80
[2017-10-21 08:34] LABS: ABSOLUTE BASOPHIL COUNT 0 /CUMM (0.0-0.2); ABSOLUTE EOSINOPHIL COUNT 0.2 /CUMM (0.0-0.7); ABSOLUTE GRANULOCYTE CT 5.1 /CUMM (1.4-6.5); ABSOLUTE LYMPH COUNT 0.4 /CUMM (1.2-3.4); ABSOLUTE MONOCYTE COUNT 0.7 /CUMM (0.10-0.60); BASOPHIL % 0.2 % (0.0-2.0); GRANULOCYTE % 79.5 % (42.2-75.2); HEMATOCRIT 27.6 % (42-52); MEAN CORPUSCULAR VOLUME 81.6 FL (80.0-94.0); MEAN PLATELET VOLUME 8.4 FL (7.4-10.4); PLATELET COUNT 128 /CUMM (130-400); RED BLOOD CELL CT 3.38 /CUMM (4.70-6.10); WHITE BLOOD CELL COUNT 6.5 /CUMM (4.8-10.8)
--- NOTE | 2017-10-21 10:17 | PN- Infect Dx ---
Subjective Subjective: Afebrile. He complains of mild throat discomfort but has no further right ear pain and notes decreased muscle spasms Objective Last 24 Hrs of Vital Signs/I&O Vital Signs Date Time Temp Pulse Resp B/P B/P Pulse O2 O2 Flow FiO2 Mean Ox Delivery Rate 10/21 0811 98 110/80 10/21 0800 Nasal 2.0L Cannula 10/21 0653 99.0 98 20 110/80 97 Nasal 2.0L Cannula 10/21 0000 Nasal 2.0L Cannula 10/20 2252 98.3 107 19 118/74 94 10/20 1849 99.2 108 24 128/78 97 10/20 1837 Nasal 2.0L Cannula 10/20 1600 96 Nasal 2.0L Cannula 10/20 1600 98.8 101 20 130/80 96 Nasal 2.0L Cannula 10/20 1448 98 Nasal 2.0L Cannula 10/20 1338 110 110/70 Intake & Output 10/21 1600 10/21 0800 10/21 0000 Intake Total 290 100 Output Total 1000 1700 Balance -710 -1600 Intake, IV 240 Intake, Oral 50 100 Number 1 Bowel Movements Output, Urine 1000 1700 Patient 161 lb Weight Physical Exam Other Physical Findings: He appears comfortable in no acute distress HEENT minimal erythema of the pharynx Lungs are clear Heart regular rhythm with a 1/6 systolic ejection murmur Back no CVA tenderness Extremities no cyanosis, clubbing or edema Harper catheter remains in place Results Last 24 Hours of Lab Results: Laboratory Tests 10/21 0638 Chemistry Sodium (137 - 145 mmol/L) 142 Potassium (3.5 - 5.1 mmol/L) 3.6 Chloride (98 - 107 mmol/L) 106 Carbon Dioxide (22 - 30 mmol/L) 26 Anion Gap (5 - 16) 11 BUN (9 - 20 mg/dL) 14 Creatinine (0.7 - 1.2 mg/dL) 0.9 Estimated GFR (>60 ml/min) > 60 BUN/Creatinine Ratio (7 - 25 %) 15.6 Magnesium (1.6 - 2.3 mg/dL) 1.8 Hematology CBC w Diff NO MAN DIFF REQ WBC (4.8 - 10.8 /CUMM) 6.5 RBC (4.70 - 6.10 /CUMM) 3.38 L Hgb (14.0 - 18.0 G/DL) 9.1 L Hct (42 - 52 %) 27.6 L MCV (80.0 - 94.0 FL) 81.6 MCH (27.0 - 31.0 PG) 27.0 MCHC (33.0 - 37.0 G/DL) 33.0 RDW (11.5 - 14.5 %) 16.0 H Plt Count (130 - 400 /CUMM) 128 L MPV (7.4 - 10.4 FL) 8.4 Gran % (42.2 - 75.2 %) 79.5 H Lymphocytes % (20.5 - 51.1 %) 6.9 L Monocytes % (1.7 - 9.3 %) 10.4 H Eosinophils % (0 - 5 %) 3.0 Basophils % (0.0 - 2.0 %) 0.2 Absolute Granulocytes (1.4 - 6.5 /CUMM) 5.1 Absolute Lymphocytes (1.2 - 3.4 /CUMM) 0.4 L Absolute Monocytes (0.10 - 0.60 /CUMM) 0.7 H Absolute Eosinophils (0.0 - 0.7 /CUMM) 0.2 Absolute Basophils (0.0 - 0.2 /CUMM) 0 Last 24 Hours of Carlin Results: Blood cultures 2 October 19 negative Recent Imaging Studies: Echocardiogram October 18 negative for any vegetations Assessment/Plan ID Impression: Doing well, with normalization of his renal function and with his temperatures and white blood cell count remaining normal on Unasyn, Day 4 of treatment for recurrent Escherichia coli sepsis, presumably of urologic origin, status post right ESWL 6 days prior to admission, with a CT of the abdomen and pelvis revealing persistent hydronephrosis of the right kidney with gas collections in the right collecting system. The possibility of an emphysematous pyelitis or an infected stent has been discussed with Urology and, given the persistent hydronephrosis, feel that he may warrant further urologic intervention. Other concerns include the possibility of endocarditis as he has a prosthetic valve and his cultures are positive for what appears to be the same Escherichia coli as the one isolated from his previous episode of sepsis. This raisies concern that this may represent a relapse rather than a new infection. Suggestion: 1. Urology follow-up/consider need for follow-up imaging and/or further intervention 2. Consider NIRAJ based on above 3. Continue Unasyn
--- NOTE | 2017-10-21 10:28 | PN- Housestaff ---
Damián BURNS,Laura 10/21/17 1027: Subjective Follow-up For: Septic shock secondary to UTIimproved Subacutepartially treated epiglottitis Bacteremia with E. coli Tele-Events Since Last Visit: STNSR, 971 04, QRS 0.1, MA 0.18, no overnight events Subjective: Patient was seen and examined at bedside, afebrile denies any complaints, Harper catheter in place, no hematuria Review of Systems Constitutional: Reports: see HPI. Objective Last 24 Hrs of Vital Signs/I&O Vital Signs Date Time Temp Pulse Resp B/P B/P Pulse O2 O2 Flow FiO2 Mean Ox Delivery Rate 10/21 0811 98 110/80 10/21 0800 Nasal 2.0L Cannula 10/21 0653 99.0 98 20 110/80 97 Nasal 2.0L Cannula 10/21 0000 Nasal 2.0L Cannula 10/20 2252 98.3 107 19 118/74 94 10/20 1849 99.2 108 24 128/78 97 10/20 1837 Nasal 2.0L Cannula 10/20 1600 96 Nasal 2.0L Cannula 10/20 1600 98.8 101 20 130/80 96 Nasal 2.0L Cannula 10/20 1448 98 Nasal 2.0L Cannula Intake & Output 10/21 1600 10/21 0800 10/21 0000 Intake Total 940 290 100 Output Total 1100 1000 1700 Balance -160 -710 -1600 Intake, IV 100 240 Intake, Oral 840 50 100 Number 2 1 Bowel Movements Output, Urine 1100 1000 1700 Patient 161 lb Weight Physical Exam General Appearance: Alert, Oriented X3, Cooperative, No Acute Distress HEENT: Atraumatic, PERRLA, EOMI, Mucous Membr. moist/pink Neck: Supple, No JVD Cardiovascular: Normal S1, Normal S2, No Murmurs Lungs: Clear to Auscultation Abdomen: Normal Bowel Sounds, Soft, No Tenderness Neurological: Normal Speech Extremities: No Clubbing, No Cyanosis, 1 + Pitting edema Vascular: Normal Pulses Assessment/Plan Assessment: 62-year-old male with history of coronary artery disease, status post CABG, mitral valve replacement, multiple sclerosis, spinal surgery, recent admission to hospital for sepsis of urologic origin with Escherichia coli, resident of [facility], was found to have 103F fever on Wednesday, with some altered mental status and a sodium of 129 for which he was placed on fluid restriction, was found to be progressively altered in mental status and was brought in by ambulance to the emergency department. Of note, his blood culture collected on Wednesday grew E coli. # Septic shock, 2/2 UTI Resolved * Strict intake and output * Continue Harper catheter per Urology recs * Continue Unasyn. (Day 3) * Discussed with Dr. Maxwell over the phone, he recommended getting renal ultrasound to assess hydronephrosis, if no hydronephrosis will leave Harper catheter in place, if ultrasound showed hydronephrosis will change the Harper catheter while the patient is in the hospital #H/o HTN Blood pressure running towards the lower side Continue metoprolol XL at 25 mg daily, half of his home dose Continue to monitor blood pressure #Bacteremia with Escherichia coli Well consider NIRAJ. As per ID recommendation Continue Unasyn #Subacute/partially treated epiglottitis Pursuing patient's complaint of throat discomfort/pain in right ear pain yesterday, we did a full ENT examination with consultation, which revealed subacute/partially treated epiglottitis, thus antibiotic was changed from ampicillin to Unasyn that would cover Haemophilus influenzae as well. He seems to be better on this, and did not require any racemic epinephrine or bronchodilators overnight. -Benzocaine spray as needed Benzocaine lozenges for sore throat Patient passed bedside swallow eval after using the benzocaine spray #MARTÍN, improved Patient's baseline creatinine is 0.9-1, was found to have creatinine of 1.9 at presentation which is trending down to 0.9 with IV fluids. We'll continue to monitor. We will avoid any nephrotoxins including contrast if possible. #Tachycardia/tachypnea, better today Ruled out PE/DVT. CXR is fairly benign. He is better today compared to yesterday , but he has had persistent tachycardia since his admission also tachypnea to 30s at times, which could be partially explained by the state of sepsis. However, given his thrombocytopenia he is not receiving any pharmacological DVT prophylaxis, VTE was ruled out yesterday. #Altered mental status, improved The patient's mentation mostly seems to be well except at times when he doesn't recognize people he met during this admission. His sister who is also the POA tells us that this is his baseline. No focal neuro changes currently. Will watch for changes. #Thrombocytopenia Today's platelet count is 128, this appears to have been chronic, will continue to monitor and avoid heparin products for now. Another possibility is that this can be attributed to sepsis. #DVT ppx: ALPS only for low plt (104) #Diet: Regular diet #Code status: DNR/DNI Problem List: 1. Ear pain, right 2. Calculus, urinary 3. Sepsis 4. UTI (urinary tract infection) Pain Ratin Pain Location: N/A Pain Goal: Remain pain free Pain Plan: pathway Tomorrow's Labs & Rationales: cbc bep Malinda Trejotariq 10/21/17 1413: Attending MD Review Statement Attending Statement Attending MD Statement: examined this patient, discuss w/resident/PA/FRONT DESK HOST, agreed w/resident/PA/FRONT DESK HOST, reviewed EMR data (avail), discussed with nursing, discussed with case mgmt Attending Assessment/Plan: Septic shock secondary to UTI- off pressorsn , cont on iv abx per ID recommendations. Plan for NIRAJ per ID recommendations. Multiple sclerosis with residual weakness on lower extremities- at baseline pt walks with walker short distances and uses wheel chair most of the times. disposition- pt's was at [facility] prior to admission for rehab and is willing to go back there. d/w pt the care plan.
[2017-10-21 14:33] VITALS: BP 99/63
--- NOTE | 2017-10-21 16:46 | ULTRASOUND REPORT ---
EXAMINATION: US RETROPERITONEAL COMPLETE (RENAL) CLINICAL INFORMATION: Right-sided hydronephrosis and sepsis.. COMPARISON: CT of the abdomen and pelvis done on 10/18/2017. TECHNIQUE: Real-time imaging of the kidneys and bladder. FINDINGS: RIGHT KIDNEY: 12.4 x 7.4 x 7.0 cm (SAG x AP x TRV). The kidney is normal in size, contour, and echogenicity. Renal cortical thickness is normal. No focal parenchymal lesions. No hydronephrosis. Single 0.9 cm maximum dimension echogenic focus is identified at mid pole, may represent a nonobstructing calculus. LEFT KIDNEY: 12.3 x 6.7 x 5.3 cm (SAG x AP x TRV). The kidney is normal in size, contour, and echogenicity. Renal cortical thickness is normal. No focal parenchymal lesions. No hydronephrosis. There are 2 echogenic foci identified, measures 0.4 cm at the upper pole and 0.6 cm near the inferior pole without any acoustic shadowing, may represent prominent fat versus tiny calculi. BLADDER: Partially distended, grossly appear unremarkable. The right-sided ureteric jet is visualized while the left-sided jet is not visualized at the time of the examination. There is a Harper's catheter and right-sided internal ureteric stent identified. IMPRESSION: 1. No sonographic evidence of right-sided hydronephrosis. 2. Likely nonobstructing right renal calculus measuring 0.9 cm at the mid forearm. 3. Probable left renal nonobstructing calculi versus prominent fat. 4. Suboptimally distended, grossly unremarkable urinary bladder.
--- NOTE | 2017-10-21 17:23 | Cons- Cardiology ---
General Information and HPI Consulting Request Date of Consult: 10/21/17 Requested By: John BURNS,Francisco Reason for Consult: Suspected infective endocarditis. Source of Information: patient, family, old records Exam Limitations: poor historian History of Present Illness: Mr. Philippe Meadows is a 62-year-old male with a history of mild dementia, bipolar disorder, former EtOH abuse, multiple sclerosis, spine surgery , dyslipidemia, coronary and valvular heart disease s/p NSTEMI complicated by anterior papillary muscle, MR, and HF requiring CABG 4 and bioprosthetic MVR at [facility] September 2009, and recurrent UTIs s/p admission (09/06-09/14) with sepsis of urological origin secondary to Escherichia coli, found to have a right hydronephrosis, right ureteral calculi and foci of gas within the right mid pole collecting system, status post cystoscopy, placement of a right right ureteral stent and treatment with a 2 week course of antibiotics, s/p post right renal ESWL 10/12/2017 with ciprofloxacin prophylaxis and the initiation of Levaquin 10/17/2017 who presented to the ED 10/18/2017 from [facility] with altered mental status, decreased by mouth intake, lethargy, etc., fever, an elevated WBC count and positive blood cultures 2 for gram-negative rods with urosepsis and associated hypotension that improved with standard measures (antimicrobial therapy, IV hydration, pressors, etc.) who we are asked to evaluate given the suspicion of infective endocarditis. Allergies/Medications Allergies: Coded Allergies: lactose (Severe, DIARRHEA 09/07/17) Home Med List: Aspirin (Aspirin*) 81 MG TAB.CHEW 1 TAB PO DAILY HEART HEALTH (Reported) Cholecalciferol (Vitamin D3) (Vitamin D3) 1,000 UNIT CAPSULE 1 CAP PO DAILY supplement (Reported) Dextromethorphan HBr/Quinidine (Nuedexta 20-10 MG Capsule) 20 MG-10 MG CAPSULE 1 CAP PO BID MS (Reported) Divalproex Sodium (Divalproex Sodium ER) 500 MG TAB.ER.24H 1 TAB PO QPM MS ( Reported) Magnesium Oxide (Mag-Oxide) 200 MG MAGNESIUM TABLET 1 TAB PO AT BEDTIME RLS ( Reported) Metoprolol Succinate 50 MG TAB.ER.24H 1 TAB PO DAILY HEART (Reported) Oxybutynin Chloride (Oxybutynin Chloride ER) 15 MG TAB.ER.24 1 TAB PO BID BLADDER (Reported) Rosuvastatin Calcium (Crestor) 40 MG TABLET 1 TAB PO DAILY CHOLESTEROL ( Reported) Sertraline HCl 100 MG TABLET 2 TAB PO DAILY MENTAL HEALTH (Reported) Review of Systems Review of Systems: 14 point system review was obtained and was noncontributory other than as above. Past History Travel History Traveled to [place] past 21 day No Medical History Neurological: multiple sclerosis EENT: NONE Cardiovascular: CAD, cabg x4 mitral valve replacement Respiratory: NONE Gastrointestinal: NONE Hepatic: NONE Renal: NONE Musculoskeletal: NONE Psychiatric: bipolar disease, substance abuse, QUIT 6 YEARS AGO Endocrine: NONE Blood Disorders: anemia Cancer(s): NONE [employer]/Reproductive: NONE Surgical History Surgical History: CABG, s/p spinal surgery s/p porcine mitral valve replacement Psychosocial History Where Do You Live? Alf Facility Who Do You Live With? self Services at Home: Home Health Aide Primary Language: Greek Smoking Status: Never Smoked ETOH Use: denies use Illicit Drug Use: denies illicit drug use Functional Ability ADLs Needs Assist: dressing, eating, toileting, bathing. Ambulation: non-ambulatory IADLs Needs Assist: shopping, housework, finances, food prep, telephone, transportation, medication admin. Exam & Diagnostic Data Vital Signs and I&O Vital Signs Date Time Temp Pulse Resp B/P B/P Pulse O2 O2 Flow FiO2 Mean Ox Delivery Rate 10/21 1433 98.3 94 20 99/63 97 Nasal 2.0L Cannula 10/21 0811 98 110/80 10/21 0800 Nasal 2.0L Cannula 10/21 0653 99.0 98 20 110/80 97 Nasal 2.0L Cannula 10/21 0000 Nasal 2.0L Cannula 10/20 2252 98.3 107 19 118/74 94 10/20 1849 99.2 108 24 128/78 97 10/20 1837 Nasal 2.0L Cannula Intake & Output 10/21 1600 10/21 0800 10/21 0000 10/20 1600 10/20 0800 10/20 0000 Intake Total 940 749 269 6716 300 685 Output Total 1100 1000 1700 1050 1100 1050 Balance -160 -710 -1600 480 -800 -365 Intake, IV 100 240 130 200 525 Intake, Oral 840 50 100 1400 100 160 Number 2 1 Bowel Movements Output, Urine 1100 1000 1700 1050 1100 1050 Patient 161 lb 160 lb Weight Weight Bed scale Measurement Method Physical Exam: Well-developed and pale appearing middle-aged male in no acute distress. Vital signs: See above. HEENT: Normocephalic, atraumatic, EOMI, slightly dry mucous membranes. Neck: No JVD, no bruits. Lungs: Clear to auscultation bilaterally. Heart: S1, S2 with grade 1-2/6 systolic murmur. No gallop or rub. Abdomen: Soft, nontender, positive bowel sounds. Extremities: No edema. Labs/Carlin Results: Laboratory Tests 10/21 10/20 0638 0400 Chemistry Sodium (137 - 145 mmol/L) 142 143 Potassium (3.5 - 5.1 mmol/L) 3.6 3.7 Chloride (98 - 107 mmol/L) 106 110 H Carbon Dioxide (22 - 30 mmol/L) 26 23 Anion Gap (5 - 16) 11 10 BUN (9 - 20 mg/dL) 14 13 Creatinine (0.7 - 1.2 mg/dL) 0.9 0.9 Estimated GFR (>60 ml/min) > 60 > 60 BUN/Creatinine Ratio (7 - 25 %) 15.6 Glucose (65 - 99 mg/dL) 88 Calcium (8.4 - 10.2 mg/dL) 7.9 L Phosphorus (2.5 - 4.5 mg/dL) 2.9 Magnesium (1.6 - 2.3 mg/dL) 1.8 1.9 Total Bilirubin (0.2 - 1.3 mg/dL) 0.6 AST (17 - 59 U/L) 88 H ALT (21 - 72 U/L) 70 Albumin (3.5 - 5.0 g/dL) 2.3 L Hematology CBC w Diff NO MAN DIFF REQ NO MAN DIFF REQ WBC (4.8 - 10.8 /CUMM) 6.5 5.9 RBC (4.70 - 6.10 /CUMM) 3.38 L 3.20 L Hgb (14.0 - 18.0 G/DL) 9.1 L 8.6 L Hct (42 - 52 %) 27.6 L 26.2 L MCV (80.0 - 94.0 FL) 81.6 81.8 MCH (27.0 - 31.0 PG) 27.0 27.0 MCHC (33.0 - 37.0 G/DL) 33.0 33.0 RDW (11.5 - 14.5 %) 16.0 H 16.3 H Plt Count (130 - 400 /CUMM) 128 L 104 L MPV (7.4 - 10.4 FL) 8.4 9.2 Gran % (42.2 - 75.2 %) 79.5 H 86.3 H Lymphocytes % (20.5 - 51.1 %) 6.9 L 6.5 L Monocytes % (1.7 - 9.3 %) 10.4 H 4.9 Eosinophils % (0 - 5 %) 3.0 2.2 Basophils % (0.0 - 2.0 %) 0.2 0.1 Absolute Granulocytes (1.4 - 6.5 /CUMM) 5.1 5.1 Absolute Lymphocytes (1.2 - 3.4 /CUMM) 0.4 L 0.4 L Absolute Monocytes (0.10 - 0.60 /CUMM) 0.7 H 0.3 Absolute Eosinophils (0.0 - 0.7 /CUMM) 0.2 0.1 Absolute Basophils (0.0 - 0.2 /CUMM) 0 0 Diagnostic Data EKG Results 10/17/2017 sinus tachycardia, indeterminate age inferiolateral wall NC with prominent anterior forces suggesting possible posterior wall involvement and nondiagnostic T-wave abnormalities. Probably no significant change compared to prior tracing from 09/06/2017. CXR Results 10/19/2017: Low lung volumes. No convincing evidence for an acute process. Other Results Renal ultrasound 10/21/2017: 1. No sonographic evidence of right-sided hydronephrosis. 2. Likely nonobstructing right renal calculus measuring 0.9 cm at the mid forearm. 3. Probable left renal nonobstructing calculi versus prominent fat. 4. Suboptimally distended, grossly unremarkable urinary bladder. Echocardiogram 10/19/2017: Normal size left ventricle. Borderline to mild concentric left ventricular hypertrophy. Mildly reduced global left ventricular systolic function. Mildly abnormal left ventricular ejection fraction estimated at 40-45%. Abnormal relaxation filling pattern of the left ventricle for age (stage 1 diastolic dysfunction). Normal right ventricular size and function. Normal right atrial size. Mild left atrial dilatation. Mechanical prosthetic mitral valve noted, bileaflet tilting disk type. Gradient recorded across the prosthetic mitral valve is above the expected range, however , the calculated valve area is acceptable. Mild tricuspid regurgitation. Mild pulmonary hypertension. No evidence of obvious valvular vegetations on the mechanical mitral prosthesis, aortic valve, or tricuspid valve. Dilated inferior vena cava. VQ scan 10/19/2017: Very low probability for pulmonary embolism. Lower extremity venous Doppler 10/19/2017: Limited study as described above but no convincing evidence of deep venous thrombosis involving the lower extremities. Assessment/Plan Assessment/Plan 62-y-o-w-m w/ hx of mild dementia, bipolar disorder, former EtOH abuse, multiple sclerosis, spine surgery, HLD, coronary/valvular ht dz s/p NSTEMI complicated by anterior papillary muscle, MR, and HF requiring CABG 4 and bioprosthetic MVR s/ p CABG 03 October 2009, and recurrent UTIs s/p admission (09/06-09/14/2017) w/ sepsis of urological origin 2/2 to E.coli, found to have a right hydronephrosis, right ureteral calculi and foci of gas w/i the right mid pole collecting system, s/p cystoscopy, placement of a right right ureteral stent & treatment w/ a 2 wk course of Abx, s/p post right renal ESWL 10/12/2017 w/ ciprofloxacin prophylaxis and the initiation of Levaquin 10/17/2017 who presented to the ED 10/18/2017 from [facility] w/ AMS, decreased by mouth intake, lethargy, etc., fever, an elevated WBC count and positive BCs 2 for GNR rods w/ urosepsis and associated hypotension that improved with standard measures (antimicrobial therapy, IV hydration, pressors, etc.) who we are asked to evaluate given the suspicion of infective endocarditis (IE). His risk factors for endocarditis include his prosthetic mitral valve and his fever. Diagnosis of IE is made employing the modified Hammer criteria. This allows us to make a definite diagnosis by pathological and/or clinical criteria, reject the diagnosis, or state that it is "possible" by clinical criteria. If we see a vegetation on the NIRAJ a diagnosis of IE is made on a pathological basis. If the NIRAJ is "negative", the diagnosis can still be made clinically by his having 2 major, one major plus 3 minor, or 5 minor criteria. "Possible" IE can be present if one major and one minor modified Hammer criteriaare met. Major clinical criteria include multiple positive blood cultures, a single positive blood culture for Coxiella burnetti, or endocardial involvement (new regurgitation, vegetation, abscess, dehiscence). Minor clinical criteria include clinical predisposition, fever, blood culture or serological evidence of active infection not meeting major criteria, vascular phenomena, immunological phenomena. The diagnosis can be rejected if an alternative diagnosis can be made, there is resolution of clinical syndrome with less than 4 days of antimicrobial therapy, and there is no pathological evidence of IE in less than 4 days of antibiotics. His thoracic echocardiogram (TTE) was nondiagnostic, he has a prosthetic mitral valve, had a fever, and positive BCs with GNRs. A transesophageal echocardiogram (NIRAJ) is reasonable to help diagnose infective endocarditis or reject the diagnosis. This will be scheduled for near future and further recommendations will follow. For now, continue present regimen. Further recommendations will follow, Thank you. Consult Acknowledgment - Thank you for your consult request.
[2017-10-21 22:51] VITALS: BP 118/70
[2017-10-22 06:49] VITALS: BP 124/72
--- NOTE | 2017-10-22 07:13 | PN- Housestaff ---
Damián BURNS,Laura 10/22/17 0712: Subjective Follow-up For: Septic shock secondary to UTIimproved Subacutepartially treated epiglottitis Bacteremia with E. coli Tele-Events Since Last Visit: Sinus rhythm, 8490, 0.1, 0.18, no overnight events Subjective: Patient was seen and examined, no overnight events, afebrile, complains of frequent loose bowel movement, was n.p.o. overnight for NIRAJ Review of Systems Constitutional: Reports: see HPI. Objective Last 24 Hrs of Vital Signs/I&O Vital Signs Date Time Temp Pulse Resp B/P B/P Pulse O2 O2 Flow FiO2 Mean Ox Delivery Rate 10/22 0800 Nasal 1.0L Cannula 10/22 0730 80 124/72 10/22 0649 98.2 80 18 12472 96 Nasal 1.0L Cannula 10/22 0000 Nasal 2.0L Cannula 10/21 2251 99.3 93 16 118/70 98 10/21 1433 98.3 94 20 99/63 97 Nasal 2.0L Cannula Intake & Output 10/22 1600 10/22 0800 10/22 0000 Intake Total 170 175 Output Total 1000 850 Balance -830 -675 Intake, IV 120 Intake, Oral 50 175 Output, Urine 1000 850 Patient 157 lb Weight Physical Exam General Appearance: Alert, Oriented X3, Cooperative, No Acute Distress HEENT: Atraumatic, PERRLA, EOMI, Mucous Membr. moist/pink Neck: Supple, No JVD Cardiovascular: Normal S1, Normal S2, No Murmurs Lungs: Clear to Auscultation Abdomen: Normal Bowel Sounds, Soft, No Tenderness Neurological: Normal Speech, Strength at 5/5 X4 Ext, Normal Tone Extremities: No Clubbing, No Cyanosis, No Edema Vascular: Normal Pulses Assessment/Plan Assessment: 62-year-old male with history of coronary artery disease, status post CABG, mitral valve replacement, multiple sclerosis, spinal surgery, recent admission to hospital for sepsis of urologic origin with Escherichia coli, [facility], was found to have 103F fever on Wednesday, with some altered mental status and a sodium of 129 for which he was placed on fluid restriction, was found to be progressively altered in mental status and was brought in by ambulance to the emergency department. Of note, his blood culture collected on Wednesday grew E coli. # Septic shock, 2/2 UTI Resolved Ultrasound yesterday did not show any evidence of hydronephrosis and showed normal size urinary bladder * Strict intake and output * DC Harper catheter per Urology recs * Continue Unasyn. (Day 4) #H/o HTN Blood pressure running towards the lower side Continue metoprolol XL at 25 mg daily, half of his home free diet Continue to monitor blood pressure #Bacteremia with Escherichia coli Well consider INRAJ. As per ID recommendation Continue Unasyn #Subacute/partially treated epiglottitis Pursuing patient's complaint of throat discomfort/pain in right ear pain yesterday, we did a full ENT examination with consultation, which revealed subacute/partially treated epiglottitis, thus antibiotic was changed from ampicillin to Unasyn that would cover Haemophilus influenzae as well. He seems to be better on this, and did not require any racemic epinephrine or bronchodilators overnight. -Benzocaine spray as needed Benzocaine lozenges for sore throat Patient passed bedside swallow eval after using the benzocaine spray #MARTÍN, improved Patient's baseline creatinine is 0.9-1, was found to have creatinine of 1.9 at presentation which is trending down to 0.8 today . We'll continue to monitor. We will avoid any nephrotoxins including contrast if possible. #Tachycardia/tachypnea, improved Ruled out PE/DVT. CXR is fairly benign. He is better today compared to yesterday , but he has had persistent tachycardia since his admission also tachypnea to 30s at times, which could be partially explained by the state of sepsis. However, given his thrombocytopenia he is not receiving any pharmacological DVT prophylaxis, VTE was ruled out #Altered mental status, improved The patient's mentation mostly seems to be well except at times when he doesn't recognize people he met during this admission. His sister who is also the POA tells us that this is his baseline. No focal neuro changes currently. Will watch for changes. #Thrombocytopenia Today's platelet count is 128, this appears to have been chronic, will continue to monitor and avoid heparin products for now. Another possibility is that this can be attributed to sepsis. #Diarrhea Follow-up on C. difficile Patient has lactose intolerance, lactose-free diet Encourage p.o. intake #DVT ppx: ALPS only for recent hematuria #Diet: Regular diet #Code status: DNR/DNI Problem List: 1. Ear pain, right 2. Calculus, urinary 3. Septic shock Pain Ratin Pain Location: N/A Pain Goal: Remain pain free Pain Plan: [place] Tomorrow's Labs & Rationales: cbc bep TrejoMalinda bonetariq 10/22/17 1607: Attending MD Review Statement Attending Statement Attending MD Statement: examined this patient, discuss w/resident/PA/CREDIT OR LOANS OFFICER, agreed w/resident/PA/CREDIT OR LOANS OFFICER, reviewed EMR data (avail), discussed with nursing, discussed with case mgmt Attending Assessment/Plan: Pt NIRAJ was rescheduled for Wednesday. D/w pt the NIRAJ rescheduling. Pt was seen by ID . d/w ID the care plan. Cont on current abx regimen and will f /u on results of the NIRAJ to make final abx plan. d/w pt about going to Rehab short term at [facility] [place] and he is ok with that.
[2017-10-22 08:08] LABS: ABSOLUTE BASOPHIL COUNT 0 /CUMM (0.0-0.2); ABSOLUTE EOSINOPHIL COUNT 0.2 /CUMM (0.0-0.7); ABSOLUTE LYMPH COUNT 0.5 /CUMM (1.2-3.4); ABSOLUTE MONOCYTE COUNT 0.5 /CUMM (0.10-0.60); BASOPHIL % 0.2 % (0.0-2.0); EOSINOPHIL % 4.1 % (0-5); GRANULOCYTE % 76.1 % (42.2-75.2); HEMATOCRIT 27.9 % (42-52); MEAN CORPUSCULAR HGB 26.6 PG (27.0-31.0); MEAN CORPUSCULAR HGB CONC 32.8 G/DL (33.0-37.0); MEAN CORPUSCULAR VOLUME 81.2 FL (80.0-94.0); MEAN PLATELET VOLUME 8.4 FL (7.4-10.4); PLATELET COUNT 147 /CUMM (130-400); RBC DISTRIBUTION WIDTH 16.7 % (11.5-14.5); RED BLOOD CELL CT 3.44 /CUMM (4.70-6.10); WHITE BLOOD CELL COUNT 5.3 /CUMM (4.8-10.8)
--- NOTE | 2017-10-22 13:28 | PN- Infect Dx ---
Subjective Subjective: Afebrile. His throat pain has improved. Objective Last 24 Hrs of Vital Signs/I&O Vital Signs Date Time Temp Pulse Resp B/P B/P Pulse O2 O2 Flow FiO2 Mean Ox Delivery Rate 10/22 0800 Nasal 1.0L Cannula 10/22 0730 80 124/72 10/22 0649 98.2 80 18 124/72 96 Nasal 1.0L Cannula 10/22 0000 Nasal 2.0L Cannula 10/21 2251 99.3 93 16 118/70 98 10/21 1433 98.3 94 20 99/63 97 Nasal 2.0L Cannula Intake & Output 10/22 1600 10/22 0800 10/22 0000 Intake Total 170 175 Output Total 1000 850 Balance -830 -675 Intake, IV 120 Intake, Oral 50 175 Output, Urine 1000 850 Patient 157 lb Weight Physical Exam Other Physical Findings: He appears comfortable in no acute distress HEENT negative Lungs are clear Heart regular rhythm with a 2/6 systolic ejection murmur Back no CVA tenderness Harper catheter remains in place Results Last 24 Hours of Lab Results: Laboratory Tests 10/22 0616 Chemistry Sodium (137 - 145 mmol/L) 141 Potassium (3.5 - 5.1 mmol/L) 3.6 Chloride (98 - 107 mmol/L) 106 Carbon Dioxide (22 - 30 mmol/L) 27 Anion Gap (5 - 16) 9 BUN (9 - 20 mg/dL) 13 Creatinine (0.7 - 1.2 mg/dL) 0.8 Estimated GFR (>60 ml/min) > 60 BUN/Creatinine Ratio (7 - 25 %) 16.3 Hematology CBC w Diff NO MAN DIFF REQ WBC (4.8 - 10.8 /CUMM) 5.3 RBC (4.70 - 6.10 /CUMM) 3.44 L Hgb (14.0 - 18.0 G/DL) 9.2 L Hct (42 - 52 %) 27.9 L MCV (80.0 - 94.0 FL) 81.2 MCH (27.0 - 31.0 PG) 26.6 L MCHC (33.0 - 37.0 G/DL) 32.8 L RDW (11.5 - 14.5 %) 16.7 H Plt Count (130 - 400 /CUMM) 147 MPV (7.4 - 10.4 FL) 8.4 Gran % (42.2 - 75.2 %) 76.1 H Lymphocytes % (20.5 - 51.1 %) 9.2 L Monocytes % (1.7 - 9.3 %) 10.4 H Eosinophils % (0 - 5 %) 4.1 Basophils % (0.0 - 2.0 %) 0.2 Absolute Granulocytes (1.4 - 6.5 /CUMM) 4.0 Absolute Lymphocytes (1.2 - 3.4 /CUMM) 0.5 L Absolute Monocytes (0.10 - 0.60 /CUMM) 0.5 Absolute Eosinophils (0.0 - 0.7 /CUMM) 0.2 Absolute Basophils (0.0 - 0.2 /CUMM) 0 Last 24 Hours of [place] Results: Stool C. difficile October 22 pending Blood cultures October 19 negative Recent Imaging Studies: Renal ultrasound October 21 no evidence of hydronephrosis Assessment/Plan ID Impression: Stable, with temperatures and white blood cell count remaining normal, on Unasyn , Day 5 of treatment for recurrent Escherichia coli sepsis, presumably of urologic origin, status post right ESWL 6 days prior to admission, with his initial CT of the abdomen and pelvis revealing persistent hydronephrosis of the right kidney with gas collections in the right collecting system, but with the recent renal ultrasound negative for hydronephrosis. The gas collections did raise concern for possible emphysematous pyelitis but, apparently, there are no plans for further urologic intervention at this time. Prosthetic valve endocarditis does need to be considered as he appears to be infected with the same Escherichia coli as the one isolated from his previous episode of sepsis, and he was apparently scheduled for a NIRAJ today. His hospital course has also been complicated by a possible partially treated epiglottitis, which should be adequately covered by the Unasyn. Suggestion: 1. Urology follow-up regarding removal of the Harper catheter and need for any further imaging 2. Await NIRAJ 3. Follow-up stool C. difficile 4. Continue Unasyn pending above
[2017-10-22 14:41] VITALS: BP 94/60
--- NOTE | 2017-10-22 17:59 | PN- Cardiology ---
Subjective Subjective: No complaints. Objective Vital Signs and I&Os Vital Signs Date Time Temp Pulse Resp B/P B/P Pulse O2 O2 Flow FiO2 Mean Ox Delivery Rate 10/22 1441 98.2 90 18 94/60 96 Nasal 1.0L Cannula 10/22 1414 98 Nasal 1.5L Cannula 10/22 0800 Nasal 1.0L Cannula 10/22 0730 80 124/72 10/22 0649 98.2 80 18 124/72 96 Nasal 1.0L Cannula 10/22 0000 Nasal 2.0L Cannula 10/21 2251 99.3 93 16 118/70 98 Intake & Output 10/22 1600 10/22 0800 10/22 0000 10/21 1600 10/21 0800 10/21 0000 Intake Total 460 170 175 940 290 100 Output Total 700 8085 912 2194 1000 1700 Balance -240 -830 -675 -160 -710 -1600 Intake, IV 100 120 100 240 Intake, Oral 360 50 175 840 50 100 Number 2 2 1 Bowel Movements Output, Urine 700 5168 041 2591 1000 1700 Patient 157 lb 161 lb Weight Physical Exam: Well-developed middle-aged male in no acute distress. Vital signs: See above. Neck: No JVD, no bruits. Lungs: Clear to auscultation bilaterally. Heart: S1, S2 with grade 1-2/6 systolic murmur. No gallop, or rub. Abdomen: Soft, nontender, positive bowel sounds, Extremities: No edema. Current Medications: Current Medications Sig/Tobin Start time Last Medication Dose Route Stop Time Status Admin Acetaminophen 650 MG Q6P PRN 10/18 0330 AC PO Acetaminophen 1,000 MG Q6P PRN 10/18 0330 AC IV Albuterol Sulfate 3 ML Q4P PRN 10/19 2100 AC 10/19 INH 2053 Ampicillin Sodium/ 3,000 MG Q6 10/19 1800 AC 10/22 Sulbactam Sodium IV 1638 Sodium Chloride 100 ML Aspirin 81 MG DAILY 10/18 1000 AC 10/22 PO 0729 Atorvastatin Calcium 40 MG 1700 10/18 1700 AC 10/22 PO 1637 Benzocaine/Menthol 1 DWIGHT Q2P PRN 10/20 0945 AC 10/22 PO 0527 Cholecalciferol 1,000 IU DAILY 10/18 1000 AC 10/21 PO 0811 Dextromethorphan/ 1 CAP Q12 10/18 1000 AC 10/22 Quinidine PO 0730 Divalproex Sodium 500 MG 2200 10/18 2200 AC 10/21 PO 2112 Lidocaine 0 .STK-MED ONE 10/22 0916 DC TOP Magnesium Oxide 400 MG DAILY 10/18 1000 AC 10/22 PO 0729 Metoprolol Succinate 25 MG DAILY 10/20 1248 AC 10/22 PO 0730 Omeprazole 40 MG DAILY AC 10/19 0700 AC 10/22 PO 0508 Ondansetron HCl 4 MG Q6P PRN 10/19 1130 AC IV Oxybutynin Chloride 5 MG FOUR TIMES A DAY 10/18 1200 AC 10/22 PO 1638 Sertraline HCl 200 MG DAILY 10/18 1000 AC 10/22 PO 0730 Results Last 48 Hrs of Labs/Mics: Laboratory Tests 10/22/17 0616: Anion Gap 9, Estimated GFR > 60, BUN/Creatinine Ratio 16.3, CBC w Diff NO MAN DIFF REQ, RBC 3.44 L, MCV 81.2, MCH 26.6 L, MCHC 32.8 L, RDW 16.7 H, MPV 8.4 , Gran % 76.1 H, Lymphocytes % 9.2 L, Monocytes % 10.4 H, Eosinophils % 4.1, Basophils % 0.2, Absolute Granulocytes 4.0, Absolute Lymphocytes 0.5 L, Absolute Monocytes 0.5, Absolute Eosinophils 0.2, Absolute Basophils 0 10/21/17 0638: Anion Gap 11, Estimated GFR > 60, BUN/Creatinine Ratio 15.6, Magnesium 1.8, CBC w Diff NO MAN DIFF REQ, RBC 3.38 L, MCV 81.6, MCH 27.0, MCHC 33.0, RDW 16.0 H, MPV 8.4, Gran % 79.5 H, Lymphocytes % 6.9 L, Monocytes % 10.4 H, Eosinophils % 3.0, Basophils % 0.2, Absolute Granulocytes 5.1, Absolute Lymphocytes 0.4 L, Absolute Monocytes 0.7 H, Absolute Eosinophils 0.2, Absolute Basophils 0 Recent Imaging Studies: Renal ultrasound 10/21/2017: 1. No sonographic evidence of right-sided hydronephrosis. 2. Likely nonobstructing right renal calculus measuring 0.9 cm at the mid forearm. 3. Probable left renal nonobstructing calculi versus prominent fat. 4. Suboptimally distended, grossly unremarkable urinary bladder. 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, and recurrent UTIs s/p admission (09/06-09/14/2017) w/ sepsis of urological origin 2/2 to E.coli, found to have a right hydronephrosis, right ureteral calculi and foci of gas w/i the right mid pole collecting system, s/p cystoscopy, placement of a right right ureteral stent & treatment w/ a 2 wk course of Abx, s/p post right renal ESWL 10/12/2017 w/ ciprofloxacin prophylaxis and the initiation of Levaquin 10/17/2017 who presented to the ED 10/18/2017 from STR w/ AMS, decreased by mouth intake, lethargy, etc., fever, an elevated WBC count and positive BCs 2 for GNR rods w/ urosepsis and associated hypotension that improved with standard measures (antimicrobial therapy, IV hydration, pressors, etc.) who we are asked to evaluate given the suspicion of infective endocarditis (IE). The plan was to perform a NIRAJ today, but the patient refused to have the procedure performed. We will discuss further. Continue telemetry? Yes
[2017-10-22 22:27] VITALS: BP 122/76
[2017-10-23 07:15] VITALS: BP 116/74
--- NOTE | 2017-10-23 08:25 | PN- Housestaff ---
Subjective Follow-up For: Septic shock secondary to UTIimproved Subacutepartially treated epiglottitis Bacteremia with E. coli Tele-Events Since Last Visit: Normal sinus rhythm, 931 03 Subjective: Patient was seen and examined at bedside, no overnight events, afebrile, denies any diarrhea, fever, chills, sweating, nausea, vomiting. Most likely will be going for NIRAJ on Wednesday Review of Systems Constitutional: Reports: see HPI. Objective Last 24 Hrs of Vital Signs/I&O Vital Signs Date Time Temp Pulse Resp B/P B/P Pulse O2 O2 Flow FiO2 Mean Ox Delivery Rate 10/23 1023 96 Nasal 1.5L Cannula 10/23 0715 98.2 95 18 116/74 95 Room Air 10/22 2227 97.8 83 16 122/76 96 10/22 2056 Room Air 10/22 1441 98.2 90 18 94/60 96 Nasal 1.0L Cannula 10/22 1414 98 Nasal 1.5L Cannula Intake & Output 10/23 1600 10/23 0800 10/23 0000 Intake Total 450 Output Total 1400 650 Balance -950 -650 Intake, IV 250 Intake, Oral 200 Output, Urine 1400 650 Patient 153 lb Weight Physical Exam General Appearance: Alert, Oriented X3, Cooperative, No Acute Distress HEENT: Atraumatic, PERRLA, EOMI, Mucous Membr. moist/pink Neck: Supple, No JVD Cardiovascular: Normal S1, Normal S2, No Murmurs Lungs: Clear to Auscultation Abdomen: Normal Bowel Sounds, Soft Neurological: Normal Speech, Strength at 5/5 X4 Ext, Normal Tone Extremities: No Clubbing, No Cyanosis, No Edema Vascular: Normal Pulses Assessment/Plan Assessment: 62-year-old male with history of coronary artery disease, status post CABG, mitral valve replacement, multiple sclerosis, spinal surgery, recent admission to hospital for sepsis of urologic origin with Escherichia coli, resident of [facility], was found to have 103F fever on Wednesday, with some altered mental status and a sodium of 129 for which he was placed on fluid restriction, was found to be progressively altered in mental status and was brought in by ambulance to the emergency department. Of note, his blood culture collected on Wednesday grew E coli. # Septic shock, 2/2 UTI Resolved Ultrasound did not show any evidence of hydronephrosis and showed normal size urinary bladder * Strict intake and output * OFF Harper catheter per Urology recs * Continue Unasyn. (Day 5) #H/o HTN Blood pressure running towards the lower side Continue metoprolol XL at 25 mg daily, half of his home free diet Continue to monitor blood pressure #Bacteremia with Escherichia coli, history of valve replacement Most likely will be going for NIRAJ on Wednesday. as per ID recommendation Continue Unasyn #Subacute/partially treated epiglottitis Improved -Benzocaine spray as needed Benzocaine lozenges for sore throat Patient passed bedside swallow eval after using the benzocaine spray #MARTÍN, improved Patient's baseline creatinine is 0.9-1, was found to have creatinine of 1.9 at presentation which is trending down to 0.8 today . We'll continue to monitor. We will avoid any nephrotoxins including contrast if possible. #Tachycardia/tachypnea, improved Ruled out PE/DVT. CXR is fairly benign. He is better today compared to yesterday , but he has had persistent tachycardia since his admission also tachypnea to 30s at times, which could be partially explained by the state of sepsis. However, given his thrombocytopenia he is not receiving any pharmacological DVT prophylaxis, VTE was ruled out #Altered mental status, improved The patient's mentation mostly seems to be well except at times when he doesn't recognize people he met during this admission. His sister who is also the POA tells us that this is his baseline. No focal neuro changes currently. Will watch for changes. #Thrombocytopenia Today's platelet count is 128, this appears to have been chronic, will continue to monitor and avoid heparin products for now. Another possibility is that this can be attributed to sepsis. #Diarrhea-improved Follow-up on C. difficile Patient has lactose intolerance, lactose-free diet Encourage p.o. intake #DVT ppx: ALPS only for recent hematuria #Diet: Regular diet #Code status: DNR/DNI Problem List: 1. Ear pain, right 2. Septic shock 3. Calculus, urinary Pain Ratin Pain Location: N/A Pain Goal: Remain pain free Pain Plan: [place] Tomorrow's Labs & Rationales: CBC BEP
[2017-10-23 08:50] LABS: ABSOLUTE BASOPHIL COUNT 0 /CUMM (0.0-0.2); ABSOLUTE EOSINOPHIL COUNT 0.3 /CUMM (0.0-0.7); ABSOLUTE GRANULOCYTE CT 4.6 /CUMM (1.4-6.5); ABSOLUTE LYMPH COUNT 0.7 /CUMM (1.2-3.4); ABSOLUTE MONOCYTE COUNT 0.7 /CUMM (0.10-0.60); BASOPHIL % 0.2 % (0.0-2.0); EOSINOPHIL % 4.4 % (0-5); GRANULOCYTE % 73.9 % (42.2-75.2); HEMATOCRIT 29.2 % (42-52); MEAN CORPUSCULAR HGB 26.8 PG (27.0-31.0); MEAN CORPUSCULAR HGB CONC 33.1 G/DL (33.0-37.0); MEAN CORPUSCULAR VOLUME 81.1 FL (80.0-94.0); MEAN PLATELET VOLUME 7.7 FL (7.4-10.4); PLATELET COUNT 187 /CUMM (130-400); RBC DISTRIBUTION WIDTH 16.5 % (11.5-14.5); WHITE BLOOD CELL COUNT 6.2 /CUMM (4.8-10.8)
--- NOTE | 2017-10-23 11:53 | PN- Cardiology ---
Subjective Subjective: The patient has no cardiac complaints today. He is not had any arrhythmias. Latest blood cultures remained negative. NIRAJ has been rescheduled for Wednesday. Objective Vital Signs and I&Os Vital Signs Date Time Temp Pulse Resp B/P B/P Pulse O2 O2 Flow FiO2 Mean Ox Delivery Rate 10/23 1023 96 Nasal 1.5L Cannula 10/23 0800 Nasal 2.0L Cannula 10/23 0715 98.2 95 18 116/74 95 Room Air 10/22 2227 97.8 83 16 122/76 96 10/23 2055 Room Air 10/22 1441 98.2 90 18 94/60 96 Nasal 1.0L Cannula 10/22 1414 98 Nasal 1.5L Cannula Intake & Output 10/23 1600 10/23 0800 10/23 0000 10/22 1600 10/22 0800 10/22 0000 Intake Total 450 460 170 175 Output Total 1400 081 860 9781 850 Balance -950 -650 -240 -830 -675 Intake, IV 250 100 120 Intake, Oral 200 360 50 175 Number 2 Bowel Movements Output, Urine 1400 845 259 2473 850 Patient 153 lb 157 lb Weight Physical Exam: He is in no distress Chest is clear Heart regular rhythm no murmurs Extremities no edema Current Medications: Current Medications Sig/Tobin Start time Last Medication Dose Route Stop Time Status Admin Acetaminophen 650 MG Q6P PRN 10/18 0330 AC PO Acetaminophen 1,000 MG Q6P PRN 10/18 0330 AC IV Albuterol Sulfate 3 ML Q4P PRN 10/19 2100 DC 10/19 INH 2053 Ampicillin Sodium/ 3,000 MG Q6 10/19 1800 AC 10/23 Sulbactam Sodium IV 0609 Sodium Chloride 100 ML Aspirin 81 MG DAILY 10/18 1000 AC 10/23 PO 0823 Atorvastatin Calcium 40 MG 1700 10/18 1700 AC 10/22 PO 1637 Benzocaine/Menthol 1 DWIGHT Q2P PRN 10/20 0945 AC 10/22 PO 0527 Cholecalciferol 1,000 IU DAILY 10/18 1000 AC 10/23 PO 0823 Dextromethorphan/ 1 CAP Q12 10/18 1000 AC 10/23 Quinidine PO 0825 Divalproex Sodium 500 MG 2200 10/18 2200 AC 10/22 PO 2049 Magnesium Oxide 400 MG DAILY 10/18 1000 AC 10/23 PO 0823 Metoprolol Succinate 25 MG DAILY 10/20 1248 AC 10/23 PO 0824 Omeprazole 40 MG DAILY AC 10/19 0700 AC 10/23 PO 0615 Ondansetron HCl 4 MG Q6P PRN 10/19 1130 AC IV Oxybutynin Chloride 5 MG FOUR TIMES A DAY 10/18 1200 AC 10/23 PO 0823 Sertraline HCl 200 MG DAILY 10/18 1000 AC 10/23 PO 0823 Results Last 48 Hrs of Labs/Mics: Laboratory Tests 10/23/17 0630: Anion Gap 10, Estimated GFR > 60, BUN/Creatinine Ratio 15.6, CBC w Diff NO MAN DIFF REQ, RBC 3.60 L, MCV 81.1, MCH 26.8 L, MCHC 33.1, RDW 16.5 H, MPV 7.7, Gran % 73.9, Lymphocytes % 10.7 L, Monocytes % 10.8 H, Eosinophils % 4.4, Basophils % 0.2, Absolute Granulocytes 4.6, Absolute Lymphocytes 0.7 L, Absolute Monocytes 0.7 H, Absolute Eosinophils 0.3, Absolute Basophils 0 10/22/17 0616: Anion Gap 9, Estimated GFR > 60, BUN/Creatinine Ratio 16.3, CBC w Diff NO MAN DIFF REQ, RBC 3.44 L, MCV 81.2, MCH 26.6 L, MCHC 32.8 L, RDW 16.7 H, MPV 8.4 , Gran % 76.1 H, Lymphocytes % 9.2 L, Monocytes % 10.4 H, Eosinophils % 4.1, Basophils % 0.2, Absolute Granulocytes 4.0, Absolute Lymphocytes 0.5 L, Absolute Monocytes 0.5, Absolute Eosinophils 0.2, Absolute Basophils 0 Assessment/Plan Assessment/Plan The patient is stable from a cardiac standpoint. He is still pending a NIRAJ to rule out endocarditis as he does have a prosthetic mitral valve. He has not had any arrhythmias and his enzymes are negative so telemetry can be discontinued at this time. Continue telemetry? No
--- NOTE | 2017-10-23 13:28 | PN- Att Addend ---
Attending Addendum Attending Brief Note Patient seen and examined. Plan of care discussed with the medical team and the patient. Available lab work and radiology test reports were reviewed. Patient is found to be lying in bed. He appears lethargic. He reports that he has not been able to ambulate. Patient reported the some loose motions overnight; C. difficile percent which is currently pending Exam: General: Patient awake but lethargic; appears oriented without any distress CVS: S1 plus S2 without any murmur or gallops Chest: Few scattered crepitation without any wheeze. There is no respiratory distress. Abdomen: Soft non-tender, bowel sound present, no guarding or rebound DIGITAL CONTENT SPECIALIST: Awake alert oriented without any focal neuro deficit and follows commands appropriately Extremities: No edema; no clubbing or cyanosis noted Current Medications Sig/Tobin Start time Last Medication Dose Route Stop Time Status Admin Acetaminophen 650 MG Q6P PRN 10/18 0330 AC PO Acetaminophen 1,000 MG Q6P PRN 10/18 0330 AC IV Albuterol Sulfate 3 ML Q4P PRN 10/19 2100 DC 10/19 INH 2053 Ampicillin Sodium/ 3,000 MG Q6 10/19 1800 AC 10/23 Sulbactam Sodium IV 1225 Sodium Chloride 100 ML Aspirin 81 MG DAILY 10/18 1000 AC 10/23 PO 0823 Atorvastatin Calcium 40 MG 1700 10/18 1700 AC 10/22 PO 1637 Benzocaine/Menthol 1 DWIGHT Q2P PRN 10/20 0945 AC 10/22 PO 0527 Cholecalciferol 1,000 IU DAILY 10/18 1000 AC 10/23 PO 0823 Dextromethorphan/ 1 CAP Q12 10/18 1000 AC 10/23 Quinidine PO 0825 Divalproex Sodium 500 MG 2200 10/18 2200 AC 10/22 PO 2049 Magnesium Oxide 400 MG DAILY 10/18 1000 AC 10/23 PO 0823 Metoprolol Succinate 25 MG DAILY 10/20 1248 AC 10/23 PO 0824 Omeprazole 40 MG DAILY AC 10/19 0700 AC 10/23 PO 0615 Ondansetron HCl 4 MG Q6P PRN 10/19 1130 AC IV Oxybutynin Chloride 5 MG FOUR TIMES A DAY 10/18 1200 AC 10/23 PO 0823 Sertraline HCl 200 MG DAILY 10/18 1000 AC 10/23 PO 0823 Laboratory Tests 10/23/17 0630: Anion Gap 10, Estimated GFR > 60, BUN/Creatinine Ratio 15.6, CBC w Diff NO MAN DIFF REQ, RBC 3.60 L, MCV 81.1, MCH 26.8 L, MCHC 33.1, RDW 16.5 H, MPV 7.7, Gran % 73.9, Lymphocytes % 10.7 L, Monocytes % 10.8 H, Eosinophils % 4.4, Basophils % 0.2, Absolute Granulocytes 4.6, Absolute Lymphocytes 0.7 L, Absolute Monocytes 0.7 H, Absolute Eosinophils 0.3, Absolute Basophils 0 10/22/17 0616: Anion Gap 9, Estimated GFR > 60, BUN/Creatinine Ratio 16.3, CBC w Diff NO MAN DIFF REQ, RBC 3.44 L, MCV 81.2, MCH 26.6 L, MCHC 32.8 L, RDW 16.7 H, MPV 8.4 , Gran % 76.1 H, Lymphocytes % 9.2 L, Monocytes % 10.4 H, Eosinophils % 4.1, Basophils % 0.2, Absolute Granulocytes 4.0, Absolute Lymphocytes 0.5 L, Absolute Monocytes 0.5, Absolute Eosinophils 0.2, Absolute Basophils 0 10/21/17 0638: Anion Gap 11, Estimated GFR > 60, BUN/Creatinine Ratio 15.6, Magnesium 1.8, CBC w Diff NO MAN DIFF REQ, RBC 3.38 L, MCV 81.6, MCH 27.0, MCHC 33.0, RDW 16.0 H, MPV 8.4, Gran % 79.5 H, Lymphocytes % 6.9 L, Monocytes % 10.4 H, Eosinophils % 3.0, Basophils % 0.2, Absolute Granulocytes 5.1, Absolute Lymphocytes 0.4 L, Absolute Monocytes 0.7 H, Absolute Eosinophils 0.2, Absolute Basophils 0 Microbiology 10/22 1305 STOOL: Clostridium difficile Toxin A & B - RECD Vital Signs Date Time Temp Pulse Resp B/P B/P Pulse O2 O2 Flow FiO2 Mean Ox Delivery Rate 10/23 1023 96 Nasal 1.5L Cannula 10/23 0800 Nasal 2.0L Cannula 10/23 0715 98.2 95 18 116/74 95 Room Air 10/22 2227 97.8 83 16 122/76 96 10/22 2056 Room Air 10/22 1441 98.2 90 18 94/60 96 Nasal 1.0L Cannula 10/22 1414 98 Nasal 1.5L Cannula Intake & Output 10/23 1600 10/23 0800 10/23 0000 Intake Total 450 Output Total 1400 650 Balance -950 -650 Intake, IV 250 Intake, Oral 200 Output, Urine 1400 650 Patient 153 lb Weight Assessment * Septic shock secondary to UTI * Diarrhea C. difficile pending * Subacute epiglottitis- improved * Bacteremia with Escherichia coli * History of prostatic heart valve * Rule out endocarditis- plan for NIRAJ on Wednesday * Right hydronephrosis resolved Plan Proceed with NIRAJ on Wednesday Continue Unasyn Out of bed and ambulate with assist
[2017-10-23 14:22] VITALS: BP 108/62
[2017-10-23 23:12] VITALS: BP 132/88
[2017-10-24 07:14] VITALS: BP 110/70
[2017-10-24 08:19] LABS: ABSOLUTE BASOPHIL COUNT 0 /CUMM (0.0-0.2); ABSOLUTE EOSINOPHIL COUNT 0.2 /CUMM (0.0-0.7); ABSOLUTE GRANULOCYTE CT 4.8 /CUMM (1.4-6.5); ABSOLUTE LYMPH COUNT 0.6 /CUMM (1.2-3.4); ABSOLUTE MONOCYTE COUNT 0.5 /CUMM (0.10-0.60); BASOPHIL % 0.2 % (0.0-2.0); GRANULOCYTE % 77.9 % (42.2-75.2); HEMATOCRIT 29.1 % (42-52); MEAN CORPUSCULAR HGB CONC 33.3 G/DL (33.0-37.0); MEAN CORPUSCULAR VOLUME 81.2 FL (80.0-94.0); MEAN PLATELET VOLUME 7.5 FL (7.4-10.4); PLATELET COUNT 190 /CUMM (130-400); RBC DISTRIBUTION WIDTH 16.3 % (11.5-14.5); RED BLOOD CELL CT 3.59 /CUMM (4.70-6.10); WHITE BLOOD CELL COUNT 6.2 /CUMM (4.8-10.8)
--- NOTE | 2017-10-24 09:54 | PN- Urology ---
Surgical Brief Attending Note Brief Attending Note: Pt overall improved: vss afebrile: wbc wnl. NO hyro on f/u renal US. Plan is to keep stent for now until pt well recovered from recent sepsis: pt to proceed with full workup for other potential source of infection.
--- NOTE | 2017-10-24 12:13 | PN- Housestaff ---
Subjective Follow-up For: Septic shock secondary to UTIimproved Subacutepartially treated epiglottitis Bacteremia with E. coli Tele-Events Since Last Visit: No events Subjective: Patient was seen and examined this morning, he complained of his regular daily bowel movement around 7 AM. Patient does not like soiling himself. He would sit on the commode but request to remove it away after a few minutes and then he will have incontinence. I discussed with the patient that having regular daily bowel movement is a normal thing, it has normal consistency not watery and no frequency. He should ask for help every morning and sit for enough time on the commode. Spoke with the nurse and agreed on the plan. Patient denies any abdominal pain, nausea or vomiting. Denied fever or chills. Review of Systems Constitutional: Reports: see HPI. Objective Last 24 Hrs of Vital Signs/I&O Vital Signs Date Time Temp Pulse Resp B/P B/P Pulse O2 O2 Flow FiO2 Mean Ox Delivery Rate 10/24 0952 80 110/70 10/24 0714 98.1 80 20 110/70 96 Room Air 10/23 2312 98.6 75 18 132/88 93 10/23 2111 Room Air Intake & Output 10/24 1600 10/24 0800 10/24 0000 Intake Total 210 Output Total 800 650 Balance -590 -650 Intake, IV 200 Intake, Oral 10 Number 1 1 Bowel Movements Output, Urine 800 650 Patient 69.201 kg Weight Physical Exam General Appearance: Alert, Oriented X3, Cooperative, No Acute Distress Skin: No Rashes Skin Temp/Moisture Exam: Warm/Dry HEENT: Atraumatic, PERRLA, EOMI, Mucous Membr. moist/pink Neck: Supple Cardiovascular: Regular Rate, Normal S1, Normal S2, No Murmurs Lungs: Clear to Auscultation, Normal Air Movement Abdomen: Normal Bowel Sounds, Soft, No Tenderness Neurological: Normal Speech Extremities: No Clubbing, No Cyanosis, No Edema, Normal Pulses Assessment/Plan Assessment: 62-year-old male with history of coronary artery disease, status post CABG, mitral valve replacement, multiple sclerosis, spinal surgery, recent admission to hospital for sepsis of urologic origin with Escherichia coli, resident of [facility], was found to have 103F fever on Wednesday, with some altered mental status and a sodium of 129 for which he was placed on fluid restriction, was found to be progressively altered in mental status and was brought in by ambulance to the emergency department. Of note, his blood culture collected on Wednesday grew E coli. # Septic shock, 2/2 UTI Resolved Ultrasound did not show any evidence of hydronephrosis and showed normal size urinary bladder * Strict intake and output * OFF Harper catheter per Urology recs * Continue Unasyn. (Day 6) #H/o HTN Blood pressure running towards the lower side Continue metoprolol XL at 25 mg daily, half of his home free diet Continue to monitor blood pressure #Bacteremia with Escherichia coli, history of valve replacement Patient scheduled for NIRAJ on Wednesday. as per ID recommendation. N.p.o. order is an Continue Unasyn #Subacute/partially treated epiglottitis Improved -Benzocaine spray as needed Benzocaine lozenges for sore throat Patient passed bedside swallow eval after using the benzocaine spray #MARTÍN, improved Patient's baseline creatinine is 0.9-1, was found to have creatinine of 1.9 at presentation, back to normal. We will avoid any nephrotoxins including contrast if possible. #Tachycardia/tachypnea, improved #Altered mental status, improved #Thrombocytopenia, improved #Diarrhea-improved C. difficile negative Patient has lactose intolerance, lactose-free diet Encourage p.o. intake #DVT ppx: ALPS only for recent hematuria #Diet: Regular diet--n.p.o. at midnight #Code status: DNR/DNI Problem List: 1. Sepsis 2. Calculus, urinary 3. Multiple sclerosis Pain Ratin Pain Location: n/a Pain Goal: Pain 4 or less Pain Plan: see medication Tomorrow's Labs & Rationales: BEP
--- NOTE | 2017-10-24 12:48 | PN- Att Addend ---
Attending Addendum Attending Brief Note Patient seen and examined. Plan of care discussed with the medical team and the patient. Available lab work and radiology test reports were reviewed. Patient is found to be lying in bed. He appears lethargic and pale. He reports that he has not been able to ambulate. Patient has been incontinent of stool. C. difficile was negative. Exam: General: Patient awake but lethargic; appears oriented without any distress CVS: S1 plus S2 without any murmur or gallops Chest: Few scattered crepitation without any wheeze. There is no respiratory distress. Abdomen: Soft non-tender, bowel sound present, no guarding or rebound RN NEONATAL: Awake alert oriented without any focal neuro deficit and follows commands appropriately Extremities: No edema; no clubbing or cyanosis noted Assessment * Septic shock secondary to UTI * Diarrhea C. difficile pending * Subacute epiglottitis- improved * Bacteremia with Escherichia coli * History of prostatic heart valve * Rule out endocarditis- plan for NIRAJ on Wednesday * Right hydronephrosis resolved * Hypokalemia Plan Proceed with NIRAJ on Wednesday; keep nothing by mouth post midnight Replace potassium by mouth 40 mEq Recheck potassium tomorrow No need to repeat CBC tomorrow Continue Unasyn Out of bed and ambulate with assist Current Medications Sig/Tobin Start time Last Medication Dose Route Stop Time Status Admin Acetaminophen 650 MG Q6P PRN 10/18 033 AC PO Acetaminophen 1,000 MG Q6P PRN 10/18 0330 AC IV Ampicillin Sodium/ 3,000 MG Q6 10/19 1800 AC 10/24 Sulbactam Sodium IV 0602 Sodium Chloride 100 ML Aspirin 81 MG DAILY 10/18 1000 AC 10/24 PO 0954 Atorvastatin Calcium 40 MG 17010/18 1700 AC 10/23 PO 1732 Benzocaine/Menthol 1 DWIGHT Q2P PRN 10/20 0945 AC 10/22 PO 0527 Cholecalciferol 1,000 IU DAILY 10/18 1000 AC 10/24 PO 0951 Dextromethorphan/ 1 CAP Q12 10/18 1000 AC 10/24 Quinidine PO 0953 Divalproex Sodium 500 MG 2200 10/18 2200 AC 10/23 PO 2047 Magnesium Oxide 400 MG DAILY 10/18 1000 AC 10/24 PO 0952 Metoprolol Succinate 25 MG DAILY 10/20 1248 AC 10/24 PO 0952 Omeprazole 40 MG DAILY AC 10/19 0700 AC 10/24 PO 0602 Ondansetron HCl 4 MG Q6P PRN 10/19 1130 AC IV Oxybutynin Chloride 5 MG FOUR TIMES A DAY 10/18 1200 AC 10/24 PO 0950 Potassium Chloride 40 MEQ ONCE ONE 10/24 1030 DC PO 10/24 1031 Sertraline HCl 200 MG DAILY 10/18 1000 AC 10/24 PO 0950 Vital Signs Date Time Temp Pulse Resp B/P B/P Pulse O2 O2 Flow FiO2 Mean Ox Delivery Rate 10/24 0952 80 110/70 10/24 0714 98.1 80 20 110/70 96 Room Air 10/23 2312 98.6 75 18 132/88 93 10/23 2111 Room Air 10/23 1422 98.1 80 18 108/62 96 Room Air Intake & Output 10/24 1600 10/24 0800 10/24 0000 Intake Total 210 Output Total 800 650 Balance -590 -650 Intake, IV 200 Intake, Oral 10 Number 1 1 Bowel Movements Output, Urine 800 650 Patient 153 lb Weight
[2017-10-24 15:08] VITALS: BP 114/72
[2017-10-24 23:00] VITALS: BP 114/78
[2017-10-25 06:00] VITALS: BP 114/70
--- NOTE | 2017-10-25 09:23 | Patient Discharge Instructions ---
Discharge Instructions General Discharge Information You were seen/treated for: Septic shock secondary to UTIimproved Subacutepartially treated epiglottitis Bacteremia with E. coli Special Instructions: 1-please follow up with pcp in 1 week of discharge 2-please follow up with urologist in 1 week of discharge Diet Continue normal diet: Yes Recommended Diet: Regular Acute Coronary Syndrome Inclusion Criteria At DC or during hospital stay patient has or had the following: ACS DIAGNOSIS No Discharge Core Measures Meds if any: Prescribed or Continued at Discharge Meds if any: NOT Prescribed or Continued at Discharge Congestive Heart Failure Inclusion Criteria At DC or during hospital stay patient has or had the following: CHF DIAGNOSIS No Discharge Core Measures Meds if any: Prescribed or Continued at Discharge Meds if any: NOT Prescribed or Continued at Discharge Cerebrovascular accident Inclusion Criteria At DC or during hospital stay patient has or had the following: CVA/TIA Diagnosis No Discharge Core Measures Meds if any: Prescribed or Continued at Discharge Meds if any: NOT Prescribed or Continued at Discharge Venous thromboembolism Inclusion Criteria VTE Diagnosis No VTE Type NONE VTE Confirmed by (Test) NONE Discharge Core Measures - Per Current guidelines, there needs to be overlap - treatment for the first 5 days of Warfarin therapy. - If discharged on Warfarin prior to 5 days of - overlap therapy, the patient will need to be - assessed for post discharge needs including - *Post discharge parental anticoagulation - *Warfarin and/or parental anticoagulation education - *Follow up date to check INR post discharge At least 5 days overlap therapy as Inpatient No Meds if any: Prescribed or Continued at Discharge Note: Overlap Therapy is Warfarin and Anticoagulant Meds if any: NOT Prescribed or Continued at Discharge
--- NOTE | 2017-10-25 11:25 | PN- Infect Dx ---
Subjective Subjective: Afebrile without complaints. He has had no further diarrhea. Objective Last 24 Hrs of Vital Signs/I&O Vital Signs Date Time Temp Pulse Resp B/P B/P Pulse O2 O2 Flow FiO2 Mean Ox Delivery Rate 10/25 0600 98.0 89 18 114/70 95 10/24 2300 99.1 94 18 114/78 97 10/24 1508 97.5 90 18 114/72 96 Room Air Intake & Output 10/25 1600 10/25 0800 10/25 0000 Intake Total 220 100 Output Total 450 300 Balance -230 -200 Intake, IV 220 Intake, Oral 100 Number 1 Bowel Movements Output, Urine 450 300 Patient 149 lb Weight Physical Exam Other Physical Findings: He appears comfortable in no acute distress Lungs are clear Heart regular rhythm with a 1/6 systolic ejection murmur Abdomen is soft, nontender with positive bowel sounds Back no CVA tenderness Results Last 24 Hours of Lab Results: Laboratory Tests 10/25 621 Chemistry Sodium (137 - 145 mmol/L) 141 Potassium (3.5 - 5.1 mmol/L) 3.8 Chloride (98 - 107 mmol/L) 105 Carbon Dioxide (22 - 30 mmol/L) 26 Anion Gap (5 - 16) 10 BUN (9 - 20 mg/dL) 12 Creatinine (0.7 - 1.2 mg/dL) 0.9 Estimated GFR (>60 ml/min) > 60 BUN/Creatinine Ratio (7 - 25 %) 13.3 Magnesium (1.6 - 2.3 mg/dL) 1.9 Last 24 Hours of Carlin Results: Stool C. difficile October 22 negative Assessment/Plan ID Impression: Stable, with temperatures and white blood cell count remaining normal, on Unasyn , Day 8 of treatment for recurrent Escherichia coli sepsis, presumably of urologic origin, status post right ESWL 6 days prior to admission, with resolution of the right sided hydronephrosis on his recent ultrasound. Prosthetic valve endocarditis does need to be considered as he appears to be infected with the same Escherichia coli as the one isolated from his previous episode of sepsis, and he is tentatively scheduled for a NIRAJ today. His hospital course has also been complicated by a possible partially treated epiglottitis, which should be adequately covered by the Unasyn. Suggestion: 1. Await NIRAJ possibly later today 2. Continue Unasyn pending above
--- NOTE | 2017-10-25 13:14 | PN- Housestaff ---
Damián BURNS,Laura 10/25/17 1314: Subjective Follow-up For: Septic shock secondary to UTIimproved Subacutepartially treated epiglottitis Bacteremia with E. coli ? prothetic valve endocarditis Complaints: no complaints Tele-Events Since Last Visit: off tele Subjective: Patient was seen and examined at bedside, still complains of diarrhea which he describes as 1 bowel movement every morning, of small amounts and formed. Patient denies any fever, cough, nausea, vomiting, diarrhea or constipation. Patient was n.p.o. overnight, would be going today for NIRAJ Review of Systems Constitutional: Reports: see HPI. Denies: no symptoms. Cardiovascular: Denies: no symptoms. Respiratory: Denies: no symptoms. Gastrointestinal: Reports: diarrhea. Genitourinary: Denies: no symptoms. Objective Last 24 Hrs of Vital Signs/I&O Vital Signs Date Time Temp Pulse Resp B/P B/P Pulse O2 O2 Flow FiO2 Mean Ox Delivery Rate 10/25 1122 114/70 10/25 0600 98.0 89 18 114/70 95 10/24 2300 99.1 94 18 114/78 97 10/24 1508 97.5 90 18 114/72 96 Room Air Intake & Output 10/25 1600 10/25 0800 10/25 0000 Intake Total 220 100 Output Total 450 300 Balance -230 -200 Intake, IV 220 Intake, Oral 100 Number 1 Bowel Movements Output, Urine 450 300 Patient 149 lb Weight Physical Exam General Appearance: Alert, Oriented X3, Cooperative, No Acute Distress HEENT: Atraumatic, PERRLA, EOMI Neck: Supple, No JVD Cardiovascular: Normal S1, Normal S2 Lungs: Clear to Auscultation Abdomen: Normal Bowel Sounds, Soft, No Tenderness Neurological: Normal Speech Extremities: No Clubbing, No Cyanosis, No Edema Vascular: Normal Pulses Assessment/Plan Assessment: 62-year-old male with history of coronary artery disease, status post CABG, Porcine mitral valve replacement, multiple sclerosis, spinal surgery, recent admission to hospital for sepsis of urologic origin with Escherichia coli, [facility], was found to have 103F fever on Wednesday, and AMS, hyponatremia, blood culture grew E. coli # Septic shock, 2/2 UTI * Resolved * Ultrasound did not show any evidence of hydronephrosis and showed normal size urinary bladder * Strict intake and output * OFF Harper catheter per Urology recs #H/o HTN * Blood pressure running towards the lower side * Continue metoprolol XL at 25 mg daily, half of his home free diet * Continue to monitor blood pressure #Bacteremia with Escherichia coli, history of valve replacement * Patient scheduled for NIRAJ today. as per ID recommendation. * Continue Unasyn (day 7) #Subacute/partially treated epiglottitis * Improved * Benzocaine spray as needed Benzocaine lozenges PRN for sore throat #MARTÍN, improved * Patient's baseline creatinine is 0.9, was found to have creatinine of 1.9 at presentation, back to normal. We will avoid any nephrotoxins including contrast if possible. #Tachycardia/tachypnea, improved #Altered mental status, improved #Thrombocytopenia, improved #Diarrhea-improved * C. difficile negative * Patient has lactose intolerance, lactose-free diet * Encourage p.o. intake #DVT ppx: ALPS only for recent hematuria #Diet: Regular diet--n.p.o. at midnight #Code status: DNR/DNI Problem List: 1. UTI (urinary tract infection) 2. Bacteremia Pain Ratin Pain Location: N/A Pain Goal: Remain pain free Pain Plan: pathway Tomorrow's Labs & Rationales: N/A Janet Elizondo MD 10/25/17 1417: Attending MD Review Statement Attending Statement Attending MD Statement: examined this patient, discuss w/resident/PA/THIRD GRADE TEACHER, agreed w/resident/PA/THIRD GRADE TEACHER, reviewed EMR data (avail), discussed with nursing, discussed with case mgmt, reviewed images Attending Assessment/Plan: This is a fairly complicated 62-year-old male with a past medical history of coronary artery disease status post bypass and a bioprosthetic mitral valve with multiple sclerosis is here with Escherichia coli sepsis of urological origin. Because he has grown the exact same Escherichia coli in the past there is a possibility of prosthetic valve endocarditis the plan is a NIRAJ today. Continuing IV Unasyn in the interim and will follow-up as per NIRAJ. He is a GEN med hold on telemetry. possibility of prosthetic valve endocarditis the plan is a NIRAJ today. Continuing IV Unasyn in the interim and will follow-up as per NIRAJ. He is a GEN med hold on telemetry.
[2017-10-25 15:20] VITALS: BP 110/68
--- NOTE | 2017-10-25 19:24 | PN- Cardiology ---
Subjective Subjective: No complaints. Denies fever, chills, diaphoresis, etc. Objective Vital Signs and I&Os Vital Signs Date Time Temp Pulse Resp B/P B/P Pulse O2 O2 Flow FiO2 Mean Ox Delivery Rate 10/25 1520 98.3 81 22 110/68 97 10/25 1122 114/70 10/25 0600 98.0 89 18 114/70 95 10/24 2300 99.1 94 18 114/78 97 Intake & Output 10/25 1600 10/25 0800 10/25 0000 10/24 1600 10/24 0800 10/24 0000 Intake Total 100 220 100 400 210 Output Total 400 450 300 500 800 650 Balance -300 -230 -200 -100 -590 -650 Intake, IV 100 220 200 Intake, Oral 0 100 400 10 Number 2 1 1 1 Bowel Movements Output, Urine 400 450 300 500 800 650 Patient 147 lb 149 lb 153 lb Weight Physical Exam: Well-developed middle-aged male in no acute distress. Vital signs: See above. Neck: No JVD, no bruits. Lungs: Clear to auscultation bilaterally. Heart: S1, S2 with grade 1-2/6 systolic murmur. No gallop, or rub. Abdomen: Soft, nontender, positive bowel sounds, Extremities: No edema. Current Medications: Current Medications Sig/Tobin Start time Last Medication Dose Route Stop Time Status Admin Acetaminophen 650 MG Q6P PRN 10/18 0330 AC PO Acetaminophen 1,000 MG Q6P PRN 10/18 0330 AC IV Ampicillin Sodium/ 3,000 MG Q6 10/19 1800 AC 10/25 Sulbactam Sodium IV 1743 Sodium Chloride 100 ML Aspirin 81 MG DAILY 10/18 1000 AC 10/25 PO 1120 Atorvastatin Calcium 40 MG 1700 10/18 1700 AC 10/25 PO 1659 Benzocaine/Menthol 1 DWIGHT Q2P PRN 10/20 0945 AC 10/22 PO 0527 Cholecalciferol 1,000 IU DAILY 10/18 1000 AC 10/25 PO 1121 Dextromethorphan/ 1 CAP Q12 10/18 1000 AC 10/25 Quinidine PO 1122 Divalproex Sodium 500 MG 2200 10/18 2200 AC 10/24 PO 2111 Fentanyl Citrate 0 .STK-MED ONE 10/25 1343 DC .ROUTE Magnesium Oxide 400 MG DAILY 10/18 1000 AC 10/24 PO 0952 Metoprolol Succinate 25 MG DAILY 10/20 1248 AC 10/25 PO 1122 Omeprazole 40 MG DAILY AC 10/19 0700 AC 10/25 PO 0515 Ondansetron HCl 4 MG Q6P PRN 10/19 1130 AC IV Oxybutynin Chloride 5 MG FOUR TIMES A DAY 10/18 1200 AC 10/25 PO 1121 Sertraline HCl 200 MG DAILY 10/18 1000 AC 10/25 PO 1122 Results Last 48 Hrs of Labs/Mics: Laboratory Tests 10/25/17 06: Anion Gap 10, Estimated GFR > 60, BUN/Creatinine Ratio 13.3, Magnesium 1.9 10/24/17 06: Anion Gap 9, Estimated GFR > 60, BUN/Creatinine Ratio 12.5, Magnesium 2.0, CBC w Diff NO MAN DIFF REQ, RBC 3.59 L, MCV 81.2, MCH 27.0, MCHC 33.3, RDW 16.3 H, MPV 7.5, Gran % 77.9 H, Lymphocytes % 9.2 L, Monocytes % 8.7, Eosinophils % 4.0, Basophils % 0.2, Absolute Granulocytes 4.8, Absolute Lymphocytes 0.6 L, Absolute Monocytes 0.5, Absolute Eosinophils 0.2, Absolute Basophils 0 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, and recurrent UTIs s/p admission (09/06-09/14/2017) w/ sepsis of urological origin 2/2 to E.coli, found to have a right hydronephrosis, right ureteral calculi and foci of gas w/i the right mid pole collecting system, s/p cystoscopy, placement of a right right ureteral stent & treatment w/ a 2 wk course of Abx, s/p post right renal ESWL 10/12/2017 w/ ciprofloxacin prophylaxis and the initiation of Levaquin 10/17/2017 who presented to the ED 10/18/2017 from STR w/ AMS, decreased by mouth intake, lethargy, etc., fever, an elevated WBC count and positive BCs 2 for GNR rods w/ urosepsis and associated hypotension that improved with standard measures (antimicrobial therapy, IV hydration, pressors, etc.) who we are asked to evaluate given the suspicion of infective endocarditis (IE). No evidence of infective endocarditis by NIRAJ performed earlier today. Continue telemetry? Yes
[2017-10-25 22:13] VITALS: BP 118/80
[2017-10-26 06:46] VITALS: BP 120/80
--- NOTE | 2017-10-26 07:01 | PN- Housestaff ---
[facility] Subjective Follow-up For: Septic shock secondary to UTI (resolved) E coli bacteremia Partially treated epiglottitis(resolved) Tele-Events Since Last Visit: Patient remained in A. fib with couple of PVCs and heart rate between [id number] Subjective: No overnight events. Patient remained afebrile would appear seen and examined this morning. Patient reported having 1 loose bowel movement. Patient denied any chest pain, short of breath, nausea, vomiting, abdominal pain and dysuria. NIRAJ was done yesterday. Review of Systems Constitutional: Reports: no symptoms. EENTM: Reports: no symptoms. Cardiovascular: Reports: no symptoms. Respiratory: Reports: no symptoms. Gastrointestinal: Reports: diarrhea. Genitourinary: Reports: no symptoms. Musculoskeletal: Reports: no symptoms. Neurological/Psychological: Reports: no symptoms. Objective Last 24 Hrs of Vital Signs/I&O Vital Signs Date Time Temp Pulse Resp B/P B/P Pulse O2 O2 Flow FiO2 Mean Ox Delivery Rate 10/26 0646 98.0 86 20 120/80 98 Room Air 10/25 2213 98.5 84 19 118/80 96 10/25 1520 98.3 81 22 110/68 97 10/25 1122 114/70 Intake & Output 10/26 1600 10/26 0800 10/26 0000 Intake Total 440 100 Output Total 450 Balance -10 100 Intake, IV 240 Intake, Oral 200 100 Output, Urine 450 Patient 150 lb Weight Physical Exam General Appearance: Alert, Oriented X3, Cooperative Skin: No Rashes Skin Temp/Moisture Exam: Warm/Dry Sepsis Skin Exam (color): Normal for Ethnicity HEENT: Atraumatic, PERRLA, EOMI Neck: Supple Cardiovascular: Normal S1, Normal S2 Lungs: Clear to Auscultation, Normal Air Movement Abdomen: Soft, No Tenderness Neurological: Normal Speech, Strength at 5/5 X4 Ext, Normal Tone Extremities: No Edema Assessment/Plan Assessment: 62 YO M with PMH of CAD s/p CABG, Porcine mitral valve replacement, multiple sclerosis, spinal surgery, recent admission to hospital for sepsis of urologic origin with Escherichia coli, [facility], was found to have 103F fever on Wednesday, and AMS, hyponatremia, blood culture grew E. coli. Following the patient in telemetry floor for following problems Septic shock due to UTI:(resolved) -His septic shock has been resolved. -Patient is hemodynamically stable -We will follow input and output Escherichia coli bacteremia: -Blood and urine culture is positive with Escherichia coli -Patient has history of prosthetic mitral valve replacement -Considering Escherichia coli bacteremia patient could have endocarditis. -NIRAJ was done yesterday that was negative for endocarditis. -Repeat blood cultures are negative. -Continue IV Unasyn day 9. -We will follow ID recommendations Partially treated epiglottitis: (resolved) -Continue benzocaine spray as needed MARTÍN (RESOLVED): -Acute kidney injury has been resolved -No nephrotoxic medications -We will follow input and output C/O diarrhea:(Improving) -C. difficile was negative -She has history of lactulose intolerance -We will encourage by mouth intake Thrombocytopenia and altered mental status: (Improved) -He is at his baseline mental status -His platelet count has been improved -We will avoid any medication that decreases the platelet count H/O hypertension: -Continue home medications DVT prophylaxis: Mechanical only considering his recent thrombocytopenia and hematuria Code Status: DNR/DNI Problem List: 1. Bacteremia 2. UTI (urinary tract infection) Pain Ratin Pain Location: NONE Pain Goal: Remain pain free Pain Plan: PAIN PATHWAY Tomorrow's Labs & Rationales: NONE Saeed Trejo 10/26/17 1405: Attending MD Review Statement Attending Statement Attending MD Statement: examined this patient, discuss w/resident/PA/DEVELOPMENT EDUCATOR, agreed w/resident/PA/DEVELOPMENT EDUCATOR, reviewed EMR data (avail), discussed with nursing, discussed with case mgmt Attending Assessment/Plan: NIRAJ negative for endocarditis. Repeat blood cultures negative. WIll d/w ID about abx course. Pt having some loose BM this am , will dc magnesium. Will f/u on ID recommendations. Will check with urology about stent replacement now vs as an outpatient.
--- NOTE | 2017-10-26 09:38 | ECHOCARDIOGRAM REPORT ---
NICHOLE OCAMPO Age: 62 : Gender: M Exam Date: 10/25/2017 13:49 Exam Location: 1 North Ht (in): Wt (lb): BSA: BP: / Ordering Physician: Felix Swanson MD Referring Physician: Mohan Bui MD Technologist: Matt Wagner [facility] Room Number: [id number] Indications: INFECTIVE ENDOCARDITIS Rhythm: Sinus Technical Quality: Good Medications TIVA Ease of Transducer Insertion Minor Difficulty Complications None. Technical Difficulty None. FINDINGS Left Ventricle Normal-sized left ventricle with mildly reduced global contractility and estimated ejection fraction of 40-45%. Right Ventricle Normal right ventricular size and function. Right Atrium Normal right atrial size. Left Atrium Mild left atrial dilatation. LA Appendage Normal left atrial appendage. IA Septum Normal interatrial septum. No evidence of shunt flow by color Doppler or agitated saline ("bubble") study. Mitral Valve Bioprosthetic mitral valve. No evidence of obvious vegetation. Trace mitral regurgitation. Aortic Valve Structurally normal trileaflet aortic valve. No evidence of obvious vegetation. No aortic valve stenosis or regurgitation. Tricuspid Valve Structurally normal tricuspid valve. No evidence of obvious vegetation. Trace tricuspid regurgitation. Pulmonic Valve Normal appearing pulmonic valve. No evidence of obvious vegetation. No pulmonic regurgitation. Pericardium No pericardial effusion. Great Vessels Grossly normal aortic root and descending thoracic aorta. CONCLUSIONS Normal-sized left ventricle with mildly reduced global contractility and estimated ejection fraction of 40-45%. Normal right ventricular size and function. Normal right atrial size. Mild left atrial dilatation. Normal left atrial appendage. Normal interatrial septum. Bioprosthetic mitral valve. Trace mitral regurgitation. Structurally normal trileaflet aortic valve. Trace tricuspid regurgitation. Normal appearing pulmonic valve. No evidence of valvular vegetations on the bioprosthetic mitral, aortic, tricuspid, or pulmonic valves. Mohan Bui M.D. (Electronically Signed) Final Date: 26 October 2017 09:38 MEASUREMENTS (Male / Female) Normal Values
--- NOTE | 2017-10-26 10:22 | PN- Infect Dx ---
Subjective Subjective: Afebrile. He complains of soft stools but has no other complaints. Objective Last 24 Hrs of Vital Signs/I&O Vital Signs Date Time Temp Pulse Resp B/P B/P Pulse O2 O2 Flow FiO2 Mean Ox Delivery Rate 10/26 0853 120/80 10/26 0646 98.0 86 20 120/80 98 Room Air 10/25 2213 98.5 84 19 118/80 96 10/25 1520 98.3 81 22 110/68 97 10/25 1122 114/70 Intake & Output 10/26 1600 10/26 0800 10/26 0000 Intake Total 440 100 Output Total 450 Balance -10 100 Intake, IV 240 Intake, Oral 200 100 Output, Urine 450 Patient 150 lb Weight Physical Exam Other Physical Findings: He appears comfortable in no acute distress Lungs are clear Heart regular rhythm with no murmur Abdomen is soft, nontender with positive bowel sounds Back no CVA tenderness Extremities no cyanosis, clubbing or edema Results Last 24 Hours of Lab Results: Laboratory Tests 10/25 0622 Chemistry Sodium (137 - 145 mmol/L) 141 Potassium (3.5 - 5.1 mmol/L) 3.8 Chloride (98 - 107 mmol/L) 105 Carbon Dioxide (22 - 30 mmol/L) 26 Anion Gap (5 - 16) 10 BUN (9 - 20 mg/dL) 12 Creatinine (0.7 - 1.2 mg/dL) 0.9 Estimated GFR (>60 ml/min) > 60 BUN/Creatinine Ratio (7 - 25 %) 13.3 Magnesium (1.6 - 2.3 mg/dL) 1.9 Last 24 Hours of Carlin Results: No new cultures Recent Imaging Studies: NIRAJ negative for any vegetations Assessment/Plan ID Impression: Stable, with temperatures and white blood cell count remaining normal, on Unasyn , Day 9 of treatment for recurrent Escherichia coli sepsis, presumably of urologic origin, status post right ESWL 6 days prior to admission, with resolution of the right sided hydronephrosis on his recent ultrasound. His NIRAJ is negative making endocarditis unlikely and he should be able to complete a two -week course of antibiotics with po medication. His hospital course has also been complicated by a possible partially treated epiglottitis, which has been adequately treated. Suggestion: 1. Discontinue Unasyn 2. Begin Augmentin 875 mg po every 12 hours for 5 more days
[2017-10-26 14:44] VITALS: BP 110/70
[2017-10-26 22:35] VITALS: BP 120/76
--- NOTE | 2017-10-27 07:09 | PN- Housestaff ---
[facility] Subjective Follow-up For: Septic shock secondary to UTI (resolved) E coli bacteremia.(resolved) Partially treated epiglottitis(resolved) Tele-Events Since Last Visit: off tele Subjective: No overnight events. Patient remained afebrile odor. Seen and examined this morning. Patient was complaining of loose bowel movement. He reported to lose bowel movement last night without abdominal pain. Patient denied any chest pain , short of breath, nausea, vomiting, chills, fever and dysuria. His antibiotic has been changed to Augmentin by mouth. We will discharge the patient to [facility] and he will follow the urologist in a week for further recommendations regarding right ureteric stent. Review of Systems Constitutional: Reports: no symptoms. EENTM: Reports: no symptoms. Cardiovascular: Reports: no symptoms. Respiratory: Reports: no symptoms. Gastrointestinal: Reports: diarrhea. Genitourinary: Reports: no symptoms. Musculoskeletal: Reports: no symptoms. Neurological/Psychological: Reports: no symptoms. Objective Last 24 Hrs of Vital Signs/I&O Vital Signs Date Time Temp Pulse Resp B/P B/P Pulse O2 O2 Flow FiO2 Mean Ox Delivery Rate 10/27 0744 97.0 75 20 116/76 97 Room Air 10/26 2235 97.9 90 20 120/76 95 10/26 1444 97.5 83 20 110/70 95 Room Air 10/26 0853 120/80 Intake & Output 10/27 1600 10/27 0800 10/27 0000 Intake Total 400 600 Output Total 400 975 Balance 0 -375 Intake, Oral 400 600 Number 1 Bowel Movements Output, Urine 400 975 Patient 148 lb Weight Physical Exam General Appearance: Alert, Oriented X3, Cooperative Skin: No Rashes Skin Temp/Moisture Exam: Warm/Dry Sepsis Skin Exam (color): Normal for Ethnicity HEENT: Atraumatic, PERRLA, EOMI Neck: Supple Cardiovascular: Normal S1, Normal S2 Lungs: Clear to Auscultation, Normal Air Movement Abdomen: Soft, No Tenderness Neurological: Normal Speech, Strength at 5/5 X4 Ext, Normal Tone Extremities: No Edema Assessment/Plan Assessment: 62 YO M with PMH of CAD s/p CABG, Porcine mitral valve replacement, multiple sclerosis, spinal surgery, recent admission to hospital for sepsis of urologic origin with Escherichia coli, resident of [facility], was found to have 103F fever on Saturday, and AMS, hyponatremia, blood culture grew E. coli. Following the patient on telemetry floor for following problems: Septic shock due to UTI:(resolved) -His septic shock has been resolved. -Patient is hemodynamically stable. Escherichia coli bacteremia:(resolved) -Blood and urine culture wre positive with Escherichia coli -Patient has history of prosthetic mitral valve replacement. -NIRAJ negative for endocarditis. -Repeat blood cultures are negative. -Augmentin 875mg bid day 2. Total antibiotic days 10th. We will complete total of 14 days. -General med hold. Partially treated epiglottitis: (resolved) -Continue benzocaine spray as needed MARTÍN (RESOLVED): -Acute kidney injury has been resolved -No nephrotoxic medications -We will follow input and output C/O diarrhea:(Improving) -C. difficile was negative -She has history of lactulose intolerance -We will encourage by mouth intake Thrombocytopenia and altered mental status: (Improved) -He is at his baseline mental status -His platelet count has been improved -We will avoid any medication that decreases the platelet count H/O hypertension: -Continue home medications DVT prophylaxis: Mechanical only considering his recent thrombocytopenia and hematuria Code Status: DNR/DNI Problem List: 1. Bacteremia 2. Septic shock 3. UTI (urinary tract infection) Pain Ratin Pain Location: none Pain Goal: Remain pain free Pain Plan: pain pathway Tomorrow's Labs & Rationales: none MayaKimanireji 10/27/17 1514: Attending MD Review Statement Attending Statement Attending MD Statement: examined this patient, discuss w/resident/PA/FEATHER BONER, agreed w/resident/PA/FEATHER BONER, reviewed EMR data (avail), discussed with nursing, discussed with case mgmt Attending Assessment/Plan: Pt being dced to [facility] today in stable condition on po abx. Pt will f/u closely with urology as an outpatient. NIRAJ done was negative for any vegetations to suggest infective endocarditis. dw/ pt the care plan.
[2017-10-27 07:44] VITALS: BP 116/76
--- NOTE | 2017-10-27 10:20 | Discharge Summary ---
Visit Information Visit Dates Admission Date: 10/18/17 Discharge Date: 10/27/2017 Hospital Course Course Attending Physician: Maya BURNS,Saeed Simeon Primary Care Physician: Cresencio BURNS,Maximo Hospital Course: Mr. Mishra is 62 year old male with PMH CAD s/p CABG, s/p MVR, HTN, ?bipolar d/ o, relapsing remitting MS on oral DMT, baseline deficits include h/o left optic neuritis and bilateral leg weakness more significant on right leg with foot drop , recent hospitalizatio (09/06 09/14) for Ecoli bacteremia of urological origin s/p right ureteral stent insertion, ESWL on October 12, and complete antibiotic course was brought in from [facility] for 2-day history of fever , chills, diaphoresis, dyspnea, poor PO intake and confusion. Urine analysis, urine and blood cultures were done, and he was initiated on levaquin 1 day prior. Patient had no urinary complaints. On admission patient was found to have hypotensive s/p 3 L of normal saline, patient was admitted to ICU for lopressors. # Septic shock of urologic origin Patient had 2 days of lopressor, BP improved and transfered to telemetry floor for close monitor. BP remained stable. Initial blood culture and urine culture were negative for Escherichia coli, ID consulation was obtained and patient was started on IV Unasyn that was switched prior to discharge to Augmentin to finish total of 14 days of antibiotic. Patient reminded Afebrile and repeated blood cultures remained negative. Urology consultation was obtained as well, recommendation to follow up as an outpatient, no plans to change the stent in the near future as patient did not have any further bacteremia after starting IV antibiotic. I repeated renal ultrasound did not show any hydronephrosis. Echocardiogram and NIRAJ was also obtained to rule out vegetation given repeated sepsis after initial treatment with antibiotic during recent admission in September 2017. #Subacute/partially treated epiglottitis Patient complaint of throat discomfort and right ear pain, ENT consultation was obtained, after full ENT examination patient was found to have subacute/ partially treated epiglottitis, recommendation to cover haemophilus influenza. Patient was on IV Unasyn that covered for E. coli as well as subacute epiglottitis. Patient remained symptom-free throughout hospitalization. #MARTÍN, improved Patient's baseline creatinine is 0.9-1, creatinine was elevated on presentation to 1.9, IV fluid was administered with good response. Nephrotoxin should be avoided. #Thrombocytopenia Patient had transient thrombocytopenia during hospitalization mostly due to sepsis. Improved. Platelet on discharge was 190,000 #Diet: Regular diet #Code status: DNR/DNI Allergies: Coded Allergies: lactose (Severe, DIARRHEA 09/07/17) Disposition Summary Disposition Principal Diagnosis: Septic shock of urological origin Additional Diagnosis: subacute epiglottitis Discharge Disposition: SNF Discharge Instructions General Discharge Information Code Status: Do Not Resucitate/Intubat Patient's Diet: Regular diet, lactose intoerance Patient's Activity: as tolerated Follow-Up Instructions/Appts: 1-please follow up with pcp in 1 week of discharge 2-please follow up with urologist in 1 week of discharge Medications at Discharge Discharge Medications: Stop taking the following medications: Levofloxacin (Levaquin) 500 MG TABLET ORAL Continue taking these medications: Sertraline HCl (Sertraline HCl) 100 MG TABLET 2 Tablet ORAL DAILY Qty = 60 Comments: Last Taken: 10/27/17 Time: 08 Divalproex Sodium (Divalproex Sodium ER) 500 MG TAB.ER.24H 1 Tablet ORAL Every night Qty = 30 Comments: Last Taken: 10/26/17 Time: 2225 Metoprolol Succinate (Metoprolol Succinate) 50 MG TAB.ER.24H 1 Tablet ORAL DAILY Qty = 90 Comments: Last Taken: 10/27/17 Time: 08 Dextromethorphan HBr/Quinidine (Nuedexta 20-10 MG Capsule) 20 MG-10 MG CAPSULE 1 Capsule ORAL TWICE DAILY Qty = 60 Comments: Last Taken: 10/27/17 Time: 0806 Oxybutynin Chloride (Oxybutynin Chloride ER) 15 MG TAB.ER.24 1 Tablet ORAL TWICE DAILY Qty = 60 Comments: Last Taken: 10/27/17 Time: 08 Rosuvastatin Calcium (Crestor) 40 MG TABLET 1 Tablet ORAL DAILY Qty = 90 Comments: Last Taken: 10/26/17 Time: 1755 (LIPITOR) Aspirin (Aspirin*) 81 MG TAB.CHEW 1 Tablet ORAL DAILY Comments: Last Taken: 10/27/17 Time: 0805 Magnesium Oxide (Mag-Oxide) 200 MG MAGNESIUM TABLET 1 Tablet ORAL AT BEDTIME Qty = 30 Comments: Last Taken: 10/24/17 Time: 0952 Cholecalciferol (Vitamin D3) (Vitamin D3) 1,000 UNIT CAPSULE 1 Capsule ORAL DAILY Qty = 30 Comments: Last Taken: 10/27/17 Time: 08 Start taking the following new medications: Amoxicillin/Clavulanate Potass (Amox-Clav 875-125 MG Tablet) 875 MG-125 MG TABLET 875 Milligram ORAL EVERY 12 HOURS Qty = 7 No Refills Copies To: Hao BURNS,Mohan Simeon; Cresencio BURNS,[facility]; Jimenez BURNS,James Quarles; Tor Maxwell MD
[2017-10-27] MEDS ORDERED: AMOX-CLAV 875-1 EACH PO (11:10)
[2017-10-27 11:15] VITALS: BP 116/76
[2017-10-27] MEDS ORDERED: MAG-OXIDE200 MG PO (11:31)
== END 2017-10-27 12:55 | DRG 698 ==
LOC: ERH 22:59 → CRI 10-18 01:41 → ERHI 10-18 01:41 → 1NO 10-18 01:41 → CRI 10-18 02:59 → ENTRNSPT 10-20 17:35 → CMPTRNSPT 10-20 18:29 → 1NO 10-20 18:31 → ENPENDDIS 10-27 11:25 → 1NO 10-27 12:55
PROVIDERS: Hospitalist; Internal Medicine; Physician Assistant Medical; Student in an Organized Health Care Education/Training Program
PROC: B24BZZ4 Ultrasonography of Heart with Aorta, Transesophageal (ICD-10-PCS; principal; 2017-10-21)
DX: T83.592A Infection and inflammatory reaction due to indwelling ureteral stent, initial encounter (principal); A41.51 Sepsis due to Escherichia coli [E. coli]; R65.21 Severe sepsis with septic shock; N17.9 Acute kidney failure, unspecified; G35 Multiple sclerosis; D69.6 Thrombocytopenia, unspecified; E87.1 Hypo-osmolality and hyponatremia; J05.10 Acute epiglottitis without obstruction; N39.0 Urinary tract infection, site not specified; N13.6 Pyonephrosis; D64.9 Anemia, unspecified; I25.10 Atherosclerotic heart disease of native coronary artery without angina pectoris; Z98.61 Coronary angioplasty status; Z79.82 Long term (current) use of aspirin; F31.9 Bipolar disorder, unspecified; Z95.3 Presence of xenogenic heart valve; Z66 Do not resuscitate; N20.9 Urinary calculus, unspecified; E78.5 Hyperlipidemia, unspecified; K80.20 Calculus of gallbladder without cholecystitis without obstruction; H92.01 Otalgia, right ear; I25.2 Old myocardial infarction; F03.90 Unspecified dementia, unspecified severity, without behavioral disturbance, psychotic disturbance, mood disturbance, and anxiety; F10.11 Alcohol abuse, in remission; R00.0 Tachycardia, unspecified; R19.7 Diarrhea, unspecified; E87.6 Hypokalemia; I10 Essential (primary) hypertension
CPT/HCPCS: 1NP; CCU; 36415; 36592; 71045; 74176; 76775; 78582; 81001; 82436; 87040; 87070; 87086; 93005; 93010; 93306; 93325; 93970; 96361; 96374; 96375; 97110-GO; 97116-GO; 97161-GP; 97530-GO; 99291; A9540; A9558; J0131; J0290; J0696; J1885; J2185; J2405; J3490

== ENCOUNTER → 2017-11-23 | Day surgery (SDC) | payer OTHER, MEDICARE ==
[~2017-11-23] MED LIST changes: +AMOX-CLAV 875-1 EACH PO; +LEVAQUIN500 M1 PO
--- NOTE | 2017-11-23 13:39 | Operative Report ---
Operative/Inv Procedure Report Surgery Date: 11/23/17 Name of Procedure: left ureter stone ESWL, cysto-left stent removal: fluoroscopy Pre-Operative Diagnosis: left ureter stone and stent Post-Operative Diagnosis: same Estimated Blood Loss: scant Surgeon/Policy Issue Clerk: Tor Maxwell MD Anesthesia: moderate sedation Specimens: left stent Complications: none Operative/Procedure Note Note: The patient was taken to the operating room and placed on the ESWL table in supine position. Timeout was performed, with the patient awake, in order to confirm correct patients identity, procedure, laterality, anesthesia, and other pertinent perioperative information. After adequate anesthesia and antibiotics, the patient was then positioned so that the LEFT Flank was overlying the ESWL table's cut-out, above the concussion dome of the shockwave generator. Fluroscopy, as well as renal US, was used to locate the stone in the distal ureter, adjacent to the LEFT stent. Using fluoroscopy with AP, and oblique views, the position of the left ureter stone was confirmed, and optimized in the c-arm crosshairs. The stone,was approximately 7 mm in size, and was visible on fluroscopy. Renal ultrasound was also performed on the left side, confirming the presence of and additional left renal stone, and no hydronephrosis, with normal parenchyma, and no solid tumor. Flurosocpy was used in an AP and oblique views to maximize the position of the left ureter stone for ESWL. After optimized positioning, ESWL was initiated at low power levels. After noting the patient's tolerance to the shockwaves, the power was maximized. The renal stone was noted to bounce/move with each shockwave with real-time renal US visualization. Toward the end of the procedure, the composition of the left stones had changed significantly, indicating the breaking of the left renal stone. A total of 3000 shockwaves were delivered to the stone. The patient was then placed in a frog-leg position, draped and prepped in the usual surgical fashion. A well lubricated, 22 Haitian cystoscope sheath with 30 angle lens was inserted without difficulty. On entering the bladder the bladder was noted to be free of tumor, and free of stone. Both ureteral orifices were in their ortotopic positions. The left stent was seen in proper place protruding through the left ureter orifice. Using the alligator forcep, under direct visualization, the left stent was grasped. The cystoscope along with entire left stent was then gently removed without difficulty. All sponge, needle, and instrument count were correct at the end of the case. The patient the tolerated both the left cysto/stent removal, and left ESWL procedures well. The patient was awakened, then taken to recovery in satisfactory condition via stretcher. The pt. was dischared with pain meds, diet orders, and intructions to catch fragments with straining the urine. The patient was given requisition to have follow-up renal ultrasound and KUB in 2-4 weeks, prior to follow-up visit in my office. Discharge Disposition: Same Day Admissions CC: Tor Maxwell MD
== END ==
LOC: STS 03:27
DX: N20.1 Calculus of ureter (principal); N13.9 Obstructive and reflux uropathy, unspecified; G35 Multiple sclerosis; I25.10 Atherosclerotic heart disease of native coronary artery without angina pectoris; I95.9 Hypotension, unspecified; Z86.11 Personal history of tuberculosis
CPT/HCPCS: J2250